=== PATIENT | male | born 1950 | race Caucasian/White ===

== ENCOUNTER → 2020-07-09 12:30 | Outpatient (BNVA) | payer MEDICARE, SELFPAY | PROVIDERS: PCP Internal Medicine; Visit Provider Family Medicine Adult Medicine | DX: M47.816 Spondylosis without myelopathy or radiculopathy, lumbar region (principal); M47.812 Spondylosis without myelopathy or radiculopathy, cervical region; M25.552 Pain in left hip; B02.29 Other postherpetic nervous system involvement; Z79.891 Long term (current) use of opiate analgesic | CPT/HCPCS: 99212 ==

== ENCOUNTER 2020-07-30 13:26 | Outpatient (REF) | payer MEDICARE, SELFPAY ==
[2020-07-30 14:24] LABS: Estimated Average Glucose 131 mg/dL; Hemoglobin A1c % 6.2 %
[2020-07-30 14:30] LABS: Cholesterol 178 mg/dL; HDL Cholesterol 51 mg/dL; LDL Cholesterol Calculated 103 mg/dl; Triglycerides 121 mg/dL
[2020-07-30 15:55] LABS: Creatinine Urine 57.63 mg/dL; Microalbumin Urine < 5.0 mg/L
== END 2020-07-30 13:27 | disposition home or self-care (01) ==
LOC: HO.LAB 13:26
PROVIDERS: PCP Internal Medicine; Visit Provider Internal Medicine
DX: E11.9 Type 2 diabetes mellitus without complications (principal)
CPT/HCPCS: 80061; 82043; 83036

== ENCOUNTER → 2020-10-08 13:43 | Outpatient (BNVA) | payer MEDICARE, SELFPAY | PROVIDERS: PCP Internal Medicine; Visit Provider Family Medicine Adult Medicine | DX: M47.812 Spondylosis without myelopathy or radiculopathy, cervical region (principal); M47.816 Spondylosis without myelopathy or radiculopathy, lumbar region; M25.552 Pain in left hip; B02.29 Other postherpetic nervous system involvement | CPT/HCPCS: 99212 ==

== ENCOUNTER 2020-11-16 10:39 | Outpatient (REF) | payer MEDICARE, SELFPAY ==
[2020-11-16 11:55] LABS: MANUAL DIFF FLAG NO
[2020-11-16 12:18] LABS: Basophils Percent Auto 0.4 % (0-2); Eosinophils Absolute Auto 0.3 X10*3/uL (0.0-0.4); Eosinophils Percent Auto 3.9 % (0-4); Hematocrit 38.9 % (42-52); Hemoglobin 13.1 g/dl (14.0-18.0); Imm Gran Abs Auto 0.02 X10*3/uL (0.00-0.03); Imm Gran Pct Auto 0.3 % (0.0-0.4); Lymphocytes Absolute Auto 1.6 X10*3/uL (1.2-4.9); Lymphocytes Percent Auto 19.4 % (20-40); Mean Corpuscular HGB Conc 33.7 g/dl (31.0-36.0); Mean Corpuscular Hemoglobin 30.9 pg (27.0-33.0); Mean Corpuscular Volume 91.7 fL (80-98); Monocytes Absolute Auto 0.8 X10*3/uL (0.1-1.2); Monocytes Percent Auto 9.9 % (2-11); Neutrophils Absolute Auto 5.3 X10*3/uL (2.0-8.3); Neutrophils Percent Auto 66.1 % (45-73); Platelet Count 221 X10*3/uL (160-400); Red Blood Count 4.24 X10*6/uL (4.60-5.80); Red Cell Distribution Width 12.7 % (11.0-16.0)
[2020-11-16 12:29] LABS: Estimated Average Glucose 126 mg/dL
[2020-11-16 12:48] LABS: Alanine Aminotransferase 21 U/L (0-40); Alkaline Phosphatase 81 U/L (39-117); Anion Gap 12 (12-20); Aspartate Amino Transferase 26 U/L (5-37); Bilirubin Total 0.6 mg/dL (0.0-1.0); Blood Urea Nitrogen 15 mg/dL (9-16); Calcium 8.7 mg/dL (8.4-10.2); Carbon Dioxide 29 mmol/L (22-29); Chloride 97 mmol/L (96-108); Estimated Glomerular Filt Rate > 60; Glucose Fasting 126 mg/dL (60-99); HDL Cholesterol 49 mg/dL; Potassium 4.4 mmol/L (3.3-5.1); Sodium 134 mmol/L (135-145); Total Protein 6.6 g/dL (6.5-8.0); Triglycerides 66 mg/dL
[2020-11-16 12:55] LABS: Cholesterol 165 mg/dL; LDL Cholesterol Calculated 103 mg/dl
== END 2020-11-16 10:40 | disposition home or self-care (01) ==
LOC: HO.LAB 10:39
PROVIDERS: PCP Internal Medicine; Visit Provider Internal Medicine
DX: Z00.00 Encounter for general adult medical examination without abnormal findings (principal); E11.9 Type 2 diabetes mellitus without complications
CPT/HCPCS: 36415; 80053; 80061; 83036; 85025

== ENCOUNTER → 2020-12-03 14:26 | Outpatient (BNVA) | payer MEDICARE, SELFPAY | PROVIDERS: PCP Internal Medicine; Visit Provider Family Medicine Adult Medicine | DX: M47.816 Spondylosis without myelopathy or radiculopathy, lumbar region (principal); M47.812 Spondylosis without myelopathy or radiculopathy, cervical region; M25.552 Pain in left hip; B02.29 Other postherpetic nervous system involvement | CPT/HCPCS: 99212 ==

== ENCOUNTER → 2021-01-02 14:06 | Outpatient (BNVA) | payer MEDICARE, SELFPAY | PROVIDERS: PCP Internal Medicine; Visit Provider Family Medicine Adult Medicine | DX: M47.812 Spondylosis without myelopathy or radiculopathy, cervical region (principal); M47.816 Spondylosis without myelopathy or radiculopathy, lumbar region | CPT/HCPCS: Q3014 ==

== ENCOUNTER → 2021-02-27 13:35 | Outpatient (BNVA) | payer MEDICARE, SELFPAY | PROVIDERS: PCP Internal Medicine; Visit Provider Family Medicine Adult Medicine | DX: M47.812 Spondylosis without myelopathy or radiculopathy, cervical region (principal); M47.816 Spondylosis without myelopathy or radiculopathy, lumbar region; M25.552 Pain in left hip; B02.29 Other postherpetic nervous system involvement | CPT/HCPCS: 99212 ==

== ENCOUNTER 2021-04-12 20:47 | Inpatient (IN) | payer MEDICARE, SELFPAY ==
--- NOTE | ~2021-04-12 | US_ITS ---
EXAMINATION: US VENOUS ULTRASOUND WITH DOPPLER LOWER EXTREMITY, RIGHT CLINICAL INFORMATION: Right lower extremity swelling. COMPARISON: Prior venous ultrasound examinations, most recently 06/29/2019. TECHNIQUE: Ultrasound of the deep veins is performed from the hip to the calf with compression sonography and color and pulse Doppler assessment. Spectral analysis with color-flow imaging is performed. FINDINGS: There is normal venous compression and respiratory variation and augmented flow. The visualized common femoral vein, superficial femoral vein, profunda femoral vein, popliteal vein, and the trifurcation region shows no evidence of deep venous thrombosis. There is no significant popliteal fossa cyst. A 5.1 x 1.1 x 3.0 cm right inguinal lymph node is seen, showing good corticomedullary differentiation. If the patient's symptoms persist, followup ultrasound in 5 days 7 days might be of value to exclude proximal propagation from a non-visualized calf vein. US/US venous duplex LE RT IMPRESSION: 1. No DVT demonstrated in the right lower extremity. 2. A pathologically enlarged right renal lymph node is nonspecific and should be managed on a clinical basis. Short-term follow-up ultrasound examination of the right inguinal region may be of use to ensure stability/regression.
--- NOTE | ~2021-04-12 | XR_ITS ---
EXAMINATION: XR CHEST CLINICAL INFORMATION: Cough. COMPARISON: None TECHNIQUE: Frontal view of the chest was obtained. FINDINGS: Mild patchy bibasilar probable atelectasis. No pleural effusion or pneumothorax. Unremarkable cardiomediastinal silhouette. XR/XR chest 1V IMPRESSION: Mild bibasilar probable atelectasis.
[2021-04-12 20:51] VITALS: BP 130/62; PULSE 122; RESP 20; TEMP 38.9; O2SAT 95; BMI 38.0
--- NOTE | 2021-04-12 21:00 | PC.NURSE ---
PT TO ROOM, CHG INTO GOWN AND ON MONITOR, FAMILY AT BEDSIDE WITH PT. LABS DRAWN TO LAB.
--- NOTE | 2021-04-12 21:08 | ECG_ITS ---
Test Reason : AMS Blood Pressure : / mmHG Vent. Rate : 114 BPM Atrial Rate : 114 BPM P-R Int : 196 ms QRS Dur : 082 ms QT Int : 324 ms P-R-T Axes : 051 -50 057 degrees QTc Int : 446 ms Sinus tachycardia with Premature supraventricular complexes Left axis deviation Anteroseptal infarct , age undetermined Abnormal ECG No previous ECGs available Referred By: Marsha Hodges Electronically Signed By:UGO GARRETT
[2021-04-12 21:29] LABS: Basophils Percent Auto 0.1 % (0-2); Eosinophils Percent Auto 0.1 % (0-4); Hematocrit 40.5 % (42-52); Hemoglobin 13.9 g/dl (14.0-18.0); Imm Gran Abs Auto 0.06 X10*3/uL (0.00-0.03); Imm Gran Pct Auto 0.4 % (0.0-0.4); Lymphocytes Absolute Auto 0.5 X10*3/uL (1.2-4.9); Lymphocytes Percent Auto 3.6 % (20-40); MANUAL DIFF FLAG SCAN; Mean Corpuscular HGB Conc 34.3 g/dl (31.0-36.0); Mean Corpuscular Hemoglobin 31.4 pg (27.0-33.0); Mean Corpuscular Volume 91.6 fL (80-98); Mean Platelet Volume 8.9 fL (9.4-12.4); Monocytes Absolute Auto 0.8 X10*3/uL (0.1-1.2); Monocytes Percent Auto 5.3 % (2-11); Neutrophils Absolute Auto 13.5 X10*3/uL (2.0-8.3); Neutrophils Percent Auto 90.5 % (45-73); Platelet Count 198 X10*3/uL (160-400); Red Blood Count 4.42 X10*6/uL (4.60-5.80); SCAN SMEAR FLAG 1; White Blood Count 14.9 X10*3/uL (4.8-10.8)
[2021-04-12] MEDS: Acetaminophen 325 MG TABLET 975 MG PO (21:33)
[2021-04-12] MEDS: Piperacillin Sodium/Tazobactam 3.375 GM in 0.9 % Sodium Chloride 50 ML IV (21:34)
--- NOTE | 2021-04-12 21:42 | ED_ITS ---
HPI - Neuro Symptoms/Deficit General Chief Complaint: Neuro Symptoms/Deficit Stated Complaint: confused, shaking Time Seen by Provider: 04/12/21 21:07 Source: patient and family () Mode of arrival: ambulatory History of Present Illness HPI Narrative: This is a 71-year-old male with longstanding history of diabetes, hypertension, chronic venous stasis with nonhealing lower extremity ulcers who is brought in by his family after he was noted to be somewhat confused and shaking at home at approximately 6:30 p.m.. Patient has received both COVID-19 vaccines with the last and December/2020. Otherwise, he denies any recent sore throat, new cough, nausea, vomiting, obstipation, diarrhea, or urinary symptoms. Related Data Home Medications Medication Instructions Recorded Confirmed multivitamin 1 tab PO DAILY 01/30/21 01/30/21 Previous Rx's Medication Instructions Recorded clotrimazole-betamethasone 1 1 applic TOPICAL BID #45 g 07/01/20 %-0.05 % topical cream pregabalin 150 mg capsule (Lyrica) 150 mg PO TID 90 Days #270 cap 07/11/20 metformin 500 mg tablet,extended 500 mg PO DAILY #90 tab 09/06/20 release 24 hr amlodipine 5 mg tablet 5 mg PO DAILY #90 tab 01/06/21 lisinopril 10 mg tablet 10 mg PO DAILY #90 tab 01/06/21 tramadol 50 mg tablet 50 mg PO Q6H 30 Days #120 tab 02/27/21 Allergies Allergy/AdvReac Type Severity Reaction Status Date / Time No Known Allergies Allergy Verified 02/27/21 13:54 Review of Systems Review of Systems: Pertinent positives and negatives as stated in HPI 10 point review of systems is otherwise negative. [facility] Past Medical History Source: nursing notes reviewed Medical History Arthritis of right hip Cervical spondylosis Diabetes mellitus Hypertension Lumbar spondylosis Pain of left hip Pneumococcal arthritis, right knee Post herpetic neuralgia Surgical History History of tonsillectomy Status post ablation of incompetent vein using laser Family History Family History Father Parkinson disease Mother No problems noted. Social History Social History Alcohol intake: current Alcohol intake frequency: 0-2 drinks per day Alcohol type: beer Patient Tobacco Use Status: Former Tobacco user Tobacco use type: Cigarette Years Smoked: 1978 Second Hand Smoke Exposure: No Advance Directives: No Advance Directives Information Provided: No Physical Exam Vital Signs: Vital Signs: Last Vital Signs Temp 102.1 F H 04/12/21 20:51 Pulse 122 H 04/12/21 20:51 Resp 20 04/12/21 20:51 BP 130/62 04/12/21 20:51 Pulse Ox 95 04/12/21 20:51 Body Mass Index 38.0 VITAL SIGNS: Reviewed. GENERAL: Well developed, well nourished, in no acute distress. HEAD: Normocephalic/atraumatic EYES: PERRLA, EOMI EARS: Ext canals without abnormality, TMs non-bulging and non-erythematous NOSE: Nares patent bilateral OROPHARYNX: no oral lesions noted, posterior pharynx clear NECK: Supple, no adenopathy LUNGS: Normal breath sounds. No adventitious sounds or accessory muscle use. SpO2<95> CARDIOVASCULAR: Regular rate and rhythm without noted murmurs, no JVD but bilateral lower extremity pitting edema-1+ ABDOMEN: Obese, Soft, non-tender, non-distended with bowel sounds, noted umbilical hernia with very mild/chronic overlying skin changes but nontender MUSCULOSKELETAL: No tenderness, deformities, or effusions noted on gross inspection. EXTREMITIES: No cyanosis, stigmata of chronic venous stasis with skin thickening and shininess, but noted warmth and redness to the right lower extremity with an open ulceration that is draining on the posterior lateral aspect SKIN: Inspection of the skin reveals no rashes, ulcerations, jaundice, pallor, or petechiae. NEUROLOGIC: Alert and oriented x 3. Tremulous, nonfocal, strength and sensation to light touch were grossly intact x 4. Course Course Course Narrative: 71-year-old male with history and clinical presentation consistent with sepsis and suspect secondary to right lower extremity as on clinical exam and history there does not appear to be an alternative source but will rule out pulmonary as etiology. Review of all investigations consistent with sepsis related cellulitis and patient received antibiotics, IV fluids, lactic acid and blood cultures. Discussed the case with inpatient hospitalist who accepts admission. MDM - Neuro Symptoms/Deficit Lab Data Result diagrams: 04/12/21 21:21 04/12/21 21:21 Labs: Lab Results 04/12/21 04/12/21 04/12/21 Range/Units 21:16 21:20 21:20 WBC (4.8-10.8) X10*3/uL RBC (4.60-5.80) X10*6/uL Hgb (14.0-18.0) g/dl Hct (42-52) % MCV (80-98) fL MCH (27.0-33.0) pg MCHC (31.0-36.0) g/dl RDW (11.0-16.0) % Plt Count (160-400) X10*3/uL MPV (9.4-12.4) fL Immature Gran % (Auto) (0.0-0.4) % Neut % (Auto) (45-73) % Lymph % (Auto) (20-40) % [place] % (Auto) (2-11) % Eos % (Auto) (0-4) % Baso % (Auto) (0-2) % Lymph # (Auto) (1.2-4.9) X10*3/uL [place] # (Auto) (0.1-1.2) X10*3/uL Eos # (Auto) (0.0-0.4) X10*3/uL Baso # (Auto) (0.0-0.2) X10*3/uL Abs Immat Gran (auto) (0.00-0.03) X10*3/uL Absolute Neuts (auto) (2.0-8.3) X10*3/uL Absolute Nucleated RBC (0.0-0.012) X10*3/uL Nucleated RBC % (auto) (0.0-0.2) /100WBC Smear Tech's Comments PT (9.9-13.0) SEC INR (0.9-1.1) Sodium (135-145) mmol/L Potassium (3.3-5.1) mmol/L Chloride (96-108) mmol/L Carbon Dioxide (22-29) mmol/L Anion Gap (12-20) BUN (9-16) mg/dL Creatinine (0.5-1.4) mg/dL Estim Creat Clear Calc Estimated GFR POC Glucose (60-115) mg/dL Random Glucose (60-115) mg/dL Lactic Acid 2.9 H* (0.5-2.0) mmol/L Calcium (8.4-10.2) mg/dL Magnesium (1.6-2.6) mg/dL Total Bilirubin (0.0-1.0) mg/dL AST (5-37) U/L ALT (0-40) U/L Alkaline Phosphatase (39-117) U/L B-Natriuretic Peptide 21 (<100) pg/mL Total Protein (6.5-8.0) g/dL Albumin (3.5-5.0) g/dL Lipase (8-78) U/L Urine Color Urine Appearance Urine pH (5.0-8.0) Ur Specific [place] (1.005-1.025) Urine Protein (NEG-TRACE) MG/DL Urine Glucose (UA) (NEG) MG/DL Urine Ketones (NEG) MG/DL Urine Blood (NEG) Urine Nitrite (NEG) Ur Leukocyte Esterase (NEG) COVID-19 ([facility]) Negative (Negative) COVID-19 Clin Com See Note 04/12/21 04/12/21 04/12/21 Range/Units 21:21 21:21 21:21 WBC 14.9 H (4.8-10.8) X10*3/uL RBC 4.42 L (4.60-5.80) X10*6/uL Hgb 13.9 L (14.0-18.0) g/dl Hct 40.5 L (42-52) % MCV 91.6 (80-98) fL MCH 31.4 (27.0-33.0) pg MCHC 34.3 (31.0-36.0) g/dl RDW 13.0 (11.0-16.0) % Plt Count 198 (160-400) X10*3/uL MPV 8.9 L (9.4-12.4) fL Immature Gran % (Auto) 0.4 (0.0-0.4) % Neut % (Auto) 90.5 H (45-73) % Lymph % (Auto) 3.6 L (20-40) % [place] % (Auto) 5.3 (2-11) % Eos % (Auto) 0.1 (0-4) % Baso % (Auto) 0.1 (0-2) % Lymph # (Auto) 0.5 L (1.2-4.9) X10*3/uL [place] # (Auto) 0.8 (0.1-1.2) X10*3/uL Eos # (Auto) 0.0 (0.0-0.4) X10*3/uL Baso # (Auto) 0.0 (0.0-0.2) X10*3/uL Abs Immat Gran (auto) 0.06 H (0.00-0.03) X10*3/uL Absolute Neuts (auto) 13.5 H (2.0-8.3) X10*3/uL Absolute Nucleated RBC 0.000 (0.0-0.012) X10*3/uL Nucleated RBC % (auto) 0.0 (0.0-0.2) /100WBC Smear Tech's Comments VERIFIED PT 11.9 (9.9-13.0) SEC INR 1.0 (0.9-1.1) Sodium 133 L (135-145) mmol/L Potassium 4.2 (3.3-5.1) mmol/L Chloride 97 (96-108) mmol/L Carbon Dioxide 26 (22-29) mmol/L Anion Gap 14 (12-20) BUN 12 (9-16) mg/dL Creatinine 0.87 (0.5-1.4) mg/dL Estim Creat Clear Calc 101.2 Estimated GFR > 60 POC Glucose (60-115) mg/dL Random Glucose 127 H (60-115) mg/dL Lactic Acid (0.5-2.0) mmol/L Calcium 9.2 (8.4-10.2) mg/dL Magnesium 1.7 (1.6-2.6) mg/dL Total Bilirubin 1.1 H (0.0-1.0) mg/dL AST 19 (5-37) U/L ALT 20 (0-40) U/L Alkaline Phosphatase 82 (39-117) U/L B-Natriuretic Peptide (<100) pg/mL Total Protein 6.7 (6.5-8.0) g/dL Albumin 4.0 (3.5-5.0) g/dL Lipase 72 (8-78) U/L Urine Color Urine Appearance Urine pH (5.0-8.0) Ur Specific [place] (1.005-1.025) Urine Protein (NEG-TRACE) MG/DL Urine Glucose (UA) (NEG) MG/DL Urine Ketones (NEG) MG/DL Urine Blood (NEG) Urine Nitrite (NEG) Ur Leukocyte Esterase (NEG) COVID-19 ([facility]) (Negative) COVID-19 Clin Com 04/12/21 04/12/21 Range/Units 21:33 22:08 WBC (4.8-10.8) X10*3/uL RBC (4.60-5.80) X10*6/uL Hgb (14.0-18.0) g/dl Hct (42-52) % MCV (80-98) fL MCH (27.0-33.0) pg MCHC (31.0-36.0) g/dl RDW (11.0-16.0) % Plt Count (160-400) X10*3/uL MPV (9.4-12.4) fL Immature Gran % (Auto) (0.0-0.4) % Neut % (Auto) (45-73) % Lymph % (Auto) (20-40) % [place] % (Auto) (2-11) % Eos % (Auto) (0-4) % Baso % (Auto) (0-2) % Lymph # (Auto) (1.2-4.9) X10*3/uL [place] # (Auto) (0.1-1.2) X10*3/uL Eos # (Auto) (0.0-0.4) X10*3/uL Baso # (Auto) (0.0-0.2) X10*3/uL Abs Immat Gran (auto) (0.00-0.03) X10*3/uL Absolute Neuts (auto) (2.0-8.3) X10*3/uL Absolute Nucleated RBC (0.0-0.012) X10*3/uL Nucleated RBC % (auto) (0.0-0.2) /100WBC Smear Tech's Comments PT (9.9-13.0) SEC INR (0.9-1.1) Sodium (135-145) mmol/L Potassium (3.3-5.1) mmol/L Chloride (96-108) mmol/L Carbon Dioxide (22-29) mmol/L Anion Gap (12-20) BUN (9-16) mg/dL Creatinine (0.5-1.4) mg/dL Estim Creat Clear Calc Estimated GFR POC Glucose 132 H (60-115) mg/dL Random Glucose (60-115) mg/dL Lactic Acid (0.5-2.0) mmol/L Calcium (8.4-10.2) mg/dL Magnesium (1.6-2.6) mg/dL Total Bilirubin (0.0-1.0) mg/dL AST (5-37) U/L ALT (0-40) U/L Alkaline Phosphatase (39-117) U/L B-Natriuretic Peptide (<100) pg/mL Total Protein (6.5-8.0) g/dL Albumin (3.5-5.0) g/dL Lipase (8-78) U/L Urine Color DARK YELLOW Urine Appearance CLEAR Urine pH 6.0 (5.0-8.0) Ur Specific [place] 1.010 (1.005-1.025) Urine Protein NEG (NEG-TRACE) MG/DL Urine Glucose (UA) NEG (NEG) MG/DL Urine Ketones 5 (NEG) MG/DL Urine Blood NEG (NEG) Urine Nitrite NEG (NEG) Ur Leukocyte Esterase NEG (NEG) COVID-19 ([facility]) (Negative) COVID-19 Clin Com Discharge Plan Discharge Clinical Impression: Sepsis, Cellulitis Patient Disposition: Admitted As Inpatient Prescriptions: No Action clotrimazole-betamethasone 1-0.05 % cream 1 applic topical BID Qty: 45 RF: 8 metformin 500 mg tablet extended release 24 hr 500 mg PO DAILY Qty: 90 RF: 8 lisinopril 10 mg tablet 10 mg PO DAILY Qty: 90 RF: 1 amlodipine 5 mg tablet 5 mg PO DAILY Qty: 90 RF: 1 multivitamin Tablet 1 tab PO DAILY RF: 0 tramadol 50 mg tablet 50 mg PO Q6H 30 Days Qty: 120 RF: 1 pregabalin [Lyrica] 150 mg capsule 150 mg PO TID 90 Days Qty: 270 RF: 1
[2021-04-12 21:43] LABS: Glucose, Whole Blood 132 mg/dL (60-115)
[2021-04-12 21:43] LABS: Prothrombin Time 11.9 SEC (9.9-13.0)
[2021-04-12 21:48] LABS: SLIDE REVIEW VERIFIED
[2021-04-12 21:59] LABS: Lactic Acid 2.9 mmol/L (0.5-2.0)
[2021-04-12 21:59] LABS: Alanine Aminotransferase 20 U/L (0-40); Alkaline Phosphatase 82 U/L (39-117); Anion Gap 14 (12-20); Aspartate Amino Transferase 19 U/L (5-37); Bilirubin Total 1.1 mg/dL (0.0-1.0); Blood Urea Nitrogen 12 mg/dL (9-16); Calcium 9.2 mg/dL (8.4-10.2); Carbon Dioxide 26 mmol/L (22-29); Chloride 97 mmol/L (96-108); Creatinine Clr Calc Pharmacy 101.2; Estimated Glomerular Filt Rate > 60; Glucose Random 127 mg/dL (60-115); Lipase 72 U/L (8-78); Magnesium 1.7 mg/dL (1.6-2.6); Potassium 4.2 mmol/L (3.3-5.1); Sodium 133 mmol/L (135-145); Total Protein 6.7 g/dL (6.5-8.0)
[2021-04-12 22:20] LABS: Glucose Urine UA NEG (NEG); Leukocyte Esterase Urine NEG (NEG); Nitrite Urine NEG (NEG); Urine Blood NEG (NEG); Urine Ketones 5 MG/DL (NEG); Urine Protein NEG (NEG-TRACE)
[2021-04-12 22:21] LABS: COVID-19 Test Negative (Negative); IDNOW Serial# 9DD0AD1C
[2021-04-12 22:21] LABS: Appearance Urine CLEAR; Color Urine DARK YELLOW
[2021-04-12 22:33] LABS: B Type Natriuretic Peptide 21 pg/mL (<100)
--- NOTE | 2021-04-12 23:22 | PM.IMHP ---
History of Present Illness Date of Service: 04/12/21 Chief Complaint: shaky, dizziness This is a 71-year-old male with past medical history of chronic hip pain who presents to the hospital with complaints of feeling shaky, dizzy, and overall not feeling well. He reports that his symptoms started this afternoon, reports no fever or chills, denies any abdominal pain nausea or vomiting, no chest pain, no shortness of breath, no cough, no urinary symptoms. He reports that he has an open wound that he has been trying to heal for the past year that has been having drainage that is more thick and pus inconsistency and did notice redness in his right lower extremity that was worse than usual. On arrival vitals are significant for Temp of 102.1?, heart rate of 122, respiratory rate of 20, blood pressure 130/62, satting 95% on room air. Patient blood pressure did drop while he was in the ED and received sepsis fluid. Labs are significant for WBC count of 14.9, hemoglobin of 13.9, sodium of 133, lactic acid of 2.9, UA negative, COVID-19 negative Patient will be admitted for further management Review of Systems Review of Systems: Yes all other systems are reviewed and are negative [facility] Medical History Arthritis of right hip Cervical spondylosis Diabetes mellitus Hypertension Lumbar spondylosis Pain of left hip Pneumococcal arthritis, right knee Post herpetic neuralgia Family History Father Parkinson disease Mother No problems noted. Surgical History History of tonsillectomy Status post ablation of incompetent vein using laser Social History Household Members: Spouse Housing: House Do you presently have visiting nurse or other home services: No Alcohol intake: current Alcohol intake frequency: 0-2 drinks per day Alcohol type: beer Patient Tobacco Use Status: Former Tobacco user Tobacco use type: Cigarette Years Smoked: 1979 Smoked in Last 30 Days: No e-Cigarette/Vaping Use: Never Used Second Hand Smoke Exposure: No Use of substances other than those prescribed or required for medical reasons: No Currently Displaying Signs/Symptoms of Drug Intoxication Withdrawal: No Have you been hit, kicked, punched, or otherwise hurt by someone within the past year? If so, by whom?: No Do you feel safe in your current relationship?: Yes Is there a partner from a previous relationship who is making you feel unsafe now?: No Are you made to feel afraid or neglected: No Advance Directives: No Advance Directives Information Provided: No Do you have thoughts of harming others: None Do you have a plan to hurt others: No Plan Recently lost weight without trying: No Meds Allergies Allergy/AdvReac Type Severity Reaction Status Date / Time No Known Allergies Allergy Verified 02/27/21 13:54 Active Medications: Current Medications Generic Name Dose Route Start Last Admin Trade Name Freq PRN Reason Stop Dose Admin Sodium Chloride 2,190 mls @ 2,190 mls/hr 04/12/21 23:09 Ns IVCONT 04/13/21 00:08 .Q1H ONE Home Medications Medication Instructions Recorded Confirmed Last Taken Type multivitamin 1 tab PO DAILY 01/30/21 04/13/21 Unknown History Physical Exam Vital Signs and Narrative: Vital Signs: Last Vital Signs Temp 102.1 F H 04/12/21 20:51 Pulse 122 H 04/12/21 20:51 Resp 20 04/12/21 20:51 BP 130/62 04/12/21 20:51 Pulse Ox 95 04/12/21 20:51 Body Mass Index 38.0 Const: General: cooperative and no acute distress Orientation/consciousness: patient oriented x3 Eyes: General: appearance normal, both eyes and all related structures Resp: Effort & Inspection: normal respiratory effort and able to speak in complete sentences Auscultation: clear to auscultation bilaterally Cardio: Rate: regular rate Rhythm: regular rhythm GI: Palpation (GI): Soft to palpation Auscultation: normal bowel sounds Skin: Other: Bilateral erythema, warmth, aunt edema of lower extremities worse on the right, has an open wound S about 5 cm on the right lower extremity in the lateral aspect of lower like. No pus, no drainage, Neuro: General: patient oriented x3 Cognition (Neuro): normal cognition Extrem: Other: See skin Results Labs CBC and Chem 7: 04/13/21 02:06 04/13/21 02:06 Labs: Laboratory Results - last 24 hr 0804/12/21 04/12/21 21:16 21:20 21:20 MCV MCH MCHC RDW Plt Count MPV Immature Gran % (Auto) Neut % (Auto) Lymph % (Auto) [place] % (Auto) Eos % (Auto) Baso % (Auto) Lymph # (Auto) [place] # (Auto) Eos # (Auto) Baso # (Auto) Abs Immat Gran (auto) Absolute Neuts (auto) Absolute Nucleated RBC Nucleated RBC % (auto) Smear Tech's Comments PT INR Anion Gap Estim Creat Clear Calc Estimated GFR POC Glucose Random Glucose Lactic Acid 2.9 H* Calcium Magnesium Total Bilirubin AST ALT Alkaline Phosphatase B-Natriuretic Peptide 21 Total Protein Albumin Lipase Urine Color Urine Appearance Urine pH Ur Specific [place] Urine Protein Urine Glucose (UA) Urine Ketones Urine Blood Urine Nitrite Ur Leukocyte Esterase COVID-19 ([facility]) Negative COVID-19 Clin Com See Note 04/12/21 04/12/21 04/12/21 21:21 21:21 21:21 MCV 91.6 MCH 31.4 MCHC 34.3 RDW 13.0 Plt Count 198 MPV 8.9 L Immature Gran % (Auto) 0.4 Neut % (Auto) 90.5 H Lymph % (Auto) 3.6 L [place] % (Auto) 5.3 Eos % (Auto) 0.1 Baso % (Auto) 0.1 Lymph # (Auto) 0.5 L [place] # (Auto) 0.8 Eos # (Auto) 0.0 Baso # (Auto) 0.0 Abs Immat Gran (auto) 0.06 H Absolute Neuts (auto) 13.5 H Absolute Nucleated RBC 0.000 Nucleated RBC % (auto) 0.0 Smear Tech's Comments VERIFIED PT 11.9 INR 1.0 Anion Gap 14 Estim Creat Clear Calc 101.2 Estimated GFR > 60 POC Glucose Random Glucose 127 H Lactic Acid Calcium 9.2 Magnesium 1.7 Total Bilirubin 1.1 H AST 19 ALT 20 Alkaline Phosphatase 82 B-Natriuretic Peptide Total Protein 6.7 Albumin 4.0 Lipase 72 Urine Color Urine Appearance Urine pH Ur Specific [place] Urine Protein Urine Glucose (UA) Urine Ketones Urine Blood Urine Nitrite Ur Leukocyte Esterase COVID-19 ([facility]) COVID-[facility] Clin Com 04/12/21 04/12/21 21:33 22:08 MCV MCH MCHC RDW Plt Count MPV Immature Gran % (Auto) Neut % (Auto) Lymph % (Auto) [place] % (Auto) Eos % (Auto) Baso % (Auto) Lymph # (Auto) [place] # (Auto) Eos # (Auto) Baso # (Auto) Abs Immat Gran (auto) Absolute Neuts (auto) Absolute Nucleated RBC Nucleated RBC % (auto) Smear Tech's Comments PT INR Anion Gap Estim Creat Clear Calc Estimated GFR POC Glucose 132 H Random Glucose Lactic Acid Calcium Magnesium Total Bilirubin AST ALT Alkaline Phosphatase B-Natriuretic Peptide Total Protein Albumin Lipase Urine Color DARK YELLOW Urine Appearance CLEAR Urine pH 6.0 Ur Specific [place] 1.010 Urine Protein NEG Urine Glucose (UA) NEG Urine Ketones 5 Urine Blood NEG Urine Nitrite NEG Ur Leukocyte Esterase NEG COVID-19 ([facility]) COVID-19 Clin Com Imaging Radiologist's Impressions: Impressions Chest X-Ray 04/12/21 21:08 IMPRESSION: Mild bibasilar probable atelectasis. Assessment and Plan (1) Sepsis: Status: Acute (2) Cellulitis: Status: Acute (3) Lactic acidosis: Status: Acute This is a 71-year-old male with past medical history of diabetes who presents to the hospital with feeling unwell found to have sepsis # sepsis - secondary to cellulitis - chest x-ray negative, negative UA - has tachycardia, febrile, leukocytosis, hypotension, lactic acid elevation - received sepsis fluid, - given his open wound on the lateral aspect of right lower extremity will start him on vancomycin - follow cultures # cellulitis - right lower extremity - has warmth, erythema, edema, - will start him on IV antibiotics - follow cultures # lactic acidosis - Secondary to sepsis - IV fluids - trend # diabetes - hold oral anti hyperglycemics, - start low-dose sliding scale insulin - diabetic diet # history of chronic pain - continue pregabalin and tramadol DVT prophylaxis: Benaissancenox Quality Stroke Does the patient have a stroke diagnosis?: No VTE Prior VTE?: No VTE Risk Level:: Medical - moderate - high VTE Device Contraindication: Treatment Not Indicated VTE Drug Contraindication: N/A - Med Ordered
[2021-04-12 23:25] LABS: Reflex Lactate? Lactic Acid Added
[2021-04-13] VITALS (13 sets, daily range): BP systolic 74–174; BP diastolic 43–79; PULSE 69–95; RESP 15–20; TEMP 36.4–37.3; O2SAT 96–99
[2021-04-13 00:17] LABS: ~Lactic Acid-LAB USE ONLY 2.5 mmol/L (0.5-2.0)
--- NOTE | 2021-04-13 00:18 | PC.NURSE ---
Lactic 2.5 Hospitalist (Kae) notified
[2021-04-13] MEDS: 0.9 % Sodium Chloride 2,190 ML 2190 ML IVCONT (00:47)
--- NOTE | 2021-04-13 00:58 | PC.NURSE ---
This RN assisting primary RN. Pt resting on stretcher in NAD, breathing with ease on RA. Pt denies pain/discomfort, aaox4, mentating appropriately. Pt medicated by this RN with sepsis fluid bolus. Pt BP 74/47, this RN TT Dr Boyd to notify her. This RN placed 2L of NS on pressure bags. Pt tolerating fluid boluses well. Pt's leaving bedside at this time, taking pt's clothing and shoes home leaving pt with only his glasses and cane for admission. Pt offers no complaints at this time. Kathrine, primary RN made aware of pt's VS and intervention of pressure bags. Stretcher low locked, rails raised, call siu within reach.
[2021-04-13] MEDS: vancomycin HCL 1,000 MG, vancomycin HCL 750 MG in 0.9 % Sodium Chloride 500 ML 267.5 MG IV (01:16)
[2021-04-13] MEDS: Enoxaparin Sodium 40 MG/0.4 ML SYRINGE SUBCUT ×2 (01:17→21:45)
[2021-04-13 01:45] LABS: Reflex Lactate? 2 Y
--- NOTE | 2021-04-13 01:45 | PC.NURSE ---
sepsis bolus complete, BP 111/55 at this time.
[2021-04-13] MEDS: 0.9 % Sodium Chloride 1,000 ML 100 ML IVCONT ×2 (01:46→08:43)
--- NOTE | 2021-04-13 01:50 | PC.NURSE ---
FLOOR UNABLE TO TAKE REPORT, WILL RETURN CALL.
[2021-04-13] MEDS: Lactated Ringers 1,000 ML 999 ML IV (02:00)
[2021-04-13 02:17] LABS: Basophils Percent Auto 0.1 % (0-2); Hematocrit 36.5 % (42-52); Hemoglobin 12.5 g/dl (14.0-18.0); Imm Gran Abs Auto 0.14 X10*3/uL (0.00-0.03); Imm Gran Pct Auto 0.6 % (0.0-0.4); Lymphocytes Absolute Auto 0.9 X10*3/uL (1.2-4.9); Lymphocytes Percent Auto 4.3 % (20-40); MANUAL DIFF FLAG SCAN; Mean Corpuscular HGB Conc 34.2 g/dl (31.0-36.0); Mean Corpuscular Hemoglobin 32.1 pg (27.0-33.0); Mean Corpuscular Volume 93.8 fL (80-98); Monocytes Absolute Auto 1.6 X10*3/uL (0.1-1.2); Monocytes Percent Auto 7.1 % (2-11); Neutrophils Absolute Auto 19.3 X10*3/uL (2.0-8.3); Neutrophils Percent Auto 87.9 % (45-73); Platelet Count 176 X10*3/uL (160-400); Red Blood Count 3.89 X10*6/uL (4.60-5.80); Red Cell Distribution Width 13.2 % (11.0-16.0); SCAN SMEAR FLAG 1; White Blood Count 21.9 X10*3/uL (4.8-10.8)
--- NOTE | 2021-04-13 02:20 | PC.NURSE ---
FLOOR UNABLE TO TAKE REPORT AT THIS TIME, WILL RETURN CALL.
--- NOTE | 2021-04-13 02:23 | PC.NURSE ---
UNABLE TO GIVE REPORT TO FLOOR. NURSE WILL RETURN CALL.
--- NOTE | 2021-04-13 02:38 | PC.NURSE ---
REPORT GIVEN TO LOU NAVAS. PT TO FLOOR ON STRETCHER IN NAD.
[2021-04-13 02:42] LABS: ~Lactic Acid-LAB USE ONLY 2.3 mmol/L (0.5-2.0)
[2021-04-13 02:46] LABS: Anion Gap 13 (12-20); Blood Urea Nitrogen 13 mg/dL (9-16); Calcium 8.2 mg/dL (8.4-10.2); Carbon Dioxide 27 mmol/L (22-29); Chloride 99 mmol/L (96-108); Creatinine Clr Calc Pharmacy 92.6; Estimated Glomerular Filt Rate > 60; Glucose Random 121 mg/dL (60-115); Potassium 4.3 mmol/L (3.3-5.1); Sodium 135 mmol/L (135-145)
[2021-04-13 07:27] LABS: Glucose, Whole Blood 90 mg/dL (60-115)
[2021-04-13] MEDS: Piperacillin Sodium/Tazobactam 3.375 GM in 0.9 % Sodium Chloride 50 ML IV ×3 (08:43→19:37)
[2021-04-13 11:25] LABS: Glucose, Whole Blood 150 mg/dL (60-115)
[2021-04-13] MEDS: vancomycin HCL 1,000 MG in 0.9 % Sodium Chloride 250 ML 270 MG IV (13:16)
--- NOTE | 2021-04-13 14:48 | HO.PM.IMPN ---
Subjective Subjective Date of Service: 04/13/21 Interval History: Offers no acute complaints, no shakiness no fevers, no acute issues since admission. Review of Systems General no headache, no dizziness, no fever chills. CVS no chest pain, no palpitation. Respiratory no cough , no sob. Gastrointestinal no nausea no vomiting, no abdominal pain Physical Exam Vital Signs: Vital Signs: Last Vital Signs Temp 97.5 F 04/13/21 11:16 Pulse 86 04/13/21 11:16 Resp 18 04/13/21 11:16 BP 141/64 H 04/13/21 11:16 Pulse Ox 98 04/13/21 11:16 Body Mass Index 38.0 General resting comfortably in no acute distress. Neck no JVD. CVS regular rate rhythm, Respiratory lungs clear to auscultation, no respiratory distress, no wheeze, no rhonchi. Gastrointestinal abdomen obese, soft, nontender, bowel sounds audible,no guarding , no rigidity. Extremities bilateral nonpitting edema, and hyperemia , no warmth, dime-size open area with yellow slough lateral margin right leg Neuro nonfocal , speech clear. Psych appropriate affect Objective Data Current Medications Generic Name Dose Route Start Last Admin Trade Name Freq PRN Reason Stop Dose Admin Acetaminophen 650 mg 04/13/21 00:10 Acetaminophen 325 Mg Tablet PO Q6H PRN Pain, Mild (Pain Scale 1-3) Amlodipine Besylate 5 mg 04/14/21 09:00 Amlodipine Besylate 5 Mg Tablet PO DAILY MARGARET Protocol Dextrose 25 gm 04/13/21 00:10 Dextrose 50 % 25 Gm/50 Ml Vial IVPUSH Q15M PRN per Hypoglycemia Standing Ord. Protocol Docusate Sodium 100 mg 04/13/21 00:10 Docusate Sodium 100 Mg Capsule PO DAILY PRN Constipation Enoxaparin Sodium 40 mg 04/13/21 22:00 Enoxaparin Sodium 40 Mg/0.4 Ml Syringe SUBCUT Q24H MARGARET Glucose 15 gm 04/13/21 00:10 Glucose Gel 15 Gm Gel..Gram. PO Q15M PRN per Hypoglycemia Standing Ord. Protocol Sodium Chloride 1,000 mls @ 100 mls/hr 04/13/21 00:10 04/13/21 08:43 Ns IVCONT 100 mls/hr .Q10H MARGARET Administration Vancomycin HCl 1,000 mg/ 270 mls @ 270 mls/hr 04/13/21 13:00 04/13/21 14:16 Sodium Chloride IV Infused Q12H [facility] Infusion Piperacillin Sod/Tazobactam 50 mls @ 100 mls/hr 04/13/21 08:00 04/13/21 09:13 Sod 3.375 gm/ Sodium Chloride IV Infused Q6H [facility] Infusion Insulin Human Lispro 0 unit 04/13/21 07:30 04/13/21 11:30 Insulin Lispro 100 Unit/Ml 3 Ml Vial SUBCUT Not Given QIDACHS [facility] Protocol Multivitamins/Vitamin C 1 tab 04/14/21 09:00 Multivitamin Tablet PO DAILY [facility] Ondansetron HCl 4 mg 04/13/21 00:10 Ondansetron Hcl 4 Mg/2 Ml Vial IVPUSH Q8H PRN Nausea and Vomiting Pharmacy Consult 1 each 04/13/21 00:10 Consult Rx Vancomycin Dosing MISCELLANE DAILY PRN Consult order Pregabalin 150 mg 04/13/21 15:00 Pregabalin 150 Mg Capsule PO TID [facility] Sodium Chloride 3 ml 04/13/21 00:10 04/13/21 08:39 0.9 % Sodium Chloride Flush 3 Ml Syringe IVFLUSH Not Given QSHIFT [facility] Tramadol HCl 50 mg 04/13/21 14:45 Tramadol Hcl 50 Mg Tablet PO Q6H [facility] Labs CBC & Chem 7: 04/13/21 02:06 04/13/21 02:06 Labs: Laboratory Results - last 24 hr 04/12/21 04/12/21 04/12/21 21:16 21:20 21:20 MCV MCH MCHC RDW Plt Count MPV Immature Gran % (Auto) Neut % (Auto) Lymph % (Auto) [place] % (Auto) Eos % (Auto) Baso % (Auto) Lymph # (Auto) [place] # (Auto) Eos # (Auto) Baso # (Auto) Abs Immat Gran (auto) Absolute Neuts (auto) Absolute Nucleated RBC Nucleated RBC % (auto) Smear Tech's Comments PT INR Anion Gap Estim Creat Clear Calc Estimated GFR POC Glucose Random Glucose Lactic Acid 2.9 H* Lactic Acid Fup @ 2Hr Lactic Acid Fup @ 4Hr Calcium Magnesium Total Bilirubin AST ALT Alkaline Phosphatase B-Natriuretic Peptide 21 Total Protein Albumin Lipase Urine Color Urine Appearance Urine pH Ur Specific [place] Urine Protein Urine Glucose (UA) Urine Ketones Urine Blood Urine Nitrite Ur Leukocyte Esterase COVID-19 ([facility]) Negative COVID-19 Clin Com See Note 04/12/21 04/12/21 04/12/21 21:21 21:21 21:21 MCV 91.6 MCH 31.4 MCHC 34.3 RDW 13.0 Plt Count 198 MPV 8.9 L Immature Gran % (Auto) 0.4 Neut % (Auto) 90.5 H Lymph % (Auto) 3.6 L [place] % (Auto) 5.3 Eos % (Auto) 0.1 Baso % (Auto) 0.1 Lymph # (Auto) 0.5 L [place] # (Auto) 0.8 Eos # (Auto) 0.0 Baso # (Auto) 0.0 Abs Immat Gran (auto) 0.06 H Absolute Neuts (auto) 13.5 H Absolute Nucleated RBC 0.000 Nucleated RBC % (auto) 0.0 Smear Tech's Comments VERIFIED PT 11.9 INR 1.0 Anion Gap 14 Estim Creat Clear Calc 101.2 Estimated GFR > 60 POC Glucose Random Glucose 127 H Lactic Acid Lactic Acid Fup @ 2Hr Lactic Acid Fup @ 4Hr Calcium 9.2 Magnesium 1.7 Total Bilirubin 1.1 H AST 19 ALT 20 Alkaline Phosphatase 82 B-Natriuretic Peptide Total Protein 6.7 Albumin 4.0 Lipase 72 Urine Color Urine Appearance Urine pH Ur Specific [place] Urine Protein Urine Glucose (UA) Urine Ketones Urine Blood Urine Nitrite Ur Leukocyte Esterase COVID-19 ([facility]) COVID-19 Clin Com 04/12/21 04/12/21 04/12/21 21:33 22:08 23:41 MCV MCH MCHC RDW Plt Count MPV Immature Gran % (Auto) Neut % (Auto) Lymph % (Auto) [place] % (Auto) Eos % (Auto) Baso % (Auto) Lymph # (Auto) [place] # (Auto) Eos # (Auto) Baso # (Auto) Abs Immat Gran (auto) Absolute Neuts (auto) Absolute Nucleated RBC Nucleated RBC % (auto) Smear Tech's Comments PT INR Anion Gap Estim Creat Clear Calc Estimated GFR POC Glucose 132 H Random Glucose Lactic Acid Lactic Acid Fup @ 2Hr 2.5 H* Lactic Acid Fup @ 4Hr Calcium Magnesium Total Bilirubin AST ALT Alkaline Phosphatase B-Natriuretic Peptide Total Protein Albumin Lipase Urine Color DARK YELLOW Urine Appearance CLEAR Urine pH 6.0 Ur Specific [place] 1.010 Urine Protein NEG Urine Glucose (UA) NEG Urine Ketones 5 Urine Blood NEG Urine Nitrite NEG Ur Leukocyte Esterase NEG COVID-19 ([facility]) COVID-19 [facility] Com 04/13/21 04/13/21 04/13/21 02:06 02:06 02:06 MCV 93.8 MCH 32.1 MCHC 34.2 RDW 13.2 Plt Count 176 MPV 9.0 L Immature Gran % (Auto) 0.6 H Neut % (Auto) 87.9 H Lymph % (Auto) 4.3 L [place] % (Auto) 7.1 Eos % (Auto) 0.0 Baso % (Auto) 0.1 Lymph # (Auto) 0.9 L [place] # (Auto) 1.6 H Eos # (Auto) 0.0 Baso # (Auto) 0.0 Abs Immat Gran (auto) 0.14 H Absolute Neuts (auto) 19.3 H Absolute Nucleated RBC 0.000 Nucleated RBC % (auto) 0.0 Smear Tech's Comments PT INR Anion Gap 13 Estim Creat Clear Calc 92.6 Estimated GFR > 60 POC Glucose Random Glucose 121 H Lactic Acid Lactic Acid Fup @ 2Hr Lactic Acid Fup @ 4Hr 2.3 H* Calcium 8.2 L D Magnesium Total Bilirubin AST ALT Alkaline Phosphatase B-Natriuretic Peptide Total Protein Albumin Lipase Urine Color Urine Appearance Urine pH Ur Specific [place] Urine Protein Urine Glucose (UA) Urine Ketones Urine Blood Urine Nitrite Ur Leukocyte Esterase COVID-19 ([facility]) COVID-19 [facility] Com 04/13/21 04/13/21 04/13/21 02:06 07:14 11:19 MCV MCH MCHC RDW Plt Count MPV Immature Gran % (Auto) Neut % (Auto) Lymph % (Auto) [place] % (Auto) Eos % (Auto) Baso % (Auto) Lymph # (Auto) [place] # (Auto) Eos # (Auto) Baso # (Auto) Abs Immat Gran (auto) Absolute Neuts (auto) Absolute Nucleated RBC Nucleated RBC % (auto) Smear Tech's Comments PT INR Anion Gap Estim Creat Clear Calc Estimated GFR POC Glucose 90 150 H Random Glucose Lactic Acid Cancelled Lactic Acid Fup @ 2Hr Lactic Acid Fup @ 4Hr Calcium Magnesium Total Bilirubin AST ALT Alkaline Phosphatase B-Natriuretic Peptide Total Protein Albumin Lipase Urine Color Urine Appearance Urine pH Ur Specific [place] Urine Protein Urine Glucose (UA) Urine Ketones Urine Blood Urine Nitrite Ur Leukocyte Esterase COVID-19 ([facility]) COVID-19 Clin Com Assessment and Plan (1) Lactic acidosis: Status: Acute (2) Sepsis: Status: Acute (3) Cellulitis: Status: Acute (4) Hypertension: Status: Acute (5) Diabetes mellitus: Status: Acute (6) Lumbar spondylosis: Status: Acute Assessment and Plan: 71-year-old male with past medical history of diabetes who presents to the hospital with feeling unwell, shakiness and fever, found to have sepsis # sepsis secondary to cellulitis with chronic right leg open wound - no recurrent fever, worsening leukocytosis chest x-ray negative, negative UA Blood pressure improved,LA trended down Will continue IV vancomycin and Zosyn day 1 follow cultures, check CBC,dc ivf Obtain vascular surgery consultation with Dr. Shanks for hx of peripheral vascular disease Chronic open wound on the lateral aspect of right lower extremity , continue wound care and follow recommendation by Dr. Shanks # diabetes - hold metformin continue sliding scale insulin - diabetic diet # history of chronic pain - continue pregabalin and tramadol DVT prophylaxis:? lovenox Quality Stroke Does the patient have a stroke diagnosis?: No VTE Prior VTE?: No VTE Risk Level:: Medical - moderate - high VTE Device Contraindication: Treatment Not Indicated VTE Drug Contraindication: N/A - Med Ordered
[2021-04-13] MEDS: traMADoL HCL 50 MG TABLET PO ×2 (14:52→21:43)
--- NOTE | 2021-04-13 15:49 | MHC.CM.PN ---
CM ATTEMPTED TO SEE TWICE THROUGHOUT THE DAY. PT WITH VISITOR INITIALLY AND STAFF THE SECOND TIME. CM TO REVISIT
[2021-04-13 16:25] LABS: Glucose, Whole Blood 113 mg/dL (60-115)
[2021-04-13] MEDS: Pregabalin 150 MG CAPSULE PO ×2 (16:59→21:45)
--- NOTE | 2021-04-13 17:38 | PC.NURSE ---
PICTURES TAKEN OF PT LOWER EXTREMITIES AND SENT TO WOUND CARE NURSE. TRIAD APPLIED WITH JOSE ENRIQUE WRAPS. SHE WILL EVALUATE TOMORROW
[2021-04-13 19:58] LABS: Glucose, Whole Blood 153 mg/dL (60-115)
[2021-04-14] MEDS: vancomycin HCL 1,000 MG in 0.9 % Sodium Chloride 250 ML 270 MG IV (00:06)
[2021-04-14] MEDS: 0.9 % Sodium Chloride Flush 3 ML SYRINGE IVFLUSH ×4 (00:08→21:51)
[2021-04-14] MEDS: Piperacillin Sodium/Tazobactam 3.375 GM in 0.9 % Sodium Chloride 50 ML IV ×4 (01:16→19:33)
[2021-04-14 03:57] VITALS: RESP 16
[2021-04-14 05:57] LABS: MANUAL DIFF FLAG NO
[2021-04-14 06:02] LABS: Basophils Percent Auto 0.2 % (0-2); Eosinophils Absolute Auto 0.2 X10*3/uL (0.0-0.4); Hematocrit 37.1 % (42-52); Hemoglobin 12.1 g/dl (14.0-18.0); Imm Gran Abs Auto 0.14 X10*3/uL (0.00-0.03); Imm Gran Pct Auto 0.9 % (0.0-0.4); Lymphocytes Absolute Auto 1.4 X10*3/uL (1.2-4.9); Lymphocytes Percent Auto 8.8 % (20-40); Mean Corpuscular HGB Conc 32.6 g/dl (31.0-36.0); Mean Corpuscular Hemoglobin 30.9 pg (27.0-33.0); Mean Corpuscular Volume 94.9 fL (80-98); Mean Platelet Volume 9.4 fL (9.4-12.4); Monocytes Absolute Auto 1.2 X10*3/uL (0.1-1.2); Monocytes Percent Auto 7.1 % (2-11); Neutrophils Absolute Auto 13.4 X10*3/uL (2.0-8.3); Platelet Count 175 X10*3/uL (160-400); Red Blood Count 3.91 X10*6/uL (4.60-5.80); Red Cell Distribution Width 13.7 % (11.0-16.0); White Blood Count 16.3 X10*3/uL (4.8-10.8)
[2021-04-14 07:35] LABS: Glucose, Whole Blood 98 mg/dL (60-115)
[2021-04-14 07:45] VITALS: BP 172/80; PULSE 88; RESP 18; TEMP 37.1; O2SAT 94
--- NOTE | 2021-04-14 08:54 | MHC.CM.PN ---
PATIENT LIVES WITH HIS /HCP. NEW COPY UPLOADED INTO [employer] AND PLACED IN CHART. HE USES A CANE (4 PRONG) FOR AMBULATION ASSIST NO VNA OR ELDER SERVICES. HE COMES [place] [facility] [place] 6 MONTHS FOR LAB DRAWS SECONDARY TO METFORMIN PRESCRIPTION. HE DOES NOT USE A GLUCOMETER. CASE MANAGEMENT FOLLOWING FOR DC NEEDS. PATIENT REPORTS THAT HE IS SCHEDULED FOR AN ULTRASOUND TODAY. IMM 04/14 IN CHART.
--- NOTE | 2021-04-14 08:57 | MHC.CM.PN ---
PATIENT HAS BEEN VACCINATED AGAINST COVID-19 WITH MODERNA SERIES (BOTH INJECTIONS IN DECEMBER) AT [facility] [place].
[2021-04-14] MEDS: Multivitamin TABLET 1 TAB PO (09:41)
[2021-04-14] MEDS: traMADoL HCL 50 MG TABLET PO ×3 (09:41→21:47)
[2021-04-14] MEDS: amLODIPine Besylate 5 MG TABLET PO (09:41)
[2021-04-14] MEDS: Pregabalin 150 MG CAPSULE PO ×3 (09:41→21:47)
--- NOTE | 2021-04-14 09:46 | MHC.CLN ---
NUTRITION CONSULT NUTRITION CONSULT DUE TO WOUNDS. PATIENT WITH SEPSIS SECONDARY TO CELLULITIS WITH CHRONIC RIGHT LEG OPEN WOUND. NOT STATED THAT WOUND IS PRESSURE ULCER. DIABETIC DIET 1800 KCAL CHANGED TO DIABETIC 2200 KCAL PROVIDING 25.4 KCAL/KG CMW. SEE NUTRITION ASSESSMENT
[2021-04-14 09:57] VITALS: BMI 38.0
--- NOTE | 2021-04-14 10:09 | P.CONGS_ITS ---
History of Present Illness Consult details Consult date: 04/14/21 Reason for consult: wound care Narrative: 71-year-old gentleman well known to me for history of venous insufficiency. He has undergone right great saphenous vein ablation in June of 2019. He had done well subsequent to that. He had a nonhealing ulcer which appear to improve but continues to be a source of problems form. He subsequently did not follow up for his left lower extremity. He presented to the hospital with significant swelling and nonhealing ulcer of the right lower extremity. Review of Systems Constitutional: Constitutional: Reports as per HPI ENT: Reports system reviewed and no additional complaints, except as documented Cardiovascular: Cardiovascular: Denies chest pain, Denies chest pain at rest and Denies chest pain with activity Respiratory: Respiratory: Denies chest congestion and Denies cough Gastrointestinal: Gastrointestinal: Reports no additional gastrointestinal complaints Musculoskeletal: Musculoskeletal: Denies abnormal gait Integumentary/Breasts: Skin/Breast: Reports pruritus and Denies wounds Neurologic: Reports system reviewed and no additional complaints, except as documented and Denies abnormal gait Psychiatric: Psychiatric: Denies no additional psychiatric complaints [facility] Past Medical History Medical History Arthritis of right hip Cervical spondylosis Diabetes mellitus Hypertension Lumbar spondylosis Pain of left hip Pneumococcal arthritis, right knee Post herpetic neuralgia Family History Family History Father Parkinson disease Mother No problems noted. Surgical History Surgical History History of tonsillectomy Status post ablation of incompetent vein using laser Social History Social History Household Members: Spouse Housing: House Do you presently have visiting nurse or other home services: No Alcohol intake: current Alcohol intake frequency: 0-2 drinks per day Alcohol type: beer Patient Tobacco Use Status: Former Tobacco user Tobacco use type: Cigarette Years Smoked: 1978 e-Cigarette/Vaping Use: Never Used Second Hand Smoke Exposure: No service: No Current occupational status: retired Meds Allergies Allergy/AdvReac Type Severity Reaction Status Date / Time latex AdvReac Unknown Verified 04/13/21 18:56 Active Medications: Current Medications Generic Name Dose Route Start Last Admin Trade Name [place] PRN Reason Stop Dose Admin Acetaminophen 650 mg 04/13/21 00:10 Acetaminophen 325 Mg Tablet PO Q6H PRN Pain, Mild (Pain Scale 1-3) Amlodipine Besylate 5 mg 04/14/21 09:00 04/14/21 09:41 Amlodipine Besylate 5 Mg Tablet PO 5 mg DAILY MARGARET Administration Protocol Dextrose 25 gm 04/13/21 00:10 Dextrose 50 % 25 Gm/50 Ml Vial IVPUSH Q15M PRN per Hypoglycemia Standing Ord. Protocol Docusate Sodium 100 mg 04/13/21 00:10 Docusate Sodium 100 Mg Capsule PO DAILY PRN Constipation Enoxaparin Sodium 40 mg 04/13/21 22:00 04/13/21 21:45 Enoxaparin Sodium 40 Mg/0.4 Ml Syringe SUBCUT 40 mg Q24H MARGARET Administration Glucose 15 gm 04/13/21 00:10 Glucose Gel 15 Gm Gel..Gram. PO Q15M PRN per Hypoglycemia Standing Ord. Protocol Vancomycin HCl 1,000 mg/ 270 mls @ 270 mls/hr 04/13/21 13:00 04/14/21 01:42 Sodium Chloride IV Infused Q12H MARGARET Infusion Piperacillin Sod/Tazobactam 50 mls @ 100 mls/hr 04/13/21 08:00 04/14/21 09:42 Sod 3.375 gm/ Sodium Chloride IV 100 mls/hr Q6H MARGARET Administration Insulin Human Lispro 0 unit 04/13/21 07:30 04/14/21 07:38 Insulin Lispro 100 Unit/Ml 3 Ml Vial SUBCUT Not Given QIDACHS [facility] Protocol Multivitamins/Vitamin C 1 tab 04/14/21 09:00 04/14/21 09:41 Multivitamin Tablet PO 1 tab DAILY MARGARET Administration Ondansetron HCl 4 mg 04/13/21 00:10 Ondansetron Hcl 4 Mg/2 Ml Vial IVPUSH Q8H PRN Nausea and Vomiting Pharmacy Consult 1 each 04/13/21 00:10 Consult Rx Vancomycin Dosing MISCELLANE DAILY PRN Consult order Pregabalin 150 mg 04/13/21 15:00 04/14/21 09:41 Pregabalin 150 Mg Capsule PO 150 mg TID MARGARET Administration Sodium Chloride 3 ml 04/13/21 00:10 04/14/21 09:42 0.9 % Sodium Chloride Flush 3 Ml Syringe IVFLUSH 3 ml QSHIFT MARGARET Administration Tramadol HCl 50 mg 04/13/21 14:45 04/14/21 09:41 Tramadol Hcl 50 Mg Tablet PO 50 mg Q6H MARGARET Administration Home Medications Medication Instructions Recorded Confirmed Last Taken Type multivitamin 1 tab PO DAILY 01/30/21 04/13/21 Unknown History Physical Exam Vital Signs: Vital Signs: Last Vital Signs Temp 98.7 F 04/14/21 07:45 Pulse 88 04/14/21 07:45 Resp 18 04/14/21 07:45 BP 172/80 H 04/14/21 07:45 Pulse Ox 94 04/14/21 07:45 Body Mass Index 38.0 Const: General: cooperative, healthy appearing and comfortable Orientati on/consciousness: oriented to person, oriented to place and oriented to time Neck: Carotids: no bruits Chest: Chest palpation & inspection: normal inspection of the chest and normal palpation of entire chest wall Resp: Effort & Inspection: normal respiratory effort and able to speak in complete sentences Cardio: Rate: regular rate Heart sounds: S1 normal heart sound present and S2 normal heart sound present Peripheral pulses: Peripheral pulses 2+ throughout GI: Inspection: Yes normal to inspection Skin: Other: +2 edema, large rope-like varicosities greater than 3 mm General skin exam: dry skin Wounds: wounds noted (Right lower extremity) Neuro: General: oriented to person, oriented to place and oriented to time Extrem: General: Yes edema Right lower extremity: full ROM, normal capillary refill and edema Left lower extremity: full ROM, normal capillary refill and edema Psych: Mental Status: mental status grossly normal Results Labs Result diagrams: 04/14/21 05:26 04/13/21 02:06 Labs: Abnormal lab results 04/13/21 04/13/21 04/14/21 Range/Units 11:19 19:46 05:26 WBC 16.3 H (4.8-10.8) X10*3/uL RBC 3.91 L (4.60-5.80) X10*6/uL Hgb 12.1 L (14.0-18.0) g/dl Hct 37.1 L (42-52) % Immature Gran % (Auto) 0.9 H (0.0-0.4) % Neut % (Auto) 82.0 H (45-73) % Lymph % (Auto) 8.8 L (20-40) % Abs Immat Gran (auto) 0.14 H (0.00-0.03) X10*3/uL Absolute Neuts (auto) 13.4 H (2.0-8.3) X10*3/uL POC Glucose 150 H 153 H (60-115) mg/dL Short CBC 04/14/21 Range/Units 05:26 WBC 16.3 H (4.8-10.8) X10*3/uL Hgb 12.1 L (14.0-18.0) g/dl Hct 37.1 L (42-52) % Plt Count 175 (160-400) X10*3/uL Urine 04/12/21 Range/Units 22:08 Urine Color DARK YELLOW Urine Appearance CLEAR Urine pH 6.0 (5.0-8.0) Ur Specific [place] 1.010 (1.005-1.025) Urine Protein NEG (NEG-TRACE) MG/DL Urine Glucose (UA) NEG (NEG) MG/DL All other labs normal. Assessment and Plan (1) Varicose veins of lower extremity with inflammation, bilateral: Status: Acute In short patient has bilateral lower extremity venous insufficiency as proven by previous examination. I have taken the liberty of ordering repeat venous insufficiency testing which will be scheduled as an outpatient. At the current time would recommend a antibiotics and local wound care. We do have to try to improve the overall edema in order to try did assist in healing of this ulcer. The patient is stable from my perspective for discharge. Thank you for allowing us to assist in his care. If there are any questions or concerns please do not hesitate to contact us. Procedures Date of Service Date of Service: 04/14/21
--- NOTE | 2021-04-14 10:15 | PC.NURSE ---
Skin/wound assessment completed today. Patient has cellulitis to bilateral extremities. Right leg has a 4 X 1.5 X 0.3 venous ulcer being treated with Triad covered with non woven gauze and roll gauze. Left leg has cellulitis with a scant weeping area which was covered with Triad and left open to air. Ammonium Lactate was ordered for the dry skin on bilateral extremities which is peeling. All wounds were present on admission. No other skin issues noted.
[2021-04-14 11:46] LABS: Glucose, Whole Blood 149 mg/dL (60-115)
[2021-04-14 12:00] VITALS: BP 146/68; PULSE 84; RESP 19; TEMP 36.7; O2SAT 97
--- NOTE | 2021-04-14 12:07 | P.CDIC_ITS ---
CDI Concurrent Query Service Date: 04/15/21 Documentation Clarification: Please clarify if you are treating a proba ble/suspected/likely or confirmed: Cellulitis due to Diabetes Mellitus (Type I/Type II) Cellulitis not due to Diabetes Mellitus Other, please specify if known or undetermined Provider Response: Other Other Diagnosis: Cellulitis due to venous stasis ulcers PLEASE DO NOT DELETE/MODIFY EXISTING CONTENT Additional information is needed in order to code to the highest accuracy and appropriate Severity of Illness (SOI). Please clarify the information noted below in your progress notes and discharge summary. Risk Factors/Clinical Indicators/Treatments Chronic venous stasis with nonhealing lower extremity ulcers. Diabetic Temp 102.1 RR 20 HR 120 IV antibiotics, blood cultures ordered. Dx. Sepsis cellulitis. CDS: Cristin Mathews CCS, CDIS Contact Number: [phone] Please Review the information above and exercise your independent professional judgment in responding to the query. If you concur, pleas document in the PROGRESS NOTES and DISCHARGE SUMMARY. If you do not agree with the query, pl ease document in the query above. THIS QUERY IS PART OF THE PERMANENT MEDICAL RECORD
--- NOTE | 2021-04-14 12:14 | PM.IMPN ---
Progress Note: A&P (1) Varicose veins of lower extremity with inflammation, bilateral: Status: Acute Assessment and Plan: 71-year-old male with past medical history of diabetes who presents to the hospital with feeling unwell, shakiness and fever, found to have sepsis # sepsis secondary to cellulitis with chronic right leg open wound - no recurrent fever ?continue vancomycin and Zosyn ?vascular surgery consultation with Dr. Shanks for hx of peripheral vascular disease ?Chronic open wound on the lateral aspect of right lower extremity , continue wound care and follow recommendation by Dr. Shanks and wound care nurse # diabetes - hold metformin continue sliding scale insulin - diabetic diet HTN amlodipine # history of chronic pain - continue pregabalin and tramadol DVT prophylaxis:? lovenox Attending Dr. Craig Subjective Subjective Date of Service: 04/14/21 Interval History: Follow up cellulitis no pain Physical Exam Vital Signs: Vital Signs: Last Vital Signs Temp 98.7 F 04/14/21 07:45 Pulse 88 04/14/21 07:45 Resp 18 04/14/21 07:45 BP 172/80 H 04/14/21 07:45 Pulse Ox 94 04/14/21 07:45 Body Mass Index 38.0 Appearing in no acute distress lung sounds are clear to auscultation heart regular rate rhythm, clear S1, S2 positive bowel sounds, abdomen is soft, nontender neuro patient is alert x3, no focal deficits right leg vascaulr wounds, dry flaky skin Objective Data Current Medications Generic Name Dose Route Start Last Admin Trade Name Freq PRN Reason Stop Dose Admin Acetaminophen 650 mg 04/13/21 00:10 Acetaminophen 325 Mg Tablet PO Q6H PRN Pain, Mild (Pain Scale 1-3) Amlodipine Besylate 5 mg 04/14/21 09:00 04/14/21 09:41 Amlodipine Besylate 5 Mg Tablet PO 5 mg DAILY MARGARET Administration Protocol Dextrose 25 gm 04/13/21 00:10 Dextrose 50 % 25 Gm/50 Ml Vial IVPUSH Q15M PRN per Hypoglycemia Standing Ord. Protocol Docusate Sodium 100 mg 04/13/21 00:10 Docusate Sodium 100 Mg Capsule PO DAILY PRN Constipation Enoxaparin Sodium 40 mg 04/13/21 22:00 04/13/21 21:45 Enoxaparin Sodium 40 Mg/0.4 Ml Syringe SUBCUT 40 mg Q24H MARGARET Administration Glucose 15 gm 04/13/21 00:10 Glucose Gel 15 Gm Gel..Gram. PO Q15M PRN per Hypoglycemia Standing Ord. Protocol Vancomycin HCl 1,000 mg/ 270 mls @ 270 mls/hr 04/13/21 13:00 04/14/21 01:42 Sodium Chloride IV Infused Q12H [facility] Infusion Piperacillin Sod/Tazobactam 50 mls @ 100 mls/hr 04/13/21 08:00 04/14/21 10:55 Sod 3.375 gm/ Sodium Chloride IV Infused Q6H [facility] Infusion Insulin Human Lispro 0 unit 04/13/21 07:30 04/14/21 11:49 Insulin Lispro 100 Unit/Ml 3 Ml Vial SUBCUT Not Given QIDACHS [facility] Protocol Lactic Acid 1 appl 04/14/21 21:00 Ammonium Lactate 12 % Lotion 226 Gm Bottle TOPICAL BID [facility] Multivitamins/Vitamin C 1 tab 04/14/21 09:00 04/14/21 09:41 Multivitamin Tablet PO 1 tab DAILY [facility] Administration Ondansetron HCl 4 mg 04/13/21 00:10 Ondansetron Hcl 4 Mg/2 Ml Vial IVPUSH Q8H PRN Nausea and Vomiting Pharmacy Consult 1 each 04/13/21 00:10 Consult Rx Vancomycin Dosing MISCELLANE DAILY PRN Consult order Pregabalin 150 mg 04/13/21 15:00 04/14/21 09:41 Pregabalin 150 Mg Capsule PO 150 mg TID [facility] Administration Sodium Chloride 3 ml 04/13/21 00:10 04/14/21 09:42 0.9 % Sodium Chloride Flush 3 Ml Syringe IVFLUSH 3 ml QSHIFT [facility] Administration Tramadol HCl 50 mg 04/13/21 14:45 04/14/21 09:41 Tramadol Hcl 50 Mg Tablet PO 50 mg Q6H [facility] Administration Labs CBC & Chem 7: 04/14/21 05:26 04/13/21 02:06 Labs: Laboratory Results - last 24 hr 04/13/21 04/13/21 04/14/21 16:11 19:46 05:26 MCV 94.9 MCH 30.9 MCHC 32.6 RDW 13.7 Plt Count 175 MPV 9.4 Immature Gran % (Auto) 0.9 H Neut % (Auto) 82.0 H Lymph % (Auto) 8.8 L Isabel[place] % (Auto) 7.1 Eos % (Auto) 1.0 Baso % (Auto) 0.2 Lymph # (Auto) 1.4 Isabela # (Auto) 1.2 Eos # (Auto) 0.2 Baso # (Auto) 0.0 Abs Immat Gran (auto) 0.14 H Absolute Neuts (auto) 13.4 H Absolute Nucleated RBC 0.000 Nucleated RBC % (auto) 0.0 POC Glucose 113 153 H 04/14/21 04/14/21 07:25 11:41 MCV MCH MCHC RDW Plt Count MPV Immature Gran % (Auto) Neut % (Auto) Lymph % (Auto) Isabela % (Auto) Eos % (Auto) Baso % (Auto) Lymph # (Auto) Isabela # (Auto) Eos # (Auto) Baso # (Auto) Abs Immat Gran (auto) Absolute Neuts (auto) Absolute Nucleated RBC Nucleated RBC % (auto) POC Glucose 98 149 H Microbiology Microbiology Results: Microbiology 04/12/21 21:27 Blood - Venous Blood Culture - Preliminary Prelim: GPC Gram Stain only 04/12/21 21:20 Blood - Venous Blood Culture - Preliminary No growth after 24 hours. Quality Stroke Does the patient have a stroke diagnosis?: No VTE Prior VTE?: No VTE Risk Level:: Medical - moderate - high VTE Device Contraindication: Treatment Not Indicated VTE Drug Contraindication: N/A - Med Ordered
[2021-04-14 13:21] LABS: Vancomycin Trough 5.6 mcg/mL (10.0-20.0)
[2021-04-14] MEDS: vancomycin HCL 1,250 MG in 0.9 % Sodium Chloride 250 ML 166.67 MG IV (15:34)
[2021-04-14 15:48] VITALS: BP 155/75; PULSE 76; RESP 18; TEMP 36.6; O2SAT 97
[2021-04-14 16:38] LABS: Glucose, Whole Blood 112 mg/dL (60-115)
[2021-04-14 19:35] VITALS: BP 156/65; PULSE 80; RESP 18; TEMP 37.3; O2SAT 96
[2021-04-14 20:31] LABS: Glucose, Whole Blood 130 mg/dL (60-115)
[2021-04-14] MEDS: Enoxaparin Sodium 40 MG/0.4 ML SYRINGE SUBCUT (21:58)
[2021-04-14 23:50] VITALS: BP 163/78; PULSE 75; RESP 18; TEMP 36.3; O2SAT 95
[2021-04-15] MEDS: Piperacillin Sodium/Tazobactam 3.375 GM in 0.9 % Sodium Chloride 50 ML IV ×2 (01:54→08:45)
[2021-04-15] MEDS: vancomycin HCL 1,250 MG in 0.9 % Sodium Chloride 250 ML 166.67 MG IV (01:56)
[2021-04-15] MEDS: traMADoL HCL 50 MG TABLET PO ×3 (02:42→15:04)
[2021-04-15 03:58] VITALS: RESP 16
[2021-04-15 07:34] LABS: Glucose, Whole Blood 93 mg/dL (60-115)
[2021-04-15 08:00] VITALS: BP 154/80; PULSE 69; RESP 17; TEMP 36.4; O2SAT 98
[2021-04-15 08:33] LABS: Anion Gap 13 (12-20); Blood Urea Nitrogen 10 mg/dL (9-16); Calcium 9.1 mg/dL (8.4-10.2); Carbon Dioxide 28 mmol/L (22-29); Chloride 100 mmol/L (96-108); Estimated Glomerular Filt Rate > 60; Glucose Random 127 mg/dL (60-115); Potassium 4.7 mmol/L (3.3-5.1); Sodium 136 mmol/L (135-145)
[2021-04-15 08:44] LABS: Hematocrit 38.7 % (42-52); Mean Corpuscular HGB Conc 33.6 g/dl (31.0-36.0); Mean Corpuscular Hemoglobin 31.7 pg (27.0-33.0); Mean Corpuscular Volume 94.4 fL (80-98); Mean Platelet Volume 9.4 fL (9.4-12.4); Platelet Count 201 X10*3/uL (160-400); Red Cell Distribution Width 13.4 % (11.0-16.0)
[2021-04-15] MEDS: 0.9 % Sodium Chloride Flush 3 ML SYRINGE IVFLUSH ×2 (08:45→15:11)
[2021-04-15] MEDS: amLODIPine Besylate 5 MG TABLET PO (08:46)
[2021-04-15] MEDS: Multivitamin TABLET 1 TAB PO (08:46)
[2021-04-15] MEDS: Pregabalin 150 MG CAPSULE PO ×2 (08:46→15:04)
[2021-04-15] MEDS: Ammonium Lactate 12 % Lotion 226 GM BOTTLE 1 APPL TOPICAL (09:47)
[2021-04-15 11:44] LABS: Glucose, Whole Blood 154 mg/dL (60-115)
--- NOTE | 2021-04-15 11:47 | P.DS_ITS ---
DS: Providers Provider Date of Service: 04/15/21 <Martina Mancilla NP - Last Filed: 04/15/21 17:06> Date of admission: 04/12/21 23:22 <Martina Mancilla NP - Last Filed: 04/15/21 17:06> Date of discharge: 04/15/21 <Martina Mancilla NP - Last Filed: 04/15/21 17:06> Primary care physician: Unknown Physician <Martina Mancilla NP - Last Filed: 04/15/21 17:06> Admitting clinician: Lizzie Boyd <Martina Mancilla NP - Last Filed: 04/15/21 17:06> Attending physician on admission: Lizzie Boyd <Martina Mancilla NP - Last Filed: 04/15/21 17:06> Consults: 04/13/21 14:45 Consult to Vascular Surgery Routine Consulting Provider: Mack Shanks Reason for consultation: rt leg ulcer PVD Has provider been notified: No 04/14/21 12:26 Consult to Infectious Diseases Routine Consulting Provider: Olivia Prince Reason for consultation: GPC 1/2, vascular ulcers Has provider been notified: No <Martina Mancilla NP - Last Filed: 04/15/21 17:06> Attending physician on discharge: Romeo Craig <Martina Mancilla NP - Last Filed: 04/15/21 17:06> Discharging clinician: Martina Mancilla <Martina Mancilla NP - Last Filed: 04/15/21 17:06> DS: Diagnosis Discharge Diagnosis (1) Cellulitis: Status: Acute <Martina Mancilla NP - Last Filed: 04/15/21 17:06> DS: Medications Discharge Medications Home Medications: Home Medications Medication Instructions Recorded Confirmed multivitamin 1 tab PO DAILY 01/30/21 04/13/21 Previous Rx's Medication Instructions Recorded pregabalin 150 mg capsule (Lyrica) 150 mg PO TID 90 Days #270 cap 07/11/20 metformin 500 mg tablet,extended 500 mg PO DAILY #90 tab 09/06/20 release 24 hr amlodipine 5 mg tablet 5 mg PO DAILY #90 tab 01/06/21 lisinopril 10 mg tablet 10 mg PO DAILY #90 tab 01/06/21 tramadol 50 mg tablet 50 mg PO Q6H 30 Days #120 tab 02/27/21 <Martina Mancilla NP - Last Filed: 04/15/21 17:06> DS: Summary Hospital Course Hospital Course: This is a 71-year-old male with past medical history of chronic hip pain who presents to the hospital with complaints of feeling shaky, dizzy, and overall not feeling well.? He reports that his symptoms started this afternoon, reports no fever or chills, denies any abdominal pain nausea or vomiting, no chest pain, no shortness of breath, no cough, no urinary symptoms.? He reports that he has an open wound that he has been trying to heal for the past year that has been having drainage that is more thick and pus inconsistency and did notice redness in his right lower extremity that was worse than usual. Cellulitis . Treated with vancomycin and zosyn. He has a history of PVD with wounds and dry flaky skin to his lower extremities. He was seen by the wound care nurse and wound to RLE was treated with Triad and skin was treated with lac-hydrin. He was also seen by Dr. Shanks and will be followed as outpatient in his office. He will go home with doxycycline for 7 days. blood cultures came back as a contaminant. Attending Attestation: Patient seen and examined independently and I was present during howard portion of E/M service. Agree with Cachorro Mancilla NP's documentation above with the following additions: Patients RLE Doppler was negative for DVT but did reveal a pathologically e nlarged R inguinal lymph node. This should be followed up with a short term ultrasound to ensure stability / regression. <Martina Mancilla NP - Last Filed: 04/15/21 17:06> Time Spent with Patient Time attestation: Total time spent providing and/or coordinating discharge services: <Martina Mancilla NP - Last Filed: 04/15/21 17:06> Discharge coordination time: Greater than 30 minutes <Martina Mancilla NP - Last Filed: 04/15/21 17:06> Quality: Stroke Does the patient have a stroke diagnosis?: No <Martina Mancilla NP - Last Filed: 04/15/21 17:06> Physical Exam Vital Signs: Vital Signs: Last Vital Signs Temp 97.6 F 04/15/21 08:00 Pulse 69 04/15/21 08:00 Resp 17 04/15/21 08:00 BP 154/80 H 04/15/21 08:00 Pulse Ox 98 04/15/21 08:00 Body Mass Index 38.0 <Martina Mancilla NP - Last Filed: 04/15/21 17:06> Appearing in no acute distress lung sounds are clear to auscultation heart regular rate rhythm, clear S1, S2 positive bowel sounds, abdomen is soft, nontender neuro patient is alert x3, no focal deficits <Martina Mancilla NP - Last Filed: 04/15/21 17:06> DS: Data Data Completed and Pending Labs on day of discharge: Laboratory Results - last 24 hr 04/14/21 04/14/21 04/14/21 11:41 12:34 16:26 WBC RBC Hgb Hct MCV MCH MCHC RDW Plt Count MPV Absolute Nucleated RBC Nucleated RBC % (auto) Sodium Potassium Chloride Carbon Dioxide Anion Gap BUN Creatinine Estim Creat Clear Calc Estimated GFR POC Glucose 149 H 112 Random Glucose Calcium Vancomycin Trough 5.6 L 04/14/21 04/15/21 04/15/21 20:26 07:14 07:39 WBC RBC Hgb Hct MCV MCH MCHC RDW Plt Count MPV Absolute Nucleated RBC Nucleated RBC % (auto) Sodium 136 Potassium 4.7 Chloride 100 Carbon Dioxide 28 Anion Gap 13 BUN 10 Creatinine 0.83 Estim Creat Clear Calc 106.0 Estimated GFR > 60 POC Glucose 130 H 93 Random Glucose 127 H Calcium 9.1 D Vancomycin Trough 04/15/21 04/15/21 07:39 11:39 WBC 10.0 RBC 4.10 L Hgb 13.0 L Hct 38.7 L MCV 94.4 MCH 31.7 MCHC 33.6 RDW 13.4 Plt Count 201 MPV 9.4 Absolute Nucleated RBC 0.000 Nucleated RBC % (auto) 0.0 Sodium Potassium Chloride Carbon Dioxide Anion Gap BUN Creatinine Estim Creat Clear Calc Estimated GFR POC Glucose 154 H Random Glucose Calcium Vancomycin Trough Preliminary micro results at discharge 04/12/21 21:20 Blood Culture - Preliminary Blood - Venous No growth after 48 hours. <Martina Mancilla NP - Last Filed: 04/15/21 17:06> Discharge Plan Discharge Anticipated Discharge Date/Time: 04/15/21 11:44 <Martina Mancilla NP - Last Filed: 04/15/21 17:06> Patient Disposition: Home, Self-Care <Martina Mancilla NP - Last Filed: 04/15/21 17:06> Discharge Diagnosis: Cellulitis <Martina Mancilla NP - Last Filed: 04/15/21 17:06> Cellulitis <Romeo Craig MD - Last Filed: 04/15/21 17:40> Referrals: Mack Shanks MD [Physician] - 1 Week <Martina Mancilla NP - Last Filed: 04/15/21 17:06> Discharge Medications: New ammonium lactate 12 % Lotion 1 appl topical BID Qty: 400 RF: 0 doxycycline hyclate 100 mg tablet 100 mg PO BID Qty: 14 RF: 0 Continued metformin 500 mg tablet extended release 24 hr 500 mg PO DAILY Qty: 90 RF: 8 lisinopril 10 mg tablet 10 mg PO DAILY Qty: 90 RF: 1 amlodipine 5 mg tablet 5 mg PO DAILY Qty: 90 RF: 1 multivitamin Tablet 1 tab PO DAILY RF: 0 tramadol 50 mg tablet 50 mg PO Q6H 30 Days Qty: 120 RF: 1 pregabalin [Lyrica] 150 mg capsule 150 mg PO TID 90 Days Qty: 270 RF: 1 <Martina Mancilla NP - Last Filed: 04/15/21 17:06> Discharge Orders: Discharge Order (Routine); Ordered 04/15/21 Ordered By: Martina Mancilla <Martina Mancilla NP - Last Filed: 04/15/21 17:06> Diet: advance to usual diet <Martina Mancilla NP - Last Filed: 04/15/21 17:06> advance to usual diet <Romeo Craig MD - Last Filed: 04/15/21 17:40> Activity on Discharge: As tolerated <Martina Mancilla NP - Last Filed: 04/15/21 17:06> As tolerated <Romeo Craig MD - Last Filed: 04/15/21 17:40> Stand Alone Forms: Patient Portal Discharge page <Martina Mancilla NP - Last Filed: 04/15/21 17:06> Care Plan Goals: Resolution of cellulitis <Martina Mancilla NP - Last Filed: 04/15/21 17:06> Health Concerns: Cellulitis vascular wound <Martina Mancilla NP - Last Filed: 04/15/21 17:06> Plan of Treatment: Follow up with Dr. Shanks in one week Follow up with primary care provider as needed Wound care: Triad to wound bed daily in the morning, wrap with gauze use Lac-Hydrin daily to both lower extremities <Martina Mancilla NP - Last Filed: 04/15/21 17:06> Assessment: See discharge summary <Martina Mancilla NP - Last Filed: 04/15/21 17:06>
[2021-04-15 12:00] VITALS: BP 158/77; PULSE 70; RESP 16; TEMP 36.2; O2SAT 97
--- NOTE | 2021-04-15 13:11 | P.CNID_ITS ---
History of Present Illness Data of Consult Service Date: 04/15/21 Requesting physician: Romeo Craig Primary Care Provider: Unknown Physician HPI Reason for consult: fever of unknown origin He was brought in by family with shaking chills as well as confusion. He had bilateral leg redness and swelling. He has blood culture staph epi 1/2 He had fever three days ago and feeling better now. His legs feel as though they look better Review of Systems Review of Systems: Yes all other systems are reviewed and are negative [facility] Past Medical History Medical History (Updated 04/23/21 @ 00:02 by Thao Hernandez) Arthritis of right hip Cervical spondylosis Diabetes mellitus Hypertension Lumbar spondylosis Obesity Pain of left hip Pneumococcal arthritis, right knee Post herpetic neuralgia Family History Family History Father Parkinson disease Mother No problems noted. Surgical History Surgical History History of tonsillectomy Status post ablation of incompetent vein using laser Social History Social History Household Members: Spouse Housing: House Do you presently have visiting nurse or other home services: No Alcohol intake: current Alcohol intake frequency: 0-2 drinks per day Alcohol type: beer Patient Tobacco Use Status: Former Tobacco user Tobacco use type: Cigarette Years Smoked: 1978 e-Cigarette/Vaping Use: Never Used Second Hand Smoke Exposure: No service: No Current occupational status: retired Meds Allergies Allergy/AdvReac Type Severity Reaction Status Date / Time latex AdvReac Unknown Verified 04/24/21 13:48 Active Medications: Current Medications Generic Name Dose Route Start Last Admin Trade Name Freq PRN Reason Stop Dose Admin Acetaminophen 650 mg 04/13/21 00:10 Acetaminophen 325 Mg Tablet PO Q6H PRN Pain, Mild (Pain Scale 1-3) Amlodipine Besylate 5 mg 04/14/21 09:00 04/15/21 08:46 Amlodipine Besylate 5 Mg Tablet PO 5 mg DAILY MARGARET Administration Protocol Dextrose 25 gm 04/13/21 00:10 Dextrose 50 % 25 Gm/50 Ml Vial IVPUSH Q15M PRN per Hypoglycemia Standing Ord. Protocol Docusate Sodium 100 mg 04/13/21 00:10 Docusate Sodium 100 Mg Capsule PO DAILY PRN Constipation Enoxaparin Sodium 40 mg 04/13/21 22:00 04/14/21 21:58 Enoxaparin Sodium 40 Mg/0.4 Ml Syringe SUBCUT 40 mg Q24H MARGARET Administration Glucose 15 gm 04/13/21 00:10 Glucose Gel 15 Gm Gel..Gram. PO Q15M PRN per Hypoglycemia Standing Ord. Protocol Piperacillin Sod/Tazobactam 50 mls @ 100 mls/hr 04/13/21 08:00 04/15/21 09:19 Sod 3.375 gm/ Sodium Chloride IV Infused Q6H [facility]ET Infusion Vancomycin HCl 1,250 mg/ 250 mls @ 166.667 mls/hr 04/14/21 14:00 04/15/21 04:10 Sodium Chloride IV Infused Q12H [facility] Infusion Insulin Human Lispro 0 unit 04/13/21 07:30 04/15/21 11:53 Insulin Lispro 100 Unit/Ml 3 Ml Vial SUBCUT Not Given QIDACHS [facility] Protocol Lactic Acid 1 appl 04/14/21 21:00 04/15/21 09:47 Ammonium Lactate 12 % Lotion 226 Gm Bottle TOPICAL 1 appl BID MARGARET Administration Multivitamins/Vitamin C 1 tab 04/14/21 09:00 04/15/21 08:46 Multivitamin Tablet PO 1 tab DAILY MARGARET Administration Ondansetron HCl 4 mg 04/13/21 00:10 Ondansetron Hcl 4 Mg/2 Ml Vial IVPUSH Q8H PRN Nausea and Vomiting Pharmacy Consult 1 each 04/13/21 00:10 Consult Rx Vancomycin Dosing MISCELLANE DAILY PRN Consult order Pregabalin 150 mg 04/13/21 15:00 04/15/21 08:46 Pregabalin 150 Mg Capsule PO 150 mg TID MARGARET Administration Sodium Chloride 3 ml 04/13/21 00:10 04/15/21 08:45 0.9 % Sodium Chloride Flush 3 Ml Syringe IVFLUSH 3 ml QSHIFT MARGARET Administration Tramadol HCl 50 mg 04/13/21 14:45 04/15/21 08:45 Tramadol Hcl 50 Mg Tablet PO 50 mg Q6H MARGARET Administration Home Medications Medication Instructions Recorded Confirmed Last Taken Type multivitamin 1 tab PO DAILY 01/30/21 04/24/21 Unknown History Physical Exam Vital Signs: Vital Signs: Last Vital Signs Temp 97.2 F 04/15/21 12:00 Pulse 70 04/15/21 12:00 Resp 16 04/15/21 12:00 BP 158/77 H 04/15/21 12:00 Pulse Ox 97 04/15/21 12:00 Body Mass Index 38.0 Const: General: cooperative HENMT: Head: Yes normal to inspection Mouth: Normal oral and palatal mucosa present Eyes: General: appearance normal, both eyes and all related structures Resp: Effort & Inspection: normal respiratory effort Cardio: Rate: regular rate Rhythm: regular rhythm GI: Palpation (GI): Soft to palpation and nontender Skin: General skin exam: no rashes or lesions noted Extrem: Other: bilateral lower extremity erythema nodular skin lesions Results Labs CBC & Chem 7: 04/15/21 07:39 04/15/21 07:39 Labs: Short CBC 04/15/21 Range/Units 07:39 WBC 10.0 (4.8-10.8) X10*3/uL Hgb 13.0 L (14.0-18.0) g/dl Hct 38.7 L (42-52) % Plt Count 201 (160-400) X10*3/uL BMP 04/15/21 07:39 Sodium 136 Potassium 4.7 Chloride 100 Carbon Dioxide 28 BUN 10 Creatinine 0.83 Calcium 9.1 D Microbiology Microbiology Results: Microbiology 04/12/21 21:27 Blood - Venous Blood Culture - Final Coag negative Staphylococcus 04/12/21 21:20 Blood - Venous Blood Culture - Preliminary No growth after 48 hours. Assessment and Plan (1) Cellulitis: Status: Resolved He has possible gram positive organisms such as staph aureus predominantly I dont believe he has gram negative causes Venous stasis contributes to slow recovery (2) Sepsis: Status: Resolved Would give IV Linezolid or Clindamycin, IV and then po for a week Continue topical steroids
[2021-04-15] MEDS: Clindamycin Phosphate/D5W 600 MG/50 ML PIGGYBACK 100 MG IV (15:04)
[2021-04-15 15:21] VITALS: BP 164/78; PULSE 75; RESP 19; TEMP 36.8; O2SAT 98
[2021-04-15 16:29] LABS: Glucose, Whole Blood 133 mg/dL (60-115)
== END 2021-04-15 17:55 | disposition home or self-care (01) | DRG 872 ==
LOC: HO.ED 23:15 → HO.EDOVER 23:26 → HO.S3 23:38
PROVIDERS: Hospitalist; Admitting Provider Internal Medicine; Emergency Provider Student in an Organized Health Care Education/Training Program; Visit Provider Family Medicine
DX: A41.9 Sepsis, unspecified organism (principal); L03.115 Cellulitis of right lower limb; I83.218 Varicose veins of right lower extremity with both ulcer of other part of lower extremity and inflammation; L97.819 Non-pressure chronic ulcer of other part of right lower leg with unspecified severity; M47.816 Spondylosis without myelopathy or radiculopathy, lumbar region; G89.29 Other chronic pain; I83.12 Varicose veins of left lower extremity with inflammation; I87.8 Other specified disorders of veins; E11.51 Type 2 diabetes mellitus with diabetic peripheral angiopathy without gangrene; I10 Essential (primary) hypertension; Z20.822 Contact with and (suspected) exposure to COVID-19; Z79.84 Long term (current) use of oral hypoglycemic drugs; Z79.891 Long term (current) use of opiate analgesic; Z79.899 Other long term (current) drug therapy
CPT/HCPCS: 36415; 71045; 80048; 80053; 80202; 81003; 82565; 82947; 83605; 83690; 83735; 83880; 85025; 85027; 85610; 87040; 87147; 87205; 87635; 93005; 93971; 96361; 96365; 99285; J1650; J2543; J3370

== ENCOUNTER 2021-04-18 09:42 | Outpatient (REF) | payer MEDICARE, SELFPAY ==
--- NOTE | ~2021-04-18 | US_ITS ---
EXAMINATION: BILATERAL LOWER EXTREMITY VENOUS ULTRASOUND (Reflux Exam) CLINICAL INDICATION: This is a 71-year-old male with venous insufficiency and varicose veins appear COMPARISON: None. TECHNIQUE: Color flow triplex imaging and compression Doppler was performed to evaluate both the deep and the superficial systems bilaterally. To evaluate the superficial system, the examination was performed in the upright position. Color-flow Doppler ultrasound and compression ultrasound were utilized. In addition, maneuvers were utilized to demonstrate reflux. FINDINGS: 1. DEEP VENOUS ULTRASOUND OF THE RIGHT LOWER EXTREMITY: Common Femoral Vein: Compressible, normal respiratory variation and augmented flow. Femoral vein: Compressible, normal color flow and augmentation. Popliteal Vein: Compressible, normal augmentation. Deep Reflux: There is no evidence of reflux in the deep system in either the common femoral vein or the popliteal vein. . There is no evidence of a Trimble's cyst. 2. SUPERFICIAL ULTRASOUND WITH DOPPLER OF RIGHT LOWER EXTREMITY GREAT SAPHENOUS VEIN: Saphenofemoral junction: cm Mid thigh: 0.5 cm Above knee: 0.4 cm Below knee: 0.4 cm Mid calf: 0.3 cm Ankle: 0.4 cm GSV REFLUX: No evidence of reflux. DUPLICATED GREAT SAPHENOUS VEIN: There is a 0.5 cm duplicated lateral great saphenous vein without reflux. SMALL SAPHENOUS VEIN: Upper: 0.4 cm Lower: 0.3 cm SSV REFLUX: No evidence of reflux. VEIN OF GIACOMINI: None Imaged. PERFORATORS: None Imaged VARICOSITIES: There are 0.5 and 0.4 cm varicose veins in the distal thigh and proximal calf, respectively, without evidence of reflux. 3. DEEP VENOUS ULTRASOUND OF THE LEFT LOWER EXTREMITY: Common Femoral Vein: Compressible, normal respiratory variation and augmented flow. Femoral vein: Compressible, normal color flow and augmentation. Popliteal Vein: Compressible, normal augmentation. Deep Reflux: There is no evidence of reflux in the deep system in either the common femoral vein or the popliteal vein. There is no evidence of a Trimble's cyst. 4. SUPERFICIAL ULTRASOUND WITH DOPPLER OF LEFT LOWER EXTREMITY GREAT SAPHENOUS VEIN: Saphenofemoral junction: 0.7 cm Mid thigh: 0.4 cm Above knee: 0.2 cm The great saphenous vein is not seen below this level. GSV REFLUX: No evidence of reflux. DUPLICATED GREAT SAPHENOUS VEIN: There is a 0.3 cm duplicated lateral great saphenous vein without evidence of reflux. SMALL SAPHENOUS VEIN: Upper: 0.3 cm. There is no reflux at the junction. Lower: 0.3 cm. There is reflux in the mid and distal small saphenous vein with the reflux time greater than 3 seconds. SSV REFLUX: There is reflux as noted. VEIN OF GIACOMINI: None Imaged. 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 US/US venous duplex LE BI IMPRESSION: 1. There are patent bilateral great saphenous veins and small saphenous veins, respectively, without evidence of reflux at the junction. 2. There are varicose veins bilaterally without evidence of reflux.
== END 2021-04-18 09:43 | disposition home or self-care (01) ==
LOC: HO.US 09:42
PROVIDERS: PCP Internal Medicine; Visit Provider Surgery Vascular Surgery
DX: I83.893 Varicose veins of bilateral lower extremities with other complications (principal)
CPT/HCPCS: 93970

== ENCOUNTER → 2021-04-24 12:54 | Outpatient (BNVA) | payer MEDICARE, SELFPAY | PROVIDERS: PCP Internal Medicine; Visit Provider Family Medicine Adult Medicine | DX: M47.812 Spondylosis without myelopathy or radiculopathy, cervical region (principal); M47.816 Spondylosis without myelopathy or radiculopathy, lumbar region; M25.552 Pain in left hip; B02.29 Other postherpetic nervous system involvement | CPT/HCPCS: 99212 ==

== ENCOUNTER → 2021-05-15 11:20 | Outpatient (BNVA) | payer MEDICARE, SELFPAY | PROVIDERS: PCP Internal Medicine; Visit Provider Surgery Vascular Surgery | DX: I83.12 Varicose veins of left lower extremity with inflammation (principal); I89.0 Lymphedema, not elsewhere classified | CPT/HCPCS: 99212 ==

== ENCOUNTER → 2021-05-30 08:39 | Outpatient (BNVA) | payer MEDICARE, SELFPAY | PROVIDERS: PCP Internal Medicine; Referring Provider Internal Medicine; Visit Provider Surgery Vascular Surgery | DX: I83.12 Varicose veins of left lower extremity with inflammation (principal) | CPT/HCPCS: 36475 ==

== ENCOUNTER 2021-06-02 09:13 | Outpatient (REF) | payer MEDICARE, SELFPAY ==
--- NOTE | ~2021-06-02 | US_ITS ---
EXAMINATION: US VENOUS ULTRASOUND WITH DOPPLER LOWER EXTREMITY, LEFT CLINICAL INFORMATION: Status post left leg RFA. Rule out DVT. COMPARISON: Ultrasound 04/18/2021 TECHNIQUE: Ultrasound of the deep veins is performed from the hip to the calf with compression sonography and color and pulse Doppler assessment. Spectral analysis with color-flow imaging is performed. FINDINGS: There is normal venous compression and respiratory variation and augmented flow. The visualized common femoral vein, superficial femoral vein, profunda femoral vein, popliteal vein, and the trifurcation region shows no evidence of deep venous thrombosis. There is no significant popliteal fossa cyst. There is a mildly prominent lymph node in left groin which measures 3 x 1.7 x 2.3 cm and has a normal morphology. Given recent procedure this is likely reactive. The small saphenous vein is closed. If the patient's symptoms persist, followup ultrasound in 5 days 7 days might be of value to exclude proximal propagation from a non-visualized calf vein. US/US venous duplex LE IMPRESSION: No DVT demonstrated in the left lower extremity.
== END 2021-06-02 09:14 | disposition home or self-care (01) ==
LOC: HO.US 09:13
PROVIDERS: PCP Internal Medicine; Visit Provider Surgery Vascular Surgery
DX: M79.605 Pain in left leg (principal)
CPT/HCPCS: 93971

== ENCOUNTER → 2021-06-12 11:01 | Outpatient (BNVA) | payer MEDICARE, SELFPAY | PROVIDERS: PCP Internal Medicine; Visit Provider Surgery Vascular Surgery | DX: I83.12 Varicose veins of left lower extremity with inflammation (principal); I89.0 Lymphedema, not elsewhere classified | CPT/HCPCS: 99212 ==

== ENCOUNTER → 2021-06-19 12:54 | Outpatient (BNVA) | payer MEDICARE, SELFPAY | PROVIDERS: PCP Internal Medicine; Visit Provider Family Medicine Adult Medicine | DX: M47.816 Spondylosis without myelopathy or radiculopathy, lumbar region (principal); M47.812 Spondylosis without myelopathy or radiculopathy, cervical region; M25.552 Pain in left hip; B02.29 Other postherpetic nervous system involvement; I10 Essential (primary) hypertension; E66.01 Morbid (severe) obesity due to excess calories; Z87.891 Personal history of nicotine dependence; Z68.39 Body mass index [BMI] 39.0-39.9, adult; Z91.040 Latex allergy status | CPT/HCPCS: 99212 ==

== ENCOUNTER 2021-11-01 09:55 | Outpatient (REF) | payer MEDICARE, SELFPAY ==
[2021-11-01 10:25] LABS: MANUAL DIFF FLAG NO
[2021-11-01 11:17] LABS: Basophils Percent Auto 0.4 % (0-2); Eosinophils Absolute Auto 0.2 X10*3/uL (0.0-0.4); Eosinophils Percent Auto 3.3 % (0-4); Hematocrit 41.7 % (42.0-52.0); Hemoglobin 13.7 g/dl (14.0-18.0); Imm Gran Abs Auto 0.02 X10*3/uL (0.00-0.03); Imm Gran Pct Auto 0.4 % (0.0-0.4); Lymphocytes Absolute Auto 1.4 X10*3/uL (1.2-4.9); Mean Corpuscular HGB Conc 32.9 g/dl (31.0-36.0); Mean Corpuscular Hemoglobin 31.1 pg (27.0-33.0); Mean Corpuscular Volume 94.6 fL (80.0-98.0); Mean Platelet Volume 9.2 fL (9.4-12.4); Monocytes Absolute Auto 0.5 X10*3/uL (0.1-1.2); Monocytes Percent Auto 9.9 % (2-11); Neutrophils Absolute Auto 3.3 x10*3/uL (2.0-8.3); Platelet Count 232 X10*3/uL (160-400); Red Blood Count 4.41 X10*6/uL (4.60-5.80); Red Cell Distribution Width 13.1 % (11.0-16.0); White Blood Count 5.5 X10*3/uL (4.8-10.8)
[2021-11-01 11:25] LABS: Estimated Average Glucose 134 mg/dL; Hemoglobin A1c % 6.3 %
[2021-11-01 11:39] LABS: Alanine Aminotransferase 20 U/L (0-40); Alkaline Phosphatase 91 U/L (39-117); Anion Gap 11 (12-20); Aspartate Amino Transferase 23 U/L (5-37); Bilirubin Total 0.7 mg/dL (0.0-1.0); Blood Urea Nitrogen 12 mg/dL (9-16); Calcium 9.7 mg/dL (8.4-10.2); Carbon Dioxide 31 mmol/L (22-29); Chloride 98 mmol/L (96-108); Cholesterol 152 mg/dL; Estimated Glomerular Filt Rate > 60; Glucose Fasting 138 mg/dL (60-99); HDL Cholesterol 43 mg/dL; LDL Cholesterol Calculated 95 mg/dl; Sodium 135 mmol/L (135-145); Triglycerides 71 mg/dL
== END 2021-11-01 09:56 | disposition home or self-care (01) ==
LOC: HO.LAB 09:55
PROVIDERS: PCP Internal Medicine; Visit Provider Internal Medicine
DX: Z00.00 Encounter for general adult medical examination without abnormal findings (principal); Z13.0 Encounter for screening for diseases of the blood and blood-forming organs and certain disorders involving the immune mechanism; E11.9 Type 2 diabetes mellitus without complications
CPT/HCPCS: 36415; 80053; 80061; 83036; 84443; 85025

== ENCOUNTER 2022-04-18 10:02 | Outpatient (REF) | payer MEDICARE, SELFPAY ==
[2022-04-18 10:20] LABS: MANUAL DIFF FLAG NO
[2022-04-18 10:44] LABS: Estimated Average Glucose 137 mg/dL; Hemoglobin A1c % 6.4 %
[2022-04-18 10:49] LABS: Basophils Percent Auto 0.4 % (0-2); Eosinophils Absolute Auto 0.2 X10*3/uL (0.0-0.4); Eosinophils Percent Auto 4.5 % (0-4); Hematocrit 39.6 % (42.0-52.0); Hemoglobin 13.4 g/dl (14.0-18.0); Imm Gran Abs Auto 0.02 X10*3/uL (0.00-0.03); Imm Gran Pct Auto 0.4 % (0.0-0.4); Lymphocytes Absolute Auto 1.5 X10*3/uL (1.2-4.9); Lymphocytes Percent Auto 28.6 % (20-40); Mean Corpuscular HGB Conc 33.8 g/dl (31.0-36.0); Mean Corpuscular Hemoglobin 31.2 pg (27.0-33.0); Mean Corpuscular Volume 92.1 fL (80.0-98.0); Mean Platelet Volume 9.4 fL (9.4-12.4); Monocytes Absolute Auto 0.5 X10*3/uL (0.1-1.2); Monocytes Percent Auto 9.1 % (2-11); Neutrophils Absolute Auto 2.9 x10*3/uL (2.0-8.3); Platelet Count 205 X10*3/uL (160-400); Red Cell Distribution Width 13.4 % (11.0-16.0); White Blood Count 5.1 X10*3/uL (4.8-10.8)
[2022-04-18 11:02] LABS: Alanine Aminotransferase 18 U/L (0-40); Alkaline Phosphatase 88 U/L (39-117); Anion Gap 13 (12-20); Aspartate Amino Transferase 19 U/L (5-37); Bilirubin Total 0.6 mg/dL (0.0-1.0); Blood Urea Nitrogen 16 mg/dL (9-16); Carbon Dioxide 28 mmol/L (22-29); Chloride 100 mmol/L (96-108); Estimated Glomerular Filt Rate > 60; Glucose Fasting 147 mg/dL (60-99); Potassium 4.9 mmol/L (3.3-5.1); Sodium 136 mmol/L (135-145)
[2022-04-18 11:26] LABS: Thyroid Stimulating Hormone 2.04 uIU/mL (0.32-4.0)
== END 2022-04-18 10:03 | disposition home or self-care (01) ==
LOC: HO.LAB 10:02
PROVIDERS: PCP Internal Medicine; Visit Provider Internal Medicine
DX: Z00.00 Encounter for general adult medical examination without abnormal findings (principal); Z13.0 Encounter for screening for diseases of the blood and blood-forming organs and certain disorders involving the immune mechanism; E11.9 Type 2 diabetes mellitus without complications
CPT/HCPCS: 36415; 80053; 83036; 84443; 85025

== ENCOUNTER 2022-05-05 13:56 | Outpatient (REF) | payer MEDICARE, SELFPAY ==
[2022-05-05 15:13] LABS: Creatinine Urine 55.23 mg/dL; Microalbumin Urine < 5.0 mg/L
== END 2022-05-05 13:57 | disposition home or self-care (01) ==
LOC: HO.LNP 13:56
PROVIDERS: Visit Provider Internal Medicine
DX: E11.69 Type 2 diabetes mellitus with other specified complication (principal); E66.01 Morbid (severe) obesity due to excess calories
CPT/HCPCS: 82043

== ENCOUNTER 2022-10-16 14:23 | Outpatient (REF) | payer MEDICARE, SELFPAY | END 2022-10-16 14:24 | disposition home or self-care (01) | LOC: HO.LAB 14:23 | PROVIDERS: Visit Provider Internal Medicine | DX: Z13.89 Encounter for screening for other disorder (principal) ==

== ENCOUNTER 2022-12-09 14:49 | Outpatient (REF) | payer MEDICARE, SELFPAY ==
[2022-12-09 15:03] LABS: MANUAL DIFF FLAG NO
[2022-12-09 16:55] LABS: Basophils Percent Auto 0.5 % (0-2); Eosinophils Absolute Auto 0.2 X10*3/uL (0.0-0.4); Eosinophils Percent Auto 2.8 % (0-4); Hematocrit 42.9 % (42.0-52.0); Hemoglobin 14.8 g/dl (14.0-18.0); Imm Gran Abs Auto 0.03 X10*3/uL (0.00-0.03); Imm Gran Pct Auto 0.4 % (0.0-0.4); Lymphocytes Absolute Auto 1.9 X10*3/uL (1.2-4.9); Lymphocytes Percent Auto 24.9 % (20-40); Mean Corpuscular HGB Conc 34.5 g/dl (31.0-36.0); Mean Corpuscular Hemoglobin 31.6 pg (27.0-33.0); Mean Corpuscular Volume 91.7 fL (80.0-98.0); Mean Platelet Volume 9.7 fL (9.4-12.4); Monocytes Absolute Auto 0.7 X10*3/uL (0.1-1.2); Monocytes Percent Auto 9.3 % (2-11); Neutrophils Absolute Auto 4.7 x10*3/uL (2.0-8.3); Neutrophils Percent Auto 62.1 % (45-73); Platelet Count 227 X10*3/uL (160-400); Red Blood Count 4.68 X10*6/uL (4.60-5.80); Red Cell Distribution Width 13.1 % (11.0-16.0); White Blood Count 7.6 X10*3/uL (4.8-10.8)
[2022-12-09 17:09] LABS: Estimated Average Glucose 128 mg/dL; Hemoglobin A1c % 6.1 %
[2022-12-09 17:49] LABS: Alanine Aminotransferase 25 U/L (0-40); Albumin Level 4.2 g/dL (3.5-5.0); Alkaline Phosphatase 82 U/L (39-117); Anion Gap 15 (12-20); Aspartate Amino Transferase 24 U/L (5-37); Bilirubin Total 1.1 mg/dL (0.0-1.0); Blood Urea Nitrogen 18 mg/dL (9-16); Calcium 9.7 mg/dL (8.4-10.2); Carbon Dioxide 27 mmol/L (22-29); Chloride 99 mmol/L (96-108); Cholesterol 190 mg/dL; Estimated Glomerular Filt Rate > 60; Glucose Fasting 98 mg/dL (60-99); HDL Cholesterol 46 mg/dL; LDL Cholesterol Calculated 131 mg/dl; Potassium 4.6 mmol/L (3.3-5.1); Sodium 136 mmol/L (135-145); Total Protein 7.2 g/dL (6.5-8.0); Triglycerides 68 mg/dL
== END 2022-12-09 14:50 | disposition home or self-care (01) ==
LOC: HO.LAB 14:49
PROVIDERS: PCP Internal Medicine; Visit Provider Internal Medicine
DX: E78.5 Hyperlipidemia, unspecified (principal); D64.9 Anemia, unspecified; E11.69 Type 2 diabetes mellitus with other specified complication; E11.65 Type 2 diabetes mellitus with hyperglycemia; E66.01 Morbid (severe) obesity due to excess calories; N28.9 Disorder of kidney and ureter, unspecified
CPT/HCPCS: 36415; 80053; 80061; 83036; 85025

== ENCOUNTER 2023-05-13 14:11 | Outpatient (AMB) | payer MEDICARE, SELFPAY ==
[2023-05-13 14:12] VITALS: BP 158/60; PULSE 57; O2SAT 97; BMI 38.0
--- NOTE | 2023-05-13 14:12 | MHC.PC.OV ---
Vital Signs 05/13/23 14:12 Height 5 ft 10 in Weight 265 lb BMI 38.0 BP 158/60 H Blood Pressure Location Rt brachial Position Sitting Pulse 57 Pulse Source Pulse Oximeter Pulse Oximetry (%) 97 Oxygen Delivery Method Room Air Intake Visit Reasons: 3 MONTH F/U Side Guider: Not Required per policy Accompanied by: Self / Same As Patient Allergies latex Adverse Reaction (Verified 05/13/23 14:13) Unknown Medication List - Last Reconciled 05/13/23 by Denzel Garcia MD amlodipine 5 mg PO DAILY ammonium lactate 12% 1 appl topical BID blood pressure test kit-large As directed blood sugar diagnostic ([employer] Ultra Test strips) Use to check blood sugars twice a day blood-glucose meter ([employer] Ultra2 Meter) Use to check blood sugars twice a day clotrimazole-betamethasone 1-0.05 % 1 appl topical BID flash glucose sensor (FreeStyle Lauren 2 Sensor kit) As directed lancets ([employer] Delica Lancets) Use to check blood sugars twice a day lisinopril 10 mg PO DAILY metformin ER 500 mg PO DAILY multivitamin 1 tab PO DAILY naloxone 4 mg/actuation (Narcan) 4 mg intranasal Q2M 1 day pregabalin (Lyrica) 150 mg PO Q12H 90 days tramadol 50 mg PO Q6H 30 days Tobacco use date assessed: 10/16/22 Fall risk assessment: No Falls in past year Last assessed Fall Risk: 05/13/23 Dental Screening Dental Screen Date: 05/13/23 Did you have a dental visit in the last 12 months?: No Did you have a dental problem in the last 6 months where you did not have access to dental care?: No Was dental information given to patient?: Patient has dentist HPI 3 MONTH F/U HPI Details DM HTN chronic pain syndrome; doing well; due for labs [facility] Medical History Hypertension Cataract Diabetes mellitus with coincident hypertension Obesity Hypertension Diabetes mellitus Post herpetic neuralgia Arthritis of right hip Pneumococcal arthritis, right knee Pain of left hip Cervical spondylosis Lumbar spondylosis Surgical History Status post ablation of incompetent vein using laser History of tonsillectomy Family History Father Parkinson disease Mother No problems noted. Social History Household Members: Spouse Housing: House Do you presently have visiting nurse or other home services: No Alcohol intake: current Alcohol intake frequency: 0-2 drinks per day Alcohol type: beer Patient Tobacco Use Status: Former Tobacco user Tobacco use type: Cigarette Years Smoked: 1978 e-Cigarette/Vaping Use: Never Used Second Hand Smoke Exposure: No service: No Current occupational status: retired Cognitive needs: Yes Hearing needs: No Vision needs: No Questionnaire PHQ-9 Over the last 2 weeks, how often have you been bothered by any of the following problems? 1. Little interest or pleasure in doing things: not at all 2. Feeling down, depressed, or hopeless: not at all 3. Trouble falling or staying asleep, or sleeping too much: not at all 4. Feeling tired or having little energy: not at all 5. Poor appetite or overeating: not at all 6. Feeling bad about yourself - or that you are a failure or have let yourself or your family down: not at all 7. Trouble concentrating on things, such as reading the newspaper or watching television: not at all 8. Moving or speaking so slowly that other people could have noticed. Or the opposite - being so fidgety or restless that you have been moving around a lot more than usual: not at all 9. Thoughts that you would be better off or of hurting yourself in some way: not at all Total score: 0 Depression Screening Interpretation: Negative 97723 - PHQ-9 Billing: Yes Source: Developed by Drs. Alfredo Anna, Sarah Nichols, Geovanny Gibson and colleagues, with an educational carroll from [employer] Thrive Questionnaire Date Thrive assessed: 10/16/22 AUDIT C Alcohol Use Questionnaire (AUDIT-C) 1. How often do you have a drink containing alcohol?: 4 or more times a week 2. How many drinks containing alcohol do you have on a typical day when you are drinking?: 3 or 4 (2-3 beer before dinner.) 3. How often do you have six or more drinks on one occasion?: Never Total Score: 5 Score Reviewed/Action Taken: Yes PALMER-7 AMB Questionnaire PALMER-7 Date PALMER - 7 assessed: 10/16/22 Source: Developed by Drs. Alfredo Anna, Sarah Nichols, Geovanny Gibson and colleagues, with an educational carroll from [employer] Review of Systems Const Denies chills, Denies headache(s) and Denies weight loss ENT Denies headache(s) Card Denies chest pain, Denies syncope, Denies irregular heart rhythm and Denies dyspnea Resp Denies chest congestion, Denies cough and Denies dyspnea GI Denies abdominal pain, Denies change in stool character, Denies nausea and Denies vomiting Musc Denies deformity and Denies joint swelling Neuro Denies syncope and Denies headache(s) Physical exam (Primary Care) Vital Signs: Last Vital Signs Pulse 57 05/13/23 14:12 BP 158/60 H 05/13/23 14:12 Pulse Ox 97 05/13/23 14:12 Oxygen Delivery Method Room Air 05/13/23 14:12 BMI result Body Mass Index 38.0 Tobacco/Smoking Status: Tobacco use Status Tobacco use date assessed 10/16/22 05/13/23 14:22 Patient Tobacco Use Status Former Tobacco user 05/13/23 14:22 Tobacco use type Cigarette 05/13/23 14:22 e-Cigarette/Vaping Use Never Used 05/13/23 14:22 PHQ-9: PHQ-9 Score PHQ-9: Total score 0 05/13/23 14:22 Depression Screening Interpretation: Negative Thrive Assessment: Date of Thrive Assessment Date Thrive assessed 10/16/22 05/13/23 14:22 Const General: cooperative, comfortable, no acute distress and alert Neck Neck: Yes no lymphadenopathy Thyroid: Thyroid normal Resp Effort & Inspection: normal respiratory effort Auscultation: clear to auscultation bilaterally Percussion: percussion normal Cardio Jugular venous distension: no JVD Palpation: normal PMI Rate: regular rate Rhythm: regular rhythm Heart sounds: S1 normal heart sound present and S2 normal heart sound present GI Inspection: Yes normal to inspection Palpation (GI): No hepatosplenomegaly present Skin General skin exam: no rashes or lesions noted Extrem General: Yes no clubbing, cyanosis or edema Assessment and Plan Assessment & Plan (1) Hypertension: Code(s): I10 - Essential (primary) hypertension Plan: stable; same rx (2) Diabetes mellitus with coincident hypertension: Code(s): E11.9 - Type 2 diabetes mellitus without complications; I10 - Essential (primary) hypertension Plan: stable; same rx (3) Post herpetic neuralgia: Code(s): B02.29 - Other postherpetic nervous system involvement Plan: stable; same rx Orders: Orders Complete Blood Count Auto Diff Today D64.9 - Anemia, unspecified Lipid Panel Today E78.5 - Hyperlipidemia, unspecified Comprehensive Windfall. Panel Fast Today N28.9 - Disorder of kidney and ureter, unspecified Hemoglobin A1c Today R73.9 - Hyperglycemia, unspecified Coding Level of Care Code Est Pt Level 4 (30194) Diagnoses Hypertension I10 Diabetes mellitus with coincident hypertension E11.9; I10 Post herpetic neuralgia B02.29
== END 2023-05-13 14:29 | disposition home or self-care (01) ==
PROVIDERS: PCP Internal Medicine; Visit Provider Internal Medicine
DX: I10 Essential (primary) hypertension (principal); E11.9 Type 2 diabetes mellitus without complications; B02.29 Other postherpetic nervous system involvement
CPT/HCPCS: 99214

== ENCOUNTER 2023-08-20 13:56 | Outpatient (REF) | payer MEDICARE, SELFPAY ==
[2023-08-20 14:18] LABS: MANUAL DIFF FLAG NO
[2023-08-20 14:22] LABS: Basophils Percent Auto 0.4 % (0-2); Eosinophils Absolute Auto 0.1 X10*3/uL (0.0-0.4); Eosinophils Percent Auto 1.8 % (0-4); Hemoglobin 14.7 g/dl (14.0-18.0); Imm Gran Abs Auto 0.02 X10*3/uL (0.00-0.03); Imm Gran Pct Auto 0.3 % (0.0-0.4); Lymphocytes Absolute Auto 1.8 X10*3/uL (1.2-4.9); Lymphocytes Percent Auto 24.5 % (20-40); Mean Corpuscular HGB Conc 34.2 g/dl (31.0-36.0); Mean Corpuscular Hemoglobin 32.4 pg (27.0-33.0); Mean Corpuscular Volume 94.7 fL (80.0-98.0); Mean Platelet Volume 8.6 fL (9.4-12.4); Monocytes Absolute Auto 0.7 X10*3/uL (0.1-1.2); Neutrophils Absolute Auto 4.6 x10*3/uL (2.0-8.3); Platelet Count 241 X10*3/uL (160-400); Red Blood Count 4.54 X10*6/uL (4.60-5.80); Red Cell Distribution Width 12.4 % (11.0-16.0); White Blood Count 7.2 X10*3/uL (4.8-10.8)
[2023-08-20 14:46] LABS: Alanine Aminotransferase 18 U/L (0-40); Albumin Level 4.1 g/dL (3.5-5.0); Alkaline Phosphatase 71 U/L (39-117); Anion Gap 13 (12-20); Aspartate Amino Transferase 21 U/L (5-37); Bilirubin Total 0.8 mg/dL (0.0-1.0); Blood Urea Nitrogen 16 mg/dL (9-16); Calcium 9.7 mg/dL (8.4-10.2); Carbon Dioxide 27 mmol/L (22-29); Chloride 99 mmol/L (96-108); Cholesterol 185 mg/dL (<200); Estimated Glomerular Filt Rate > 60; Glucose Fasting 114 mg/dL (60-99); HDL Cholesterol 48 mg/dL (>40); LDL Cholesterol Calculated 114 mg/dL (<100); Potassium 4.4 mmol/L (3.3-5.1); Sodium 135 mmol/L (135-145); Total Protein 7.4 g/dL (6.5-8.0); Triglycerides 118 mg/dL (<150)
[2023-08-20 15:29] LABS: Estimated Average Glucose 126 mg/dL
== END 2023-08-20 13:57 | disposition home or self-care (01) ==
LOC: HO.LAB 13:56
PROVIDERS: PCP Internal Medicine; Visit Provider Internal Medicine
DX: D64.9 Anemia, unspecified (principal); N28.9 Disorder of kidney and ureter, unspecified; R73.9 Hyperglycemia, unspecified; E78.5 Hyperlipidemia, unspecified
CPT/HCPCS: 36415; 80053; 80061; 83036; 85025

== ENCOUNTER 2023-08-26 15:35 | Outpatient (REF) | payer MEDICARE, SELFPAY ==
[2023-08-26 16:10] LABS: Creatinine Urine 27.72 mg/dL; Microalbumin Urine < 5.0 mg/L
== END 2023-08-26 15:36 | disposition home or self-care (01) ==
LOC: HO.LNP 15:35
PROVIDERS: Visit Provider Internal Medicine
DX: E11.69 Type 2 diabetes mellitus with other specified complication (principal); E66.01 Morbid (severe) obesity due to excess calories
CPT/HCPCS: 82043; 82570

== ENCOUNTER 2023-09-02 14:16 | Outpatient (AMB) | payer MEDICARE, SELFPAY ==
[2023-09-02 14:17] VITALS: BP 168/80; PULSE 100; O2SAT 98; BMI 38.0
--- NOTE | 2023-09-02 14:17 | MHC.PC.OV ---
Vital Signs 09/02/23 14:17 Height 5 ft 10 in Weight 265 lb BMI 38.0 BP 168/80 H Blood Pressure Location Lt brachial Position Sitting Pulse 100 Pulse Source Pulse Oximeter Pulse Oximetry (%) 98 Oxygen Delivery Method Room Air Intake Visit Reasons: 3 month f/u Predatory Animal Hunter Required: No Churn Driller: Not Required per policy Accompanied by: Self / Same As Patient Allergies latex Adverse Reaction (Verified 09/02/23 14:18) Unknown Medication List - Last Reconciled 09/03/23 by Denzel Garcia MD amlodipine 5 mg PO DAILY ammonium lactate 12% 1 appl topical BID blood pressure test kit-large As directed blood sugar diagnostic ([employer] Ultra Test strips) Use to check blood sugars twice a day blood-glucose meter ([employer] Ultra2 Meter) Use to check blood sugars twice a day clotrimazole-betamethasone 1-0.05 % 1 appl topical BID flash glucose sensor (FreeStyle Lauren 2 Sensor kit) As directed lancets ([employer] Delica Lancets) Use to check blood sugars twice a day lisinopril 10 mg PO DAILY metformin ER 500 mg PO DAILY multivitamin 1 tab PO DAILY naloxone 4 mg/actuation (Narcan) 4 mg intranasal Q2M 1 day pregabalin (Lyrica) 150 mg PO Q12H 90 days tramadol 50 mg PO Q6H 30 days Tobacco use date assessed: 10/16/22 Fall risk assessment: No Falls in past year Last assessed Fall Risk: 09/02/23 Dental Screening Dental Screen Date: 09/02/23 Did you have a dental visit in the last 12 months?: Yes Did you have a dental problem in the last 6 months where you did not have access to dental care?: No Was dental information given to patient?: Patient has dentist HPI 3 month f/u HPI Details HTN DM and chronic cervical spondylosis on pain management; stable [facility] Medical History Hypertension Cataract Diabetes mellitus with coincident hypertension Obesity Hypertension Diabetes mellitus Post herpetic neuralgia Arthritis of right hip Pneumococcal arthritis, right knee Pain of left hip Cervical spondylosis Lumbar spondylosis Surgical History Status post ablation of incompetent vein using laser History of tonsillectomy Family History Father Parkinson disease Mother No problems noted. Social History Household Members: Spouse Housing: House Do you presently have visiting nurse or other home services: No Alcohol intake: current Alcohol intake frequency: 0-2 drinks per day Alcohol type: beer Patient Tobacco Use Status: Former Tobacco user Tobacco use type: Cigarette Years Smoked: 1978 e-Cigarette/Vaping Use: Never Used Second Hand Smoke Exposure: No service: No Current occupational status: retired Cognitive needs: Yes Hearing needs: No Vision needs: No Questionnaire Thrive Questionnaire Date Thrive assessed: 10/16/22 PALMER-7 AMB Questionnaire PALMER-7 Date PALMER - 7 assessed: 10/16/22 Source: Developed by Drs. Alfredo Anna, Sarah Nichols, Geovanny Gibson and colleagues, with an educational carroll from [employer]. Review of Systems Const Denies chills, Denies headache(s) and Denies weight loss ENT Denies headache(s) Card Denies chest pain, Denies syncope, Denies irregular heart rhythm and Denies dyspnea Resp Denies chest congestion, Denies cough and Denies dyspnea GI Denies abdominal pain, Denies change in stool character, Denies nausea and Denies vomiting Musc Denies deformity and Denies joint swelling Neuro Denies syncope and Denies headache(s) Physical exam (Primary Care) Vital Signs: Last Vital Signs Pulse 100 09/02/23 14:17 BP 168/80 H 09/02/23 14:17 Pulse Ox 98 09/02/23 14:17 Oxygen Delivery Method Room Air 09/02/23 14:17 BMI result Body Mass Index 38.0 Tobacco/Smoking Status: Tobacco use Status Tobacco use date assessed 10/16/22 09/02/23 14:18 Patient Tobacco Use Status Former Tobacco user 09/02/23 14:18 Tobacco use type Cigarette 09/02/23 14:18 e-Cigarette/Vaping Use Never Used 09/02/23 14:18 Thrive Assessment: Date of Thrive Assessment Date Thrive assessed 10/16/22 09/02/23 14:18 Const General: cooperative, comfortable, no acute distress and alert Neck Neck: Yes no lymphadenopathy Thyroid: Thyroid normal Resp Effort & Inspection: normal respiratory effort Auscultation: clear to auscultation bilaterally Percussion: percussion normal Cardio Jugular venous distension: no JVD Palpation: normal PMI Rate: regular rate Rhythm: regular rhythm Heart sounds: S1 normal heart sound present and S2 normal heart sound present GI Inspection: Yes normal to inspection Palpation (GI): No hepatosplenomegaly present Skin General skin exam: no rashes or lesions noted Extrem General: Yes no clubbing, cyanosis or edema Assessment and Plan Assessment & Plan (1) Hypertension: Code(s): I10 - Essential (primary) hypertension Plan: stable; same rx (2) Diabetes mellitus with coincident hypertension: Code(s): E11.9 - Type 2 diabetes mellitus without complications; I10 - Essential (primary) hypertension Plan: stable; same rx (3) Cervical spondylosis: Code(s): M47.812 - Spondylosis without myelopathy or radiculopathy, cervical region Plan: stable; same rx Orders: Orders Hemoglobin A1c Today R73.9 - Hyperglycemia, unspecified Lipid Panel Today E78.5 - Hyperlipidemia, unspecified Glucose Fasting Today R73.9 - Hyperglycemia, unspecified Coding Level of Care Code Est Pt Level 4 (92837) Diagnoses Hypertension I10 Diabetes mellitus with coincident hypertension E11.9; I10 Cervical spondylosis M47.812
== END 2023-09-02 14:34 | disposition home or self-care (01) ==
PROVIDERS: PCP Internal Medicine; Visit Provider Internal Medicine
DX: I10 Essential (primary) hypertension (principal); E11.9 Type 2 diabetes mellitus without complications; M47.812 Spondylosis without myelopathy or radiculopathy, cervical region
CPT/HCPCS: 99214

== ENCOUNTER 2024-01-03 14:16 | Outpatient (AMB) | payer MEDICARE, SELFPAY ==
[2024-01-03 14:17] VITALS: BP 150/96; PULSE 87; O2SAT 98; BMI 38.2
--- NOTE | 2024-01-03 14:17 | MHC.PC.OV ---
Vital Signs 01/03/24 14:17 Height 5 ft 10 in Weight 266 lb BMI 38.2 BP 150/96 H Blood Pressure Location Lt brachial Position Sitting Pulse 87 Pulse Source Pulse Oximeter Pulse Oximetry (%) 98 Oxygen Delivery Method Room Air Intake Visit Reasons: 4mth f/u Bag Press Operator Required: No Hammerer: Not Required per policy Accompanied by: Self / Same As Patient Allergies latex Adverse Reaction (Verified 01/03/24 14:17) Unknown Medication List - Last Reconciled 01/04/24 by Denzel Garcia MD amlodipine 5 mg PO DAILY ammonium lactate 12% 1 appl topical BID blood pressure test kit-large As directed blood sugar diagnostic ([employer] Ultra Test strips) Use to check blood sugars twice a day blood-glucose meter ([employer] Ultra2 Meter) Use to check blood sugars twice a day clotrimazole-betamethasone 1-0.05 % 1 appl topical BID finasteride 5 mg PO DAILY flash glucose sensor (FreeStyle Lauren 2 Sensor kit) As directed lancets ([employer] Delica Lancets) Use to check blood sugars twice a day lisinopril 10 mg PO DAILY metformin ER 500 mg PO DAILY multivitamin 1 tab PO DAILY naloxone 4 mg/actuation (Narcan) 4 mg intranasal Q2M 1 day pregabalin (Lyrica) 150 mg PO Q12H 90 days tramadol 50 mg PO Q6H 30 days Tobacco use date assessed: 01/03/24 Fall risk assessment: No Falls in past year Last assessed Fall Risk: 01/03/24 Dental Screening Dental Screen Date: 09/02/23 [facility] HPI Details Diabetes, hypertension and BPH; stable and compliant; due for labs [facility] Medical History Hypertension Cataract Diabetes mellitus with coincident hypertension Obesity Hypertension Diabetes mellitus Post herpetic neuralgia Arthritis of right hip Pneumococcal arthritis, right knee Pain of left hip Cervical spondylosis Lumbar spondylosis Surgical History Status post ablation of incompetent vein using laser History of tonsillectomy Family History Father Parkinson disease Mother No problems noted. Social History (Reviewed 09/02/23 @ 14:18 by DARLENE Mcdaniel Household Members: Spouse Housing: House Do you presently have visiting nurse or other home services: No Alcohol intake: current Alcohol intake frequency: 0-2 drinks per day Alcohol type: beer Patient Tobacco Use Status: Former Tobacco user Tobacco use type: Cigarette Years Smoked: 1978 e-Cigarette/Vaping Use: Never Used Second Hand Smoke Exposure: No service: No Current occupational status: retired Cognitive needs: Yes Hearing needs: No Vision needs: No Questionnaire PHQ-9 Over the last 2 weeks, how often have you been bothered by any of the following problems? 1. Little interest or pleasure in doing things: not at all 2. Feeling down, depressed, or hopeless: not at all 3. Trouble falling or staying asleep, or sleeping too much: not at all 4. Feeling tired or having little energy: not at all 5. Poor appetite or overeating: not at all 6. Feeling bad about yourself - or that you are a failure or have let yourself or your family down: not at all 7. Trouble concentrating on things, such as reading the newspaper or watching television: not at all 8. Moving or speaking so slowly that other people could have noticed. Or the opposite - being so fidgety or restless that you have been moving around a lot more than usual: not at all 9. Thoughts that you would be better off or of hurting yourself in some way: not at all Total score: 0 Depression Screening Interpretation: Negative Depression Screening Done: Yes 28502 - PHQ-9 Billing: Yes Source: Developed by Drs. Alfredo Anna, Sarah Nichols, Geovanny Gibson and colleagues, with an educational carroll from [employer]. Thrive Questionnaire Date Thrive assessed: 01/03/24 I am a: Patient What is your living situation today?: I have a steady place to live Within the past 12 months, did the food you bought not last and you didn't have the money to get more?: Never true Within the past 12 months, did you worry whether your food would run out before you got money to buy more?: Never true Do you have trouble paying for medicines?: No Do you have trouble getting transportation to medical appointments?: No Do you have trouble paying your heating and electricity bill?: No Do you have trouble taking care of your child, family member or friend?: No Do you have trouble with day-to-day activities such as bathing, preparing meals, shopping, managing finances, etc.?: No Are you currently unemployed and looking for a job?: No Are you interested in more education?: No Please select the resources that you would like help with: None THRIVE Score: 0 AUDIT C Alcohol Use Questionnaire (AUDIT-C) 1. How often do you have a drink containing alcohol?: 4 or more times a week 2. How many drinks containing alcohol do you have on a typical day when you are drinking?: 3 or 4 (2-3 beer before dinner.) 3. How often do you have six or more drinks on one occasion?: Never Total Score: 5 Score Reviewed/Action Taken: Yes PALMER-7 AMB Questionnaire PALMER-7 Date PALMER - 7 assessed: 01/03/24 Feeling nervous, anxious, or on edge: 0 = Not at all Not being able to stop or control worryin = Not at all Worrying too much about different things: 0 = Not at all Trouble relaxin = Not at all Being so restless that it is hard to sit still: 0 = Not at all Becoming easily annoyed or irritable: 0 = Not at all Feeling afraid as if something awful might happen: 0 = Not at all Total PALMER-7 score (0-4 normal; 5-9 mild; 10-14 moderate; 15-21 severe): 0 Source: Developed by Drs. Alfredo Anna, Sarah Nichols, Geovanny Gibson and colleagues, with an educational carroll from [employer]. PALMER-7 Assessment Billing PALMER-7 Assessment Tool: PALMER-7 Assessment [id number] Review of Systems Const Denies chills, Denies headache(s) and Denies weight loss ENT Denies headache(s) Card Denies chest pain, Denies syncope, Denies irregular heart rhythm and Denies dyspnea Resp Denies chest congestion, Denies cough and Denies dyspnea GI Denies abdominal pain, Denies change in stool character, Denies nausea and Denies vomiting Musc Denies deformity and Denies joint swelling Neuro Denies syncope and Denies headache(s) Physical exam (Primary Care) Vital Signs: Last Vital Signs Pulse 87 01/03/24 14:17 BP 150/96 H 01/03/24 14:17 Pulse Ox 98 01/03/24 14:17 Oxygen Delivery Method Room Air 01/03/24 14:17 BMI result Body Mass Index 38.2 Tobacco/Smoking Status: Tobacco use Status Tobacco use date assessed 01/03/24 01/03/24 14:18 Patient Tobacco Use Status Former Tobacco user 01/03/24 14:18 Tobacco use type Cigarette 01/03/24 14:18 e-Cigarette/Vaping Use Never Used 01/03/24 14:18 PHQ-9: PHQ-9 Score PHQ-9: Total score 0 01/03/24 14:29 Depression Screening Interpretation: Negative Thrive Assessment: Date of Thrive Assessment Date Thrive assessed 01/03/24 01/03/24 14:18 Const General: cooperative, comfortable, no acute distress and alert Neck Neck: Yes no lymphadenopathy Thyroid: Thyroid normal Resp Effort & Inspection: normal respiratory effort Auscultation: clear to auscultation bilaterally Percussion: percussion normal Cardio Jugular venous distension: no JVD Palpation: normal PMI Rate: regular rate Rhythm: regular rhythm Heart sounds: S1 normal heart sound present and S2 normal heart sound present GI Inspection: Yes normal to inspection Palpation (GI): No hepatosplenomegaly present Skin General skin exam: no rashes or lesions noted Extrem General: Yes no clubbing, cyanosis or edema Results AMB Hemoglobin A1c AMB Hemoglobin A1c 6.6 % Last Edit by VERONICA Mcdaniel on 01/03/24 14:30 Results Reviewed Results Reviewed: Laboratory Last Values Hgb A1c (Clinic) 6.6 % (4.0-6.0) H 01/03/24 14:30 Assessment and Plan Assessment & Plan (1) Diabetes mellitus with coincident hypertension: Code(s): E11.9 - Type 2 diabetes mellitus without complications; I10 - Essential (primary) hypertension Plan: stable; same rx (2) Hypertension: Code(s): I10 - Essential (primary) hypertension Plan: stable; same rx (3) BPH (benign prostatic hyperplasia): Code(s): N40.0 - Benign prostatic hyperplasia without lower urinary tract symptoms Plan: stable; same rx Orders: Orders AMB Hemoglobin A1c 01/03/24 E11.9 - Type 2 diabetes mellitus without complications, I10 - Essential (primary) hypertension Coding Level of Care Code Est Pt Level 4 (62881) Diagnoses Diabetes mellitus with coincident hypertension E11.9; I10 Hypertension I10 BPH (benign prostatic hyperplasia) N40.0 Additional Codes PALMER-7 Assessment Billing - PALMER-7 Assessment Tool: PALMER-7 Assessment [id number] ([id number])
== END 2024-01-03 14:39 | disposition home or self-care (01) ==
PROVIDERS: PCP Internal Medicine; Visit Provider Internal Medicine
DX: E11.9 Type 2 diabetes mellitus without complications (principal); I10 Essential (primary) hypertension
CPT/HCPCS: 83036; 99214

== ENCOUNTER 2024-04-04 14:17 | Outpatient (AMB) | payer MEDICARE, SELFPAY ==
--- NOTE | 2024-04-04 14:26 | MHC.PC.OV ---
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 Accompanied by: Spouse Allergies latex Adverse Reaction (Verified 04/04/24 14:35) Unknown Medication List - Last Reconciled 04/05/24 by Denzel Garcia MD amlodipine 5 mg PO DAILY ammonium lactate 12% 1 appl topical BID blood pressure test kit-large As directed blood sugar diagnostic (HydrocapsuleTouch Ultra Test strips) Use to check blood sugars twice a day blood-glucose meter (Dianpinguch Ultra2 Meter) Use to check blood sugars twice a day clotrimazole-betamethasone 1-0.05 % 1 appl topical BID finasteride 5 mg PO DAILY flash glucose sensor (FreeStyle Lauren 2 Sensor kit) As directed lancets (Cyanto Delica Lancets) Use to check blood sugars twice a day lisinopril 10 mg PO DAILY metformin ER 500 mg PO DAILY multivitamin 1 tab PO DAILY naloxone 4 mg/actuation (Narcan) 4 mg intranasal Q2M 1 day pregabalin (Lyrica) 150 mg PO Q12H 90 days tramadol 50 mg PO Q6H 30 days Tobacco use date assessed: 01/03/24 Fall risk assessment: No Falls in past year Last assessed Fall Risk: 04/04/24 Dental Screening Dental Screen Date: 09/02/23 HPI 3mth f/u HPI Details hypertension on rx; doing well and compliant [facility] Medical History Hypertension Cataract Diabetes mellitus with coincident hypertension Obesity Hypertension Diabetes mellitus Post herpetic neuralgia Arthritis of right hip Pneumococcal arthritis, right knee Pain of left hip Cervical spondylosis Lumbar spondylosis Surgical History Status post ablation of incompetent vein using laser History of tonsillectomy Family History Father Parkinson disease Mother No problems noted. Social History Household Members: Spouse Housing: House Do you presently have visiting nurse or other home services: No Alcohol intake: current Alcohol intake frequency: 0-2 drinks per day Alcohol type: beer Patient Tobacco Use Status: Former Tobacco user Tobacco use type: Cigarette Years Smoked: 1978 e-Cigarette/Vaping Use: Never Used Second Hand Smoke Exposure: No service: No Current occupational status: retired Cognitive needs: Yes Hearing needs: No Vision needs: No Questionnaire Thrive Questionnaire Date Thrive assessed: 01/03/24 PALMER-7 AMB Questionnaire PALMER-7 Date PALMER - 7 assessed: 01/03/24 Source: Developed by Drs. Alfredo Anna, Sarah Nichols, Geovanny Gibson and colleagues, with an educational carroll from [employer]. Review of Systems Const Denies chills, Denies headache(s) and Denies weight loss ENT Denies headache(s) Card Denies chest pain, Denies syncope, Denies irregular heart rhythm and Denies dyspnea Resp Denies chest congestion, Denies cough and Denies dyspnea GI Denies abdominal pain, Denies change in stool character, Denies nausea and Denies vomiting Musc Denies deformity and Denies joint swelling Neuro Denies syncope and Denies headache(s) Physical exam (Primary Care) Vital Signs: Last Vital Signs Pulse 122 H 04/04/24 14:33 BP 180/90 H 04/04/24 14:33 Pulse Ox 95 04/04/24 14:33 Oxygen Delivery Method Room Air 04/04/24 14:33 BMI result Body Mass Index 37.5 Tobacco/Smoking Status: Tobacco use Status Tobacco use date assessed 01/03/24 04/04/24 14:26 Patient Tobacco Use Status Former Tobacco user 04/04/24 14:26 Tobacco use type Cigarette 04/04/24 14:26 e-Cigarette/Vaping Use Never Used 04/04/24 14:26 Thrive Assessment: Date of Thrive Assessment Date Thrive assessed 01/03/24 04/04/24 14:26 Const General: cooperative, comfortable, no acute distress and alert Neck Neck: Yes no lymphadenopathy Thyroid: Thyroid normal Resp Effort & Inspection: normal respiratory effort Auscultation: clear to auscultation bilaterally Percussion: percussion normal Cardio Jugular venous distension: no JVD Palpation: normal PMI Rate: regular rate Rhythm: regular rhythm Heart sounds: S1 normal heart sound present and S2 normal heart sound present GI Inspection: Yes normal to inspection Palpation (GI): No hepatosplenomegaly present Skin General skin exam: no rashes or lesions noted Extrem General: Yes no clubbing, cyanosis or edema Results AMB Hemoglobin A1c AMB Hemoglobin A1c 6.4 % Last Edit by JANET Wu on 04/04/24 14:48 Results Reviewed Results Reviewed: Laboratory Last Values Hgb A1c (Clinic) 6.4 % (4.0-6.0) H 04/04/24 14:26 Assessment and Plan Assessment & Plan (1) Hypertension: Code(s): I10 - Essential (primary) hypertension Plan: stable; same rx Orders: Orders Complete Blood Count Auto Diff Today Z13.0 - Encounter for screening for diseases of the blood and blood-forming organs and certain disorders involving the immune mechanism AMB Hemoglobin A1c 04/04/24 E11.9 - Type 2 diabetes mellitus without complications, I10 - Essential (primary) hypertension Lipid Panel Today Z13.220 - Encounter for screening for lipoid disorders Microalbumin, Random (w Creat) Today E11.69 - Type 2 diabetes mellitus with other specified complication, E66.01 - Morbid (severe) obesity due to excess calories Comprehensive [place]. Panel Fast Today Z13.9 - Encounter for screening, unspecified Hemoglobin A1c Today R73.9 - Hyperglycemia, unspecified Medications: Refilled blood pressure test kit-large As directed 1 ea 0RF I10 - Essential (primary) hypertension Coding Level of Care Code Est Pt Level 3 (54147) Diagnoses Hypertension I10
[2024-04-04 14:33] VITALS: BP 180/90; PULSE 122; O2SAT 95; BMI 37.5
== END 2024-04-04 14:50 | disposition home or self-care (01) ==
PROVIDERS: PCP Internal Medicine; Visit Provider Internal Medicine
DX: I10 Essential (primary) hypertension (principal); E11.69 Type 2 diabetes mellitus with other specified complication
CPT/HCPCS: 83036; 99213

== ENCOUNTER 2024-07-05 14:55 | Outpatient (AMB) | payer MEDICARE, SELFPAY ==
--- NOTE | 2024-07-05 14:55 | A.OFFPC_ITS ---
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 Accompanied by: Spouse Allergies latex Adverse Reaction (Verified 07/05/24 15:21) Unknown Medication List - Last Reconciled 07/05/24 by Alec Manzo PA-C amlodipine 5 mg PO DAILY ammonium lactate 12% 1 appl topical BID blood pressure test kit-large As directed blood sugar diagnostic (iSoftStoneTouch Ultra Test strips) Use to check blood sugars twice a day blood-glucose meter (Sorbent Therapeuticsuch Ultra2 Meter) Use to check blood sugars twice a day clotrimazole-betamethasone 1-0.05 % 1 appl topical BID finasteride 5 mg PO DAILY flash glucose sensor (FreeStyle Lauren 2 Sensor kit) As directed lancets ([employer] Delica Lancets) Use to check blood sugars twice a day lisinopril 10 mg PO DAILY metformin ER 500 mg PO DAILY multivitamin 1 tab PO DAILY naloxone 4 mg/actuation (Narcan) 4 mg intranasal Q2M 1 day pregabalin (Lyrica) 150 mg PO Q12H 90 days tramadol 50 mg PO Q6H 30 days Tobacco use date assessed: 01/03/24 Dental Screening Dental Screen Date: 09/02/23 HPI 3 month f/u HPI Details Patient is a 74-year-old male here today for a routine 3 month follow- up on his diabetes and hypertension. Today's blood pressure elevated today in office which seems to be continuing elevated when he comes into doctor's offices. Unclear if this is white coat hypertension. Does not monitor his blood pressure at home and promises to start doing so. Otherwise asymptomatic. Will increase his lisinopril to 20 mg for better blood pressure control. Type 2 diabetes- today's A1c acceptable. He is not able to check his blood sugars as he has not been able to receive a glucose monitor secondary to insurance coverage. REPLACED BY [facility] Medical History Hypertension Cataract Diabetes mellitus with coincident hypertension Obesity Hypertension Diabetes mellitus Post herpetic neuralgia Arthritis of right hip Pneumococcal arthritis, right knee Pain of left hip Cervical spondylosis Lumbar spondylosis Surgical History Status post ablation of incompetent vein using laser History of tonsillectomy Family History Father Parkinson disease Mother No problems noted. Social History Household Members: Spouse Housing: House Do you presently have visiting nurse or other home services: No Alcohol intake: current Alcohol intake frequency: 0-2 drinks per day Alcohol type: beer Patient Tobacco Use Status: Former Tobacco user Tobacco use type: Cigarette Years Smoked: 1978 e-Cigarette/Vaping Use: Never Used Second Hand Smoke Exposure: No service: No Current occupational status: retired Cognitive needs: Yes Hearing needs: No Vision needs: No Questionnaire Thrive Questionnaire Date Thrive assessed: 01/03/24 PALMER-7 AMB Questionnaire PALMER-7 Date PALMER - 7 assessed: 01/03/24 Source: Developed by Drs. Alfredo Anna, Sarah Nichols, Geovanny Gibson and colleagues, with an educational carroll from [employer]. Review of Systems Const Denies headache(s) Eyes Denies loss of vision ENT Denies vertigo, Denies dizziness, Denies headache(s) and Denies sore throat Card Denies chest pain, Denies leg edema and Denies lightheadedness Resp Denies cough, Denies hemoptysis and Denies wheezing GI Denies abdominal pain, Denies melena, Denies constipation, Denies diarrhea and Denies vomiting Denies dysuria, Denies urinary frequency and Denies urinary urgency Musc Denies arthralgias, Denies joint swelling, Denies numbness and Denies tingling Neuro Denies Abnormal speech present, Denies behavioral changes, Denies vertigo, Denies dizziness, Denies headache(s), Denies loss of vision, Denies memory loss, Denies numbness and Denies tingling Psych Denies anxiety, Denies behavioral changes, Denies depression, Denies memory loss and Denies panic attacks Mac/Lymph Denies easy bleeding and Denies easy bruising Aller/Immun Denies wheezing Physical exam (Primary Care) Vital Signs: Last Vital Signs Pulse 63 07/05/24 14:56 BP 152/90 H 07/05/24 14:56 Pulse Ox 95 07/05/24 14:56 Oxygen Delivery Method Room Air 07/05/24 14:56 BMI result Body Mass Index 38.2 Tobacco/Smoking Status: Tobacco use Status Tobacco use date assessed 01/03/24 07/05/24 14:59 Patient Tobacco Use Status Former Tobacco user 07/05/24 14:59 Tobacco use type Cigarette 07/05/24 14:59 e-Cigarette/Vaping Use Never Used 07/05/24 14:59 Thrive Assessment: Date of Thrive Assessment Date Thrive assessed 01/03/24 07/05/24 14:59 Const General: healthy appearing, no acute distress, alert and awake Nutritional Appearance: well nourished Orientation/consciousness: oriented to person, oriented to place and oriented to time HENMT Ears: TM's normal bilaterally General nose exam: Normal nasal mucous membranes and turbinates present Eyes Conjunctivae: conjunctivae normal Sclerae: sclerae normal Pupils: Equal, round and reactive pupils present Neck Neck: Yes no lymphadenopathy and Yes no JVD Thyroid: Thyroid normal Carotids: no bruits Resp Effort & Inspection: normal respiratory effort and not tachypneic Auscultation: no crackles, no rales, no rhonchi and no wheezes Cardio Rate: regular rate Rhythm: regular rhythm Heart sounds: no murmurs and normal S1 and S2 GI Palpation (GI): Soft to palpation, nontender, no hepatomegaly and no splenomegaly Auscultation: normal bowel sounds Skin General skin exam: no rashes or lesions noted and dry skin Neuro General: oriented to person, oriented to place and oriented to time Cranial nerves: Yes Equal, round and reactive pupils present Speech: No Abnormal speech present Gait exam (Neuro): Normal gait present Motor exam (neuro): no tremor noted Extrem Right upper extremity: full ROM Left upper extremity: full ROM Right lower extremity: full ROM; no edema Left lower extremity: full ROM; no edema Psych Mental Status: mental status grossly normal Speech and movement: Normal speech and movement present Affect: normal affect Attitude: cooperative Thought process: Normal thought process present Results AMB Hemoglobin A1c AMB Hemoglobin A1c 6.4 % Last Edit by JANET Wu on 07/05/24 15:10 Results Reviewed Results Reviewed: Laboratory Last Values Hgb A1c (Clinic) 6.4 % (4.0-6.0) H 07/05/24 15:09 Coding Level of Care Code Est Pt Level 3 (33807) Diagnoses Diabetes mellitus with coincident hypertension E11.9; I10 Primary hypertension I10 Hypertension type: primary hypertension Assessment & Plan Assessment & Plan (1) Diabetes mellitus with coincident hypertension: Code(s): E11.9 - Type 2 diabetes mellitus without complications; I10 - Essential (primary) hypertension Category: Medical Plan: Patient's type 2 diabetes well controlled with A1c below 7.0. He will continue his current dose of antihyperglycemic medication. (2) Hypertension: Code(s): I10 - Essential (primary) hypertension Category: Medical Qualifiers: Hypertension type: primary hypertension Qualified Code(s): I10 - Essential (primary) hypertension Plan: Patient's blood pressure elevated today in office and has been elevated at previous BMD visits. Will increase his lisinopril to 20 mg for better blood pressure control. Advised to monitor blood pressure at home with goal blood pressure to remain below 140/90. Orders: Orders AMB Hemoglobin A1c 07/05/24 E11.9 - Type 2 diabetes mellitus without complications, I10 - Essential (primary) hypertension Medications: New lisinopril 20 mg PO DAILY 30 days 30 tabs 3RF I10 - Essential (primary) hypertension Refilled clotrimazole-betamethasone 1-0.05 % 1 appl topical BID 45 grams 8RF amlodipine 5 mg PO DAILY 90 tabs 8RF Discontinued lisinopril Discontinued Reason: Doctor's Order 10 mg PO DAILY 90 tabs 1RF
[2024-07-05 14:56] VITALS: BP 152/90; PULSE 63; O2SAT 95; BMI 38.2
--- NOTE | 2024-07-05 15:00 | A.OFFPC_ITS ---
Vital Signs 07/05/24 14:56 Height 5 ft 10 in Weight 266 lb 6 oz BMI 38.2 BP 152/90 H Blood Pressure Location Lt brachial Position Sitting Pulse 63 Pulse Source Pulse Oximeter Pulse Oximetry (%) 95 Oxygen Delivery Method Room Air Intake Visit Reasons: 3 month f/u Intake Note: Dr. Garcia's pt here for 3 months F/U. Nail Puller Required: No Accompanied by: Spouse Allergies latex Adverse Reaction (Verified 07/05/24 15:21) Unknown Tobacco use date assessed: 01/03/24 Fall risk assessment: No Falls in past year Last assessed Fall Risk: 07/05/24 Dental Screening Dental Screen Date: 09/02/23 [facility] Medical History Hypertension Cataract Diabetes mellitus with coincident hypertension Obesity Hypertension Diabetes mellitus Post herpetic neuralgia Arthritis of right hip Pneumococcal arthritis, right knee Pain of left hip Cervical spondylosis Lumbar spondylosis Surgical History Status post ablation of incompetent vein using laser History of tonsillectomy Family History Father Parkinson disease Mother No problems noted. Social History Household Members: Spouse Housing: House Do you presently have visiting nurse or other home services: No Alcohol intake: current Alcohol intake frequency: 0-2 drinks per day Alcohol type: beer Patient Tobacco Use Status: Former Tobacco user Tobacco use type: Cigarette Years Smoked: 1978 e-Cigarette/Vaping Use: Never Used Second Hand Smoke Exposure: No service: No Current occupational status: retired Cognitive needs: Yes Hearing needs: No Vision needs: No Questionnaire Thrive Questionnaire Date Thrive assessed: 01/03/24 PALMER-7 AMB Questionnaire PALMER-7 Date PALMER - 7 assessed: 01/03/24 Source: Developed by Drs. Alfredo Anna, Sarah Nichols, Geovanny Gibson and colleagues, with an educational carroll from [employer]. Physical exam (Primary Care) Vital Signs: Last Vital Signs Pulse 63 07/05/24 14:56 BP 152/90 H 07/05/24 14:56 Pulse Ox 95 07/05/24 14:56 Oxygen Delivery Method Room Air 07/05/24 14:56 BMI result Body Mass Index 38.2 Tobacco/Smoking Status: Tobacco use Status Tobacco use date assessed 01/03/24 07/05/24 15:07 Patient Tobacco Use Status Former Tobacco user 07/05/24 15:07 Tobacco use type Cigarette 07/05/24 15:07 e-Cigarette/Vaping Use Never Used 07/05/24 15:07 Thrive Assessment: Date of Thrive Assessment Date Thrive assessed 01/03/24 07/05/24 15:07 Results AMB Hemoglobin A1c AMB Hemoglobin A1c 6.4 % Last Edit by JANET Wu on 07/05/24 15:10 Results Reviewed Results Reviewed: Laboratory Last Values Hgb A1c (Clinic) 6.4 % (4.0-6.0) H 07/05/24 15:09 Coding Assessment & Plan Assessment & Plan Orders: Orders AMB Hemoglobin A1c Today E11.9 - Type 2 diabetes mellitus without complications, I10 - Essential (primary) hypertension Medications: Refilled clotrimazole-betamethasone 1-0.05 % 1 appl topical BID 45 grams 8RF amlodipine 5 mg PO DAILY 90 tabs 8RF
== END 2024-07-05 15:39 | disposition home or self-care (01) ==
LOC: HO.HMCH 14:55
PROVIDERS: PCP Internal Medicine; Visit Provider Physician Assistant
DX: E11.9 Type 2 diabetes mellitus without complications (principal); I10 Essential (primary) hypertension

== ENCOUNTER → 2024-07-05 14:55 | Outpatient (BNVA) | payer MEDICARE, SELFPAY | PROVIDERS: PCP Internal Medicine; Visit Provider Physician Assistant | DX: E11.9 Type 2 diabetes mellitus without complications (principal); I10 Essential (primary) hypertension | CPT/HCPCS: 83036; 99212 ==

== ENCOUNTER 2024-09-22 15:20 | Outpatient (REF) | payer MEDICARE, SELFPAY ==
[2024-09-22 15:42] LABS: MANUAL DIFF FLAG NO
[2024-09-22 15:50] LABS: Basophils Percent Auto 0.5 % (0-2); Eosinophils Absolute Auto 0.1 X10*3/uL (0.0-0.4); Eosinophils Percent Auto 1.7 % (0-4); Hematocrit 42.1 % (42.0-52.0); Hemoglobin 14.5 g/dl (14.0-18.0); Imm Gran Abs Auto 0.01 X10*3/uL (0.00-0.03); Imm Gran Pct Auto 0.2 % (0.0-0.4); Lymphocytes Absolute Auto 1.8 X10*3/uL (1.2-4.9); Lymphocytes Percent Auto 27.8 % (20-40); Mean Corpuscular HGB Conc 34.4 g/dl (31.0-36.0); Mean Corpuscular Hemoglobin 32.3 pg (27.0-33.0); Mean Corpuscular Volume 93.8 fL (80.0-98.0); Mean Platelet Volume 8.8 fL (9.4-12.4); Monocytes Absolute Auto 0.6 X10*3/uL (0.1-1.2); Monocytes Percent Auto 8.4 % (2-11); Neutrophils Absolute Auto 4.1 x10*3/uL (2.0-8.3); Neutrophils Percent Auto 61.4 % (45-73); Platelet Count 217 X10*3/uL (160-400); Red Blood Count 4.49 X10*6/uL (4.60-5.80); Red Cell Distribution Width 12.8 % (11.0-16.0); White Blood Count 6.6 X10*3/uL (4.8-10.8)
[2024-09-22 16:14] LABS: Alanine Aminotransferase 19 U/L (0-40); Albumin Level 4.2 g/dL (3.5-5.0); Alkaline Phosphatase 65 U/L (39-117); Anion Gap 13 (12-20); Aspartate Amino Transferase 26 U/L (5-37); Bilirubin Total 1.1 mg/dL (0.0-1.0); Blood Urea Nitrogen 10 mg/dL (9-16); Calcium 9.6 mg/dL (8.4-10.2); Carbon Dioxide 30 mmol/L (22-29); Chloride 101 mmol/L (96-108); Cholesterol 197 mg/dL (<200); Estimated Glomerular Filt Rate > 60; Glucose Fasting 105 mg/dL (60-99); HDL Cholesterol 48 mg/dL (>40); LDL Cholesterol Calculated 122 mg/dL (<100); Potassium 4.8 mmol/L (3.3-5.1); Sodium 139 mmol/L (135-145); Total Protein 7.7 g/dL (6.5-8.0); Triglycerides 139 mg/dL (<150)
[2024-09-22 16:19] LABS: Estimated Average Glucose 128 mg/dL; Hemoglobin A1C 166.6356 umol/L; Hemoglobin A1c % 6.1 % (<6.0); Total Hemoglobin (HGBA1C) 3824.4258 umol/L
--- OUTSIDE RECORDS SUMMARY | 2024-09-22 16:23 | XMS_ITS ---
Author Organization [facility] [place] Address [address] [place] [address] Care Team Providers Care Turbo Operator Name Role Phone Radha GAGE, Denzel Primary Care Provider Abby Rankin Unavailable [phone] Allergies Allergen (clinical drug ingredient) Drug/Non Drug Allergy documented on EMR Reaction Allergy Type Onset Date Status Adhesive rash Allergy Active Latex Latex rash Allergy Active REASON FOR VISIT At Risk Footcare, Painful Nail(s) aggrevated by shoes and causing difficulty standing/walking Medications Medication SIG (Take, Route, Frequency, Duration) Notes Start Date End Date Status traMADol HCl Active Ammonium Lactate 12 % 1 application to affected area Externally to feet Twice a day for 30 days Active Cephalexin 500 MG 1 tablet Orally Twic e a day for 10 day(s) Not-Taking Cipro 500 MG 1 tablet Orally ever y 12 hrs for 7 days 02/13/2019 Not-Taking Lyrica 150 MG 1 capsule Orally Onc e a day Active Meloxicam 15 MG 1 tablet Orally Once a day for 30 day(s) Active metFORMIN HCl 500 MG 1 tablet with a bruno l Orally Once a day for 30 day(s) Active Lisinopril 10 MG 1 tablet Orally Once a day for 30 day(s) Active aMILoride HCl 5 MG 1 tablet Orally Once a day for 30 day(s) Active Daily Vitamin - 1 tablet Orally Once a day for 30 day(s) Active hydroCHLOROthiazide 25 MG 1 tablet in th e morning Orally Once a day for 30 day(s) Active Immunizations Vaccine Route Administration Date Status Comme nts Influenza Unknown 02/08/2024 Refused Social History Tobacco Use: Social History Observation Description Date Details (start date - stop date) Former Smoker NA - NA Tobacco Use/Smoking Question Answer Notes Are you a: former smoker Alcohol Screen Question Answer Notes Did you have a drink contain ing alcohol in the past year? Yes How often did you have a dri nk containing alcohol in the past year? 4 or more times a week (4 points) Points 4 Interpretation Positive Tobacco use other than smoking: Question Answer Notes Are you an other tobacco user? No Vital Signs Height [id number] in 02/08/2024 Weight 264 lbs 02/08/2024 BMI 37.88 kg/m2 02/08/2024 Blood pressure systolic 130 mm Hg 02/08/20 24 Blood pressure diastolic 80 mm Hg 024 Encounters Encounter Location Date Provider Diagnosis [facility] [address] [address] 02/08/2024 Abby Angulo Atherosclerosis of artery of both lower extremities I70.203 ; Type 2 diabetes mellitus with polyneuropathy E11.42 and Tinea unguium B35.1 Assessments Encounter Date Diagnosis (ICD Code) Assessment Notes Treatment Notes Treatment Clinical Notes Section Notes 02/08/2024 Atherosclerosis of artery of both lower extremities (ICD-10 - I70.203) 02/08/2024 Type 2 diabetes mellitus with polyneuropathy (ICD-10 - E11.42) 02/08/2024 Tinea unguium (ICD-10 - B35.1) Plan Of Treatment Next Appt Details Follow Up: 3 Months, Reason: Provider Name:Abby bills, 10/10/2024 02:30:00 PM, [address] [place] [address], [address], Procedure Notes * Category Sub-Category Detail Notes Debride Nail 6-10 Nail debridement Nail debridem ent performed extensively to reduce/remove overall nail length and girth, subungual debris, and necrotic tissue, by manual and electrical means with use of a nail nipper and/or dremel, to more viable healthy nail plate or bed tissue 6-10. Silver nitrate used for any petechial bleeding as necessary. Patient chooses, no pharmaceutical tx (37427) Keratoma Treatment Parring or Cutting o f Benign Hyperkeratotic Lesion(s) 95775 ( >4 Lesions) - The Benign hyperkeratotic lesions, as described above were pared, and/or cut utilizing a sterile #15 blade, tissue nippers, and/or dremel Progress Notes * Thony BAKER IIDOB:[birth year] (73 yo M)Acc No.[id number]:02/08/2024 Progress Note Patient:Thony Hernandez Provider:?Abby Angulo DPM :1950???Age:73 Y???Sex:Male Luis e:02/08/2024 Address:[address] [place] [address] Pcp:Denzel Garcia MD Subjective: * Chief Complaints: * ???At Risk FootcarePainful N ail(s) aggrevated by shoes and causing difficulty standing/walking * HPI: ???At Risk footcare:?Pt States Last PCP Visit:?Date?12/29/2023 * ROS:?General/Constitutional:?Nausea?denies.?Vomiting?denies.?Hunger Thirst?denies.?Loss appetite?denies.?Chills?denies.?Fatigue?denies.?Fever?denies.?Night Sweats?denies.?Unexplained weight loss?denies.?Unexplained weight gain?denies.?HEENTM:?Dentures?denies.?Dizziness?denies.?Glasses/contacts?admits.?Retinopathy?de nies.?Blurred/double vision?denies.?TMJ?denies.?Discharge/drainage?denies.?Implants?denies.?Sore throat?denies.?Dental implants?denies.?Hard of hearing ?denies.?Difficulty chewing/swallowing/speaking?denies.?Nose bleeds?denies.?Sore mouth?denies.?Respiratory:?On Oxygen?denies.?Pneumonia/pleurisy?denies.?Bronchitis?denies.?Emphysema?denies.?C oughing?denies.?Cough blood?denies.?Shortness of breath?denies.?Wheezing?denies.?Cardiovascular:?Pacemaker?denies.?MVP?denies.?WPW?denies.?CHF?denies.?Heart attack?denies.?Septal defect?denies.?Rapid beat?denies.?Chest pain ?denies.?Atrial Fib.?denies.?Murmur/Palpitations?denies.?Gastrointestinal:?Hemorrhoids?denies.?Stomach/Abdominal pain?denies.?Dark blood stool?denies.?Irritable bowel ?denies.?Constipation?denies.?Diarrhea?denies.?Hematology:?Swelling?denies.?Clots?denies.?Varicose Veins?denies.?Bruising?denies.?Bleeding problem?denies.?Genitourinary:?Blood urine?denies.?Frequent/Painfu/urination/bladder control?denies.?Kidney stones?denies.?Infection (UTI)?denies.?Nephropathy?denies.?sex trans dis (STD)?denies.?Prostate?denies.?Musculoskeletal:?Hammertoes?denies.?Bunions?denies.?Back Pain?admits.?Muscle Cramps/ Resting?denies.?Muscle cramps / walking?denies.?Generalized aches and pains?denies.?Weakness?denies.?Integ.:?Khoury?denies.?Scars?denies.?Corns/calluses?denies.?Ingrown nails?admits.?Painful nails?denies.?Open Sores?admits.?Rashes?denies.?Neurologic:?Difficulty sleeping?denies.?Brain disorder?denies.?Numbness?denies.?Balance trouble?denies.?Confusion?denies.?Fainting/blackouts?denies.?Tingling?denies.?Tr emors?denies.? * Medical History:? * Surgical History:?cataract s urgery * Hospitalization/Major Diagno stic Procedure:?Denies Past Hospitalization * Family History:?Mother: dece ased.?Father: .?Son(s): .? * Social History:?Tobacco Use:?Tobacco Use/Smoking?Are you a:?former smoker ?Tobacco use other than smoking?Are you an other tobacco user??No ???Drugs/Alcohol:?Drugs?Have you used drugs other than those for medical reasons in the past 12 months??No ?Alcohol Screen?Did you have a drink containing alcohol in the past year??Yes ?How often did you have a drink containing alcohol in the past year??4 or more times a week (4 points) ?Points?4 ?Interpretation?Positive ???Miscellaneous:?Caffeine: yes, diet coke 2 liters a day. ?Children: yes, 2. ?Exercise: yes, gardening/yard work. ?Marital status: . ?Occupation: [employer], Retired. * Medications:?TakinghydroCHLO ROthiazide 25 MG Tablet 1 tablet in the morning Orally Once a dayLisinopril 10 MG Tablet 1 tablet Orally Once a dayaMILoride HCl 5 MG Tablet 1 tablet Orally Once a dayDaily Vitamin - Tablet 1 tablet Orally Once a daymetFORMIN HCl 500 MG Tablet 1 tablet with a meal Orally Once a dayMeloxicam 15 MG Tablet 1 tablet Orally Once a dayLyrica 150 MG Capsule 1 capsule Orally Once a daytraMADol HCl Ammonium Lactate 12 % Cream 1 application to affected area Externally to feet Twice a dayTaking hydroCHLOROthiazide 25 MG Tablet 1 tablet in the morning Orally Once a dayTaking Lisinopril 10 MG Tablet 1 tablet Orally Once a dayTaking aMILoride HCl 5 MG Tablet 1 tablet Orally Once a dayTaking Daily Vitamin - Tablet 1 tablet Orally Once a dayTaking metFORMIN HCl 500 MG Tablet 1 tablet with a meal Orally Once a dayTaking Meloxicam 15 MG Tablet 1 tablet Orally Once a dayTaking Lyrica 150 MG Capsule 1 capsule Orally Once a dayTaking traMADol HCl Taking Ammonium Lactate 12 % Cream 1 application to affected area Externally to feet Twice a dayNot- Taking/PRNCephalexin 500 MG Tablet 1 tablet Orally Twice a dayCipro 500 MG Tablet 1 tablet Orally every 12 hrsMedication List reviewed and reconciled with the patientNot-Taking/PRN Cephalexin 500 MG Tablet 1 tablet Orally Twice a dayNot-Taking/PRN Cipro 500 MG Tablet 1 tablet Orally every 12 hrsMedication List reviewed and reconciled with the patient * Allergies:?Adhesive: rashLat ex: rashyes[Allergies Verified] Objective: * Vitals:?Ht: 9ba03le, Wt:264, BMI:37.88, Shoe size: 13, BP:130/80 mm Hg, BS: 138, Ht-cm: 177.8 cm, Wt-k.75 kg. * Examination: ???Ophthalmology Referral: ?DIABETES EYE EXAM?Dermatologic: ?SKIN FINDINGS:?Skin exam reveals Keratotic lesion(s) located at,TA,T5,Heels SUB MTH (s),1,B/L,Skin shows sign(s) of, dryness, scaling, in a stocking fashion, no fissure(s) present, B/L.?Neurological: ?SENSORY:?Neurological exam demonstrates , reduced light touch sensation , reduced sharp/dull pin prick discrimination , reduced vibration sensation , reduced proprioception sensation , in a stocking fashion , plantar aspects , 5.07 monofilament test performed at plantar aspects of 5 varied sites per foot shows sensation , reduced , at Forefoot , B/L.?Nails: ?NAILS are:? Elongated, overgrown, dystrophic, lytic, greater than 3mm thick, discolored and friable with crumbly malodorous subungual debris, with dull to no pain on palpation due to neuropathy, 1-5 B/L.?Vascular: ?DP PULSES:? 1/4, B/L.?PT PULSES:? 1/4, B/L.?CAPILLARY FILL TIME:?delayed, all digits, B/L.?SKIN TEMPERTURE GRADIENT OF THE LOWER EXTERMITIES:? decreased, cool to cool, proximal to distal, B/L.?HAIR GROWTH/TEXTURE/ELASTICITY/TURGOR:? dystrophic (thin,shiny), waxy, decreased, B/L.?PIGMENTATION:? rubrous, B/L, mottled, B/L, brawny, B/L.?EDEMA:?3/4, pitting, B/L, Leg(s), Ankle(s).? Assessment: * Assessment: 1.?Atherosclerosis of artery of both lower extremities - I70.203?2.?Type 2 diabetes mellitus with polyneuropathy - E11.42 (Primary)?3.?Tinea unguium - B35.1? Plan: * Treatment: * Procedures:?Debride Nail 6-10:?Nail debridement?Nail debridement performed extensively to reduce/remove overall nail length and girth, subungual debris, and necrotic tissue, by manual and electrical means with use of a nail nipper and/or dremel, to more viable healthy nail plate or bed tissue 6-10. Silver nitrate used for any petechial bleeding as necessary. Patient chooses, no pharmaceutical tx (30894).?Keratoma Treatment:?Parring or Cutting of Benign Hyperkeratotic Lesion(s)?67263 ( >4 Lesions) - The Benign hyperkeratotic lesions, as described above were pared, and/or cut utilizing a sterile #15 blade, tissue nippers, and/or dremel.? * Immunizations:? Influenza (Not administered - Refused: Patient decision) * Procedure Codes:?66563 DEBRI DE NAIL, 6 OR MORE, Modifiers: XS 96791 TRIM SKIN LESIONS, OVER 4, Modifiers: XS , Q8 * Follow Up:?3 Months * Images: * Sign off status: Completed true * Provider:Patricia Angulo DPUrsula Date:?06/2024 Generated for Printi ng/Faxing/eTransmitting on:?09/22/2024 04:23 PM EST History and Physical Notes * HPI (History of Present Illness) Category Sub-Category Detail Notes Category Not es At Risk footcare Pt States Last PCP Visit: Date: 4 Examination Category Sub-Category Detail Notes Category Not es Neurological SENSORY: Neurological exa m demonstrates , reduced light touch sensation , reduced sharp/dull pin prick discrimination , reduced vibration sensation , reduced proprioception sensation , in a stocking fashion , plantar aspects , 5.07 monofilament test performed at plantar aspects of 5 varied sites per foot shows sensation , reduced , at Forefoot , B/L Dermatologic SKIN FINDINGS: Skin exam reveal s Keratotic lesion(s) located at,TA,T5,Heels SUB MTH (s),1,B/L,Skin shows sign(s) of, dryness, scaling, in a stocking fashion, no fissure(s) present, B/L Ophthalmology Referral DIABETES EYE EXAM Diabeti c Retinopathy Screening:: No Findings of Diabetic Eye Exam:: no retin opathy Vascular DP PULSES (B): 1/4, B/L PT PULSES (B): 1/4, B/L CAPILLARY FILL TIME: delayed, all digits , B/L TEMPERTURE GRADIENT (C): decreased, cool to cool, proximal to distal, B/L TROPHIC CONDITION-TEXTURE/ELASTICITY/TURGOR/HAIR GROWTH (B): dystrophic (thin,shiny), waxy, decreased , B/L EDEMA (C): 3/4, pitting, B/L, L eg(s), Ankle(s) PIGMENTATION: rubrous, B/L, mottle d, B/L, brawny, B/L Nails NAILS are: Elongated, overg rown, dystrophic, lytic, greater than 3mm thick, discolored and friable with crumbly malodorous subungual debris, with dull to no pain on palpation due to neuropathy, 1-5 B/L
--- OUTSIDE RECORDS SUMMARY | 2024-09-22 16:24 | XMS_ITS ---
Author Organization [facility] [place] Address [address] [place] [address] Care Team Providers Care Family Resource Specialist Name Role Phone Radha GAGE, Denzel Primary Care Provider Abby Rankin Unavailable [phone] Allergies Allergen (clinical drug ingredient) Drug/Non Drug Allergy documented on EMR Reaction Allergy Type Onset Date Status Adhesive rash Allergy Active Latex Latex rash Allergy Active REASON FOR VISIT At Risk Footcare, Painful Nail(s) aggrevated by shoes and causing difficulty standing/walking Medications Medication SIG (Take, Route, Frequency, Duration) Notes Start Date End Date Status Meloxicam 15 MG 1 tablet Orally Once a day for 30 day(s) Active metFORMIN HCl 500 MG 1 tablet with a bruno l Orally Once a day for 30 day(s) Active Lyrica 150 MG 1 capsule Orally Onc e a day Active Daily Vitamin - 1 tablet Orally Once a day for 30 day(s) Active aMILoride HCl 5 MG 1 tablet Orally Once a day for 30 day(s) Active Lisinopril 10 MG 1 tablet Orally Once a day for 30 day(s) Active hydroCHLOROthiazide 25 MG 1 tablet in th e morning Orally Once a day for 30 day(s) Active Ammonium Lactate 12 % 1 application to affected area Externally to feet Twice a day for 30 days Active Cipro 500 MG 1 tablet Orally ever y 12 hrs for 7 days 02/13/2019 Not-Taking Cephalexin 500 MG 1 tablet Orally Twic e a day for 10 day(s) Not-Taking traMADol HCl Active Social History Tobacco Use: Social History Observation Description Date Details (start date - stop date) Former Smoker NA - NA Tobacco Use/Smoking Question Answer Notes Are you a: former smoker Additional Findings: Tobacco Non-User Current no n-smoker Alcohol Screen Question Answer Notes Did you have a drink contain ing alcohol in the past year? Yes How often did you have a dri nk containing alcohol in the past year? 4 or more times a week (4 points) Points 4 Interpretation Positive Tobacco use other than smoking: Question Answer Notes Are you an other tobacco user? 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 Patient chooses, no pharmaceutical tx (31621) Keratoma Treatment Parring or Cutting o f Benign Hyperkeratotic Lesion(s) 14394 ( >4 Lesions) - The Benign hyperkeratotic lesions, as described above were pared, and/or cut utilizing a sterile #15 blade, tissue nippers, and/or dremel Progress Notes * Thony BAKER IIDOB:[birth year] (74 yo M)Acc No.[id number]:06/06/2024 Progress Note Patient:?Thony Baker Provider:?Abby Angulo DPM :1950???Age:74 Y???Sex:Male Luis e:06/06/2024 Address:[address] [place], [place] [id number] Pcp:Denzel Garcia MD Subjective: * Chief Complaints: * ???At Risk FootcarePainful N ail(s) aggrevated by shoes and causing difficulty standing/walking * HPI: ???At Risk footcare:?Pt States Last PCP Visit:?Date?02/28/2024 * ROS:?General/Constitutional:?Nausea?denies.?Vomiting?denies.?Hunger Thirst?denies.?Loss appetite?denies.?Chills?denies.?Fatigue?denies.?Fever?denies.?Night Sweats?denies.?Unexplained weight loss?denies.?Unexplained [...] Social History:?Tobacco Use:?Tobacco Use/Smoking?Are you a:?former smoker ?Additional Findings: Tobacco Non-User?Current non-smoker ?Tobacco use other than smoking?Are you an [...] rashLat ex: rashyes[Allergies Verified] Objective: * Vitals:?Ht: 5ft 10in, Wt:264 , BMI:37.88, Shoe size: 13, BS: not taken, Ht-cm: 177.8 cm, Wt-k.75 kg. * ???Past Orders: ???Lab:HEMOGLOBIN A1C (GLYCO HEMOGLOBIN) (Order Date - 02/28/2024) (Collection Date - 02/28/2024) ? Value Reference Range ?TOTAL HEMOGLOBIN (HGBA1C) 5.7 * Examination: ???Ophthalmology Referral: ?DIABETES EYE EXAM?Dermatologic: [...] palpation due to neuropathy, 1-5 B/L.?Vascular: ?DP PULSES(B):? 1/4, B/L.?PT PULSES(B):? 1/4, B/L.?CAPILLARY FILL TIME:?delayed, all digits, B/L.?TROPHIC CONDITION-TEXTURE/ELASTICITY/TURGOR/HAIR GROWTH(B):? dystrophic (thin,shiny), waxy, decreased, B/L.?TEMPERTURE GRADIENT(C):? decreased, cool to cool, proximal to distal, B/L.?PIGMENTATION:? rubrous, B/L, mottled, B/L, brawny, B/L.?EDEMA(C):?3/4, pitting, B/L, Leg(s), Ankle(s).? Assessment: * Assessment: [...] as necessary. Patient chooses, no pharmaceutical tx (02544).?Keratoma Treatment:?Parring or Cutting of Benign Hyperkeratotic Lesion(s)?37548 ( >4 Lesions) - The Benign hyperkeratotic lesions, as described above were pared, and/or cut utilizing a sterile #15 blade, tissue nippers, and/or dremel.? * Procedure Codes:?13359 DEBRI DE NAIL, 6 OR MORE, Modifiers: XS 88259 TRIM SKIN LESIONS, OVER 4, Modifiers: XS , Q8 * Follow Up:?4 Months * Images: * Sign off status: Completed true * Provider:?Abby Angulo DPM Date:?03/2024 Generated for Nilo daniel/Robert/eTransmitting on:?09/22/2024 04:24 PM EST History and Physical Notes * [...] DIABETES EYE EXAM Diabeti c Retinopathy Screening:: Yes Findings of Diabetic Eye Exam:: no retin [...]
--- OUTSIDE RECORDS SUMMARY | 2024-09-22 16:24 | XMS_ITS | Patient Health Record ---
[facility] Address [address] [place] [place] [address] Care Team Providers Care Intermediate Frame Tender Name Role Phone Denzel Garcia MD Primary Care Provider Abby Rankin Unavailable [phone] Allergies Allergen (clinical drug ingredient) Drug/Non Drug Allergy documented on EMR Reaction Allergy Type Onset Date Status Adhesive rash Allergy Active Latex Latex rash Allergy Active Results Component Value Reference Range Notes HEMOGLOBIN A1C (GLYCOHEMOGLO BIN) Reviewed date:06/06/2024 02:47:38 PM Interpretation: Performing Lab: Notes/Report: TOTAL HEMOGLOBIN (HGBA1C) 5.7 Reason For Referral No Information Medications Medication SIG (Take, Route, Frequency, Duration) Notes Start Date End Date Status Meloxicam 15 MG 1 tablet Orally Once a day for 30 day(s) Active metFORMIN HCl 500 MG 1 tablet with a bruno l Orally Once a day for 30 day(s) Active Lyrica 150 MG 1 capsule Orally Onc e a day Active Lisinopril 10 MG 1 tablet Orally [...] Twice a day for 30 days Active traMADol HCl Active Cipro 500 MG 1 tablet Orally ever y 12 hrs for 7 days 02/13/2019 Not-Taking Cephalexin 500 MG 1 tablet Orally Twic e a day for 10 day(s) Not-Taking Immunizations Vaccine Route Administration Date Status Comme nts Influenza Unknown 02/07/2020 Refused Influenza Unknown 02/08/2024 Refused Social History Tobacco [...] Are you an other tobacco user? No Problems Problem Type SNOMED Code ICD Code Onset Dates Problem Status W/U Status Risk Notes Problem [id number] Type 2 diabetes mellitus with polyneuropathy (E11.42) Active confirmed Problem 48159778221186795 Atherosclerosi s of artery of both lower extremities (I70.203) Active confirmed Problem 12791942 Venous stasis dermatitis of both lower extremities (I87.2) Active confirmed Vital Signs Blood pressure diastolic 80 mm Hg 02/08/2024 Height 5ft 10in in 06/06/2024 Blood pressure systolic 130 mm Hg 02/08/2024 Weight 264 lbs 06/06/2024 BMI 37.88 kg/m2 06/06/2024 Encounters Encounter [facility] Date [facility] [address] [facility]/08/[facility] Abby Angulo Atherosclerosis of artery of both lower extremities I70.203 ; Type 2 diabetes mellitus with polyneuropathy E11.42 and Tinea unguium B35.[address] [facility] [address] 06/06/2024 Abby Angulo Atherosclerosis of artery of both lower extremities I70.203 ; Type 2 diabetes mellitus with polyneuropathy E11.42 and Tinea unguium B35.[address] [address] 10/04/2023 Abby Angulo Assessments Encounter Date Diagnosis (ICD Code) Assessment Notes Treatment Notes Treatment Clinical Notes Section Notes 02/08/2024 Atherosclerosis of artery of both lower extremities (ICD-10 - I70.203) 06/06/2024 Atherosclerosis of artery of both lower extremities (ICD-10 - I70.203) 06/06/2024 Type 2 diabetes mellitus with polyneuropathy (ICD-10 - E11.42) 02/08/2024 Type 2 diabetes mellitus with polyneuropathy (ICD-10 - E11.42) 02/08/2024 Tinea unguium (ICD-10 - B35.1) 06/06/2024 Tinea unguium (ICD-10 - B35.1) Plan Of Treatment Pending Test Test Name Order Date 46304-Hkjoxjht Plate 02/07/2019 45496- Debride <25 sq cm 02/07/2019 Next Appt Details Provider Name:Abby bills, 10/10/2024 02:30:00 PM, [address] [place] [address], [place], [address], Insurance Providers Payer Name Payer Address Payer Phone Subscriber Number Group Number Insured Name Patient Relationship to Insured Coverage Start Date Coverage End Date Medicare [employer] [address] [facility] [place] [address] [id number] Thony Martinez Self - patient is the insured A[employer] Secondary to Medicare [address] [place] [address] [id number] Thony Martinez Self - patient is the insured Medical (General) History Medical History History ICD Code Arthritis Back,Hip,and Knee pain High blood pressure Measles Mumps Chicken pox Sleep apnea Surgical History Surgery Date(Month/Year) cataract surgery
--- OUTSIDE RECORDS SUMMARY | 2024-09-22 16:24 | XMS_ITS ---
Author Organization [facility] Address [address] [place] [address] Care Team Providers Care Wet Milling Wheel Operator Name Role Phone Radha GAGE, Denzel Primary Care Provider Abby Rankin [phone] REASON FOR VISIT paid NS fee Encounters Encounter Location Date Provider Diagnosis [facility] [address] [place] [address] 10/04/2023 Abby Angulo Plan Of Treatment Next Appt Details Provider Name:Abby bills, 10/10/2024 02:30:00 PM, [address] [place], [address], Progress Notes * Thony BAKER IIDOB:[birth year] (73 yo M)Acc No.[id number]:10/04/2023 Patient:?Thony Baker :1950???Age:73 Y???Sex:Male Address:[address] [place] [address], [address] * true * Date:? Generated for Printi fredy/Robert/eTransmitting on:?09/22/2024 04:24 PM EST
== END 2024-09-22 15:21 | disposition home or self-care (01) ==
LOC: HO.LAB 15:20
PROVIDERS: PCP Internal Medicine; Visit Provider Internal Medicine
DX: Z13.0 Encounter for screening for diseases of the blood and blood-forming organs and certain disorders involving the immune mechanism (principal); Z13.220 Encounter for screening for lipoid disorders; Z13.9 Encounter for screening, unspecified; R73.9 Hyperglycemia, unspecified
CPT/HCPCS: 36415; 80053; 80061; 83036; 85025

== ENCOUNTER 2024-09-25 16:22 | Emergency (ER) | payer MEDICARE, SELFPAY ==
[2024-09-25 16:28] VITALS: BP 152/75; PULSE 86; RESP 18; TEMP 36.9; O2SAT 97; BMI 38.0
--- NOTE | 2024-09-25 16:30 | ED.GENADULT ---
HPI - General Adult General Chief complaint: GI Bleed Stated complaint: blood in urine Time Seen by Provider: 09/25/24 18:15 History of Present Illness ED Provider: Dr. Pinto HPI narrative: 74 y/o M patient; PMH BPH, HTN, T2DM, obesity; presents from home via triage with report of two episodes of incontinence of stool associated with bright red rectal bleeding. He denies any other symptoms such as: nausea/vomiting, abdominal pain, back pain, difficulty breathing, SOB, cough/congestion, chest pain. Patient does not take anticoagulation or baby aspirin. He states his last colonoscopy was at age 55 (recommended to have another at 65 but did not) and unremarkable. He has since been using box kits. He reports significant straining with bowel movement. He denies pain or discomfort with bowel movement. Related Data Home Medications ?Medication ?Instructions ?Recorded ?Confirmed multivitamin 1 tab PO DAILY 01/30/21 07/05/24 Previous Rx's ?Medication ?Instructions ?Recorded ammonium lactate 12 % lotion 1 appl topical BID #400 grams 04/15/21 naloxone 4 mg/actuation nasal 4 mg intranasal Q2M 1 day #2 ea 06/19/21 spray (Narcan) blood sugar diagnostic (OneTouch #100 ea 10/16/21 Ultra Test strips) blood-glucose meter (OneTouch #1 ea 10/16/21 Ultra2 Meter) lancets 33 gauge (OneTouch Delica #100 ea 10/16/21 Lancets) metformin 500 mg tablet,extended 500 mg PO DAILY #90 tabs 03/13/24 release 24 hr flash glucose sensor (FreeStyle #1 ea 03/27/24 Lauren 2 Sensor kit) blood pressure test kit-large #1 ea 04/24/24 pregabalin 150 mg capsule (Lyrica) 150 mg PO Q12H 90 days #180 caps 06/12/24 tramadol 50 mg tablet 50 mg PO Q6H 30 days #120 tabs 06/29/24 amlodipine 5 mg tablet 5 mg PO DAILY #90 tabs 07/05/24 clotrimazole-betamethasone 1 1 appl topical BID #45 grams 07/05/24 %-0.05 % topical cream lisinopril 20 mg tablet 20 mg PO DAILY 30 days #30 tabs 07/05/24 finasteride 5 mg tablet 5 mg PO DAILY #30 tabs 08/26/24 lancing device with lancets kit #1 ea 09/08/24 (OneTouch Delica Plus Lancing Device kit) docusate sodium 100 mg capsule 100 mg PO BID 30 days #60 caps 09/25/24 (Colace) Allergies Allergy/AdvReac Type Severity Reaction Status Date / Time latex AdvReac Unknown Verified 09/25/24 16:28 Review of Systems Review of Systems: Yes all other systems are reviewed and are negative [facility] Past Medical History Attestation statement: The following information was validated with the patient. Source: old records reviewed Medical History Hypertension Cataract Diabetes mellitus with coincident hypertension Obesity Hypertension Diabetes mellitus Post herpetic neuralgia Arthritis of right hip Pneumococcal arthritis, right knee Pain of left hip Cervical spondylosis Lumbar spondylosis Surgical History Status post ablation of incompetent vein using laser History of tonsillectomy Family History Family History Father Parkinson disease Mother No problems noted. Social History Social History Household Members: Spouse Housing: House Do you presently have visiting nurse or other home services: No Alcohol intake: current Alcohol intake frequency: 0-2 drinks per day Alcohol type: beer Patient Tobacco Use Status: Former Tobacco user Tobacco use type: Cigarette Years Smoked: 1978 e-Cigarette/Vaping Use: Never Used Second Hand Smoke Exposure: No service: No Current occupational status: retired Cognitive needs: Yes Hearing needs: No Vision needs: No Physical Exam ED Vital Signs: Vital Signs - 24 hr 09/25/24 16:28 09/25/24 18:15 Temperature 98.4 F 98.1 F Pulse Rate 86 80 Respiratory Rate 18 21 H Blood Pressure 152/75 H 155/83 H Pulse Oximetry 97 100 Oxygen Delivery Method Room Air Room Air BMI result Body Mass Index 38.0 Patient is afebrile and hemodynamically stable. Const General: cooperative and no acute distress HENMT Head: Yes normal to inspection and Yes atraumatic Eyes General: appearance normal, both eyes and all related structures Pupils: Equal, round and reactive pupils present EOM: EOMs intact bilaterally Neck Neck: Yes normal visual inspection, Yes full ROM, Yes supple and No tender Chest Chest palpation & inspection: normal inspection of the chest and normal palpation of entire chest wall Resp Effort & Inspection: normal respiratory effort, able to speak in complete sentences, no cough and no respiratory distress Auscultation: clear to auscultation bilaterally Cardio Rate: regular rate Rhythm: regular rhythm Peripheral pulses: Peripheral pulses 2+ throughout GI Inspection: Yes normal to inspection, No Abdominal wall edema and No distended Palpation (GI): Soft to palpation, not firm, nontender, no guarding and not rigid Auscultation: normal bowel sounds Back/Spine/Pelvis Back: No back tenderness Neuro Cranial nerves: Yes Equal, round and reactive pupils present Course Course Course Narrative: RME performed by Adela Tyson PA-C. Patient is a 74 year old assigned male at presenting to the emergency department with bright red blood with clots per rectum. Patient states over the last few hours he has had 2 episodes of bright red blood per rectum with no pain or warning. Detailed physical exam and review of systems are deferred to the pre billing clinician. Labs ordered. Patient placed back in the waiting room pending room availability and results. Reevaluation(s) Reevaluation #1: Patient is afebrile and hemodynamically stable. Reviewed triage work up. Hgb 13.8 which is approx baseline. BUN/Cr ratio is appropriate. Remainder of labs unremarkable. Patient is not on anticoagulation. Will start patient on stool softener and refer to GI. Plan: Discharge to home with PCP and GI follow up Return precautions given Medical Decision Making Lab Data 09/25/24 17:05 09/25/24 17:05 Labs: Lab Results 09/25/24 Range/Units 17:05 WBC 7.2 (4.8-10.8) X10*3/uL RBC 4.29 L (4.60-5.80) X10*6/uL Hgb 13.8 L (14.0-18.0) g/dl Hct 40.3 L (42.0-52.0) % MCV 93.9 (80.0-98.0) fL MCH 32.2 (27.0-33.0) pg MCHC 34.2 (31.0-36.0) g/dl RDW 12.9 (11.0-16.0) % Plt Count 203 (160-400) X10*3/uL MPV 8.8 L (9.4-12.4) fL Immature Gran % (Auto) 0.3 (0.0-0.4) % Neut % (Auto) 68.2 (45-73) % Lymph % (Auto) 20.6 (20-40) % Metcalfe % (Auto) 8.9 (2-11) % Eos % (Auto) 1.7 (0-4) % Baso % (Auto) 0.3 (0-2) % Lymph # (Auto) 1.5 (1.2-4.9) X10*3/uL Metcalfe # (Auto) 0.6 (0.1-1.2) X10*3/uL Eos # (Auto) 0.1 (0.0-0.4) X10*3/uL Baso # (Auto) 0.0 (0.0-0.2) X10*3/uL Abs Immat Gran (auto) 0.02 (0.00-0.03) X10*3/uL Absolute Neuts (auto) 4.9 (2.0-8.3) x10*3/uL Absolute Nucleated RBC 0.000 (0.0-0.012) X10*3/uL Nucleated RBC % (auto) 0.0 (0.0-0.2) /100WBC PT 11.4 (10.9-12.4) SEC INR 1.0 (0.9-1.1) APTT 31.3 (26.0-36.8) SEC Sodium 137 (135-145) mmol/L Potassium 4.0 (3.3-5.1) mmol/L Chloride 105 (96-108) mmol/L Carbon Dioxide 26 (22-29) mmol/L Anion Gap 10 L (12-20) BUN 12 (9-16) mg/dL Creatinine 0.68 (0.5-1.4) mg/dL Estim Creat Clear Calc 123.8 Estimated GFR > 60 Random Glucose 117 H (60-115) mg/dL Calcium 8.8 D (8.4-10.2) mg/dL Magnesium 2.0 (1.6-2.6) mg/dL Total Bilirubin 0.8 (0.0-1.0) mg/dL AST 23 (5-37) U/L ALT 21 (0-40) U/L Alkaline Phosphatase 59 (39-117) U/L Total Protein 7.0 (6.5-8.0) g/dL Albumin 3.9 (3.5-5.0) g/dL Discharge Plan Discharge Clinical Impression: Hematochezia Patient Disposition: Home, Self-Care Instructions: Rectal Bleeding (ED) Additional Instructions: As we discussed, you were seen for rectal bleeding. The two most common causes are painless internal hemorrhoids and diverticulosis. I have prescribed Colace (take one tablet twice a day) for 30 days. This will help to soften your stools. I would like you to make an appointment to see your primary doctor and a GI doctor. I have provided you here with the name of Dr. Elliott our on-call GI doctor. It is important that you return to the emergency department for: Chest pain Difficulty breathing Passing out Lightheadedness/dizziness Prescriptions: New docusate sodium [Colace] 100 mg capsule 100 mg PO BID 30 Days Qty: 60 0RF No Action Narcan 4 mg/actuation spray,non-aerosol 4 mg intranasal Q2M 1 Days Qty: 2 1RF Rx Instructions: spray 1 dose into ONE nostril; alternate nostrils w each dose until help arrives (DME) OneTouch Ultra Test Strip See Rx Instructions .Route Qty: 100 0RF Rx Instructions: Use to check blood sugars twice a day (DME) blood-glucose meter [OneTouch Ultra2 Meter] [facility] See Rx Instructions .Route Qty: 1 0RF Rx Instructions: Use to check blood sugars twice a day (DME) lancets [OneTouch Delica Lancets] [facility] See Rx Instructions .Route Qty: 100 0RF Rx Instructions: Use to check blood sugars twice a day metformin 500 mg tablet extended release 24 hr 500 mg PO DAILY Qty: 90 8RF (DME) FreeStyle Lauren 2 Sensor Kit See Rx Instructions .Route Qty: 1 6RF Rx Instructions: As directed (DME) blood pressure test kit-large Kit See Rx Instructions .Route Qty: 1 0RF Rx Instructions: As directed pregabalin [Lyrica] 150 mg capsule 150 mg PO Q12H 90 Days Qty: 180 3RF tramadol 50 mg tablet 50 mg PO Q6H 30 Days Qty: 120 4RF finasteride 5 mg tablet 5 mg PO DAILY Qty: 30 3RF (DME) lancing device with lancets [[employer] Delica Plus Lanc Dev] Kit See Rx Instructions .Route Qty: 1 0RF Rx Instructions: As directed ammonium lactate 12 % Lotion 1 appl topical BID Qty: 400 0RF multivitamin Tablet 1 tab PO DAILY amlodipine 5 mg tablet 5 mg PO DAILY Qty: 90 8RF clotrimazole-betamethasone 1-0.05 % cream 1 appl topical BID Qty: 45 8RF lisinopril 20 mg tablet 20 mg PO DAILY 30 Days Qty: 30 3RF Referrals: Alfredo Elliott MD [Physician] - 1 day Print Language: Belarusian
[2024-09-25 17:11] LABS: MANUAL DIFF FLAG NO
[2024-09-25 17:16] LABS: Basophils Percent Auto 0.3 % (0-2); Eosinophils Absolute Auto 0.1 X10*3/uL (0.0-0.4); Eosinophils Percent Auto 1.7 % (0-4); Hematocrit 40.3 % (42.0-52.0); Hemoglobin 13.8 g/dl (14.0-18.0); Imm Gran Abs Auto 0.02 X10*3/uL (0.00-0.03); Imm Gran Pct Auto 0.3 % (0.0-0.4); Lymphocytes Absolute Auto 1.5 X10*3/uL (1.2-4.9); Lymphocytes Percent Auto 20.6 % (20-40); Mean Corpuscular HGB Conc 34.2 g/dl (31.0-36.0); Mean Corpuscular Hemoglobin 32.2 pg (27.0-33.0); Mean Corpuscular Volume 93.9 fL (80.0-98.0); Mean Platelet Volume 8.8 fL (9.4-12.4); Monocytes Absolute Auto 0.6 X10*3/uL (0.1-1.2); Monocytes Percent Auto 8.9 % (2-11); Neutrophils Absolute Auto 4.9 x10*3/uL (2.0-8.3); Neutrophils Percent Auto 68.2 % (45-73); Platelet Count 203 X10*3/uL (160-400); Red Blood Count 4.29 X10*6/uL (4.60-5.80); Red Cell Distribution Width 12.9 % (11.0-16.0); White Blood Count 7.2 X10*3/uL (4.8-10.8)
[2024-09-25 17:26] LABS: Alanine Aminotransferase 21 U/L (0-40); Albumin Level 3.9 g/dL (3.5-5.0); Alkaline Phosphatase 59 U/L (39-117); Anion Gap 10 (12-20); Aspartate Amino Transferase 23 U/L (5-37); Bilirubin Total 0.8 mg/dL (0.0-1.0); Blood Urea Nitrogen 12 mg/dL (9-16); Calcium 8.8 mg/dL (8.4-10.2); Carbon Dioxide 26 mmol/L (22-29); Chloride 105 mmol/L (96-108); Creatinine Clr Calc Pharmacy 123.8; Estimated Glomerular Filt Rate > 60; Glucose Random 117 mg/dL (60-115); Sodium 137 mmol/L (135-145)
[2024-09-25 17:32] LABS: Prothrombin Time 11.4 SEC (10.9-12.4)
[2024-09-25 17:35] LABS: Partial Thromboplastin Time 31.3 SEC (26.0-36.8)
[2024-09-25 18:15] VITALS: BP 155/83; PULSE 80; RESP 21; TEMP 36.7; O2SAT 100
--- NOTE | 2024-09-25 18:38 | PC.NURSE ---
Pt declining urine test at this time.
[2024-09-25 18:52] VITALS: BP 155/83; PULSE 80; RESP 21; TEMP 36.7; O2SAT 100
== END 2024-09-25 18:53 | disposition home or self-care (01) ==
PROVIDERS: Physician Assistant Medical; Emergency Provider Emergency Medicine; PCP Internal Medicine
DX: K92.1 Melena (principal); E11.9 Type 2 diabetes mellitus without complications; I10 Essential (primary) hypertension; Z79.84 Long term (current) use of oral hypoglycemic drugs; Z79.899 Other long term (current) drug therapy
CPT/HCPCS: 36415; 80053; 83735; 85025; 85610; 85730; 99283; 99284

== ENCOUNTER 2024-09-26 16:03 | Outpatient (REF) | payer MEDICARE, SELFPAY ==
--- OUTSIDE RECORDS SUMMARY | 2024-09-26 16:32 | XMS_ITS ---
Author Organization [facility] bogdan Talpa Address [address] [place] [address] Care Team Providers Care Road Sign Installer Name Role Phone Radha GAGE, Denzel Primary Care Provider Abby Rankin Unavailable [phone] Allergies Allergen (clinical drug ingredient) Drug/Non Drug [...] other tobacco user? No Vital Signs Height 0sy46ko in 02/08/2024 Weight 264 lbs 02/08/2024 BMI 37.88 kg/m2 02/08/2024 Blood pressure systolic 130 mm Hg 02/08/20 24 Blood pressure diastolic 80 mm Hg 024 Encounters Encounter Location Date Provider Diagnosis [facility] [address] [address] 02/08/2024 Abby Angulo Atherosclerosis of artery of [...] Reason: Provider Name:Abby bills, 10/10/2024 02:30:00 PM, [address] [place] [address], [phone], Procedure Notes * Category Sub-Category Detail Notes [...] as necessary. Patient chooses, no pharmaceutical tx (88435) Keratoma Treatment Parring or Cutting o f Benign Hyperkeratotic Lesion(s) 25568 ( >4 Lesions) - The Benign hyperkeratotic lesions, as described above were pared, and/or cut utilizing a sterile #15 blade, tissue nippers, and/or dremel Progress Notes * Thony BAKER IIDOB:[birth year] (73 yo M)Acc No.[id number]:02/08/2024 Progress Note Patient:Thony Hernandez Provider:?Abby Angulo DPM :1950???Age:73 Y???Sex:Male Luis e:02/08/2024 Address:[address] [place] [address] Pcp:Denzel Garcia MD Subjective: * Chief Complaints: [...] rashLat ex: rashyes[Allergies Verified] Objective: * Vitals:?Ht: 2eo55ps, Wt:264, BMI:37.88, Shoe size: 13, BP:130/80 mm [...] as necessary. Patient chooses, no pharmaceutical tx (02249).?Keratoma Treatment:?Parring or Cutting of Benign Hyperkeratotic Lesion(s)?26820 ( >4 Lesions) - The Benign hyperkeratotic lesions, as described above were pared, and/or cut utilizing a sterile #15 blade, tissue nippers, and/or dremel.? * Immunizations:? Influenza (Not administered - Refused: Patient decision) * Procedure Codes:?84656 DEBRI DE NAIL, 6 OR MORE, Modifiers: XS 46496 TRIM SKIN LESIONS, OVER 4, Modifiers: XS , Q8 * Follow Up:?3 Months * Images: * Sign off status: Completed true * Provider:Patricia Angulo DPUrsula Date:?06/2024 Generated for Printi ng/Faxing/eTransmitting on:?09/26/2024 04:32 PM EST History and Physical Notes * HPI (History of Present Illness) Category Sub-Category Detail Notes Category Not es At Risk footcare Pt States Last PCP Visit: Date: Examination Category Sub-Category Detail Notes Category Not [...]
--- OUTSIDE RECORDS SUMMARY | 2024-09-26 16:32 | XMS_ITS ---
Author Organization [facility] Address [address] [place] [address] Care Team Providers Care Machinist Instructor Name Role Phone Radha GAGE, Denzel Primary Care Provider Abby Rankin Unavailable [phone] Allergies Allergen (clinical drug ingredient) Drug/Non Drug [...] 06/06/2024 Encounters Encounter Location Date Provider Diagnosis [facility] [place] [address] [place] [address] 06/06/2024 Abby Angulo Atherosclerosis of artery of [...] Reason: Provider Name:Abby bills, 10/10/2024 02:30:00 PM, [address] [place] [address], [phone], Procedure Notes * Category Sub-Category Detail Notes [...] as necessary. Patient chooses, no pharmaceutical tx (75849) Keratoma Treatment Parring or Cutting o f Benign Hyperkeratotic Lesion(s) 26443 ( >4 Lesions) - The Benign hyperkeratotic lesions, as described above were pared, and/or cut utilizing a sterile #15 blade, tissue nippers, and/or dremel Progress Notes * Thony BAKER IIDOB:[birth year] (74 yo M)Acc No.[id number]:06/06/2024 Progress Note Patient:?Thony Baker Provider:?Abby Angulo DPM :1950???Age:74 Y???Sex:Male Luis e:06/06/2024 Address:[address] [place], [place] [id number] Pcp:Denzel Garcia MD Subjective: * Chief Complaints: [...] as necessary. Patient chooses, no pharmaceutical tx (66543).?Keratoma Treatment:?Parring or Cutting of Benign Hyperkeratotic Lesion(s)?55371 ( >4 Lesions) - The Benign hyperkeratotic lesions, as described above were pared, and/or cut utilizing a sterile #15 blade, tissue nippers, and/or dremel.? * Procedure Codes:?86068 DEBRI DE NAIL, 6 OR MORE, Modifiers: XS 50836 TRIM SKIN LESIONS, OVER 4, Modifiers: XS , Q8 * Follow Up:?4 Months * Images: * Sign off status: Completed true * Provider:?Abby Angulo DPM Date:?03/2024 Generated for Nilo ng/Robert/eTransmitting on:?09/26/2024 04:32 PM EST History and Physical [...]
--- OUTSIDE RECORDS SUMMARY | 2024-09-26 16:32 | XMS_ITS | Patient Health Record ---
[facility] Address [address] [place] [address] Care Team Providers Care Filler Shredder Name Role Phone Denzel Garcia MD Primary Care Provider Abby Rankin Unavailable [phone] Allergies Allergen (clinical drug ingredient) Drug/Non Drug [...] Problem Status W/U Status Risk Notes Problem 53870177 Type 2 diabetes mellitus with polyneuropathy (E11.42) Active confirmed Problem [id number] Atherosclerosi s of artery of both lower extremities (I70.203) Active confirmed Problem 88139796 Venous stasis dermatitis of both lower extremities (I87.2) Active confirmed Vital Signs Blood pressure diastolic 80 mm Hg 02/08/2024 Height 5ft 10in in 06/06/2024 Blood pressure systolic 130 mm Hg 02/08/2024 Weight 264 lbs 06/06/2024 BMI 37.88 kg/m2 06/06/2024 Encounters Encounter Location Date [facility] [address] 02/08/2024 Abby Angulo Atherosclerosis of artery of both lower extremities I70.203 ; Type 2 diabetes mellitus with polyneuropathy E11.42 and Tinea unguium B35.[address] [facility] [address] 06/06/2024 Abby Angulo Atherosclerosis of artery of both lower extremities I70.203 ; Type 2 diabetes mellitus with polyneuropathy E11.42 and Tinea unguium B35.[address] [address] 10/04/2023 Abby Angulo Assessments Encounter Date Diagnosis [...] Treatment Pending Test Test Name Order Date 12760-Lscwohtv Plate 02/07/2019 02489- Debride <25 sq cm 02/07/2019 Next Appt Details Provider Name:Abby bills, 10/10/2024 02:30:00 PM, [address] [place] [address], [place], [address], Insurance Providers Payer Name Payer Address Payer Phone Subscriber Number Group Number Insured Name Patient Relationship to Insured Coverage Start Date Coverage End Date Medicare National [employer] [address] [facility] [place] [address] [id number] Thony Martinez Self - patient is the insured AARP Secondary to Medicare [address] [place] [address] [id number] Thony Martinez Self - patient is the insured Medical (General) History Medical History History ICD Code Arthritis Back,Hip,and Knee pain High blood pressure Measles Mumps Chicken pox Sleep apnea Surgical History Surgery Date(Month/Year) cataract surgery
--- OUTSIDE RECORDS SUMMARY | 2024-09-26 16:32 | XMS_ITS ---
Author Organization [facility] Address [address] [place] [address] Care Team Providers Care Bioinformatics Software Engineer Name Role Phone Radha GAGE, Denzel Primary Care Provider Abby Rankin [phone] REASON FOR VISIT paid NS fee Encounters Encounter Location Date Provider [facility] [address] [place] [address] 10/04/2023 Abby Angulo Plan Of Treatment Next Appt Details Provider Name:Abby bills, 10/10/2024 02:30:00 PM, [address] [place], [address], Progress Notes * Thony BAKER IIDOB:[birth year] (73 yo M)Acc No.[id number]:10/04/2023 Patient:?Thony Baker :1950???Age:73 Y???Sex:Male Address:[address] [place] [address], [address] * true * Date:? Generated for Printi fredy/Robert/eTransmitting on:?09/26/2024 04:32 PM EST
[2024-09-26 16:58] LABS: Creatinine Urine 78.17 mg/dL; Microalbum/Creatinine Ratio Ur 8.9 ug/mg cr (<30)
== END 2024-09-26 16:04 | disposition home or self-care (01) ==
LOC: HO.LNP 16:03
PROVIDERS: Visit Provider Internal Medicine
DX: E11.69 Type 2 diabetes mellitus with other specified complication (principal); E66.01 Morbid (severe) obesity due to excess calories
CPT/HCPCS: 82043; 82570

== ENCOUNTER 2024-10-13 11:48 | Outpatient (AMB) | payer MEDICARE, SELFPAY ==
--- NOTE | 2024-10-13 11:49 | MHC.PC.OV ---
Vital Signs 10/13/24 11:51 Height 5 ft 10 in Weight 255 lb 8 oz BMI 36.7 BP 140/60 H Blood Pressure Location Lt brachial Position Sitting Pulse 106 H Pulse Source Pulse Oximeter Temp 96.4 F L Temp Source Skin Pulse Oximetry (%) 94 Oxygen Delivery Method Room Air Intake Visit Reasons: 3mth f/u Intake Note: Patient is here to follow up on DM, HTN. 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 Accompanied by: Spouse Allergies latex Adverse Reaction (Verified 10/13/24 11:51) Unknown Medication List - Last Reconciled 10/16/24 by Denzel Garcia MD amlodipine 5 mg PO DAILY ammonium lactate 12% 1 appl topical BID blood pressure test kit-large As directed blood sugar diagnostic ([employer] Ultra Test strips) Use to check blood sugars twice a day blood-glucose meter ([employer] Ultra2 Meter) Use to check blood sugars twice a day clotrimazole-betamethasone 1-0.05 % 1 appl topical BID docusate sodium (Colace) 100 mg PO BID 30 days finasteride 5 mg PO DAILY flash glucose sensor (FreeStyle Lauren 2 Sensor kit) As directed lancets ([employer] Lancets) Use to check blood sugars twice a day lancing device with lancets ([employer] Delica Plus Lancing Device kit) As directed lisinopril 20 mg PO DAILY 30 days metformin ER 500 mg PO DAILY multivitamin 1 tab PO DAILY naloxone 4 mg/actuation (Narcan) 4 mg intranasal Q2M 1 day polyethylene glycol 3350 (Miralax) 17 grams PO DAILY pregabalin (Lyrica) 150 mg PO Q12H 90 days tramadol 50 mg PO Q6H 30 days Tobacco use date assessed: 10/13/24 Fall risk assessment: No Falls in past year Last assessed Fall Risk: 10/13/24 Dental Screening Dental Screen Date: 10/13/24 Did you have a dental visit in the last 12 months?: No Did you have a dental problem in the last 6 months where you did not have access to dental care?: No Was dental information given to patient?: Patient has dentist HPI 3mth f/u HPI Details hypertension on rx; doing well; DM and compliant [facility] Medical History Hypertension Cataract Diabetes mellitus with coincident hypertension Obesity Hypertension Diabetes mellitus Post herpetic neuralgia Arthritis of right hip Pneumococcal arthritis, right knee Pain of left hip Cervical spondylosis Lumbar spondylosis Surgical History Status post ablation of incompetent vein using laser History of tonsillectomy Family History (Updated 10/13/24 @ 11:50 by VERONICA Moctezuma) Father Parkinson disease Mother No problems noted. Social History Household Members: Spouse Housing: House Do you presently have visiting nurse or other home services: No Alcohol intake: current Alcohol intake frequency: 0-2 drinks per day Alcohol type: beer Patient Tobacco Use Status: Former Tobacco user Tobacco use type: Cigarette Years Smoked: 1978 e-Cigarette/Vaping Use: Never Used Second Hand Smoke Exposure: No service: No Current occupational status: retired Cognitive needs: Yes (Cane) Hearing needs: No Vision needs: No Questionnaire PHQ-9 Over the last 2 weeks, how often have you been bothered by any of the following problems? 1. Little interest or pleasure in doing things: not at all 2. Feeling down, depressed, or hopeless: not at all 3. Trouble falling or staying asleep, or sleeping too much: not at all 4. Feeling tired or having little energy: not at all 5. Poor appetite or overeating: not at all 6. Feeling bad about yourself - or that you are a failure or have let yourself or your family down: not at all 7. Trouble concentrating on things, such as reading the newspaper or watching television: not at all 8. Moving or speaking so slowly that other people could have noticed. Or the opposite - being so fidgety or restless that you have been moving around a lot more than usual: not at all 9. Thoughts that you would be better off or of hurting yourself in some way: not at all Total score: 0 Depression Screening Interpretation: Negative Depression Screening Done: Yes Source: Developed by Drs. Alfredo Anna, Sarah Nichols, Geovanny Gibson and colleagues, with an educational carroll from [employer]. Thrive Questionnaire Date Thrive assessed: 10/13/24 I am a: Patient What is your living situation today?: I have a steady place to live Within the past 12 months, did the food you bought not last and you didn't have the money to get more?: Never true Within the past 12 months, did you worry whether your food would run out before you got money to buy more?: Never true Do you have trouble paying for medicines?: No Do you have trouble getting transportation to medical appointments?: No Do you have trouble paying your heating and electricity bill?: No Do you have trouble taking care of your child, family member or friend?: No Do you have trouble with day-to-day activities such as bathing, preparing meals, shopping, managing finances, etc.?: No Are you currently unemployed and looking for a job?: No Are you interested in more education?: No Please select the resources that you would like help with: None Currently or been in a relationship where the following occur: No concerns reported THRIVE Score: 0 AUDIT C Alcohol Use Questionnaire (AUDIT-C) 1. How often do you have a drink containing alcohol?: 4 or more times a week 2. How many drinks containing alcohol do you have on a typical day when you are drinking?: 1 or 2 Total Score: 4 PALMER-7 AMB Questionnaire PALMER-7 Date PALMER - 7 assessed: 10/13/24 Feeling nervous, anxious, or on edge: 0 = Not at all Not being able to stop or control worryin = Not at all Worrying too much about different things: 0 = Not at all Trouble relaxin = Not at all Being so restless that it is hard to sit still: 0 = Not at all Becoming easily annoyed or irritable: 0 = Not at all Feeling afraid as if something awful might happen: 0 = Not at all Total PALMER-7 score (0-4 normal; 5-9 mild; 10-14 moderate; 15-21 severe): 0 Source: Developed by Drs. Alfredo Anna, Sarah Nichols, Geovanny Gibson and colleagues, with an educational carroll from [employer]. Review of Systems Const Denies chills, Denies headache(s) and Denies weight loss ENT Denies headache(s) Card Denies chest pain, Denies syncope, Denies irregular heart rhythm and Denies dyspnea Resp Denies chest congestion, Denies cough and Denies dyspnea GI Denies abdominal pain, Denies change in stool character, Denies nausea and Denies vomiting Musc Denies deformity and Denies joint swelling Neuro Denies syncope and Denies headache(s) Physical exam (Primary Care) Vital Signs: Last Vital Signs Temp 96.4 F L 10/13/24 11:51 Pulse 106 H 10/13/24 11:51 BP 140/60 H 10/13/24 11:51 Pulse Ox 94 10/13/24 11:51 Oxygen Delivery Method Room Air 10/13/24 11:51 BMI result Body Mass Index 36.7 Tobacco/Smoking Status: Tobacco use Status Tobacco use date assessed 10/13/24 10/13/24 11:51 Patient Tobacco Use Status Former Tobacco user 10/13/24 11:51 Tobacco use type Cigarette 10/13/24 11:51 e-Cigarette/Vaping Use Never Used 10/13/24 11:51 PHQ-9: PHQ-9 Score PHQ-9: Total score 0 10/13/24 11:51 Depression Screening Interpretation: Negative Thrive Assessment: Date of Thrive Assessment Date Thrive assessed 10/13/24 10/13/24 11:51 Currently or been in a relationship where the following occur: No concerns reported Const General: cooperative, comfortable, no acute distress and alert Neck Neck: Yes no lymphadenopathy Thyroid: Thyroid normal Resp Effort & Inspection: normal respiratory effort Auscultation: clear to auscultation bilaterally Percussion: percussion normal Cardio Jugular venous distension: no JVD Palpation: normal PMI Rate: regular rate Rhythm: regular rhythm Heart sounds: S1 normal heart sound present and S2 normal heart sound present GI Inspection: Yes normal to inspection Palpation (GI): No hepatosplenomegaly present Skin General skin exam: no rashes or lesions noted Extrem General: Yes no clubbing, cyanosis or edema Coding Level of Care Code Est Pt Level 3 (26106) Diagnoses Diabetes mellitus with coincident hypertension E11.9; I10 Primary hypertension I10 Hypertension type: primary hypertension Assessment & Plan Assessment & Plan (1) Diabetes mellitus with coincident hypertension: Code(s): E11.9 - Type 2 diabetes mellitus without complications; I10 - Essential (primary) hypertension Category: Medical Plan: stable; same rx (2) Hypertension: Code(s): I10 - Essential (primary) hypertension Category: Medical Qualifiers: Hypertension type: primary hypertension Qualified Code(s): I10 - Essential (primary) hypertension Plan: stable; same rx Orders: Referrals Dermatology Referral R22.9 - Localized swelling, mass and lump, unspecified
[2024-10-13 11:51] VITALS: BP 140/60; PULSE 106; TEMP 35.8; O2SAT 94; BMI 36.7
== END 2024-10-13 12:21 | disposition home or self-care (01) ==
PROVIDERS: PCP Internal Medicine; Visit Provider Internal Medicine
DX: E11.9 Type 2 diabetes mellitus without complications (principal); I10 Essential (primary) hypertension

== ENCOUNTER → 2024-10-13 11:48 | Outpatient (BNVA) | payer MEDICARE, SELFPAY | PROVIDERS: PCP Internal Medicine; Visit Provider Internal Medicine | DX: E11.9 Type 2 diabetes mellitus without complications (principal); I10 Essential (primary) hypertension | CPT/HCPCS: 99212 ==

== ENCOUNTER 2024-12-02 05:20 | Emergency (ER) | payer MEDICARE, SELFPAY ==
--- NOTE | ~2024-12-02 | CT_ITS ---
CLINICAL HISTORY: fall CT head without contrast Comparison: None Findings: No intra-axial mass, midline shift, hydrocephalus, or acute hemorrhage. There is moderate diffuse nonspecific atrophy.. The visualized paranasal sinuses and mastoid air cells are normal. The orbits are within normal limits. No skull fracture. IMPRESSION: 1. No acute intracranial findings. This document has been electronically signed by: Geoff Mccormack MD on 12/02/2024 06:45:45
--- NOTE | ~2024-12-02 | XR_ITS ---
CLINICAL HISTORY: fall 2 view left forearm Comparison: None Findings: No fractures or dislocations. No joint effusion. No significant arthritic change. No radiopaque foreign body. IMPRESSION: 1. Normal left forearm This document has been electronically signed by: Geoff Mccormack MD on 12/02/2024 06:28:54
--- NOTE | ~2024-12-02 | CT_ITS ---
CLINICAL HISTORY: fall CT cervical spine without contrast Comparison: None Findings: Vertebral alignment is within normal limits. There is multiple level degenerative disc, facet, and uncovertebral joint change. No acute fractures or dislocations. No acute findings on limited view of the intracranial contents. No cervical fluid collections or masses. Lung apices are clear. IMPRESSION: No acute findings. This document has been electronically signed by: Geoff Mccormack MD on 12/02/2024 06:39:31
[2024-12-02 05:27] VITALS: BP 168/78; PULSE 90
[2024-12-02 05:29] VITALS: BP 157/73; PULSE 96; RESP 18; TEMP 36.6; O2SAT 100; BMI 35.9
[2024-12-02 05:30] VITALS: BP 157/73; PULSE 96; RESP 18; TEMP 36.6; O2SAT 100
--- NOTE | 2024-12-02 07:19 | ED.FALL ---
HPI - Fall General Chief Complaint: Fall Stated Complaint: fall Time Seen by Provider: 12/02/24 07:04 History of Present Illness HPI Narrative: Patient is a 74-year-old male status post accidental fall hit a glass Hutch had a lack to the forearm there is question head strike there is no thinners. Patient is larger in size has a history of diabetes, hypertension sleep apnea. Walks with a walker. Lives with an elderly . Denies any chest pain any dizziness any nausea. Patient was trying to twist and tripped. patient not on blood thinners. Related Data Home Medications ?Medication ?Instructions ?Recorded ?Confirmed multivitamin 1 tab PO DAILY 01/30/21 10/16/24 Previous Rx's ?Medication ?Instructions ?Recorded ammonium lactate 12 % lotion 1 appl topical BID #400 grams 04/15/21 naloxone 4 mg/actuation nasal 4 mg intranasal Q2M 1 day #2 ea 06/19/21 spray (Narcan) blood sugar diagnostic ([employer]ymCartTouch #100 ea 10/16/21 Ultra Test strips) blood-glucose meter ([employer]ym[employer]Touch #1 ea 10/16/21 Ultra2 Meter) lancets 33 gauge ([employer] Delica #100 ea 10/16/21 Lancets) metformin 500 mg tablet,extended 500 mg PO DAILY #90 tabs 03/13/24 release 24 hr flash glucose sensor (FreeStyle #1 ea 03/27/24 Lauren 2 Sensor kit) blood pressure test kit-large #1 ea 04/24/24 pregabalin 150 mg capsule (Lyrica) 150 mg PO Q12H 90 days #180 caps 06/12/24 amlodipine 5 mg tablet 5 mg PO DAILY #90 tabs 07/05/24 clotrimazole-betamethasone 1 1 appl topical BID #45 grams 07/05/24 %-0.05 % topical cream lisinopril 20 mg tablet 20 mg PO DAILY 30 days #30 tabs 07/05/24 finasteride 5 mg tablet 5 mg PO DAILY #30 tabs 08/26/24 lancing device with lancets kit #1 ea 09/08/24 ([employer] Delica Plus Lancing Device kit) docusate sodium 100 mg capsule 100 mg PO BID 30 days #60 caps 09/25/24 (Colace) polyethylene glycol 3350 17 17 g PO DAILY #119 grams 10/04/24 gram/dose oral powder (Miralax) tramadol 50 mg tablet 50 mg PO Q6H 30 days #120 tabs 11/15/24 Allergies Allergy/AdvReac Type Severity Reaction Status Date / Time latex AdvReac Unknown Verified 12/02/24 05:29 Review of Systems Review of Systems: No loss of consciousness no vomiting Yes all other systems are reviewed and are negative [facility] Past Medical History Attestation statement: The following information was validated with the patient. Medical History Hypertension Cataract Diabetes mellitus with coincident hypertension Obesity Hypertension Diabetes mellitus Post herpetic neuralgia Arthritis of right hip Pneumococcal arthritis, right knee Pain of left hip Cervical spondylosis Lumbar spondylosis Surgical History Status post ablation of incompetent vein using laser History of tonsillectomy Family History Family History Father Parkinson disease Mother No problems noted. Social History Social History Household Members: Spouse Housing: House Do you presently have visiting nurse or other home services: No Alcohol intake: current Alcohol intake frequency: 0-2 drinks per day Alcohol type: beer Patient Tobacco Use Status: Former Tobacco user Tobacco use type: Cigarette Years Smoked: 1979 Smoked in Last 30 Days: No e-Cigarette/Vaping Use: Never Used Second Hand Smoke Exposure: No Use of substances other than those prescribed or required for medical reasons: No Advance Directives: No Advance Directives Information Provided: No service: No Current occupational status: retired Cognitive needs: Yes (Cane) Hearing needs: No Vision needs: No Physical Exam Vital Signs: Vital Signs: Last Vital Signs Temp 98.2 F 12/02/24 09:23 Pulse 91 12/02/24 10:30 Resp 13 12/02/24 09:23 BP 144/55 H 12/02/24 10:30 Pulse Ox 97 12/02/24 10:30 O2 Del Method Room Air 12/02/24 09:23 BMI result Body Mass Index 35.9 Appearance: Alert. Oriented X3. No acute distress. Eyes: Pupils equal, round and reactive to light. ENT: Pharynx normal. Neck: Normal inspection. Neck supple. No lymph nodes noted. No crepitus CVS: Normal heart rate and rhythm. Pulses normal. Normal S1 and S2 Respiratory: No respiratory distress. Breath sounds normal. No Wheezing. No rales Abdomen: Soft and nontender. No rigidity. No distention. good BS x4 Skin: Skin warm and dry. Normal skin color. Normal skin turgor. Extremities: No lower extremity edema. Neurovascular intact to all extremities. No Lacerations. No Rash Neuro: Oriented X 3. No motor deficit. No sensory deficit. Moving all extermities. No slurred speech Medications Administered Discontinued Medications Generic Name Dose Route Start Last Admin Trade Name Freq PRN Reason Stop Dose Admin Lidocaine HCl 10 ml 12/02/24 08:57 12/02/24 09:06 Lidocaine Hcl 1 % Mpf 5 Ml Vial SUBCUT 12/02/24 08:58 10 ml ONCE ONE Administration Procedures Laceration left forearm: Side (If applicable): left Size (cm): 4 Description: linear Depth: simple, single layer Local Anesthetic: lidocaine 1% Amount of anesthesia used (mL): 3 Pre-repair: wound explored Skin layer closed with: nylon Size (cm): 5-0 Number of sutures: 5 Technique: simple, interrupted Medical Decision Making Medical Decision Making [facility] Narrative: My interpretation of patient's x-ray of the forearm was grossly negative. My interpretation patient's CT scan of the head was grossly negative. I reviewed radiology's reading of the CT head and CT C-spine are both negative. Patient's sugar is over 100 no evidence for hypoglycemia electrolyte is normal. Patient unable to get up well very weak which is baseline but lives at home with an elderly spouse. We have physical therapy evaluate patient. Patient had difficulty ambulating with physical therapy. Will get Case management involved to increase the amount of help at home. patient seen by Physical therapy. Require additional help. Recommended for patient to go to rehab. However patient refused. Understood risks. Social service work with patient. Will get additional VNA help at home as the next best option. Patient is currently in stable condition. Will discharge home Differential Diagnosis Differential Diagnoses: The differential diagnosis associated with the presentation includes Admission/Observation Consideration of admission/observation: Escalation of care including admission/observation considered Consult Healthcare Provider Management of the patient was discussed with: Lithographic Press Feeder ( physical therapy case management) Lab Data [facility] Lab Attestation statement: I reviewed the patient's lab results. 12/02/24 07:42 12/02/24 07:42 Labs: Lab Results 12/02/24 12/02/24 Range/Units 07:42 09:26 WBC 9.2 (4.8-10.8) X10*3/uL RBC 4.03 L (4.60-5.80) X10*6/uL Hgb 13.1 L (14.0-18.0) g/dl Hct 36.5 L (42.0-52.0) % MCV 90.6 (80.0-98.0) fL MCH 32.5 (27.0-33.0) pg MCHC 35.9 (31.0-36.0) g/dl RDW 12.4 (11.0-16.0) % Plt Count 208 (160-400) X10*3/uL MPV 8.4 L (9.4-12.4) fL Immature Gran % (Auto) 0.4 (0.0-0.4) % Neut % (Auto) 70.2 (45-73) % Lymph % (Auto) 18.4 L (20-40) % [place] % (Auto) 9.3 (2-11) % Eos % (Auto) 1.4 (0-4) % Baso % (Auto) 0.3 (0-2) % Lymph # (Auto) 1.7 (1.2-4.9) X10*3/uL [place] # (Auto) 0.9 (0.1-1.2) X10*3/uL Eos # (Auto) 0.1 (0.0-0.4) X10*3/uL Baso # (Auto) 0.0 (0.0-0.2) X10*3/uL Abs Immat Gran (auto) 0.04 H (0.00-0.03) X10*3/uL Absolute Neuts (auto) 6.4 (2.0-8.3) x10*3/uL Absolute Nucleated RBC 0.000 (0.0-0.012) X10*3/uL Nucleated RBC % (auto) 0.0 (0.0-0.2) /100WBC Sodium 137 (135-145) mmol/L Potassium 3.7 (3.3-5.1) mmol/L Chloride 103 (96-108) mmol/L Carbon Dioxide 25 (22-29) mmol/L Anion Gap 13 (12-20) BUN 15 (9-16) mg/dL Creatinine 0.66 (0.5-1.4) mg/dL Estim Creat Clear Calc 123.8 Estimated GFR > 60 Random Glucose 134 H (60-115) mg/dL Calcium 9.0 (8.4-10.2) mg/dL Influenza Type A (PCR) NEGATIVE (Negative) Influenza Type B (PCR) NEGATIVE (Negative) RSV RNA Qual (PCR) NEGATIVE (Negative) SARS-CoV-2 RNA (RT-PCR) NEGATIVE (Negative) Independent Interpretation I performed an independent interpretation of an: Plain X-Ray ( x-ray forearm showed no fracture) and CT Scan ( CT head negative for bleed) Radiology Impression Discussion of test interpretation with radiology: I have reviewed the radiologist's reading. External Record Review External record reviewed: Office record Chronic Conditions Patient?s care impacted by: Diabetes Social Determinants Patient?s care significantly limited by Social Determinants of Health including: Problems related to primary support group Discharge Plan Discharge Clinical Impression: Head injury, Laceration of left forearm Patient Disposition: Home, Self-Care Instructions: Laceration (DC), Head Injury (ED) Additional Instructions: suture removal in about 9 days Prescriptions: No Action Narcan 4 mg/actuation spray,non-aerosol 4 mg intranasal Q2M 1 Days Qty: 2 1RF Rx Instructions: spray 1 dose into ONE nostril; alternate nostrils w each dose until help arrives (DME) OneTouch Ultra Test Strip See Rx Instructions .Route Qty: 100 0RF Rx Instructions: Use to check blood sugars twice a day (DME) blood-glucose meter [OneTouch Ultra2 Meter] [facility] See Rx Instructions .Route Qty: 1 0RF Rx Instructions: Use to check blood sugars twice a day (DME) lancets [OneTouch Delica Lancets] [facility] See Rx Instructions .Route Qty: 100 0RF Rx Instructions: Use to check blood sugars twice a day metformin 500 mg tablet extended release 24 hr 500 mg PO DAILY Qty: 90 8RF (DME) FreeStyle Lauren 2 Sensor Kit See Rx Instructions .Route Qty: 1 6RF Rx Instructions: As directed (DME) blood pressure test kit-large Kit See Rx Instructions .Route Qty: 1 0RF Rx Instructions: As directed pregabalin [Lyrica] 150 mg capsule 150 mg PO Q12H 90 Days Qty: 180 3RF finasteride 5 mg tablet 5 mg PO DAILY Qty: 30 3RF (DME) lancing device with lancets [OneTouch Delica Plus Lanc Dev] Kit See Rx Instructions .Route Qty: 1 0RF Rx Instructions: As directed polyethylene glycol 3350 [Miralax] 17 gram/dose powder 17 g PO DAILY Qty: 119 0RF tramadol 50 mg tablet 50 mg PO Q6H 30 Days Qty: 120 0RF ammonium lactate 12 % Lotion 1 appl topical BID Qty: 400 0RF docusate sodium [Colace] 100 mg capsule 100 mg PO BID 30 Days Qty: 60 0RF multivitamin Tablet 1 tab PO DAILY amlodipine 5 mg tablet 5 mg PO DAILY Qty: 90 8RF clotrimazole-betamethasone 1-0.05 % cream 1 appl topical BID Qty: 45 8RF lisinopril 20 mg tablet 20 mg PO DAILY 30 Days Qty: 30 3RF Referrals: Ann DOWNING [Outside] Denzel Garcia MD [Primary Care Provider] - 12/05/24 ( suture removal in 9 days) Print Language: Albanian
[2024-12-02 07:47] LABS: Basophils Percent Auto 0.3 % (0-2); Eosinophils Absolute Auto 0.1 X10*3/uL (0.0-0.4); Eosinophils Percent Auto 1.4 % (0-4); Hematocrit 36.5 % (42.0-52.0); Hemoglobin 13.1 g/dl (14.0-18.0); Imm Gran Abs Auto 0.04 X10*3/uL (0.00-0.03); Imm Gran Pct Auto 0.4 % (0.0-0.4); Lymphocytes Absolute Auto 1.7 X10*3/uL (1.2-4.9); Lymphocytes Percent Auto 18.4 % (20-40); MANUAL DIFF FLAG NO; Mean Corpuscular HGB Conc 35.9 g/dl (31.0-36.0); Mean Corpuscular Hemoglobin 32.5 pg (27.0-33.0); Mean Corpuscular Volume 90.6 fL (80.0-98.0); Mean Platelet Volume 8.4 fL (9.4-12.4); Monocytes Absolute Auto 0.9 X10*3/uL (0.1-1.2); Monocytes Percent Auto 9.3 % (2-11); Neutrophils Absolute Auto 6.4 x10*3/uL (2.0-8.3); Neutrophils Percent Auto 70.2 % (45-73); Platelet Count 208 X10*3/uL (160-400); Red Blood Count 4.03 X10*6/uL (4.60-5.80); Red Cell Distribution Width 12.4 % (11.0-16.0); White Blood Count 9.2 X10*3/uL (4.8-10.8)
[2024-12-02 07:58] LABS: Anion Gap 13 (12-20); Blood Urea Nitrogen 15 mg/dL (9-16); Carbon Dioxide 25 mmol/L (22-29); Chloride 103 mmol/L (96-108); Creatinine Clr Calc Pharmacy 123.8; Estimated Glomerular Filt Rate > 60; Glucose Random 134 mg/dL (60-115); Potassium 3.7 mmol/L (3.3-5.1); Sodium 137 mmol/L (135-145)
[2024-12-02] MEDS: Lidocaine HCl 1 % MPF 5 ML VIAL 10 ML SUBCUT (09:06)
--- NOTE | 2024-12-02 09:07 | PC.NURSE ---
Pt is alert/oriented. Vern pain or discomfort. Laceration to left elbow noted with hematoma and bleeding moderately, Dr Watkinsu to bedside at this time for suturing. at bedside. Pt continues to deny dizziness, thinners or LOC with fall and reports mechanical in nature. Plan for PT consult and pt aware/agreeable.
[2024-12-02 09:23] VITALS: BP 144/55; PULSE 91; RESP 13; TEMP 36.8; O2SAT 97
[2024-12-02 10:18] LABS: Influenza A PCR NEGATIVE (Negative); Influenza B PCR NEGATIVE (Negative); Resp Syncy Virus RNA Qual PCR NEGATIVE (Negative); SARS COV2 PCR INHOUSE NEGATIVE (Negative)
[2024-12-02 10:30] VITALS: BP 144/55; PULSE 91; O2SAT 97
--- NOTE | 2024-12-02 11:18 | MHC.CM.ED ---
Received case management consult from Dr Mccoy. Patient came to the ER after a fall. Work up essentially negative, except for an elbow hematoma. Physical therapy eval completed. Rehab is recommended. Met with patient and , Marleen, in regards to discharge planning. Patient lives with Marleen, uses a cane/crutch for mobility and had no services prior to coming to the ER. PCP was Dr Garcia. However, Dr Garcia retired in October. Binh Manzo will be patient's new PCP. HCP verified to be on file. Patient is declining STR at this time and is requesting to go home. VNA for phyiscal therapy offered. Patient agreeable to referral to [facility]. [facility]. SARAHI will see patient in 24-48 hours. Marleen will transport patient home. Carmelita BLAKE and Dr Mccoy aware. Continue to monitor for d/c needs.
[2024-12-02 11:23] VITALS: BP 144/55; PULSE 91; RESP 16; TEMP 36.8; O2SAT 97
== END 2024-12-02 11:24 | disposition home or self-care (01) ==
PROVIDERS: Emergency Provider Emergency Medicine Emergency Medical Services; PCP Internal Medicine
DX: S09.90XA Unspecified injury of head, initial encounter (principal); S51.812A Laceration without foreign body of left forearm, initial encounter; W18.39XA Other fall on same level, initial encounter; E11.9 Type 2 diabetes mellitus without complications; I10 Essential (primary) hypertension; Z03.818 Encounter for observation for suspected exposure to other biological agents ruled out; Y93.9 Activity, unspecified; Y92.019 Unspecified place in single-family (private) house as the place of occurrence of the external cause; Y99.9 Unspecified external cause status; Z79.84 Long term (current) use of oral hypoglycemic drugs; Z79.899 Other long term (current) drug therapy
CPT/HCPCS: 0241U; 12032; 36415; 70450; 72125; 73090; 80048; 85025; 97162; 99284; J2003

== ENCOUNTER → 2024-12-02 06:00 | Outpatient (BNV) | payer MEDICARE, SELFPAY | PROVIDERS: Visit Provider Specialist | DX: S09.90XA Unspecified injury of head, initial encounter (principal); S51.812A Laceration without foreign body of left forearm, initial encounter; W19.XXXA Unspecified fall, initial encounter | CPT/HCPCS: 70450; 72125; 73090 ==

== ENCOUNTER 2024-12-08 11:34 | Outpatient (AMB) | payer MEDICARE, SELFPAY ==
[2024-12-08 11:44] VITALS: BP 153/70; PULSE 109; TEMP 36.2; O2SAT 98
--- NOTE | 2024-12-08 11:44 | MHC.PC.OV ---
Vital Signs 12/08/24 11:44 Weight 238 lb 15.697 oz BP 153/70 H Blood Pressure Location Lt brachial Position Sitting Pulse 109 H Pulse Source Pulse Oximeter Temp 97.1 F Temp Source Temporal Artery Scan Pulse Oximetry (%) 98 Oxygen Delivery Method Room Air Intake Visit Reasons: [facility] 4/5 stitch removal arm Slab Stripper Required: No Accompanied by: Spouse Allergies latex Adverse Reaction (Verified 12/08/24 12:14) Unknown Medication List - Last Reconciled 12/08/24 by Santa Crowley PA-C amlodipine 5 mg PO DAILY ammonium lactate 12% 1 appl topical BID blood pressure test kit-large As directed blood sugar diagnostic ([employer] Ultra Test strips) Use to check blood sugars twice a day blood-glucose meter ([employer] Ultra2 Meter) Use to check blood sugars twice a day cephalexin 500 mg PO Q6H 10 days clotrimazole-betamethasone 1-0.05 % 1 appl topical BID docusate sodium (Colace) 100 mg PO BID 30 days doxycycline monohydrate 100 mg PO BID finasteride 5 mg PO DAILY flash glucose sensor (FreeStyle Lauren 2 Sensor kit) As directed fluorouracil 5% 1 appl topical BID lancets ([place] Delica Lancets) Use to check blood sugars twice a day lancing device with lancets ([place] Delica Plus Lancing Device kit) As directed lisinopril 20 mg PO DAILY 30 days metformin ER 500 mg PO DAILY multivitamin 1 tab PO DAILY mupirocin 2% 1 appl topical DAILY naloxone 4 mg/actuation (Narcan) 4 mg intranasal Q2M 1 day polyethylene glycol 3350 (Miralax) 17 grams PO DAILY pregabalin (Lyrica) 150 mg PO Q12H 90 days tramadol 50 mg PO Q6H 30 days Tobacco use date assessed: 10/13/24 Fall risk assessment: No Falls in past year Last assessed Fall Risk: 12/08/24 Dental Screening Dental Screen Date: 10/13/24 HPI [facility] 4/5 stitch removal arm HPI Details History of Present Illness The patient is a 74-year-old male presenting for suture removal and evaluation of the left forearm for infection. He sustained a laceration on December 02, requiring suture placement. A CT scan of the head performed during the ER visit was precautionary. The wound on the forearm has exhibited signs of infection, including warmth, redness, and swelling. The patient reports diligent dressing changes, but the infection appears to be progressing. Social History - Patient has been visited by wound hospice care consultant due to a leg-related issue. Review of Systems - Integumentary: Reports warm, red, swollen area on the left forearm. - General: Denies symptoms related to head injury. [facility] Medical History (Updated 12/08/24 @ 12:19 by Santa Crowley PA-C) Visit for suture removal Hypertension Cataract Diabetes mellitus with coincident hypertension Obesity Hypertension Diabetes mellitus Post herpetic neuralgia Arthritis of right hip Pneumococcal arthritis, right knee Pain of left hip Cervical spondylosis Lumbar spondylosis Surgical History Status post ablation of incompetent vein using laser History of tonsillectomy Family History Father Parkinson disease Mother No problems noted. Social History Household Members: Spouse Housing: House Do you presently have visiting nurse or other home services: No Alcohol intake: current Alcohol intake frequency: 0-2 drinks per day Alcohol type: beer Patient Tobacco Use Status: Former Tobacco user Tobacco use type: Cigarette Years Smoked: 1978 e-Cigarette/Vaping Use: Never Used Second Hand Smoke Exposure: No service: No Current occupational status: retired Cognitive needs: Yes (Cane) Hearing needs: No Vision needs: No Questionnaire Thrive Questionnaire Date Thrive assessed: 10/13/24 PALMER-7 AMB Questionnaire PALMER-7 Date PALMER - 7 assessed: 10/13/24 Source: Developed by Drs. Alfredo Anna, Sarah Nichols, Geovanny Gibson and colleagues, with an educational carroll from [employer]. Physical exam (Primary Care) Vital Signs: Last Vital Signs Temp 97.1 F 12/08/24 11:44 Pulse 109 H 12/08/24 11:44 BP 153/70 H 12/08/24 11:44 Pulse Ox 98 12/08/24 11:44 Oxygen Delivery Method Room Air 12/08/24 11:44 Tobacco/Smoking Status: Tobacco use Status Tobacco use date assessed 10/13/24 12/08/24 11:47 Patient Tobacco Use Status Former Tobacco user 12/08/24 11:47 Tobacco use type Cigarette 12/08/24 11:47 e-Cigarette/Vaping Use Never Used 12/08/24 11:47 Thrive Assessment: Date of Thrive Assessment Date Thrive assessed 10/13/24 12/08/24 11:47 Const Other: Physical Exam Appearance: Alert. Oriented. No acute distress. Head: Normal external exam. Normocephalic. Atraumatic. Eyes: Pupils are equal, round, and reactive to light. Extraocular movements intact. Conjunctiva and sclera normal. Eyelids normal. Throat: Pharynx normal. Uvula midline. Moist mucous membranes. Neck: Normal inspection. Neck supple. Full range of motion. Cardiovascular: Normal heart rate and rhythm. Respiratory: No respiratory distress. Painless inspiration. Back: Full range of motion noted. Skin: Skin warm and dry. Normal skin color. Normal skin turgor. To left forearm [address] to healing wound although there is soft tissue swelling, erythema, warm to touch and tenderness to palpation consistent with cellulitis infection. When I attempt to manually express any fluid out of the wound patient only has bloody discharge no purulent discharge is noted. There is no streaking. Patient has good range of motion of the left shoulder/elbow/hand and wrist joint. Not consistent with septic joint or joint effusion. There are no foreign bodies other than the [address] Patient also has skin cancer wound to lower distal forearm. Extremities: Left forearm with five sutures, appears red and swollen, possibly infected. Neuro: Oriented Results Reviewed Results Reviewed: Results - CT scan of the head conducted in the emergency room which was negative for any acute processes. Coding Level of Care Code Est Pt Level 3 (77684) Diagnoses Visit for suture removal Z48.02 Cellulitis L03.90 Assessment & Plan Assessment & Plan (1) Visit for suture removal: Code(s): Z48.02 - Encounter for removal of sutures Category: Medical Plan: Patient now status post suture removal of 5 sutures. Patient tolerated procedure well. Active sign of cellulitis infection. Not consistent with abscess or septic joint or sepsis. Patient will be started on Keflex, doxy, Bactroban with instructions to follow-up as scheduled with wound VNA is that are taking care of him at this time. Condition is stable will continue to monitor. (2) Cellulitis: Comment: 20 min reviewing chart eval pt and documenting; cont same rx Code(s): L03.90 - Cellulitis, unspecified Category: Medical Plan: Patient now status post suture removal of 5 sutures. Patient tolerated procedure well. Active sign of cellulitis infection. Not consistent with abscess or septic joint or sepsis. Patient will be started on Keflex, doxy, Bactroban with instructions to follow-up as scheduled with wound VNA is that are taking care of him at this time. Condition is stable will continue to monitor. Plan Plan Patient was informed and verbally consented to the use of an ambient scribe for clinic note documentation during this visit. 1. Skin Cancer Prior diagnosis of skin cancer on the left forearm is scheduled for dermatological intervention. Continued surveillance will be necessary. 2. Wound Infection I have prescribed Keflex and doxycycline to manage potential bacterial infection of the left forearm wound. I will ensure follow-up at a wound clinic. Discussion Notes I discussed with the patient the likely diagnosis of wound infection and the need for antibiotics including Keflex and doxycycline, explaining their potential benefits in resolving the infection. I advised on using a topical antibiotic cream and ensured an understanding of the wound care protocol to prevent complications. Discussions included the risks of excessive compression and the importance of avoiding alcohol or peroxide. The skin cancer follow-up scheduled at [facility] was reaffirmed, and I emphasized the necessity for continuous dermatologic evaluations. The patient will also continue with the wound care team for leg-related concerns. Medications: New doxycycline monohydrate 100 mg PO BID 20 tabs 0RF mupirocin 2% 1 appl topical DAILY 22 grams 1RF cephalexin 500 mg PO Q6H 40 caps 0RF 10 days Patient Instructions: Patient Instructions - Begin taking Keflex 500 mg, four times daily. - Begin taking doxycycline 100 mg, twice daily; avoid sun exposure due to photosensitivity risk. - Apply the topical antibiotic as directed. - Clean the wound with mild soap or saline, avoiding alcohol or peroxide. - Attend dermatology appointment on December 18 for skin cancer management. - Continue with wound care service for leg issues. - Avoid tight compression on the forearm, ensuring gentle bandaging. - Contact healthcare provider if symptoms suggestive of infection worsen or if new symptoms arise.
== END 2024-12-08 12:40 | disposition home or self-care (01) ==
LOC: HO.HMCH 11:34
PROVIDERS: PCP Physician Assistant; Visit Provider Physician Assistant Medical
DX: Z48.02 Encounter for removal of sutures (principal); L03.90 Cellulitis, unspecified

== ENCOUNTER → 2024-12-08 11:34 | Outpatient (BNVA) | payer MEDICARE, SELFPAY | PROVIDERS: PCP Physician Assistant; Visit Provider Physician Assistant Medical | DX: L03.114 Cellulitis of left upper limb (principal); Z87.891 Personal history of nicotine dependence; Z85.828 Personal history of other malignant neoplasm of skin | CPT/HCPCS: 99212 ==

== ENCOUNTER 2025-01-30 14:12 | Outpatient (AMB) | payer MEDICARE, SELFPAY ==
--- NOTE | 2025-01-30 14:17 | A.OFFPC_ITS ---
Vital Signs 01/30/25 14:18 Height 5 ft 10 in Weight 234 lb 8 oz BMI 33.6 BP 140/76 H Blood Pressure Location Lt brachial Position Sitting Pulse 99 Pulse Source Pulse Oximeter Temp 97.3 F Temp Source Temporal Artery Scan Pulse Oximetry (%) 96 Oxygen Delivery Method Room Air Intake Visit Reasons: EVELIA DR Garcia/3 month f/u Intake Note: Patient is here today for EVELIA from Dr Garcia Power Mule Operator Required: No Neurophysiological Technician: Present Accompanied by: Spouse Allergies latex Adverse Reaction (Verified 01/30/25 14:32) Unknown Medication List - Last Reconciled 01/30/25 by Alec Manzo PA-C amlodipine 5 mg PO DAILY ammonium lactate 12% 1 appl topical BID blood pressure test kit-large As directed blood sugar diagnostic ([employer] Ultra Test strips) Use to check blood sugars twice a day blood-glucose meter ([employer] Ultra2 Meter) Use to check blood sugars twice a day clotrimazole-betamethasone 1-0.05 % 1 appl topical BID docusate sodium (Colace) 100 mg PO BID 30 days finasteride 5 mg PO DAILY flash glucose sensor ([employer] Lauren 2 Sensor kit) As directed fluorouracil 5% 1 appl topical BID lancets ([employer] Delica Lancets) Use to check blood sugars twice a day lancing device with lancets ([employer] Delica Plus Lancing Device kit) As directed lisinopril 20 mg PO DAILY 30 days metformin ER 500 mg PO DAILY multivitamin 1 tab PO DAILY mupirocin 2% 1 appl topical DAILY naloxone 4 mg/actuation (Narcan) 4 mg intranasal Q2M 1 day polyethylene glycol 3350 (Miralax) 17 grams PO DAILY pregabalin (Lyrica) 150 mg PO Q12H 90 days tramadol 50 mg PO Q8H 30 days Tobacco use date assessed: 01/30/25 Fall risk assessment: 1 Fall in past year (12/22/24) Last assessed Fall Risk: 01/30/25 Dental Screening Dental Screen Date: 10/13/[address] Garcia/3 month f/u HPI Details Patient is a 74-year-old male here today for a routine 3 month follow- up on his diabetes and hypertensio, chronic cervical spine pain and deformity. Hypertension: Today's blood pressure elevated today in office which seems to be continuing elevated when he comes into doctor's offices. Unclear if this is white coat hypertension. We have increased his lisinopril in the fall of 2023, Does not regularly monitor his blood pressure at home and promises to start doing so. Otherwise asymptomatic. Type 2 diabetes- today's A1c acceptable. He is not able to check his blood sugars as he has not been able to receive a glucose monitor secondary to insurance coverage. .. 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 He is severely disabled as he uses a walker to ambulate. He has a major slumped to the left posture. He has been managed with pain medication for quite some time. He reports tramadol 50 mg q.6 hours has been effective for his pain relief. [facility] Medical History (Updated 01/30/25 @ 14:47 by Alec Manzo PA-C) Visit for suture removal Hypertension Cataract Diabetes mellitus with coincident hypertension Obesity Hypertension Diabetes mellitus Post herpetic neuralgia Arthritis of right hip Pneumococcal arthritis, right knee Pain of left hip Cervical spondylosis Lumbar spondylosis Surgical History History of skin surgery Status post ablation of incompetent vein using laser History of tonsillectomy Family History Father Parkinson disease Mother No problems noted. Social History Household Members: Spouse Housing: House Do you presently have visiting nurse or other home services: No Alcohol intake: current Alcohol intake frequency: 0-2 drinks per day Alcohol type: beer Patient Tobacco Use Status: Former Tobacco user Tobacco use type: Cigarette Years Smoked: 1978 e-Cigarette/Vaping Use: Never Used Second Hand Smoke Exposure: Yes service: No Current occupational status: retired Cognitive needs: Yes (Cane, walker) Hearing needs: No Vision needs: No Questionnaire PHQ-9 Over the last 2 weeks, how often have you been bothered by any of the following problems? 1. Little interest or pleasure in doing things: several days 2. Feeling down, depressed, or hopeless: several days 3. Trouble falling or staying asleep, or sleeping too much: not at all 4. Feeling tired or having little energy: several days 5. Poor appetite or overeating: several days 6. Feeling bad about yourself - or that you are a failure or have let yourself or your family down: more than half the days 7. Trouble concentrating on things, such as reading the newspaper or watching television: not at all 8. Moving or speaking so slowly that other people could have noticed. Or the opposite - being so fidgety or restless that you have been moving around a lot more than usual: not at all 9. Thoughts that you would be better off or of hurting yourself in some way: not at all Total score: 6 Depression Screening Interpretation: Positive Depression Screening Follow-up: Existing condition Depression Screening Done: Yes 91549 - PHQ-9 Billing: Yes Source: Developed by Drs. Alfredo Anna, Sarah Nichols, Geovanny Gibson and colleagues, with an educational carroll from [employer]. Thrive Questionnaire Date Thrive assessed: 01/30/25 I am a: Patient What is your living situation today?: I have a steady place to live Within the past 12 months, did the food you bought not last and you didn't have the money to get more?: Never true Within the past 12 months, did you worry whether your food would run out before you got money to buy more?: Never true Do you have trouble paying for medicines?: No Do you have trouble getting transportation to medical appointments?: No Do you have trouble paying your heating and electricity bill?: No THRIVE Score: 0 PALMER-7 AMB Questionnaire PALMER-7 Date PALMER - 7 assessed: 10/13/24 Source: Developed by Drs. Alfredo Anna, Sarah Nichols, Geovanny Gibson and colleagues, with an educational carroll from [employer]. Review of Systems Const Denies headache(s) Eyes Denies loss of vision ENT Denies vertigo, Denies dizziness, Denies headache(s) and Denies sore throat Card Denies chest pain, Denies leg edema and Denies lightheadedness Resp Denies cough, Denies hemoptysis and Denies wheezing GI Denies abdominal pain, Denies melena, Denies constipation, Denies diarrhea and Denies vomiting Denies dysuria, Denies urinary frequency and Denies urinary urgency Musc Denies arthralgias, Denies joint swelling, Denies numbness and Denies tingling Neuro Denies Abnormal speech present, Denies behavioral changes, Denies vertigo, Denies dizziness, Denies headache(s), Denies loss of vision, Denies memory loss, Denies numbness and Denies tingling Psych Denies anxiety, Denies behavioral changes, Denies depression, Denies memory loss and Denies panic attacks Mac/Lymph Denies easy bleeding and Denies easy bruising Aller/Immun Denies wheezing Physical exam (Primary Care) Vital Signs: Last Vital Signs Temp 97.3 F 01/30/25 14:18 Pulse 99 01/30/25 14:18 BP 140/76 H 01/30/25 14:18 Pulse Ox 96 01/30/25 14:18 Oxygen Delivery Method Room Air 01/30/25 14:18 BMI result Body Mass Index 33.6 Tobacco/Smoking Status: Tobacco use Status Tobacco use date assessed 01/30/25 01/30/25 14:30 Patient Tobacco Use Status Former Tobacco user 01/30/25 14:30 Tobacco use type Cigarette 01/30/25 14:30 e-Cigarette/Vaping Use Never Used 01/30/25 14:30 PHQ-9: PHQ-9 Score PHQ-9: Total score 6 01/30/25 14:58 Depression Screening Interpretation: Positive Depression Screening Follow-up: Existing condition Thrive Assessment: Date of Thrive Assessment Date Thrive assessed 01/30/25 01/30/25 14:30 Const General: healthy appearing, no acute distress, alert and awake Nutritional Appearance: well nourished Orientation/consciousness: oriented to person, oriented to place and oriented to time HENMT Ears: TM's normal bilaterally General nose exam: Normal nasal mucous membranes and turbinates present Eyes Conjunctivae: conjunctivae normal Sclerae: sclerae normal Pupils: Equal, round and reactive pupils present Neck Other: SEVERE ANGULATION OF THE CERVICAL SPINE TO THE LEFT, PATIENT'S HEAD IS KEPT IN A HUNCHED OVER POSITION, VERY LIMITED RANGE OF MOTION ON SO EXPLAIN Neck: Yes no lymphadenopathy and Yes no JVD Thyroid: Thyroid normal Carotids: no bruits Resp Effort & Inspection: normal respiratory effort and not tachypneic Auscultation: no crackles, no rales, no rhonchi and no wheezes Cardio Rate: regular rate Rhythm: regular rhythm Heart sounds: no murmurs and normal S1 and S2 GI Palpation (GI): Soft to palpation, nontender, no hepatomegaly and no splenomegaly Auscultation: normal bowel sounds Skin General skin exam: no rashes or lesions noted and dry skin Neuro General: oriented to person, oriented to place and oriented to time Cranial nerves: Yes Equal, round and reactive pupils present Speech: No Abnormal speech present Gait exam (Neuro): Normal gait present Motor exam (neuro): no tremor noted Extrem Right upper extremity: full ROM Left upper extremity: full ROM Right lower extremity: full ROM; no edema Left lower extremity: full ROM; no edema Psych Mental Status: mental status grossly normal Speech and movement: Normal speech and movement present Affect: normal affect Attitude: cooperative Thought process: Normal thought process present Results AMB Hemoglobin A1c AMB Hemoglobin A1c 5.7 % Last Edit by VERONICA Moctezuma on 01/30/25 14:33 Results Reviewed Results Reviewed: Laboratory Last Values Hgb A1c (Clinic) 5.7 % (4.0-6.0) 01/30/25 14:17 Coding Level of Care Code Est Pt Level 4 (18392) Diagnoses Diabetes mellitus with coincident hypertension E11.9; I10 Primary hypertension I10 Hypertension type: primary hypertension Malignant neoplasm of skin of left upper extremity C44.609 Laterality: left Cervical spondylosis M47.812 CHELSEY (obstructive sleep apnea) G47.33 Additional Codes PHQ-9 - 52437 - PHQ-9 Billing: Yes ([id number]) Assessment & Plan Assessment & Plan (1) Diabetes mellitus with coincident hypertension: Code(s): E11.9 - Type 2 diabetes mellitus without complications; I10 - Essential (primary) hypertension Category: Medical Plan: Patient's type 2 diabetes well controlled with A1c below 7.0. He will continue his current dose of antihyperglycemic medication. Of note patient is requesting a continues glucose monitor though has not been covered by insurance as he has not injecting insulin. (2) Hypertension: Code(s): I10 - Essential (primary) hypertension Category: Medical Qualifiers: Hypertension type: primary hypertension Qualified Code(s): I10 - Ess ential (primary) hypertension Plan: Patient's blood pressure elevated today in office and has been elevated at previous visits. Will increase his lisinopril to 30 mg for better blood pressure control. Advised to monitor blood pressure at home with goal blood pressure to remain below 140/90. (3) Skin cancer of arm: Code(s): C44.601 - Unspecified malignant neoplasm of skin of unspecified upper limb, including shoulder Category: Medical Qualifiers: Laterality: left Qualified Code(s): C44.609 - Unspecified malignant neoplasm of skin of left upper limb, including shoulder Plan: Patient followed by Dermatology has a large skin cancer lesion over his left hand. He is due to have removal of his skin lesion at [facility] in the upcoming month. (4) Cervical spondylosis: Code(s): M47.812 - Spondylosis without myelopathy or radiculopathy, cervical region Category: Medical Plan: As per HPI patient is managing his pain with tramadol 50 mg q.6 hours. We have reduced his tramadol to 50 mg t.i.d. and reports increased pain and was using high doses of Tylenol. He does have pretty severe cervical spine arthritis to the point where he walks in a hunched over to the left posture with a walker. Will return back to tramadol 50 mg q.6 hours as it was effective for his pain relief. (5) CHELSEY (obstructive sleep apnea): Code(s): G47.33 - Obstructive sleep apnea (adult) (pediatric) Category: Medical Plan: Patient uses a CPAP machine on a nightly basis with good effect on his sleep. Orders: Orders AMB Hemoglobin A1c Today E11.9 - Type 2 diabetes mellitus without complications, I10 - Essential (primary) hypertension Comprehensive [place]. Panel Fast Today I10 - Essential (primary) hypertension Microalbumin, Random (w Creat) Today I10 - Essential (primary) hypertension Complete Blood Count no Diff Today E11.9 - Type 2 diabetes mellitus without complications, I10 - Essential (primary) hypertension Hemoglobin A1c Today E11.9 - Type 2 diabetes mellitus without complications, I10 - Essential (primary) hypertension Medications: New lisinopril 30 mg PO DAILY 90 tabs 2RF 90 days I10 - Essential (primary) hypertension Changed From tramadol 50 mg PO Q8H 30 days 90 tabs 0RF M47.812 - Spondylosis without myelopathy or radiculopathy, cervical region, M47.816 - Spondylosis without myelopathy or radiculopathy, lumbar region To tramadol 50 mg PO Q6H 120 tabs 3RF 30 days M47.812 - Spondylosis without myelopathy or radiculopathy, cervical region, M47.816 - Spondylosis without myelopathy or radiculopathy, lumbar region Patient Instructions: Goal: Blood pressure to be below 140/90, A1c to remain below 7.0 Barriers: Adherence to physical activity and healthy eating habits
[2025-01-30 14:18] VITALS: BP 140/76; PULSE 99; TEMP 36.3; O2SAT 96; BMI 33.6
== END 2025-01-30 15:01 | disposition home or self-care (01) ==
LOC: HO.HMCH 14:13
PROVIDERS: PCP Physician Assistant; Visit Provider Physician Assistant
DX: E11.9 Type 2 diabetes mellitus without complications (principal); I10 Essential (primary) hypertension; C44.609 Unspecified malignant neoplasm of skin of left upper limb, including shoulder; M47.812 Spondylosis without myelopathy or radiculopathy, cervical region; G47.33 Obstructive sleep apnea (adult) (pediatric)

== ENCOUNTER → 2025-01-30 14:12 | Outpatient (BNVA) | payer MEDICARE, SELFPAY | PROVIDERS: PCP Physician Assistant; Visit Provider Physician Assistant | DX: E11.9 Type 2 diabetes mellitus without complications (principal); I10 Essential (primary) hypertension; C44.609 Unspecified malignant neoplasm of skin of left upper limb, including shoulder; M47.812 Spondylosis without myelopathy or radiculopathy, cervical region; G47.33 Obstructive sleep apnea (adult) (pediatric) | CPT/HCPCS: 83036; 96127; 99212 ==

== ENCOUNTER 2025-04-25 15:26 | Outpatient (REF) | payer MEDICARE, SELFPAY ==
[2025-04-25 16:09] LABS: Hematocrit 37.7 % (42.0-52.0); Hemoglobin 13.3 g/dl (14.0-18.0); Mean Corpuscular HGB Conc 35.3 g/dl (31.0-36.0); Mean Corpuscular Hemoglobin 32.3 pg (27.0-33.0); Mean Corpuscular Volume 91.5 fL (80.0-98.0); NRBC Abs Auto 0.000 X10*3/uL (0.0-0.012); NRBC Pct Auto 0.0 /100WBC (0.0-0.2); Platelet Count 232 X10*3/uL (160-400); Red Blood Count 4.12 X10*6/uL (4.60-5.80); White Blood Count 5.8 X10*3/uL (4.8-10.8)
--- OUTSIDE RECORDS SUMMARY | 2025-04-25 16:43 | XMS_ITS | Patient Health Record ---
[facility] Address [address] [place] [address] Care Team Providers Care Payroll Benefits Administrator Name Role Phone Alec Manzo Primary Care Provider UnavailAbby Jensen Unavailable [phone] Allergies Allergen (clinical drug ingredient) Drug/Non Drug Allergy documented on EMR Reaction Allergy Type Onset Date Status Adhesive rash Allergy Active Latex Latex rash Allergy Active Results Component Value Reference Range Notes HEMOGLOBIN A1C (GLYCOHEMOGLO BIN) Reviewed date:10/10/2024 02:40:43 PM Interpretation: Performing Lab: Notes/Report: HEMOGLOBIN A1C % (HH) 5.6 Reason For Referral No Information Medications Medication SIG (Take, Route, Frequency, Duration) Notes Start Date End Date Status aMILoride HCl 5 MG 1 tablet Orally Once a day; Duration: 30 day(s) Active Daily Vitamin - 1 tablet Orally Once a day; Duration: 30 day(s) Active hydroCHLOROthiazide 25 MG 1 tablet in th e morning Orally Once a day; Duration: 30 day(s) Active Lisinopril 10 MG 1 tablet Orally Once a day; Duration: 30 day(s) Active Cephalexin 500 MG 1 tablet Orally Twic e a day; Duration: 10 day(s) Not-Taking Cipro 500 MG 1 tablet Orally ever y 12 hrs; Duration: 7 days 02/13/2019 Not-Taking Extra Depth Orthopedic Shoes (1 Pair) with Customized Heat Molded Multidensity Innersoles (3 Pair) as directed Dx: NIDDM/Polyneuropathy (E11.42), Hammertoe Foot Deformity (M20.41,M20.42), Preulcerative Skin Lesion(s) (L85.1 02/06/2025 Active traMADol HCl Active Ammonium Lactate 12 % 1 application to affected area Externally to feet Twice a day; Duration: 30 days Active Meloxicam 15 MG 1 tablet Orally Once a day; Duration: 30 day(s) Active Lyrica 150 MG 1 capsule Orally Onc e a day Active metFORMIN HCl 500 MG 1 tablet with a bruno l Orally Once a day; Duration: 30 day(s) Active Immunizations Vaccine Route Administration Date Status Comme nts Influenza Unknown 02/07/2020 Refused Influenza Unknown 02/08/2024 Refused Social History Tobacco Use: Social History Observation Description Date Details (start date - stop date) Never Smoker NA - NA Alcohol Screen Question Answer Notes Did you have a drink contain ing alcohol in the past year? Yes How often did you have a dri nk containing alcohol in the past year? 4 or more times a week (4 points) Points 4 Interpretation Positive Tobacco use other than smoking: Question Answer Notes Are you an other tobacco user? No Tobacco Control (Standard) Question Answer Notes Tobacco use: Nonsmoker Problems Problem Type SNOMED Code ICD Code Onset Dates Problem Status W/U Status Risk Notes Problem Acquired hammer toe of right foot (4466052090500700) Other hammer toe(s) (acquired), right foot (M20.41) Active confirmed Problem Acquired hammer toe of left foot (1645451547147508) Other hammer toe(s) (acquired), left foot (M20.42) Active confirmed Problem Polyneuropathy due to type 2 diabetes mellitus (782771604) Type 2 diabetes mellitus with polyneuropathy (E11.42) Active confirmed Problem Bilateral atherosclerosis of arteries of lower limbs (disorder) (29334253216806771 ) Atherosclerosis of artery of both lower extremities (I70.203) Active confirmed Problem Peripheral venous insufficiency (14423246) Venous stasis dermatitis of both lower extremities (I87.2) Active confirmed Vital Signs Blood pressure diastolic 80 mm Hg 02/06/2025 Height [id number] in 02/06/2025 Blood pressure systolic 130 mm Hg 02/06/2025 Weight 234 lbs 02/06/2025 BMI 33.57 kg/m2 02/06/2025 Encounters Encounter Location Date Provider Diagnosis [facility] [address] [place] [address] 06/06/2024 Abby Angulo Atherosclerosis of artery of both lower extremities I70.203 ; Type 2 diabetes mellitus with polyneuropathy E11.42 and Tinea unguium B35.[address] [address] 10/10/2024 Abby Kev Atherosclerosis of artery of both lower extremities I70.203 ; Type 2 diabetes mellitus with polyneuropathy E11.42 ; Tinea unguium B35.1 ; Other hammer toe(s) (acquired), right foot M20.41 and Other hammer toe(s) (acquired), left foot M20.[address] [address] 02/06/2025 Abby Kev Type 2 diabetes mellitus with polyneuropathy E11.42 ; Other hammer toe(s) (acquired), right foot M20.41 ; Atherosclerosis of artery of both lower extremities I70.203 ; Tinea unguium B35.1 and Other hammer toe(s) (acquired), left foot M20.42 Assessments Encounter Date Diagnosis (ICD Code) Assessment Notes Treatment Notes Treatment Clinical Notes Section Notes 06/06/2024 Atherosclerosis of artery of both lower extremities (ICD-10 - I70.203) 10/10/2024 Atherosclerosis of artery of both lower extremities (ICD-10 - I70.203) 02/06/2025 Other hammer toe(s) (acquired), right foot (ICD-10 - M20.41) 02/06/2025 Type 2 diabetes mellitus with polyneuropathy (ICD-10 - E11.42) 02/06/2025 Atherosclerosis of artery of both lower extremities (ICD-10 - I70.203) 06/06/2024 Type 2 diabetes mellitus with polyneuropathy (ICD-10 - E11.42) 10/10/2024 Tinea unguium (ICD-10 - B35.1) 10/10/2024 Type 2 diabetes mellitus with polyneuropathy (ICD-10 - E11.42) 10/10/2024 Other hammer toe(s) (acquired), right foot (ICD-10 - M20.41) 06/06/2024 Tinea unguium (ICD-10 - B35.1) 02/06/2025 Tinea unguium (ICD-10 - B35.1) 10/10/2024 Other hammer toe(s) (acquired), left foot (ICD-10 - M20.42) 02/06/2025 Other hammer toe(s) (acquired), left foot (ICD-10 - M20.42) Plan Of Treatment Pending Test Test Name Order Date [id number] Plate 02/07/2019 30558- Debride <25 sq cm 02/07/2019 Next Appt Details Provider Name:Abby bills, 06/12/2025 02:30:00 PM, [address] [place], [address], Insurance Providers Payer Name Payer Address Payer Phone Subscriber Number Group Number Insured Name Patient Relationship to Insured Coverage Start Date Coverage End Date Medicare National [employer] [address] [facility] [address] [id number] Thony Martinez Self - patient is the insured AARP Secondary to Medicare [address] [place] [address] [id number] Thony Martinez Self - patient is the insured Medical (General) History Medical History History ICD Code Arthritis Back,Hip,and Knee pain High blood pressure Measles Mumps Chicken pox Sleep apnea Surgical History Surgery Date(Month/Year) cataract surgery Hospitalization History Reason Date(Month/Year) [facility] [place]- bleeding hemorroids 09/25/24
[2025-04-25 16:56] LABS: Alanine Aminotransferase 15 U/L (0-40); Albumin Level 4.1 g/dL (3.5-5.0); Alkaline Phosphatase 77 U/L (39-117); Anion Gap 13 (12-20); Aspartate Amino Transferase 26 U/L (5-37); Blood Urea Nitrogen 12 mg/dL (9-16); Calcium 9.3 mg/dL (8.4-10.2); Carbon Dioxide 24 mmol/L (22-29); Chloride 103 mmol/L (96-108); Estimated Glomerular Filt Rate > 60; Potassium 3.8 mmol/L (3.3-5.1); Sodium 136 mmol/L (135-145); Total Protein 6.6 g/dL (6.5-8.0)
[2025-04-25 17:05] LABS: Hemoglobin A1C 193.9045 umol/L; Total Hemoglobin (HGBA1C) 5125.2233 umol/L
== END 2025-04-25 15:27 | disposition home or self-care (01) ==
LOC: HO.LAB 15:26
PROVIDERS: PCP Physician Assistant; Visit Provider Physician Assistant
DX: I10 Essential (primary) hypertension (principal); E11.9 Type 2 diabetes mellitus without complications
CPT/HCPCS: 36415; 80053; 83036; 85027

== ENCOUNTER 2025-04-27 15:53 | Outpatient (REF) | payer MEDICARE, SELFPAY ==
--- OUTSIDE RECORDS SUMMARY | 2025-04-27 15:56 | XMS_ITS | Patient Health Record ---
[facility] Address [address] [place] [address] Care Team Providers Care Home Comfort Advisor Name Role Phone Alec Manzo Primary Care Provider UnavailAbby Jensen Unavailable [phone] Allergies Allergen (clinical drug ingredient) Drug/Non Drug [...] Problem Acquired hammer toe of right foot (1009664044521303) Other hammer toe(s) (acquired), right foot (M20.41) Active confirmed Problem Acquired hammer toe of left foot (2176465089647180) Other hammer toe(s) (acquired), left foot (M20.42) Active confirmed Problem Polyneuropathy due to type 2 diabetes mellitus (829754499) Type 2 diabetes mellitus with polyneuropathy (E11.42) Active confirmed Problem Bilateral atherosclerosis of arteries of lower limbs (disorder) (74825464841372930 ) Atherosclerosis of artery of both lower extremities (I70.203) Active confirmed Problem Peripheral venous insufficiency (32972684) Venous stasis dermatitis of both lower extremities (I87.2) Active confirmed Vital Signs Blood pressure diastolic 80 mm Hg 02/06/2025 Height 2sa94ok in 02/06/2025 Blood pressure systolic 130 mm Hg 02/06/2025 Weight 234 lbs 02/06/2025 BMI 33.57 kg/m2 02/06/2025 Encounters Encounter Location Date Provider Diagnosis [facility] [place] [address] [place] [address] 06/06/2024 Abby Angulo Atherosclerosis of artery of both lower extremities I70.203 ; Type 2 diabetes mellitus with polyneuropathy E11.42 and Tinea unguium B35.[address] [address] 10/10/2024 Abby Kev Atherosclerosis of artery of both lower extremities I70.203 ; Type 2 diabetes mellitus with polyneuropathy E11.42 ; Tinea unguium B35.1 ; Other hammer toe(s) (acquired), right foot M20.41 and Other hammer toe(s) (acquired), left foot M20.[address] [address] 02/06/2025 Abby Kev Type 2 diabetes mellitus [...] Treatment Pending Test Test Name Order Date [id number] Plate 02/07/2019 09399- Debride <25 sq cm 02/07/2019 Next Appt Details Provider Name:Abby bills, 06/12/2025 02:30:00 PM, [address] [place], [address], Insurance Providers Payer Name Payer Address Payer Phone Subscriber Number Group Number Insured Name Patient Relationship to Insured Coverage Start Date Coverage End Date Medicare National [employer] [address] [place] [address] [id number] Thony Martinez Self - patient is the insured AARP Secondary to Medicare [address] [place] [address] [id number] Thony Martinez Self - patient is the insured Medical (General) History Medical History History ICD Code Arthritis Back,Hip,and Knee pain High blood pressure Measles Mumps Chicken pox Sleep apnea Surgical History Surgery Date(Month/Year) cataract surgery Hospitalization History Reason Date(Month/Year[place] [facility] [place]
[2025-04-27 17:22] LABS: Microalbum/Creatinine Ratio Ur 8.3 ug/mg cr (<30)
== END 2025-04-27 15:54 | disposition home or self-care (01) ==
LOC: HO.LNP 15:53
PROVIDERS: Visit Provider Physician Assistant
DX: I10 Essential (primary) hypertension (principal)
CPT/HCPCS: 82043; 82570

== ENCOUNTER 2025-05-02 14:07 | Outpatient (AMB) | payer MEDICARE, SELFPAY ==
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
[2025-05-02 14:13] VITALS: BP 132/60; PULSE 96; TEMP 36.2; O2SAT 97; BMI 32.7
--- OUTSIDE RECORDS SUMMARY | 2025-05-02 16:25 | XMS_ITS | Patient Health Record ---
Author Organization [facility] Address [address] [place] [address] Care Team Providers Care Rug Cleaner Hand Name Role Phone Alec Manzo Primary Care Provider UnavailAbby Jensen Unavailable [phone] Allergies Allergen (clinical drug ingredient) Drug/Non Drug [...] Problem Acquired hammer toe of right foot (4965413943263142) Other hammer toe(s) (acquired), right foot (M20.41) Active confirmed Problem Acquired hammer toe of left foot (5144586172829905) Other hammer toe(s) (acquired), left foot (M20.42) Active confirmed Problem Polyneuropathy due to type 2 diabetes mellitus (857687676) Type 2 diabetes mellitus with polyneuropathy (E11.42) Active confirmed Problem Bilateral atherosclerosis of arteries of lower limbs (disorder) (61440615366925530 ) Atherosclerosis of artery of both lower extremities (I70.203) Active confirmed Problem Peripheral venous insufficiency (09399814) Venous stasis dermatitis of both lower extremities (I87.2) Active confirmed Vital Signs Blood pressure diastolic 80 mm Hg 02/06/2025 Height 0uf64hh in 02/06/2025 Blood pressure systolic 130 mm Hg 02/06/2025 Weight 234 lbs 02/06/2025 BMI 33.57 kg/m2 02/06/2025 Encounters Encounter Location Date Provider Diagnosis [facility] [address] [place] [address] 06/06/2024 Abby Angulo Atherosclerosis of artery of both lower extremities I70.203 ; Type 2 diabetes mellitus with polyneuropathy E11.42 and Tinea unguium B35.[address] [address] 10/10/2024 Abby Kev Atherosclerosis of artery of both lower extremities I70.203 ; Type 2 diabetes mellitus with polyneuropathy E11.42 ; Tinea unguium B35.1 ; Other hammer toe(s) (acquired), right foot M20.41 and Other hammer toe(s) (acquired), left foot M20.[address] [address] 02/06/2025 Abby Kev Type 2 diabetes mellitus [...] Treatment Pending Test Test Name Order Date [id number]-Avgiiqxh Plate 02/07/2019 69004- Debride <25 sq cm 02/07/2019 Next Appt Details Provider Name:Abby bills, 06/12/2025 02:30:00 PM, [address] [place], [address], Insurance Providers Payer Name Payer Address Payer Phone Subscriber Number Group Number Insured Name Patient Relationship to Insured Coverage Start Date Coverage End Date Medicare National Govt Svcs Inc [address] [place] [address] [id number] Thony Martinez Self - patient is the insured AARP Secondary to Medicare [address] [place] [id number] Thony Martinez Self - patient is the insured Medical (General) History Medical History History ICD Code Arthritis Back,Hip,and Knee pain High blood pressure Measles Mumps Chicken pox Sleep apnea Surgical History Surgery Date(Month/Year) cataract surgery Hospitalization History Reason Date(Month/Year) [facility]- bleeding hemorroids 09/25/24
== END 2025-05-02 14:44 | disposition home or self-care (01) ==
LOC: HO.HMCH 14:08
PROVIDERS: PCP Physician Assistant; Visit Provider Physician Assistant
DX: E11.9 Type 2 diabetes mellitus without complications (principal); I10 Essential (primary) hypertension; E66.811 Obesity, class 1; Z68.32 Body mass index [BMI] 32.0-32.9, adult; C44.609 Unspecified malignant neoplasm of skin of left upper limb, including shoulder; M47.812 Spondylosis without myelopathy or radiculopathy, cervical region; G47.33 Obstructive sleep apnea (adult) (pediatric); M62.81 Muscle weakness (generalized); N40.1 Benign prostatic hyperplasia with lower urinary tract symptoms; R39.14 Feeling of incomplete bladder emptying

== ENCOUNTER → 2025-05-02 14:07 | Outpatient (BNVA) | payer MEDICARE, SELFPAY | PROVIDERS: PCP Physician Assistant; Visit Provider Physician Assistant | DX: I10 Essential (primary) hypertension (principal); E11.9 Type 2 diabetes mellitus without complications; L84 Corns and callosities; G47.33 Obstructive sleep apnea (adult) (pediatric); M47.812 Spondylosis without myelopathy or radiculopathy, cervical region; C44.609 Unspecified malignant neoplasm of skin of left upper limb, including shoulder; M62.81 Muscle weakness (generalized); N40.1 Benign prostatic hyperplasia with lower urinary tract symptoms; R39.14 Feeling of incomplete bladder emptying; E66.811 Obesity, class 1; Z68.32 Body mass index [BMI] 32.0-32.9, adult; Z99.89 Dependence on other enabling machines and devices | CPT/HCPCS: 99212 ==

== ENCOUNTER 2025-08-11 15:32 | Inpatient (IN) | payer MEDICARE, SELFPAY ==
--- NOTE | ~2025-08-11 | CT_ITS ---
CLINICAL HISTORY: fall, facial trauma CT maxillofacial without contrast Comparison: None provided Findings: Mild fluid and mucosal thickening of the paranasal sinuses nonspecific with trace air-fluid level in the left maxillary sinus (166 of series 19). Remodeling paranasal sinuses of the mild atelectasis of the right maxillary sinus. Bilateral nasal bone fractures appear old/chronic. Dermal scalp calcifications are multifocal including of the frontal convexities. Mild/borderline bilateral proptosis, with bilateral myopia noted. No acute displaced orbital fracture. No acute displaced mandible fracture, accounting for artifacts. Devitalized bone of the maxilla and devitalized bone of the mandible secondary to absence of the teeth. Metal and lucencies associated with remaining teeth. Degenerative changes include imaged temporomandibular joints. Please refer to separate report for cervical spine evaluation in the head CT for imaged brain parenchyma. IMPRESSION: 1. Bilateral nasal bone fractures appear old/chronic. 2. Mild fluid and mucosal thickening of the paranasal sinuses nonspecific and can be associated with sinusitis. This document has been electronically signed by: Chalo Hutchinson MD on 08/11/2025 19:20:23
--- NOTE | ~2025-08-11 | XR_ITS ---
CLINICAL HISTORY: cp --- Additional Notes or Special Instructions: pt not ready- blood work. 1633 KMJ 1 view chest x-ray Comparison: None provided Findings: Mild bibasilar atelectasis/pneumonitis, right worse than left. Question small right pleural effusion versus pleural thickening. No pneumothorax in this portable image. Mild cardiomegaly accentuated by AP technique. Degenerative changes include imaged shoulders and imaged AC joints with sclerosis. IMPRESSION: Mild bibasilar atelectasis. This document has been electronically signed by: Chalo Hutchinson MD on 08/11/2025 19:00:21
--- NOTE | ~2025-08-11 | CT_ITS ---
CLINICAL HISTORY: ams CT head without contrast Comparison: Head CT from 12/02/2024 Findings: No acute intracranial hemorrhage. No midline shift or hydrocephalus. Mild volume loss is generalized. Mild white matter lesions suggested as can be associated with small-vessel ischemic disease. No large arterial territorial infarction by CT. Mild mucosal thickening of the imaged paranasal sinuses with mild fluid. Small bilateral mastoid effusions. Density in the right external auditory canals are nonspecific and may be due to cerumen. No acute skull fracture. Dermal scalp calcifications are multifocal, including of the frontal convexities. IMPRESSION: No acute intracranial abnormality by CT This document has been electronically signed by: Chalo Hutchinson MD on 08/11/2025 19:23:47
--- NOTE | ~2025-08-11 | CT_ITS ---
CLINICAL HISTORY: fall CT cervical spine without contrast Comparison: None provided Findings: No acute fracture of the cervical spine. Mild reversal of the cervical lordosis. Trace anterolisthesis at C4-C5. Disc osteophyte complexes with moderate spinal canal stenosis at C5-C6 and C6-C7. Also mild-moderate spinal canal stenosis at C3-C4. Multifocal foraminal narrowing, including severe at C3-C4 and moderate to severe ranging from C4-C5 to C6-C7. 5 mm anterolisthesis of the cervicothoracic junction. Facet arthropathy and ligament calcifications are multifocal. Osseous facet fusion includes from C2 to C5 on the right. Vascular calcifications noted. Retropharyngeal ICAs. Metal artifacts present. No paraspinal hematoma. Mild scarring emphysematous changes of the imaged lung apices. IMPRESSION: No acute fracture of the cervical spine This document has been electronically signed by: Chalo Hutchinson MD on 08/11/2025 19:26:00
--- NOTE | ~2025-08-11 | US_ITS ---
CLINICAL HISTORY: bilat leg edema and erythema, r o DVT Bilateral lower extremity venous duplex ultrasound. Color and spectral waveform analysis. Comparison: None provided Findings: Deep veins are compressible with flow and augmentation. No popliteal cyst. 4.4 cm right inguinal node. Impression: No evidence for DVT This document has been electronically signed by: Tristen Paula MD on 08/12/2025 19:26:37
--- NOTE | ~2025-08-11 | CT_ITS ---
CLINICAL HISTORY: pelvis rash question Fourniers gangrene CT abdomen and pelvis without contrast Comparison: None provided Findings: Mild bibasilar atelectasis and scarring of the imaged lung bases. Liver surface nodularity concerning for cirrhosis/cirrhotic change. Gallbladder is unremarkable for CT. Lipid rich adenoma of the left adrenal gland measures 1.6 cm. Right adrenal glands are unremarkable accounting for artifacts. Mild splenomegaly. No hydronephrosis accounting for parapelvic cysts. Mild dilatation of the uterus is nonspecific and may be secondary to bladder outlet obstruction and/or distention of the urinary bladder. Mild volume loss of the pancreas noted. Small retroperitoneal mesenteric lymph nodes are nonspecific and likely reactive. No small bowel obstruction. Severe stool burden is present, including in the redundant and/or under rotated cecum. Imaged appendix within normal limits (329 of series 14). Severe distention of the rectum. Small fat containing periumbilical hernia contains fat, fluid, and calcification. Prostate gland measures 5 cm transverse. Mild wall thickening of the moderately to severely distended urinary bladder. Fluid of the scrotum is nonspecific and can be seen with cellulitis. Small bilateral hydroceles are nonspecific and likely reactive. No associated gas of the imaged scrotum by CT at this time. Osseous pelvis deformities appear old/chronic. 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 Mild vertebral height losses appear old/chronic with partial fusion of the L3 and L4. Degenerative disc changes and facet arthropathy are multifocal. Schmorl's nodes are multifocal. Spinal stenosis includes moderate and severe foraminal narrowing from L2-L3 to the lumbosacral junction. IMPRESSION: 1. Bilateral hydroceles with fluid of the scrotum concerning for cellulitis given the reported history. No associated gas by CT at this time. 2. Severe stool burden with severe distention of the rectum. 3. Distention of the bladder is nonspecific. Differential considerations include bladder outlet obstruction. 4. Chronic appearing osseous deformities as noted by CT, with CT findings of the lumbar spinal stenosis including foraminal narrowing. This document has been electronically signed by: Chalo Hutchinson MD on 08/11/2025 19:14:45
--- NOTE | ~2025-08-11 | CT_ITS ---
CLINICAL HISTORY: sob CT chest without contrast Comparison: None provided Findings: No consolidation, pneumothorax, or pleural effusion. Mild bibasilar atelectasis and scarring. Mild emphysematous changes noted. Mild secretions in the trachea and imaged esophagus. Minimal esophageal wall thickening is nonspecific by noncontrast imaging. Underdistention is considered. Mild cardiomegaly with small pericardial effusion. Small mediastinal lymph nodes are nonspecific and likely reactive. Calcifications noted including imaged aorta, its branches, and coronary artery calcifications. Bilateral imaged rib deformities appear old/chronic. Degenerative changes include imaged shoulders and imaged spine. Multifocal bridging of the multiple vertebrae with minimal-mild chronic-old appearing height losses. Facet arthropathy and ligament calcifications are multifocal. Mild sternum deformity appears old/chronic. Please refer to separate report for CT abdomen and pelvis for evaluation of the partially included imaged abdomen. IMPRESSION: 1. Mild bibasilar atelectasis and/or scarring. 2. Mild cardiomegaly with small pericardial effusion. 3. Vascular calcifications. This document has been electronically signed by: Chalo Hutchinson MD on 08/11/2025 19:15:34
--- NOTE | ~2025-08-11 | US_ITS ---
CLINICAL HISTORY: RUQ, elevated LFTs US abdomen limited Comparison: None provided Findings: The visualized pancreas is normal. The aorta and inferior vena cava are normal caliber. The appearance of the liver suggests fatty infiltration. There is no intrahepatic bile duct dilatation. The common duct is 4.0 mm in diameter. There is gallbladder sludge. The gallbladder is otherwise normal. There is no sonographic Harmon sign. The main portal vein is antegrade. The right kidney is 14.0 cm in length. No ascites. IMPRESSION: 1. Hepatic steatosis. This document has been electronically signed by: Geoff Mccormack MD on 08/12/2025 08:48:54
[2025-08-11 15:38] VITALS: BP 127/73; PULSE 96; RESP 18; TEMP 36.4; O2SAT 100; BMI 33.4
--- NOTE | 2025-08-11 16:10 | ECG_ITS ---
Test Reason : WEAKNESS Blood Pressure : */* mmHG Vent. Rate : 84 BPM Atrial Rate : 84 BPM P-R Int : 232 ms QRS Dur : 76 ms QT Int : 394 ms P-R-T Axes : * -35 16 degrees QTcB Int : 465 ms Sinus rhythm with 1st degree A-V block Left axis deviation Low voltage QRS Inferior infarct , age undetermined Cannot rule out Anterior infarct Abnormal ECG When compared with ECG of 12-Apr-2021 21:09, No significant changes seen Referred By: Zoe Mccoy Electronically Signed By: TEREZA STEELE MD
--- NOTE | 2025-08-11 16:12 | PC.NURSE ---
Pt presents to ED via EMS from home, reporting he sat in a kitchen chair X5 days without getting up due to bilat leg weakness. Poor PO intake, sitting in his own urine and feces. Pt lives at home with his , reporting he was too stubborn to come get seen earlier. Has issue with PVD in legs. No recent falls or trauma. Alert and oriented, breathing even and unlabored. Significant wounds noted to pts legs and bottom (pictures sent to provider via [employer] to add for documentation). Pt noted to have severe fungal rash to genital area.
--- OUTSIDE RECORDS SUMMARY | 2025-08-11 16:38 | XMS_ITS | Patient Health Record ---
[facility] Address [address] [place] [address] Care Team Providers Care Stunt Performer Name Role Phone Alec Manzo Primary Care Provider UnavailAbby Jensen Unavailable [phone] Allergies Allergen (clinical drug ingredient) Drug/Non Drug Allergy documented on EMR Reaction Allergy Type Onset Date Status Adhesive rash Allergy Active Latex Latex rash Allergy Active Results Component Value Reference Range Notes HEMOGLOBIN A1C (GLYCOHEMOGLO BIN) Reviewed date:06/12/2025 02:43:43 PM Interpretation: Performing Lab: Notes/Report: HEMOGLOBIN A1C % (HH) 5.6 Reason For Referral No Information Medications Medication SIG (Take, Route, Frequency, Duration) Notes Start Date End Date Status Extra Depth Orthopedic Shoes (1 Pair) with Customized Heat Molded Multidensity Innersoles (3 Pair) as directed Dx: NIDDM/Polyneuropathy (E11.42), Hammertoe Foot Deformity (M20.41,M20.42), Preulcerative Skin Lesion(s) (L85.1 02/06/2025 Active Cephalexin 500 MG 1 tablet Orally Twic e a day; Duration: 10 day(s) Not-Taking Cipro 500 MG 1 tablet Orally ever y 12 hrs; Duration: 7 days 02/13/2019 Not-Taking hydroCHLOROthiazide 25 MG 1 tablet in th e morning Orally Once a day; Duration: 30 day(s) Active Lisinopril 10 MG 1 tablet Orally Once a day; Duration: 30 day(s) Active aMILoride HCl 5 MG 1 tablet Orally Once a day; Duration: 30 day(s) Active Daily Vitamin - 1 tablet Orally Once a day; Duration: 30 day(s) Active metFORMIN HCl 500 MG 1 tablet with a bruno l Orally Once a day; Duration: 30 day(s) Active Meloxicam 15 MG 1 tablet Orally Once a day; Duration: 30 day(s) Active Lyrica 150 MG 1 capsule Orally Onc e a day Active traMADol HCl Active Ammonium Lactate 12 % 1 application to affected area Externally to feet Twice a day; Duration: 30 days Active Immunizations Vaccine Route Administration Date Status Comme nts Influenza Unknown 02/07/2020 Refused Influenza Unknown 02/08/2024 Refused Social History Tobacco Use: Social History Observation Description Date Details (start date - stop date) Never Smoker NA - NA Tobacco use other than smoking: Question Answer Notes Are you an other tobacco user? No Tobacco Control (Standard) Question Answer Notes Tobacco use: Nonsmoker Additional Findings: Tobacco non-user Current no nsmoker AUDIT-C (Standard) Question Answer Notes Did you have a drink contain ing alcohol in the past year? Yes How often did you have a dri nk containing alcohol in the past year? Daily or almost daily (4 points) How many drinks did you have on a typical day when you were drinking in the past year? 1 or 2 drinks (0 point) How often did you have six o r more drinks on one occasion in the past year? Never (0 point) Points 4 Interpretation Positive Problems Problem Type SNOMED Code ICD Code Onset Dates Problem Status W/U Status Risk Notes Problem Acquired hammer toe of right foot (2890519622708274) Other hammer toe(s) (acquired), right foot (M20.41) Active confirmed Problem Acquired hammer toe of left foot (5188598820547428) Other hammer toe(s) (acquired), left foot (M20.42) Active confirmed Problem Polyneuropathy due to type 2 diabetes mellitus (339479432) Type 2 diabetes mellitus with polyneuropathy (E11.42) Active confirmed Problem Bilateral atherosclerosis of arteries of lower limbs (disorder) (24870894323234957 ) Atherosclerosis of artery of both lower extremities (I70.203) Active confirmed Problem Peripheral venous insufficiency (83443038) Venous stasis dermatitis of both lower extremities (I87.2) Active confirmed Vital Signs Blood pressure diastolic 80 mm Hg 06/12/2025 Height 5ft 10in in 06/12/2025 Blood pressure systolic 120 mm Hg 06/12/2025 Weight 222 lbs 06/12/2025 BMI 31.85 kg/m2 06/12/2025 Encounters Encounter Location Date Provider Diagnosis [address] [address] 10/10/2024 Abby Angulo Atherosclerosis of artery of both lower extremities I70.203 ; Type 2 diabetes mellitus with polyneuropathy E11.42 ; Tinea unguium B35.1 ; Other hammer toe(s) (acquired), right foot M20.41 and Other hammer toe(s) (acquired), left foot M20.[address] [address] 02/06/2025 Abby Angulo Type 2 diabetes mellitus with polyneuropathy E11.42 ; Other hammer toe(s) (acquired), right foot M20.41 ; Atherosclerosis of artery of both lower extremities I70.203 ; Tinea unguium B35.1 and Other hammer toe(s) (acquired), left foot M20.[address] [address] 06/12/2025 Abby Angulo Type 2 diabetes mellitus with polyneuropathy E11.42 ; Other hammer toe(s) (acquired), right foot M20.41 ; Atherosclerosis of artery of both lower extremities I70.203 ; Tinea unguium B35.1 and Other hammer toe(s) (acquired), left foot M20.42 Assessments Encounter Date Diagnosis (ICD Code) Assessment Notes Treatment Notes Treatment Clinical Notes Section Notes 10/10/2024 Atherosclerosis of artery of both lower extremities (ICD-10 - I70.203) 02/06/2025 Other hammer toe(s) (acquired), right foot (ICD-10 - M20.41) 02/06/2025 Type 2 diabetes mellitus with polyneuropathy (ICD-10 - E11.42) 06/12/2025 Other hammer toe(s) (acquired), right foot (ICD-10 - M20.41) 06/12/2025 Type 2 diabetes mellitus with polyneuropathy (ICD-10 - E11.42) 06/12/2025 Atherosclerosis of artery of both lower extremities (ICD-10 - I70.203) 02/06/2025 Atherosclerosis of artery of both lower extremities (ICD-10 - I70.203) 10/10/2024 Tinea unguium (ICD-10 - B35.1) 10/10/2024 Type 2 diabetes mellitus with polyneuropathy (ICD-10 - E11.42) 10/10/2024 Other hammer toe(s) (acquired), right foot (ICD-10 - M20.41) 02/06/2025 Tinea unguium (ICD-10 - B35.1) 06/12/2025 Tinea unguium (ICD-10 - B35.1) 06/12/2025 Other hammer toe(s) (acquired), left foot (ICD-10 - M20.42) 10/10/2024 Other hammer toe(s) (acquired), left foot (ICD-10 - M20.42) 02/06/2025 Other hammer toe(s) (acquired), left foot (ICD-10 - M20.42) Plan Of Treatment Pending Test Test Name Order Date [id number]-Pqarncch Plate 02/07/2019 23642- Debride <25 sq cm 02/07/2019 Next Appt Details Provider Name:Abby bills, 10/16/2025 02:30:00 PM, [address] [facility], [place], [address], Insurance Providers Payer Name Payer Address Payer Phone Subscriber Number Group Number Insured Name Patient Relationship to Insured Coverage Start Date Coverage End Date Medicare National Govt Svcs Inc [address] [place] [address] [id number] [place] Thony Self - patient is the insured AARP Secondary to Medicare [address] [place] [address] [id number] Thony Martinez Self - patient is the insured Medical (General) History Medical History History ICD Code Arthritis Back,Hip,and Knee pain High blood pressure Measles Mumps Chicken pox Sleep apnea Surgical History Surgery Date(Month/Year) cataract surgery Hospitalization History Reason Date(Month/Year) [facility]- bleeding hemorroids 09/25/24
[2025-08-11 16:44] LABS: MANUAL DIFF FLAG NO
[2025-08-11 16:47] LABS: Hematocrit 34.9 % (42.0-52.0); Hemoglobin 12.1 g/dl (14.0-18.0); Imm Gran Abs Auto 0.06 X10*3/uL (0.00-0.03); Imm Gran Pct Auto 0.4 % (0.0-0.4); Lymphocytes Absolute Auto 1.2 X10*3/uL (1.2-4.9); Mean Corpuscular HGB Conc 34.7 g/dl (31.0-36.0); Mean Corpuscular Hemoglobin 31.8 pg (27.0-33.0); Mean Corpuscular Volume 91.8 fL (80.0-98.0); NRBC Abs Auto 0.000 X10*3/uL (0.0-0.012); NRBC Pct Auto 0.0 /100WBC (0.0-0.2); Platelet Count 256 X10*3/uL (160-400); Red Blood Count 3.80 X10*6/uL (4.60-5.80); White Blood Count 14.6 X10*3/uL (4.8-10.8)
--- NOTE | 2025-08-11 16:59 | ED_ITS ---
HPI - Weakness General Chief complaint: Weakness Stated complaint: WEAKNESS FOR DAYS PER EMS Time Seen by Provider: 08/11/25 15:58 History of Present Illness HPI Narrative: Patient is a 75-year-old male with a history of diabetes. Patient is feeling very weak. Unable to get up from his chair. Been sitting in the chair for 5 days. His head might have hit a table. Patient is not on blood thinners. There is abrasion to the bridge of his nose. Patient's was so weak he was swelling himself. Urinating on the chair defecating on a chair. Finally the son came in today. Demanded that he comes to the ER. Patient was then sent to the ED for further evaluation. Has a history of diabetes. History of larger in size. Patient is 105 kilos with a BMI of 33.4. History of hypertension history of lymphedema previous history of cellulitis Related Data Home Medications ?Medication ?Instructions ?Recorded ?Confirmed multivitamin 1 tab PO DAILY 01/30/2111/21 fluorouracil 5 % topical cream 1 appl topical BID 11/2805/02/25 Previous Rx's ?Medication ?Instructions ?Recorded ammonium lactate 12 % lotion 1 appl topical BID #400 g rosa 04/15/21 blood sugar diagnostic (OneTouch #100 ea 10/16/21 Ultra Test strips) blood-glucose meter (OneTouch #1 ea 10/16/21 Ultra2 Meter) lancets 33 gauge (Planet BiotechnologyTouch Del[employer] Health #100 ea 10/16/21 Lancets) flash glucose sensor (FreeStyle #1 ea 03/27/24 Lauren 2 Sensor kit) blood pressure test kit-large #1 ea 04/24/24 amlodipine 5 mg tablet 5 mg PO DAILY #90 tabs 07/05 clotrimazole-betamethasone 1 1 appl topical BID #45 gr ams 07/05/24 %-0.05 % topical cream lancing device with lancets kit #1 ea 09/08/24 (OneTouch Delica Plus Lancing Device kit) docusate sodium 100 mg capsule 100 mg PO BID 30 days # 60 caps 09/25/24 (Colace) polyethylene glycol 3350 17 17 g PO DAILY #119 grams 0 10/04/24 gram/dose oral powder (Miralax) mupirocin 2 % topical ointment 1 appl topical DAILY #2 2 grams 12/08/24 pregabalin 150 mg capsule (Lyrica) 150 mg PO Q12H 90 d ays #180 caps 01/16/25 lisinopril 30 mg tablet 30 mg PO DAILY 90 days #90 t abs 01/30/25 metformin 500 mg tablet,extended 500 mg PO DAILY #90 t abs 04/09/25 release 24 hr finasteride 5 mg tablet 5 mg PO DAILY #30 tabs 04/26 naloxone 4 mg/actuation nasal 4 mg intranasal Q2M 1 da y #2 ea 05/02/25 spray (Narcan) tamsulosin 0.4 mg capsule 0.4 mg PO DAILY 90 days #90 caps 05/02/25 Held on 07/11/25. Instructions: Doctor's Order tramadol 50 mg tablet 50 mg PO Q6H 30 days #120 ta bs 05/02/25 flash glucose scanning reader #1 ea 05/09/25 (FreeStyle Lauren 2 [place]) blood-glucose sensor (FreeStyle #2 ea 07/10/25 Lauren 2 Plus Sensor device) flash glucose scanning reader #1 ea 07/10/25 (FreeStyle Lauren 2 [place]) doxazosin 2 mg tablet (Cardura) 2 mg PO DAILY 30 days #30 tabs 07/11/25 Allergies Allergy/AdvReac Type Severity Reaction Status Date / Time latex AdvReac Unknown Verified 08/11/25 15:41 Review of Systems 2 Review of Systems: Positive generalized malaise PMFSH Past Medical History Attestation statement: The following information was validated with the patient. Medical History Visit for suture removal Hypertension Cataract Diabetes mellitus with coincident hypertension Obesity Hypertension Diabetes mellitus Post herpetic neuralgia Arthritis of right hip Pneumococcal arthritis, right knee Pain of left hip Cervical spondylosis Lumbar spondylosis Surgical History History of skin surgery Status post ablation of incompetent vein using laser History of tonsillectomy Family History Family History Father Parkinson disease Mother No problems noted. Social History Social History Household Members: Spouse Housing: House Do you presently have visiting nurse or other home services: No Alcohol intake: current Alcohol intake frequency: 0-2 drinks per day Alcohol type: beer Patient Tobacco Use Status: Former Tobacco user Tobacco use type: Cigarette Years Smoked: 1979 Smoked in Last 30 Days: No e-Cigarette/Vaping Use: Never Used Second Hand Smoke Exposure: Yes Use of substances other than those prescribed or required for medical reasons: No Advance Directives: No Advance Directives Information Provided: No service: No Current occupational status: retired Cognitive needs: Yes (Cane, walker, wheelchair) Hearing needs: No Vision needs: No Physical Exam 2 Exam: Exam: Elderly male looks stated age unkempt. Appearance: Alert. Oriented X3. No acute distress. Eyes: Pupils equal, round and reactive to light. ENT: Pharynx normal. There is significant abrasion to the bridge of the nose. Neck: Normal inspection. Neck supple. No lymph nodes noted. There is no crepitus on palpation CVS: Normal heart rate and rhythm. Pulses normal. Normal S1 and S2 Respiratory: No respiratory distress. Breath sounds normal. No Wheezing. No rales Abdomen: Soft and nontender. No rigidity. No distention. good BS x4 Skin: Skin warm and dry. Normal skin color. Normal skin turgor. Near the genital area there is extreme redness moist lesion over the pelvic area. There is no crepitus on palpation. There is no skin that is sloughing off. Extremities: 2+ bilateral lower extremity edema. Over the proximal right thigh posteriorly there is a ulcer that is approximately 6-8 cm in length. Appears to be the edge of the chair. There is surrounding redness. There is no crepitus on palpation. Neuro: Oriented X 3. Moving extremities. Vital Signs: Vital Signs: Last Vital Signs Temp 97.6 F 08/11/25 18:09 Pulse 85 08/11/25 18:09 Resp 20 08/11/25 18:09 BP 131/73 08/11/25 18:09 Pulse Ox 95 08/11/25 18:09 O2 Del Method Room Air 08/11/25 18:09 BMI result Body Mass Index 33.4 Medications Administered Generic Name Dose Route Start Last Admin Trade Name Freq PRN Reason Stop Dose Admin Sodium Bicarbonate 150 meq/ 1,000 mls @ 100 mls/hr 12/13/25 18:30 08/11/25 20:58 Dextrose IV 0 mls/hr On Hold: 08/11/25 20:04 .Q10H MARGARET Infusion Lactated Ringer's 1,000 mls @ 125 mls/hr 08/11/25 21:00 08/11/25 20:32 Lr IVCONT 08/12/25 04:59 125 mls/hr .Q8H MARGARET Administration Nystatin 1 appl 08/11/25 20:05 08/11/25 20:38 Nystatin Powder 15 Gm Bottle TOPICAL 1 appl BID MARGARET Administration Protocol Senna/Docusate Sodium 2 tab 08/11/25 21:00 08/11/25 20:36 Sennosides/Docusate Sodium Tablet PO 2 tab BEDTIME MARGARET Administration Discontinued Medications Generic Name Dose Route Start Last Admin Trade Name Freq PRN Reason Stop Dose Admin Sodium Chloride 1,000 mls @ 999 mls/hr 08/11/25 16:15 08/11/25 19:28 Ns IV 08/11/25 17:15 Infused .Q1H1M MARGARET Infusion Piperacillin Sod/Tazobactam 100 mls @ 200 mls/hr 08/11/25 16:12 08/11/25 17:53 Sod 4.5 gm/ Sodium Chloride IV 08/11/25 16:41 Infused ONCE ONE Infusion Vancomycin HCl 2,000 mg in 500 mls @ 250 mls/hr 08/11/25 16:30 08/11/25 18:07 Vancomycin/Ns IV 08/11/25 18:29 250 mls/hr ONCE ONE Administration Sodium Bicarbonate 150 meq/ 1,000 mls @ 100 mls/hr 08/11/25 17:30 08/11/25 20:58 Dextrose IV Not Given .Q10H MARGARET Lactated Ringer's 1,000 mls @ 999 mls/hr 08/11/25 20:04 08/11/25 20:28 Lr IV 08/11/25 21:04 999 mls/hr .Q1H1M STA Administration Medical Decision Making Medical Decision Making MDM Narrative: Significant wet appearing moist lesions over the groin over the posterior thigh. 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 We sent patient for an emergent CT scan. Patient's renal function is off that is new. Bladder scan showed over a L of urine. A Hernandes catheter was placed. CT scan of the head C- spine chest abdomen pelvis was done. CT head was negative by my interpretation CT C-spine was negative by my interpretation CT chest abdomen pelvis showed the urinary retention patient patient is for cultures were obtained for antibiotic was started. Lactate is 1.2 there is no evidence for severe sepsis. CPK is 1463. Patient's renal function is all. Elected to start patient is on a bicarb drip at 100 cc/hour. I believe the renal insufficiency is likely postrenal. A Hernandes may help. Patient is CT scan of the chest abdomen pelvis showed no acute evidence of traumatic injury. There is no air in the pelvis area. Nevertheless after cultures obtained we did give patient a dose of Zosyn a dose of vancomycin. On re-evaluation patient clinically actually appears slightly improved. Still very weak in the lower extremity. The weakness has been going on for months. Patient's urine showed no gross infection. That is COVID flu RSV are negative. Hospitalist team was contacted. Patient to be admitted for further evaluation. My interpretation patient's EKG showed a sinus rhythm heart rate is 80 [place] QRS QTC within normal limits is no acute ST segment elevation Differential Diagnosis Differential Diagnoses: The differential diagnosis associated with the presentation includes Admission/Observation Consideration of admission/observation: Escalation of care including admission/observation considered Consult Healthcare Provider Management of the patient was discussed with: Hospitalist Lab Data [facility] Lab Attestation statement: I reviewed the patient's lab results. 08/11/25 16:36 08/11/25 16:36 Labs: Lab Results 08/11/25 08/11/25 08/11/25 Range/Units 16:00 16:36 18:31 WBC 14.6 H (4.8-10.8) X10*3/uL RBC 3.80 L (4.60-5.80) X10*6/uL Hgb 12.1 L (14.0-18.0) g/dl Hct 34.9 L (42.0-52.0) % MCV 91.8 (80.0-98.0) fL MCH 31.8 (27.0-33.0) pg MCHC 34.7 (31.0-36.0) g/dl RDW 12.7 (11.0-16.0) % Plt Count 256 (160-400) X10*3/uL MPV 9.2 L (9.4-12.4) fL Immature Gran % (Auto) 0.4 (0.0-0.4) % Neut % (Auto) 82.6 H (45-73) % Lymph % (Auto) 8.3 L (20-40) % [place] % (Auto) 7.5 (2-11) % Eos % (Auto) 1.0 (0-4) % Baso % (Auto) 0.2 (0-2) % Lymph # (Auto) 1.2 (1.2-4.9) X10*3/uL [place] # (Auto) 1.1 (0.1-1.2) X10*3/uL Eos # (Auto) 0.1 (0.0-0.4) X10*3/uL Baso # (Auto) 0.0 (0.0-0.2) X10*3/uL Abs Immat Gran (auto) 0.06 H (0.00-0.03) X10*3/uL Absolute Neuts (auto) 12.1 H (2.0-8.3) x10*3/uL Absolute Nucleated RBC 0.000 (0.0-0.012) X10*3/uL Nucleated RBC % (auto) 0.0 (0.0-0.2) /100WBC Sodium 136 (135-145) mmol/L Potassium 3.5 (3.3-5.1) mmol/L Chloride 99 (96-108) mmol/L Carbon Dioxide 23 (22-29) mmol/L Anion Gap 18 (12-20) BUN 59 H (9-16) mg/dL Creatinine 2.47 H (0.5-1.4) mg/dL Estim Creat Clear Calc 31.4 Estimated GFR 26 Random Glucose 97 (60-115) mg/dL Lactic Acid 1.2 (0.5-2.0) mmol/L Calcium 9.1 (8.4-10.2) mg/dL Phosphorus 5.9 H (2.7-4.5) mg/dL Magnesium 2.2 (1.6-2.6) mg/dL Total Bilirubin 1.2 H (0.0-1.0) mg/dL Direct Bilirubin 0.6 H (0.0-0.5) mg/dL AST 156 H (5-37) U/L ALT 130 H (0-40) U/L Alkaline Phosphatase 96 (39-117) U/L Total Creatine Kinase 1463 H (38-174) U/L Troponin I High Sens 9.5 (<3.5-35.0) ng/L Total Protein 6.6 (6.5-8.0) g/dL Albumin 3.8 (3.5-5.0) g/dL Lipase 21 (8-78) U/L Hold Green Top See Note Urine Color Dark Yellow Urine Appearance Clear Urine pH 5.5 (5.0-9.0) Ur Specific [place] 1.025 (1.005-1.025) Urine Protein 30 (1+) H (Neg-Trace) mg/dL Urine Glucose (UA) Negative (Negative) mg/dL Urine Ketones Negative (Negative) mg/dL Urine Blood Large (3+) H (Negative) Urine Nitrite Negative (Negative) Ur Leukocyte Esterase Trace H (Negative) Urine RBC 11-20 H (0-2) /HPF Urine WBC 0-5 (0-5) /HPF Ur Squamous Epith Cells 0-2 (0-2) /HPF Urine Bacteria None Seen (None Seen) Hyaline Casts 0-2 (0-2) /LPF Influenza Type A (PCR) NEGATIVE (Negative) Influenza Type B (PCR) NEGATIVE (Negative) RSV RNA Qual (PCR) NEGATIVE (Negative) SARS-CoV-2 RNA (RT-PCR) NEGATIVE (Negative) Independent Interpretation I performed an independent interpretation of an: EKG (Sinus heart rate is 80 [place] QRS QTC within normal limits is no acute ST segment elevation) and CT Scan (CT head grossly negative. CT C-spine grossly negative) Radiology Impression Discussion of test interpretation with radiology: I have reviewed the radiologist's reading. Independent Historian Clinical information obtained from an independent historian. History obtained from or confirmed by: Spouse External Record Review External record reviewed: Inpatient record Chronic Conditions Patient?s care impacted by: Diabetes and Hypertension Social Determinants Patient?s care significantly limited by Social Determinants of Health including: Low income, Problems related to primary support group, Unemployment and Other Social Determinant of Health Critical Care Time Critical Care Time Critical Care Time: Yes Total Critical Care Time: 90 Attestation: I have personally provided 90 minutes of critical care time exclusive of time spent on separately billable procedures. ?Time includes review of lab data, radiology results, discussion with consultants, and monitoring for potential decompensation. ?Interventions were performed as documented above Discharge Plan Discharge Clinical Impression: Cellulitis, Acute kidney insufficiency, Rhabdomyolysis Patient Disposition: Admitted As Inpatient
[2025-08-11 17:16] LABS: Alanine Aminotransferase 130 U/L (0-40); Albumin Level 3.8 g/dL (3.5-5.0); Alkaline Phosphatase 96 U/L (39-117); Anion Gap 18 (12-20); Aspartate Amino Transferase 156 U/L (5-37); Blood Urea Nitrogen 59 mg/dL (9-16); Calcium 9.1 mg/dL (8.4-10.2); Carbon Dioxide 23 mmol/L (22-29); Chloride 99 mmol/L (96-108); Creatinine Clr Calc Pharmacy 31.4; Estimated Glomerular Filt Rate 26; Lipase 21 U/L (8-78); Potassium 3.5 mmol/L (3.3-5.1); Sodium 136 mmol/L (135-145); Total Protein 6.6 g/dL (6.5-8.0)
[2025-08-11 17:23] LABS: Troponin-I High Sensitivity 9.5 ng/L (<3.5-35.0)
--- NOTE | 2025-08-11 17:30 | PC.NURSE ---
Called pharmacy X[facility] for bicarb drip, told it is being made and on its way. Med late due to that
[2025-08-11 17:45] LABS: Resp Syncy Virus RNA Qual PCR NEGATIVE (Negative); SARS COV2 PCR INHOUSE NEGATIVE (Negative)
[2025-08-11] MEDS: vancomycin/NS 2,000 MG/500 ML PLAST..BAG 250 MG IV (18:07)
[2025-08-11 18:09] VITALS: BP 131/73; PULSE 85; RESP 20; TEMP 36.4; O2SAT 95
[2025-08-11 18:37] LABS: Appearance Urine Clear; Glucose Urine UA Negative (Negative); PH 5.5 (5.0-9.0); Specific Gravity - Urine 1.025 (1.005-1.025); UMIC TRIGGER UACC YES
[2025-08-11] MEDS: Sodium Bicarbonate 8.4% 150 MEQ in Dextrose 5 % 850 ML 100 MEQ IV (19:27)
--- NOTE | 2025-08-11 20:11 | P.HPHOSP_ITS ---
History of Present Illness Date of Service: 08/11/25 Attending physician on admission: Sue Mondragon Chief Complaint: Legs weakness Thony Martinez is a very pleasant 75 years old man with past medical history significant for type 2 diabetes on metformin, essential hypertension on lisinopril, BPH, CHELSEY on CPAP and peripheral neuropathy presents to the emergency complaining of bilateral leg weakness and inability to walk well due to weakness. He denied any trauma or falls. He mentioned that since Wednesday he has been sitting in his couch. He also complained of constipation. He denied numbness to the lower extremities. He denied any headache, palpitations, dizziness, chest pain, shortness on breath, cough, nausea, vomiting, diarrhea, fever or chills. He complained of chronic back pain. He does not recall the name of his medications except for Lyrica that he has been taking since he was diagnosed with zoster several years ago. He did not report alcohol abuse, tobacco smoking or illicit drug use. He does not take diuretics. In the ED, he was found to have stable vital signs. Blood workup showed leukocytosis of 14.6. Hemoglobin is 12.1 and platelets 256. BUN is 59 and creatinine 2.45 (this were normal in March of this year). There are no electrolyte imbalances and there is no acidosis. His LFTs are elevated and total CK at 1463. Lipase, albumin and total protein are normal. Urinalysis showed proteinuria 1+, blood 3+, leukocyte esterase trace, RBC 11-20, WBC 0-5 and bacteria none seen. Viral testing for COVID-19, influenza and RSV is negative. CXR showed mild bibasilar atelectasis. Abdominal pelvis CT scan without IV contrast showed bilateral hydroceles with fluid of the scrotum concerning for cellulitis given the reported story, severe stool burden with severe distention of the rectum and distention of the bladder. It also showed chronic appearing osseous deformities likely due to lumbar spinal stenosis with including foraminal narrowing. Chest CT scan showed mild bibasilar atelectasis, mild cardiomegaly and small pericardial effusion. Facial bones CT scan showed bilateral nasal bone fracture appeared to be old and possible findings consistent with sinusitis. Head CT scan showed no acute intracranial and C- spine CT scan showed no fractures or dislocations. ECG showed normal sinus rhythm with 1st AV block., low voltage is normal and no obvious ischemic changes. ED tx: NS 1 L bolus, Zosyn 4.5 mg IV, vancomycin 2 g IV. Bicarb drip started. Review of Systems 2 Review of Systems: All 12 systems were reviewed and normal except as noted in HPI. [facility] Medical History Visit for suture removal Hypertension Cataract Diabetes mellitus with coincident hypertension Obesity Hypertension Diabetes mellitus Post herpetic neuralgia Arthritis of right hip Pneumococcal arthritis, right knee Pain of left hip Cervical spondylosis Lumbar spondylosis Family History Father Parkinson disease Mother No problems noted. Surgical History History of skin surgery Status post ablation of incompetent vein using laser History of tonsillectomy Social History Household Members: Spouse Housing: House Do you presently have visiting nurse or other home services: No Alcohol intake: current Alcohol intake frequency: 0-2 drinks per day Alcohol type: beer Patient Tobacco Use Status: Former Tobacco user Tobacco use type: Cigarette Years Smoked: 1979 Smoked in Last 30 Days: No e-Cigarette/Vaping Use: Never Used Second Hand Smoke Exposure: Yes Use of substances other than those prescribed or required for medical reasons: No Advance Directives: No Advance Directives Information Provided: No service: No Current occupational status: retired Cognitive needs: Yes (Cane, walker, wheelchair) Hearing needs: No Vision needs: No Meds Allergies Allergy/AdvReac Type Severity Reaction Status Date / Time latex AdvReac Unknown Verified 08/11/25 15:41 Active Medications: Current Medications Acetaminophen (Acetaminophen 325 Mg Tablet) 650 mg PO Q6H PRN PRN Reason: Pain, Mild 1-3,fever,headache Heparin Sodium (Porcine) (Heparin Sodium,Porcine 5,000 Unit/Ml Vial) 5,000 unit SUBCUT Q12H MARGARET Sodium Bicarbonate 150 meq/ (Dextrose) 1,000 mls @ 100 mls/hr IV .Q10H MARGARET On Hold: 08/11/25 20:04 Last Admin: 08/11/25 19:27 Dose: 100 mls/hr Lactated Ringer's (Lr) 1,000 mls @ 999 mls/hr IV .Q1H1M STA Stop: 08/11/25 21:04 Lactated Ringer's (Lr) 1,000 mls @ 125 mls/hr IVCONT .Q8H MARGARET Stop: 08/12/25 04:59 Piperacillin Sod/Tazobactam (Sod 3.375 gm/ Sodium Chloride) 50 mls @ 100 mls/hr IV Q6H MARGARET Magnesium Hydroxide (Milk Of Magnesia 30 Ml Oral.Susp) 30 ml PO DAILY PRN PRN Reason: Constipation Melatonin (Melatonin 3 Mg Tablet) 6 mg PO BEDTIME PRN PRN Reason: Insomnia Nystatin (Nystatin Powder 15 Gm Bottle) 1 appl TOPICAL BID MARGARET; Protocol Pharmacy Consult (Consult Rx Vancomycin Dosing) 1 each MISCELLANE DAILY PRN PRN Reason: Consult order Sodium Chloride (0.9 % Sodium Chloride Flush 3 Ml Syringe) 3 ml IVFLUSH QSHIFT MARGARET Home Medications ?Medication ?Instructions ?Recorded ?Confirmed ?Last Taken ?Type multivitamin 1 tab PO DAILY 01/30/2111/21 Unknown History fluorouracil 5 % topical cream 1 appl topical BID 11/2805/02/25 Unknown History Physical Exam 2 Vital Signs and Narrative: Vital Signs: Last Vital Signs Temp 97.6 F 08/11/25 18:09 Pulse 85 08/11/25 18:09 Resp 20 08/11/25 18:09 BP 131/73 08/11/25 18:09 Pulse Ox 95 08/11/25 18:09 O2 Del Method Room Air 08/11/25 18:09 BMI result Body Mass Index 33.4 General: Alert, oriented, in no acute distress. Cooperative. Afebrile. HEENT: Head normocephalic, atraumatic. PER, EOMI. Sclerae anicteric, conjunctiva clear. Oropharynx without erythema or exudate. Mucous membranes dry. Neck: Supple, no lymphadenopathy, or JVD. Heart: RRR, no murmurs, rubs or gallops. Lungs: No tachypnea, decreased breath sound at bases. No wheezes, rales, or rhonchi. Normal respiratory effort. Abdomen: Soft, non tenderness, nondistended, normoactive bowel sounds. No hepatosplenomegaly, masses or masses. Extremities: Bilateral lower extremity edema. Left thigh: Posterior large necrotic ulcer with surrounding IV treatment without discharges. Non tenderness to palpation. Genitals: Erythema involving the scrotum and inguinal regions. Musculoskeletal: Full range of motion. No joint swelling, deformity, or tenderness. Generalized weakness. Skin: Warm/Dry. No pallor. No jaundice. Neurologic: Alert & oriented x4. Moving all extremities spontaneously. Normal speech. Psychological: Normal mood and affect. Thought process coherent. Results Labs 08/11/25 16:36 08/11/25 16:36 Labs: Laboratory Results - last 24 hr 08/11/25 08/11/25 08/11/25 16:00 16:36 18:31 MCV 91.8 MCH 31.8 MCHC 34.7 RDW 12.7 Plt Count 256 MPV 9.2 L Immature Gran % (Auto) 0.4 Neut % (Auto) 82.6 H Lymph % (Auto) 8.3 L [place] % (Auto) 7.5 Eos % (Auto) 1.0 Baso % (Auto) 0.2 Lymph # (Auto) 1.2 [place] # (Auto) 1.1 Eos # (Auto) 0.1 Baso # (Auto) 0.0 Abs Immat Gran (auto) 0.06 H Absolute Neuts (auto) 12.1 H Absolute Nucleated RBC 0.000 Nucleated RBC % (auto) 0.0 Anion Gap 18 Estim Creat Clear Calc 31.4 Estimated GFR 26 Random Glucose 97 Lactic Acid 1.2 Calcium 9.1 Total Bilirubin 1.2 H Direct Bilirubin 0.6 H AST 156 H ALT 130 H Alkaline Phosphatase 96 Total Creatine Kinase 1463 H Troponin I High Sens 9.5 Total Protein 6.6 Albumin 3.8 Lipase 21 Hold Green Top See Note Urine Color Dark Yellow Urine Appearance Clear Urine pH 5.5 Ur Specific [place] 1.025 Urine Protein 30 (1+) H Urine Glucose (UA) Negative Urine Ketones Negative Urine Blood Large (3+) H Urine Nitrite Negative Ur Leukocyte Esterase Trace H Urine RBC 11-20 H Urine WBC 0-5 Ur Squamous Epith Cells 0-2 Urine Bacteria None Seen Hyaline Casts 0-2 Influenza Type A (PCR) NEGATIVE Influenza Type B (PCR) NEGATIVE RSV RNA Qual (PCR) NEGATIVE SARS-CoV-2 RNA (RT-PCR) NEGATIVE Assessment and Plan (1) Acute kidney injury: Status: Acute (2) Rhabdomyolysis: Qualifiers: Rhabdomyolysis type: traumatic Encounter type: initial encounter Q ualified Code(s): T79.6XXA - Traumatic ischemia of muscle, initial encounter Status: Acute Plan Thony Martinez is a 75 y/o man who presents with: Acute kidney injury due to rhabdomyolysis due to immobilization and urinary retention in the setting of the underlying BPH. Hold lisinopril. Continue IV fluids. Continue to monitor total CK. Continue to monitor renal function. Avoid nephrotoxic agents. Continue finasteride. Indwelling urinary catheter inserted in the ED. Monitor total CPK. Nephrology and urology consults. Scrotal and left posterior thigh cellulitis associated with large necrotic decubitus ulcer. Continue empiric IV antibiotic therapy with Zosyn and vancomycin. Blood cultures obtained in the emergency department -will follow results. Urology and General surgery consult. Elevated LFTs including bilirubin; likely multifactorial: Secondary to rhabdomyolysis and liver cirrhosis noted on CT scan. Per chart, patient drinks 0-2 beers daily. Start thiamine, folic acid and multivitamins. CIWA. Continue to monitor LFTs. Chronic back pain/lower extremities weakness; likely associated to spinal stenosis. Fall precautions. PT consult. Check vitamin D level. Obtain lumbar MRI. Possilbe small pericarida effusion on CT + low voltage on ECG. Check TTE (last TTE O showed normal LVEF and diastolic function). Bilateral lower extremities edema. Obtain venous ultrasound. Type 2 diabetes mellitus. Hold metformin due to JOSEFA. BG checks before meals at bedtime. Insulin sliding scale. Diabetic diet. Check hemoglobin A1c. Essential hypertension. Lisinopril on hold due to JOSEFA. Continue amlodipine. History of peripheral neuropathy/post herpetic neuralgia. Continue Lyrica. CHELSEY. Nocturnal CPAP. Marked constipation. Fleet enema now. Start therapy with laxatives and stool softeners. Code status: Full DVT prophylaxis: Heparin med rec pending Patient will need hospitalization for at least 2 midnights for JOSEFA due to rhabdomyolysis treatment with IV fluids and requiring continuous monitoring renal function; he will also need IV antibiotic therapy for scrotal and left thigh cellulitis associated with necrotic ulcer treatment with IV antibiotics and evaluation by Surgical Service and subspecialties. Quality Stroke Does the patient have a stroke diagnosis?: No VTE Prior VTE?: No VTE Risk Level:: Medical - moderate - high VTE Device Contraindication: Treatment Not Indicated VTE Drug Contraindication: N/A - Med Ordered
[2025-08-11] MEDS: Lactated Ringers 1,000 ML 999 ML IV (20:28)
[2025-08-11] MEDS: Lactated Ringers 1,000 ML 125 ML IVCONT (20:32)
[2025-08-11 21:10] LABS: Magnesium 2.2 mg/dL (1.6-2.6)
--- NOTE | 2025-08-11 23:20 | PC.NURSE ---
pt c/o severe leg pain, stated he takes ultram at home on routine schedule 4x day. sent message to hosp Dr Mondragon. She said will get back in touch after dealing with emergency on the floor
[2025-08-12] VITALS (7 sets, daily range): BP systolic 117–145; BP diastolic 60–71; PULSE 77–97; RESP 12–22; TEMP 36.3–36.9; O2SAT 94–98; BMI 33.3
[2025-08-12] MEDS: 0.9 % Sodium Chloride Flush 3 ML SYRINGE IVFLUSH ×4 (00:30→22:59)
--- NOTE | 2025-08-12 02:36 | PC.NURSE ---
administered pt fleet enema. large BM observed as result. pt tolerated without difficulty. results were immediate after enema was performed. MD aware of result
[2025-08-12 04:50] LABS: MANUAL DIFF FLAG NO
[2025-08-12 04:52] LABS: Hematocrit 35.2 % (42.0-52.0); Hemoglobin 12.2 g/dl (14.0-18.0); Imm Gran Abs Auto 0.04 X10*3/uL (0.00-0.03); Imm Gran Pct Auto 0.3 % (0.0-0.4); Lymphocytes Absolute Auto 1.1 X10*3/uL (1.2-4.9); Mean Corpuscular HGB Conc 34.7 g/dl (31.0-36.0); Mean Corpuscular Hemoglobin 31.4 pg (27.0-33.0); Mean Corpuscular Volume 90.5 fL (80.0-98.0); NRBC Abs Auto 0.000 X10*3/uL (0.0-0.012); NRBC Pct Auto 0.0 /100WBC (0.0-0.2); Platelet Count 230 X10*3/uL (160-400); Red Blood Count 3.89 X10*6/uL (4.60-5.80); White Blood Count 11.9 X10*3/uL (4.8-10.8)
[2025-08-12 05:08] LABS: Anion Gap 15 (12-20); Blood Urea Nitrogen 44 mg/dL (9-16); Calcium 9.0 mg/dL (8.4-10.2); Carbon Dioxide 24 mmol/L (22-29); Chloride 104 mmol/L (96-108); Creatinine Clr Calc Pharmacy 54.7; Estimated Glomerular Filt Rate 49; Magnesium 2.0 mg/dL (1.6-2.6); Potassium 3.3 mmol/L (3.3-5.1); Sodium 140 mmol/L (135-145)
--- NOTE | 2025-08-12 06:12 | PC.RT ---
RT went to check on the Pt since the RN did not call for the Pt to be placed on nighttime CPAP. RT spoke with RN, whom infromed the RT that the Pt did not sleep at all overnight. Resmed still in room on standby.
[2025-08-12 07:36] LABS: Venous Blood Gas Refer to POC result
[2025-08-12 07:36] LABS: VBG HCO3 28 mmol/L (22-26); VBG O2 % Saturation 85.0 %
--- NOTE | 2025-08-12 08:19 | HO.PM.IMPN ---
Subjective Subjective Date of Service: 08/12/25 Interval History: F/U for pt with JOSEFA, rhabdo, and cellulitis in the setting of immobility due to generalized weakness Reports feels much better, though still weak Pain overall well controlled 08/30 blood cultures positive for Gram-positive cocci in clusters, MRSA and SA negative Creatinine improved to 1.42, CPK improved to 1 133 Review of Systems Review of Systems: Yes all other systems are reviewed and are negative Physical Exam Exam: Exam: General: AOx3, no acute distress. Dissheveled. Resp: CTA bilaterally CVS: S1, S2, RRR GI: +BS, NT, no distention Skin: Ortiz and cracked skin on upper and lower extremities bilaterally. Face with multiple superficial abrasions, especially on bridge of nose. : Scrotal erythema Neuro: Cranial nerves II-XII grossly intact bilaterally. Motor grossly intact bilaterally. Generalized weakness Extremities: !+ bilaterally pitting edema. Bilateral lower extremities with chronic venous stasis dermatitis. Erythema and large area of necrotic skin on posterior left thigh, as pictured in admission HPI. Psych: Appropriate affect Vital Signs: Vital Signs: Last Vital Signs Temp 97.6 F 08/12/25 02:05 Pulse 93 08/12/25 04:48 Resp 16 08/12/25 04:48 BP 125/62 08/12/25 04:48 Pulse Ox 95 08/12/25 04:48 O2 Del Method Room Air 08/12/25 04:48 BMI result Body Mass Index 33.4 Objective Data Active Medications Acetaminophen (Acetaminophen 325 Mg Tablet) 975 mg PO Q6H PRN PRN Reason: Pain, Mild 1-3,fever,headache Folic Acid (Folic Acid 1 Mg Tablet) 1 mg PO DAILY MARGARET Heparin Sodium (Porcine) (Heparin Sodium,Porcine 5,000 Unit/Ml Vial) 5,000 unit SUBCUT Q12H MARGARET Sodium Bicarbonate 150 meq/ (Dextrose) 1,000 mls @ 100 mls/hr IV .Q10H MARGARET On Hold: 08/11/25 20:04 Last Infusion: 08/11/25 23:51 Dose: Infused Documented By: JORGE LUIS Vancomycin HCl 1,000 mg/ (Sodium Chloride) 270 mls @ 270 mls/hr IV Q24H MARGARET Piperacillin Sod/Tazobactam (Sod 2.25 gm/ Sodium Chloride) 50 mls @ 100 mls/hr IV Q6H [facility] Last Infusion: 08/12/25 05:01 Dose: Infused Documented By: JORGE LUIS Magnesium Hydroxide (Milk Of Magnesia 30 Ml Oral.Susp) 30 ml PO DAILY PRN PRN Reason: Constipation Melatonin (Melatonin 3 Mg Tablet) 6 mg PO BEDTIME PRN PRN Reason: Insomnia Multivitamins/Vitamin C (Multivitamin Tablet) 1 tab PO BEDTIME MARGARET Nystatin (Nystatin Powder 15 Gm Bottle) 1 appl TOPICAL BID MARGARET; Protocol Last Admin: 08/11/25 20:38 Dose: 1 appl Documented By: JORGE LUIS Pharmacy Consult (Consult Rx Vancomycin Dosing) 1 each MISCELLANE DAILY PRN PRN Reason: Consult order Polyethylene Glycol (Polyethylene Glycol 3350 17 Gm Powd.Pack) 17 gm PO DAILY MARGARET Senna/Docusate Sodium (Sennosides/Docusate Sodium Tablet) 2 tab PO BEDTIME [facility] Last Admin: 08/11/25 20:36 Dose: 2 tab Documented By: JORGE LUIS Sodium Chloride (0.9 % Sodium Chloride Flush 3 Ml Syringe) 3 ml IVFLUSH QSHIFT [facility] Last Admin: 08/12/25 00:30 Dose: 3 ml Documented By: JORGE LUIS Thiamine HCl (Thiamine Hcl 100 Mg Tablet) 100 mg PO DAILY [facility] Last Admin: 08/11/25 21:30 Dose: 100 mg Documented By: JORGE LUIS Tramadol HCl (Tramadol Hcl 50 Mg Tablet) 25 mg PO Q6H PRN PRN Reason: Pain, Severe (Pain Scale 7-10) Labs 08/12/25 04:31 08/12/25 04:31 Labs: Laboratory Results - last 24 hr 08/11/25 08/11/25 08/11/25 16:00 16:36 18:31 MCV 91.8 MCH 31.8 MCHC 34.7 RDW 12.7 Plt Count 256 MPV 9.2 L Immature Gran % (Auto) 0.4 Neut % (Auto) 82.6 H Lymph % (Auto) 8.3 L P[place] % (Auto) 7.5 Eos % (Auto) 1.0 Baso % (Auto) 0.2 Lymph # (Auto) 1.2 [place] # (Auto) 1.1 Eos # (Auto) 0.1 Baso # (Auto) 0.0 Abs Immat Gran (auto) 0.06 H Absolute Neuts (auto) 12.1 H Absolute Nucleated RBC 0.000 Nucleated RBC % (auto) 0.0 VBG pH VBG pCO2 VBG pO2 VBG HCO3 VBG O2 Saturation VBG Base Excess Anion Gap 18 Estim Creat Clear Calc 31.4 Estimated GFR 26 Random Glucose 97 Lactic Acid 1.2 Calcium 9.1 Phosphorus 5.9 H Magnesium 2.2 Total Bilirubin 1.2 H Direct Bilirubin 0.6 H AST 156 H ALT 130 H Alkaline Phosphatase 96 Total Creatine Kinase 1463 H Troponin I High Sens 9.5 Total Protein 6.6 Albumin 3.8 Lipase 21 Hold Green Top See Note Urine Color Dark Yellow Urine Appearance Clear Urine pH 5.5 Ur Specific [place] 1.025 Urine Protein 30 (1+) H Urine Glucose (UA) Negative Urine Ketones Negative Urine Blood Large (3+) H Urine Nitrite Negative Ur Leukocyte Esterase Trace H Urine RBC 11-20 H Urine WBC 0-5 Ur Squamous Epith Cells 0-2 Urine Bacteria None Seen Hyaline Casts 0-2 Influenza Type A (PCR) NEGATIVE Influenza Type B (PCR) NEGATIVE RSV RNA Qual (PCR) NEGATIVE SARS-CoV-2 RNA (RT-PCR) NEGATIVE 08/12/25 08/12/25 04:31 07:33 MCV 90.5 MCH 31.4 MCHC 34.7 RDW 12.6 Plt Count 230 MPV 9.1 L Immature Gran % (Auto) 0.3 Neut % (Auto) 79.5 H Lymph % (Auto) 9.6 L [place] % (Auto) 8.0 Eos % (Auto) 2.4 Baso % (Auto) 0.2 Lymph # (Auto) 1.1 L [place] # (Auto) 1.0 Eos # (Auto) 0.3 Baso # (Auto) 0.0 Abs Immat Gran (auto) 0.04 H Absolute Neuts (auto) 9.5 H Absolute Nucleated RBC 0.000 Nucleated RBC % (auto) 0.0 VBG pH 7.43 VBG pCO2 42 VBG pO2 58 VBG HCO3 28 H VBG O2 Saturation 85.0 VBG Base Excess 4.0 Anion Gap 15 Estim Creat Clear Calc 54.7 Estimated GFR 49 Random Glucose 89 Lactic Acid Calcium 9.0 Phosphorus Magnesium 2.0 Total Bilirubin Direct Bilirubin AST ALT Alkaline Phosphatase Total Creatine Kinase 1133 H Troponin I High Sens Total Protein Albumin Lipase Hold Green Top Urine Color Urine Appearance Urine pH Ur Specific [place] Urine Protein Urine Glucose (UA) Urine Ketones Urine Blood Urine Nitrite Ur Leukocyte Esterase Urine RBC Urine WBC Ur Squamous Epith Cells Urine Bacteria Hyaline Casts Influenza Type A (PCR) Influenza Type B (PCR) RSV RNA Qual (PCR) SARS-CoV-2 RNA (RT-PCR) Assessment and Plan (1) Acute kidney injury: Status: Acute (2) Rhabdomyolysis: Status: Acute Plan Thony Martinez is a 75 y/o man who presents with: JOSEFA due to rhabdomyolysis due to immobilization and urinary retention Creatinine improving, 2.47-->1.42 CPK improving, 1463-->1133 Continue IVF Hold lisinopril Avoid nephrotoxic agents Nephrology consult Trend labs Acute urinary retention In the setting of the underlying BPH Reports very little urinary output the past 5 days Indwelling urinary catheter inserted in the ED Continue finasteride Urology consulted, maintain Hernandes catheter x4 weeks; outpatient follow up for voiding trial Scrotal and left posterior thigh cellulitis associated with large pressure ulceration Continue empiric IV antibiotic therapy with Zosyn and vancomycin General surgery consulted, no acute surgical intervention necessary at this time Protect area with gauze dressing Question of bacteremia 1/2 BCx positive for Gram-positive cocci in clusters No F/C; possible contamination Treat with abx as above Follow cultures Elevated LFTs including bilirubin; likely multifactorial: Secondary to rhabdomyolysis and liver cirrhosis noted on CT scan. Per chart, patient drinks 0-2 beers daily. Start thiamine, folic acid and multivitamins. CIWA. Continue to monitor LFTs. Abd U/S showing hepatic steatosis Chronic back pain/lower extremities weakness; likely associated to spinal stenosis. Fall precautions. PT consult. Check vitamin D level. Obtain lumbar MRI. Possilbe small pericarida effusion on CT + low voltage on ECG. Check TTE (last TTE O showed normal LVEF and diastolic function). Bilateral lower extremities edema. Obtain venous ultrasound. Type 2 diabetes mellitus. Hold metformin due to JOSEFA. BG checks before meals at bedtime. Insulin sliding scale. Diabetic diet. Check hemoglobin A1c. Essential hypertension. Lisinopril on hold due to JOSEFA. Continue amlodipine. History of peripheral neuropathy/post herpetic neuralgia. Continue Lyrica. CHELSEY. Nocturnal CPAP. Marked constipation. Fleet enema now. Start therapy with laxatives and stool softeners. Code status: Full DVT prophylaxis: Heparin Pt requires continued hospitalization as he needs IVF to continue to treat JOSEFA with rhabdomyolysis, as well as empiric IV antibiotics for cellulitis and possible bacteremia while awaiting final blood cultures. Quality Stroke Does the patient have a stroke diagnosis?: No VTE Prior VTE?: No VTE Risk Level:: Medical - moderate - high VTE Device Contraindication: Treatment Not Indicated VTE Drug Contraindication: N/A - Med Ordered
--- NOTE | 2025-08-12 09:01 | PC.NURSE ---
pt medicated per OCT. repositioned in bed. nystain applied to groin area. encouraged to take miralax
--- NOTE | 2025-08-12 09:07 | PHA.MEDREC ---
Pharmacy Consult ? Medication Reconciliation Pharmacy has completed the medication reconciliation. Spoke to patient at bedside, noted his handles his medications but he was able to confirm based on claim history. He noted he takes all of his medications in the morning and only takes one Lyrica daily
--- NOTE | 2025-08-12 10:38 | P.CONGS_ITS ---
History of Present Illness Consult details Consult date: 08/12/25 Narrative: 75-year-old male patient presenting to the emergency department for progressive weakness found to have an area of skin necrosis in the posterior left thigh. His past history is significant for diabetes mellitus type 2, hypertension, BPH, obstructive sleep apnea, BPH, and peripheral neuropathy. 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 He reports that he is unable to sleep in his posture pubic bed and needs to sit up to prevent increased pain. He has been sitting in his chair for the past 5 days and reports hitting his head at the bridge of his nose after hitting a table. He was found by his son sitting in urine and stool therefore brought him to the emergency department for further evaluation. Review of Systems 2 Review of Systems: Yes all other systems are reviewed and are negative PMFSH Past Medical History Medical History Visit for suture removal Hypertension Cataract Diabetes mellitus with coincident hypertension Obesity Hypertension Diabetes mellitus Post herpetic neuralgia Arthritis of right hip Pneumococcal arthritis, right knee Pain of left hip Cervical spondylosis Lumbar spondylosis Family History Family History Father Parkinson disease Mother No problems noted. Surgical History Surgical History History of skin surgery Status post ablation of incompetent vein using laser History of tonsillectomy Social History Social History Household Members: Spouse Housing: House Do you presently have visiting nurse or other home services: No Alcohol intake: current Alcohol intake frequency: 0-2 drinks per day Alcohol type: beer Patient Tobacco Use Status: Former Tobacco user Tobacco use type: Cigarette Years Smoked: 1979 Smoked in Last 30 Days: No e-Cigarette/Vaping Use: Never Used Second Hand Smoke Exposure: Yes Use of substances other than those prescribed or required for medical reasons: No Advance Directives: No Advance Directives Information Provided: No service: No Current occupational status: retired Cognitive needs: Yes (Cane, walker, wheelchair) Hearing needs: No Vision needs: No Meds Allergies Allergy/AdvReac Type Severity Reaction Status Date / Time latex AdvReac Unknown Verified 08/11/25 15:41 Active Medications: Current Medications Acetaminophen (Acetaminophen 325 Mg Tablet) 975 mg PO Q6H PRN PRN Reason: Pain, Mild 1-3,fever,headache Folic Acid (Folic Acid 1 Mg Tablet) 1 mg PO DAILY [facility] Last Admin: 08/12/25 08:38 Dose: 1 mg Heparin Sodium (Porcine) (Heparin Sodium,Porcine 5,000 Unit/Ml Vial) 5,000 unit SUBCUT Q12H MARGARET Last Admin: 08/12/25 08:46 Dose: 5,000 unit Sodium Bicarbonate 150 meq/ (Dextrose) 1,000 mls @ 100 mls/hr IV .Q10H MARGARET On Hold: 08/11/25 20:04 Last Infusion: 08/11/25 23:51 Dose: Infused Vancomycin HCl 1,000 mg/ (Sodium Chloride) 270 mls @ 270 mls/hr IV Q24H MARGARET Piperacillin Sod/Tazobactam (Sod 3.375 gm/ Sodium Chloride) 50 mls @ 100 mls/hr IV Q6H MARGARET Magnesium Hydroxide (Milk Of Magnesia 30 Ml Oral.Susp) 30 ml PO DAILY PRN PRN Reason: Constipation Melatonin (Melatonin 3 Mg Tablet) 6 mg PO BEDTIME PRN PRN Reason: Insomnia Multivitamins/Vitamin C (Multivitamin Tablet) 1 tab PO BEDTIME MARGARET Nystatin (Nystatin Powder 15 Gm Bottle) 1 appl TOPICAL BID [facility]; Protocol Last Admin: 08/12/25 08:36 Dose: 1 appl Pharmacy Consult (Consult Rx Vancomycin Dosing) 1 each MISCELLANE DAILY PRN PRN Reason: Consult order Polyethylene Glycol (Polyethylene Glycol 3350 17 Gm Powd.Pack) 17 gm PO DAILY [facility] Last Admin: 08/12/25 08:47 Dose: 17 gm Senna/Docusate Sodium (Sennosides/Docusate Sodium Tablet) 2 tab PO BEDTIME [facility] Last Admin: 08/11/25 20:36 Dose: 2 tab Sodium Chloride (0.9 % Sodium Chloride Flush 3 Ml Syringe) 3 ml IVFLUSH QSHIFT [facility] Last Admin: 08/12/25 08:38 Dose: 3 ml Thiamine HCl (Thiamine Hcl 100 Mg Tablet) 100 mg PO DAILY [facility] Last Admin: 08/12/25 08:38 Dose: 100 mg Tramadol HCl (Tramadol Hcl 50 Mg Tablet) 25 mg PO Q6H PRN PRN Reason: Pain, Severe (Pain Scale 7-10) Last Admin: 08/12/25 08:43 Dose: 25 mg Home Medications ?Medication ?Instructions ?Recorded ?Confirmed ?Last Taken ?Type multivitamin 1 tab PO DAILY 01/30/2107/30 Unknown History docusate sodium 100 mg capsule 100 mg PO BID PRN Const ipation 08/12/25 08/12/25 Unknown History (Colace) pregabalin 150 mg capsule (Lyrica) 150 mg PO DAILY 08/12/25 Unknown History Physical Exam 2 Vital Signs: Vital Signs: Last Vital Signs Temp 97.6 F 08/12/25 02:05 Pulse 93 08/12/25 04:48 Resp 16 08/12/25 04:48 BP 125/62 08/12/25 04:48 Pulse Ox 95 08/12/25 04:48 O2 Del Method Room Air 08/12/25 04:48 BMI result Body Mass Index 33.4 Const: General: cooperative and no acute distress Nutritional Appearance: w ell nourished Orientation/consciousness: patient oriented x3 Limitations: crutches HEENT: Other: Facial abrasions, ecchymosis after fall especially on bridge of nose Head: Yes normocephalic Ears: hearing grossly normal bilaterally Resp: Effort & Inspection: normal respiratory effort, no audible wheezes, no cough and no respiratory distress Cardio: Jugular venous distension: no JVD GI: Inspection: Yes normal to inspection Skin: Other: Warm, dry, no rash Neuro: General: patient oriented x3 Extrem: Other: Bilateral areas of posterior thigh pressure changes left greater than right with a linear area of skin necrosis on the left side with some skin sloughing noted. No underlying abscess is appreciated. General: Yes no clubbing, cyanosis or edema Upper/lower leg/hip images: 1. Site of pressure related skin necrosis Results Labs 08/12/25 04:31 08/12/25 04:31 Labs: Abnormal lab results 08/11/25 08/11/25 08/11/25 Range/Units 16:00 16:36 18:31 WBC 14.6 H (4.8-10.8) X10*3/uL RBC 3.80 L (4.60-5.80) X10*6/uL Hgb 12.1 L (14.0-18.0) g/dl Hct 34.9 L (42.0-52.0) % MPV 9.2 L (9.4-12.4) fL Neut % (Auto) 82.6 H (45-73) % Lymph % (Auto) 8.3 L (20-40) % Lymph # (Auto) (1.2-4.9) X10*3/uL Abs Immat Gran (auto) 0.06 H (0.00-0.03) X10*3/uL Absolute Neuts (auto) 12.1 H (2.0-8.3) x10*3/uL VBG HCO3 (22-26) mmol/L BUN 59 H (9-16) mg/dL Creatinine 2.47 H (0.5-1.4) mg/dL Phosphorus 5.9 H (2.7-4.5) mg/dL Total Bilirubin 1.2 H (0.0-1.0) mg/dL Direct Bilirubin 0.6 H (0.0-0.5) mg/dL AST 156 H (5-37) U/L ALT 130 H (0-40) U/L Total Creatine Kinase 1463 H (38-174) U/L 25-OH Vitamin D Total (>30) ng/mL Urine Protein 30 (1+) H (Neg-Trace) mg/dL Urine Blood Large (3+) H (Negative) Ur Leukocyte Esterase Trace H (Negative) Urine RBC 11-20 H (0-2) /HPF 08/12/25 08/12/25 08/12/25 Range/Units 04:31 07:33 09:50 WBC 11.9 H (4.8-10.8) X10*3/uL RBC 3.89 L (4.60-5.80) X10*6/uL Hgb 12.2 L (14.0-18.0) g/dl Hct 35.2 L (42.0-52.0) % MPV 9.1 L (9.4-12.4) fL Neut % (Auto) 79.5 H (45-73) % Lymph % (Auto) 9.6 L (20-40) % Lymph # (Auto) 1.1 L (1.2-4.9) X10*3/uL Abs Immat Gran (auto) 0.04 H (0.00-0.03) X10*3/uL Absolute Neuts (auto) 9.5 H (2.0-8.3) x10*3/uL VBG HCO3 28 H (22-26) mmol/L BUN 44 H (9-16) mg/dL Creatinine 1.42 H (0.5-1.4) mg/dL Phosphorus (2.7-4.5) mg/dL Total Bilirubin (0.0-1.0) mg/dL Direct Bilirubin (0.0-0.5) mg/dL AST (5-37) U/L ALT (0-40) U/L Total Creatine Kinase 1133 H (38-174) U/L 25-OH Vitamin D Total 20.6 L (>30) ng/mL Urine Protein (Neg-Trace) mg/dL Urine Blood (Negative) Ur Leukocyte Esterase (Negative) Urine RBC (0-2) /HPF Short CBC 08/11/25 08/12/25 Range/Units 16:36 04:31 WBC 14.6 H 11.9 H (4.8-10.8) X10*3/uL Hgb 12.1 L 12.2 L (14.0-18.0) g/dl Hct 34.9 L 35.2 L (42.0-52.0) % Plt Count 256 230 (160-400) X10*3/uL BMP 08/11/25 08/12/25 16:36 04:31 Sodium 136 140 Potassium 3.5 3.3 Chloride 99 104 Carbon Dioxide 23 24 BUN 59 H 44 H Creatinine 2.47 H 1.42 H Calcium 9.1 9.0 Cardiac Enzymes 08/11/25 08/12/25 Range/Units 16:36 04:31 Total Creatine Kinase 1463 H 1133 H (38-174) U/L Liver Function 08/11/25 Range/Units 16:36 Total Bilirubin 1.2 H (0.0-1.0) mg/dL Direct Bilirubin 0.6 H (0.0-0.5) mg/dL AST 156 H (5-37) U/L ALT 130 H (0-40) U/L Alkaline Phosphatase 96 (39-117) U/L Albumin 3.8 (3.5-5.0) g/dL Urine 08/11/25 Range/Units 18:31 Urine Color Dark Yellow Urine Appearance Clear Urine pH 5.5 (5.0-9.0) Ur Specific [place] 1.025 (1.005-1.025) Urine Protein 30 (1+) H (Neg-Trace) mg/dL Urine Glucose (UA) Negative (Negative) mg/dL All other labs normal. Assessment and Plan (1) Muscle weakness: Status: Acute Plan 75-year-old male patient with progressive muscle weakness found to be sitting on the same chair for least 5 days resulting in an area of skin necrosis in the posterior left thigh. Examination reveals a linear area consistent with pressure ulceration from the edge of the chair. This appears to be superficial and should be protected with a gauze dressing. No surgical intervention is required at this time. Procedures Date of Service Date of Service: 08/12/25
--- NOTE | 2025-08-12 11:52 | P.CNUR_ITS ---
History of Present Illness Consult details Consult date: 08/12/25 Narrative: CC: Urinary retention with acute kidney insult in setting of diabetes 75-year-old male History significant for type 2 diabetes on metformin Known BPH on finasteride Presented to the emergency department complaining of bilateral leg weakness and inability to walk Background of chronic pain ongoing since diagnosed with zoster several years Emergency room evaluation show creatinine of 2.5 (normal on last review with PCP March) UA 3+ blood, trace leuk esterase, proteinuria CT scan with significant constipation, urinary retention with thickened bladder wall Hernandes catheter placed for 1500 cc release Bowel regimen instituted Recommend Hernandes catheter for 4 weeks. Once ambulatory should be taught how to use cap in order to empty bladder every 3-4 hours with overnight bag usage. Continue finasteride with alpha-laron Review of Systems 2 Constitutional: Constitutional: Reports as per HPI and Reports no additional constitutional complaints Cardiovascular: Cardiovascular: Reports as per HPI and Reports no additional cardiovascular complaints Respiratory: Respiratory: Reports as per HPI and Reports no additional respiratory complaints Gastrointestinal: Gastrointestinal: Reports as per HPI and Reports no additional gastrointestinal complaints Genitourinary: Genitourinary: Reports as per HPI Musculoskeletal: Musculoskeletal: Reports no additional musculoskeletal complaints and Reports as per HPI Neurologic: Reports system reviewed and no additional complaints, except as documented and Reports as per HPI PMFSH Past Medical History Medical History Visit for suture removal Hypertension Cataract Diabetes mellitus with coincident hypertension Obesity Hypertension Diabetes mellitus Post herpetic neuralgia Arthritis of right hip Pneumococcal arthritis, right knee Pain of left hip Cervical spondylosis Lumbar spondylosis Family History Family History Father Parkinson disease Mother No problems noted. Surgical History Surgical History History of skin surgery Status post ablation of incompetent vein using laser History of tonsillectomy Social History Social History Household Members: Spouse Housing: House Do you presently have visiting nurse or other home services: No Alcohol intake: current Alcohol intake frequency: 0-2 drinks per day Alcohol type: beer Patient Tobacco Use Status: Former Tobacco user Tobacco use type: Cigarette Years Smoked: 1979 Smoked in Last 30 Days: No e-Cigarette/Vaping Use: Never Used Second Hand Smoke Exposure: Yes Use of substances other than those prescribed or required for medical reasons: No Advance Directives: No Advance Directives Information Provided: No service: No Current occupational status: retired Cognitive needs: Yes (Cane, walker, wheelchair) Hearing needs: No Vision needs: No Meds Allergies Allergy/AdvReac Type Severity Reaction Status Date / Time latex AdvReac Unknown Verified 08/11/25 15:41 Active Medications: Current Medications Acetaminophen (Acetaminophen 325 Mg Tablet) 975 mg PO Q6H PRN PRN Reason: Pain, Mild 1-3,fever,headache Folic Acid (Folic Acid 1 Mg Tablet) 1 mg PO DAILY MARGARET Last Admin: 08/12/25 08:38 Dose: 1 mg Heparin Sodium (Porcine) (Heparin Sodium,Porcine 5,000 Unit/Ml Vial) 5,000 unit SUBCUT Q12H MARGARET Last Admin: 08/12/25 08:46 Dose: 5,000 unit Sodium Bicarbonate 150 meq/ (Dextrose) 1,000 mls @ 100 mls/hr IV .Q10H MARGARET On Hold: 08/11/25 20:04 Last Infusion: 08/11/25 23:51 Dose: Infused Vancomycin HCl 1,000 mg/ (Sodium Chloride) 270 mls @ 270 mls/hr IV Q24H MARGARET Piperacillin Sod/Tazobactam (Sod 3.375 gm/ Sodium Chloride) 50 mls @ 100 mls/hr IV Q6H MARGARET Last Admin: 08/12/25 11:24 Dose: 100 mls/hr Magnesium Hydroxide (Milk Of Magnesia 30 Ml Oral.Susp) 30 ml PO DAILY PRN PRN Reason: Constipation Melatonin (Melatonin 3 Mg Tablet) 6 mg PO BEDTIME PRN PRN Reason: Insomnia Multivitamins/Vitamin C (Multivitamin Tablet) 1 tab PO BEDTIME MARGARET Nystatin (Nystatin Powder 15 Gm Bottle) 1 appl TOPICAL BID MARGARET; Protocol Last Admin: 08/12/25 08:36 Dose: 1 appl Pharmacy Consult (Consult Rx Vancomycin Dosing) 1 each MISCELLANE DAILY PRN PRN Reason: Consult order Polyethylene Glycol (Polyethylene Glycol 3350 17 Gm Powd.Pack) 17 gm PO DAILY MARGARET Last Admin: 08/12/25 08:47 Dose: 17 gm Senna/Docusate Sodium (Sennosides/Docusate Sodium Tablet) 2 tab PO BEDTIME [facility] Last Admin: 08/11/25 20:36 Dose: 2 tab Sodium Chloride (0.9 % Sodium Chloride Flush 3 Ml Syringe) 3 ml IVFLUSH QSHIFT [facility] Last Admin: 08/12/25 08:38 Dose: 3 ml Thiamine HCl (Thiamine Hcl 100 Mg Tablet) 100 mg PO DAILY [facility] Last Admin: 08/12/25 08:38 Dose: 100 mg Tramadol HCl (Tramadol Hcl 50 Mg Tablet) 25 mg PO Q6H PRN PRN Reason: Pain, Severe (Pain Scale 7-10) Last Admin: 08/12/25 08:43 Dose: 25 mg Home Medications ?Medication ?Instructions ?Recorded ?Confirmed ?Last Taken ?Type multivitamin 1 tab PO DAILY 01/30/2107/30 Unknown History docusate sodium 100 mg capsule 100 mg PO BID PRN Const ipation 08/12/25 08/12/25 Unknown History (Colace) pregabalin 150 mg capsule (Lyrica) 150 mg PO DAILY 08/12/25 Unknown History Physical Exam 2 Vital Signs: Vital Signs: Last Vital Signs Temp 97.6 F 08/12/25 02:05 Pulse 93 08/12/25 04:48 Resp 16 08/12/25 04:48 BP 125/62 08/12/25 04:48 Pulse Ox 95 08/12/25 04:48 O2 Del Method Room Air 08/12/25 04:48 BMI result Body Mass Index 33.4 Const: General: cooperative, healthy appearing, comfortable and no acute distress Orientation/consciousness: patient oriented x3 HEENT: Face and sinus: Yes normal facial exam Mouth: moist mucous membranes Neck: Neck: Yes normal visual inspection, Yes full ROM and Yes trachea midline Chest: Chest palpation & inspection: normal inspection of the chest Resp: Effort & Inspection: normal respiratory effort, able to speak in complete sentences and no respiratory distress GI: Inspection: Yes normal to inspection Back/Spine/Pelvis: Cervical Spine: normal cervical lordosis Thoracic/Lumbar Spine: thoracic and lumbar spine normal to inspection Skin: General skin exam: no rashes or lesions noted Neuro: General: patient oriented x3, tone normal and moves all extremities Extrem: General: Yes normal to inspection and Yes capillary refill normal Results Labs 08/12/25 04:31 08/12/25 04:31 Labs: Abnormal lab results 08/11/25 08/11/25 08/11/25 Range/Units 16:00 16:36 18:31 WBC 14.6 H (4.8-10.8) X10*3/uL RBC 3.80 L (4.60-5.80) X10*6/uL Hgb 12.1 L (14.0-18.0) g/dl Hct 34.9 L (42.0-52.0) % MPV 9.2 L (9.4-12.4) fL Neut % (Auto) 82.6 H (45-73) % Lymph % (Auto) 8.3 L (20-40) % Lymph # (Auto) (1.2-4.9) X10*3/uL Abs Immat Gran (auto) 0.06 H (0.00-0.03) X10*3/uL Absolute Neuts (auto) 12.1 H (2.0-8.3) x10*3/uL VBG HCO3 (22-26) mmol/L BUN 59 H (9-16) mg/dL Creatinine 2.47 H (0.5-1.4) mg/dL Phosphorus 5.9 H (2.7-4.5) mg/dL Total Bilirubin 1.2 H (0.0-1.0) mg/dL Direct Bilirubin 0.6 H (0.0-0.5) mg/dL AST 156 H (5-37) U/L ALT 130 H (0-40) U/L Total Creatine Kinase 1463 H (38-174) U/L 25-OH Vitamin D Total (>30) ng/mL Urine Protein 30 (1+) H (Neg-Trace) mg/dL Urine Blood Large (3+) H (Negative) Ur Leukocyte Esterase Trace H (Negative) Urine RBC 11-20 H (0-2) /HPF 08/12/25 08/12/25 08/12/25 Range/Units 04:31 07:33 09:50 WBC 11.9 H (4.8-10.8) X10*3/uL RBC 3.89 L (4.60-5.80) X10*6/uL Hgb 12.2 L (14.0-18.0) g/dl Hct 35.2 L (42.0-52.0) % MPV 9.1 L (9.4-12.4) fL Neut % (Auto) 79.5 H (45-73) % Lymph % (Auto) 9.6 L (20-40) % Lymph # (Auto) 1.1 L (1.2-4.9) X10*3/uL Abs Immat Gran (auto) 0.04 H (0.00-0.03) X10*3/uL Absolute Neuts (auto) 9.5 H (2.0-8.3) x10*3/uL VBG HCO3 28 H (22-26) mmol/L BUN 44 H (9-16) mg/dL Creatinine 1.42 H (0.5-1.4) mg/dL Phosphorus (2.7-4.5) mg/dL Total Bilirubin (0.0-1.0) mg/dL Direct Bilirubin (0.0-0.5) mg/dL AST (5-37) U/L ALT (0-40) U/L Total Creatine Kinase 1133 H (38-174) U/L 25-OH Vitamin D Total 20.6 L (>30) ng/mL Urine Protein (Neg-Trace) mg/dL Urine Blood (Negative) Ur Leukocyte Esterase (Negative) Urine RBC (0-2) /HPF Short CBC 08/11/25 08/12/25 Range/Units 16:36 04:31 WBC 14.6 H 11.9 H (4.8-10.8) X10*3/uL Hgb 12.1 L 12.2 L (14.0-18.0) g/dl Hct 34.9 L 35.2 L (42.0-52.0) % Plt Count 256 230 (160-400) X10*3/uL BMP 08/11/25 08/12/25 16:36 04:31 Sodium 136 140 Potassium 3.5 3.3 Chloride 99 104 Carbon Dioxide 23 24 BUN 59 H 44 H Creatinine 2.47 H 1.42 H Calcium 9.1 9.0 Cardiac Enzymes 08/11/25 08/12/25 Range/Units 16:36 04:31 Total Creatine Kinase 1463 H 1133 H (38-174) U/L Liver Function 08/11/25 Range/Units 16:36 Total Bilirubin 1.2 H (0.0-1.0) mg/dL Direct Bilirubin 0.6 H (0.0-0.5) mg/dL AST 156 H (5-37) U/L ALT 130 H (0-40) U/L Alkaline Phosphatase 96 (39-117) U/L Albumin 3.8 (3.5-5.0) g/dL Urine 08/11/25 Range/Units 18:31 Urine Color Dark Yellow Urine Appearance Clear Urine pH 5.5 (5.0-9.0) Ur Specific Pettigrew 1.025 (1.005-1.025) Urine Protein 30 (1+) H (Neg-Trace) mg/dL Urine Glucose (UA) Negative (Negative) mg/dL All other labs normal. Assessment and Plan (1) BPH (benign prostatic hyperplasia): Qualifiers: Lower urinary tract symptom presence: symptoms present Lower urinary tract symptom detail: incomplete bladder emptying Qualified Code(s): N40.1 - Benign prostatic hyperplasia with lower urinary tract symptoms; R39.14 - Feeling of incomplete bladder emptying Status: Acute (2) Acute kidney injury: Status: Acute Plan Hernandes catheter 4 weeks Outpatient follow-up voiding trial Once ambulatory in hospital switch to catheter cap plus overnight bag teaching Procedures Date of Service Date of Service: 08/12/25
--- NOTE | 2025-08-12 15:25 | HO.NURTONUR ---
75 yr male admitted for JOSEFA and Rhabdomyolysis. Pt comes to ED on 08/11/25 with c/o L leg swelling, pain and weakness. Pt reports he was unable to get up from his chair at home x5 days d/t weakness. A&Ox3 VSS, afebrile Hernandes catheter in place. Large decubitus ulcer to L posterior thigh with surrounding cellulitis extending to scrotum. Facial abrasions noted--Pt reports placing from the table in which he was sitting at. IV access to LUE Independent feeds. Pt able to make his needs known. Consults in place for wounds care, nephrology, urology, and general surgery.
[2025-08-12] MEDS: Lactated Ringers 1,000 ML 100 ML IVCONT (16:38)
[2025-08-12] MEDS: Cholecalciferol (Vitamin D3) 10 MCG TABLET PO (17:10)
--- NOTE | 2025-08-12 18:27 | HO.SKINPHOTO ---
Pt arrived to unit with multiple areas of skin breakdown. Unable to get full assessment of buttock d/t pt unable to tolerate turning. Wound care nurse consulted.
[2025-08-13 03:31] VITALS: BP 140/66; PULSE 71; RESP 18; TEMP 36.3; O2SAT 95
[2025-08-13] MEDS: Lactated Ringers 1,000 ML 100 ML IVCONT (03:59)
--- NOTE | 2025-08-13 04:30 | PC.NURSE ---
patient does not want to be repositioned in the bed as often as he should be because he says he is in too much pain. the importance of frequent repositioning was explained and patient verbalized his understanding but says once he is in a comfortable position he'd rather not move.
[2025-08-13 06:44] LABS: Creatinine Clr Calc Pharmacy 119.3; Estimated Glomerular Filt Rate > 60
--- NOTE | 2025-08-13 06:57 | PC.RT ---
Rt set up patient onto CPAP last night 08/12 for the first time wearing since admission. RT noted scab on bridge of nose, no oozing noted, allevyn was applied to bridge of nose prior to applying CPAP mask. Pt only wore CPAP for approximately 30 minutes due to pt not tolerating hospital machine/mask.
--- NOTE | 2025-08-13 07:00 | CA_ITS ---
Transthoracic Echocardiogram Patient (Last, First, Middle): Thony Martinez W Gender: Male Date of : 1950 Age: 75 Procedure Date: 08/13/2025 Procedure Type: Transthoracic Echocardiogram Location: S3E Height: 177.8 cm Weight: 105.24 kg BSA: 2.22 m2 Heart Rate: bpm BP: 172 / 76 mmHg Game Design Instructor: SB Referring MD: Sue Mondragon MD Symptoms: ? Pericardial effusion Study Quality: Fair, contrast Conclusions: - Normal left ventricular size, thickness, systolic function, and wall motion. The visually estimated ejection fraction is between 65-70%. Diastolic function is normal for age. - Normal right ventricular cavity size and systolic function. - The left atrium is moderately dilated. - There is mild aortic valve stenosis. Findings Procedure Information Contrast agent, definity, is being given per protocol without apparent complications. Left Ventricle Normal left ventricular size, thickness, systolic function, and wall motion. The visually estimated ejection fraction is between 65-70%. Diastolic function is normal for age. Right Ventricle Normal right ventricular cavity size and systolic function. Atria The left atrium is moderately dilated. The right atrium was not well visualized. Aortic Valve There is a normal trileaflet aortic valve. There is mild calcification of the aortic valve. There is mild aortic valve stenosis. The peak aortic velocity is 2.10 m/s. The mean gradient is 9 mmHg. There is no aortic valve regurgitation. Mitral Valve The mitral valve appears normal. There is no mitral valve regurgitation. There is no mitral valve stenosis. Pulmonic Valve The pulmonic valve is likely normal. Tricuspid Valve Normal tricuspid valve structure. There is no tricuspid valve regurgitation. Tricuspid regurgitation envelope is inadequate for calculation of right ventricular systolic pressure. Normal right atrial pressure. Great Vessels All visible segments of the aorta are normal in size. The visualized portions of the pulmonary artery and branches are normal. Venous The inferior vena cava is normal in size and collapses greater than 50% with inspiration. Pericardium/Pleural There is no evidence of pericardial effusion. Prior Study Comparison No significant change compared to prior study dated: 11/18/2019. No pericardial effusion. Measurements 2D Linear Measurements IVSd: 0.96 0.6-0.9/0.6-1.0 cm LVIDd: 5.32 3.9-5.3/4.2-5.9 cm LVIDd Index: 2.40 2.4-3.2/2.2-3.1 cm/m2 LVIDs: 3.25 2.0-3.6 cm LVPWd: 0.61 0.7-1.1 cm LA Diam: 3.70 2.7-3.8/3.0-4.0 cm LAIDs Index: 1.67 1.5-2.3 cm/m2 LV Mass: 184.32 67-162/88-224 g LV Mass Index: 83.03 43-95/49-115 g/m2 LVOT Diam: 2.30 3.0+(-)1.3 cm 2D Systolic Function EF 4C: 72.60 >55% EF 2C: 73.70 >55% EF BiP: 72.60 >55% Mitral Valve MV Pk E: 0.81 MV PK A: 0.81 MV Decel Time: 247.00 E/A: 1.00 E'Lateral: 10.60 E'Medial: 8.49 E/E' Med: 9.50 E/E' Lat: 7.60 PHT: 72.00 MVA PHT: 3.06 Decel Valencia: 3.28 Aortic Valve AoV Pk Gerald: 2.10 AoV Mn Gerald: 1.40 AoV VTI: 0.40 AoV Pk Grad: 18.00 Aov Mn Grad: 9.00 ROSA Cont.VTI: 2.54 LVOT LVOT Pk Gerald: 1.14 LVOT Mn Gerald: 0.81 LVOT VTI: 0.25 LVOT Pk Grad: 5.00 LVOT Mn Grad: 3.00 LVOT Diam: 2.30 LVOT Area: 4.15 Diastolic Function MV Pk E: 0.81 MV Pk A: 0.81 E/A: 1.00 E'Medial: 8.49 E/E' Med: 9.50 E' Laterial: 10.60 E/E' Lat: 7.60 Right Ventricle TAPSE (mm): 25.60 TVS' Gerald: 16.00 Tricuspid Valve RA Press: 3.00 Great Vessels Aorta Sinus of Valsalva: 3.70 2.0-3.5 cm Ao Asc: 3.30 2.1-3.4 cm Pulmonary Valve PV Pk Gerald: 1.16 Peak PV Grad: 5.00 Updated in Other Vendor System with Status of Final Lm Bonilla MD electronically signed on 08/13/2025 6:45:44 PM with status of Final
[2025-08-13 07:36] VITALS: BP 172/76; PULSE 74; RESP 20; TEMP 36.6; O2SAT 96
[2025-08-13 08:45] LABS: Alanine Aminotransferase 92 U/L (0-40); Albumin Level 3.3 g/dL (3.5-5.0); Alkaline Phosphatase 88 U/L (39-117); Aspartate Amino Transferase 124 U/L (5-37); Total Protein 5.9 g/dL (6.5-8.0)
--- NOTE | 2025-08-13 08:53 | P.PNIM_ITS ---
Subjective Subjective Date of Service: 08/13/25 Interval History: F/U for pt with JOSEFA, rhabdo, and cellulitis in the setting of immobility due to generalized weakness Review of Systems Review of Systems: Yes all other systems are reviewed and are negative Physical Exam 2 Exam: Exam: Appearing in no acute distress lung sounds are clear to auscultation heart regular rate rhythm, clear S1, S2 positive bowel sounds, abdomen is soft, nontender neuro patient is alert x3, no focal deficits Vital Signs: Vital Signs: Last Vital Signs Temp 97.9 F 08/13/25 07:36 Pulse 74 08/13/25 07:36 Resp 20 08/13/25 07:36 BP 172/76 H 08/13/25 07:36 Pulse Ox 96 08/13/25 07:36 O2 Del Method Room Air 08/13/25 07:36 BMI result Body Mass Index 33.3 Objective Data Active Medications Acetaminophen (Acetaminophen 325 Mg Tablet) 975 mg PO Q6H PRN PRN Reason: Pain, Mild 1-3,fever,headache Last Admin: 08/13/25 00:25 Dose: 975 mg Documented By: DANGELO Collagenase (Collagenase Clostridium Hist. 30 Gm Tube) 1 appl TOPICAL DAILY MARGARET; Protocol Dextrose (Dextrose 50 % 25 Gm/50 Ml Syringe) 25 gm IVPUSH Q15M PRN; Protocol PRN Reason: per Hypoglycemia Standing Ord. Doxazosin Mesylate (Doxazosin Mesylate 2 Mg Tablet) 2 mg PO DAILY MARGARET; Protocol Finasteride (Finasteride 5 Mg Tablet) 5 mg PO DAILY MARGARET Folic Acid (Folic Acid 1 Mg Tablet) 1 mg PO DAILY [facility] Last Admin: 08/12/25 08:38 Dose: 1 mg Documented By: SANJU Glucose (Glucose Gel 15 Gm Gel..Gram.) 15 gm PO Q15M PRN; Protocol PRN Reason: per Hypoglycemia Standing Ord. Heparin Sodium (Porcine) (Heparin Sodium,Porcine 5,000 Unit/Ml Vial) 5,000 unit SUBCUT Q12H [facility] Last Admin: 08/12/25 20:25 Dose: 5,000 unit Documented By: DANGELO Vancomycin HCl 1,000 mg/ (Sodium Chloride) 270 mls @ 270 mls/hr IV Q24H [facility] Last Infusion: 08/12/25 23:55 Dose: Infused Documented By: DANGELO Piperacillin Sod/Tazobactam (Sod 3.375 gm/ Sodium Chloride) 50 mls @ 100 mls/hr IV Q6H [facility] Last Infusion: 08/13/25 05:02 Dose: Infused Documented By: DANGELO Lactated Ringer's (Lr) 1,000 mls @ 100 mls/hr IVCONT .Q10H [facility] Stop: 08/13/25 11:14 Last Admin: 08/13/25 03:59 Dose: 100 mls/hr Documented By: SWETHA Insulin Human Lispro (Insulin Lispro 100 Unit/Ml 3 Ml Vial) 0 unit SUBCUT QIDACHS [facility]; Protocol Magnesium Hydroxide (Milk Of Magnesia 30 Ml Oral.Susp) 30 ml PO DAILY PRN PRN Reason: Constipation Melatonin (Melatonin 3 Mg Tablet) 6 mg PO BEDTIME PRN PRN Reason: Insomnia Multivitamins/Vitamin C (Multivitamin Tablet) 1 tab PO BEDTIME [facility] Last Admin: 08/12/25 20:25 Dose: 1 tab Documented By: DANGELO Nystatin (Nystatin Powder 15 Gm Bottle) 1 appl TOPICAL BID [facility]; Protocol Last Admin: 08/12/25 22:57 Dose: 1 appl Documented By: DANGELO Pharmacy Consult (Consult Rx Vancomycin Dosing) 1 each MISCELLANE DAILY PRN PRN Reason: Consult order Polyethylene Glycol (Polyethylene Glycol 3350 17 Gm Powd.Pack) 17 gm PO DAILY [facility] Last Admin: 08/12/25 08:47 Dose: 17 gm Documented By: SANJU Pregabalin (Pregabalin 150 Mg Capsule) 150 mg PO DAILY [facility] Senna/Docusate Sodium (Sennosides/Docusate Sodium Tablet) 2 tab PO BEDTIME [facility] Last Admin: 08/12/25 20:32 Dose: Not Given Documented By: DANGELO Non-Admin Reason: Patient Refused Sodium Chloride (0.9 % Sodium Chloride Flush 3 Ml Syringe) 3 ml IVFLUSH QSHIFT [facility] Last Admin: 08/12/25 22:59 Dose: 3 ml Documented By: DANGELO Thiamine HCl (Thiamine Hcl 100 Mg Tablet) 100 mg PO DAILY [facility] Last Admin: 08/12/25 08:38 Dose: 100 mg Documented By: SANJU Tramadol HCl (Tramadol Hcl 50 Mg Tablet) 25 mg PO Q6H PRN PRN Reason: Pain, Severe (Pain Scale 7-10) Last Admin: 08/13/25 00:27 Dose: 25 mg Documented By: DANGELO Vitamin D (Cholecalciferol (Vitamin D3) 10 Mcg Tablet) 10 mcg PO DAILY MARGARET Last Admin: 08/12/25 17:10 Dose: 10 mcg Documented By: GITA Labs 08/12/25 04:31 08/13/25 05:14 Labs: Laboratory Results - last 24 hr 08/12/25 08/13/25 08/13/25 09:50 05:14 08:11 Hold Purple Top SEE NOTE Estim Creat Clear Calc 119.3 Estimated GFR > 60 Total Bilirubin 1.4 H Direct Bilirubin 0.6 H AST 124 H ALT 92 H Alkaline Phosphatase 88 Total Creatine Kinase 1789 H Total Protein 5.9 L Albumin 3.3 L 25-OH Vitamin D Total 20.6 L Microbiology Microbiology Results: Microbiology 08/11/25 16:36 Blood Culture - Final Blood - Venous Coag negative Staphylococcus 08/11/25 16:36 Blood Culture - Preliminary Blood - Venous No growth after 24 hours. Assessment and Plan (1) Acute kidney injury: Status: Acute (2) Rhabdomyolysis: Status: Acute Plan Year old man admitted with JOSEFA secondary to rhabdomyolysis due to immobilization JOSEFA due to rhabdomyolysis due to immobilization and urinary retention Creatinine normalized Continue IVF Avoid nephrotoxic agents Nephrology consult pending Acute urinary retention In the setting of the underlying BPH Indwelling urinary catheter inserted in the ED Continue finasteride Urology consulted, maintain Hernandes catheter x4 weeks; outpatient follow up for voiding trial Scrotal and left posterior thigh cellulitis associated with large pressure ulceration Continue empiric IV antibiotic therapy with Zosyn and vancomycin General surgery consulted, no acute surgical intervention necessary at this time Protect area with gauze dressing Coag negative bacteremia 1/2 BCx Elevated LFTs including bilirubin likely multifactorial Secondary to rhabdomyolysis and liver cirrhosis noted on CT scan. Chronic back pain/lower extremities weakness likely associated to spinal stenosis. Fall precautions. PT consult. Low Vitamin D added supplement Possible small pericaridal effusion on CT Check TTE Bilateral lower extremities edema. neg venous ultrasound. Americo wraps elevate Type 2 diabetes mellitus. Hold metformin due to JOSEFA. BG checks before meals at bedtime. Insulin sliding scale. Diabetic diet. check A1c Essential hypertension. Lisinopril on hold due to JOSEFA. Continue amlodipine. History of peripheral neuropathy/post herpetic neuralgia. Continue Lyrica. CHELSEY. Nocturnal CPAP. Marked constipation. bowel reg Code status: Full DVT prophylaxis: Heparin Quality Stroke Does the patient have a stroke diagnosis?: No VTE Prior VTE?: No VTE Risk Level:: Medical - moderate - high VTE Device Contraindication: Treatment Not Indicated VTE Drug Contraindication: N/A - Med Ordered
--- NOTE | 2025-08-13 09:28 | P.PNGS_ITS ---
Subjective Subjective Date of Service: 08/13/25 Interval history: C/o back pain. Seen with caster helper. Physical Exam 2 Vital Signs: Vital Signs: Last Vital Signs Temp 97.9 F 08/13/25 07:36 Pulse 74 08/13/25 07:36 Resp 20 08/13/25 07:36 BP 172/76 H 08/13/25 07:36 Pulse Ox 96 08/13/25 07:36 O2 Del Method Room Air 08/13/25 07:36 BMI result Body Mass Index 33.3 Const: General: comfortable, no acute distress and alert O rientation/consciousness: patient oriented x3 HEENT: Other: small facial scab proximal to bridge of nose Resp: Effort & Inspection: normal respiratory effort : Other: dried blood at meatus, daniels in place Skin: Other: warm and dry Neuro: General: patient oriented x3 Extrem: Other: b/l LE with skin thickening, mild edema, hair loss left lower extremity posterior thigh open wound 14cm x 3 cm, some exudate laterally with small amount of residual necrosis centrally but overall improved , mild surrounding erythema and edema Objective Data Active Medications Acetaminophen (Acetaminophen 325 Mg Tablet) 975 mg PO Q6H PRN PRN Reason: Pain, Mild 1-3,fever,headache Last Admin: 08/13/25 00:25 Dose: 975 mg Documented By: DANGELO Collagenase (Collagenase Clostridium Hist. 30 Gm Tube) 1 appl TOPICAL DAILY [facility]; Protocol Dextrose (Dextrose 50 % 25 Gm/50 Ml Syringe) 25 gm IVPUSH Q15M PRN; Protocol PRN Reason: per Hypoglycemia Standing Ord. Doxazosin Mesylate (Doxazosin Mesylate 2 Mg Tablet) 2 mg PO DAILY [facility]; Protocol Finasteride (Finasteride 5 Mg Tablet) 5 mg PO DAILY [facility] Folic Acid (Folic Acid 1 Mg Tablet) 1 mg PO DAILY [facility] Last Admin: 08/12/25 08:38 Dose: 1 mg Documented By: SANJU Glucose (Glucose Gel 15 Gm Gel..Gram.) 15 gm PO Q15M PRN; Protocol PRN Reason: per Hypoglycemia Standing Ord. Heparin Sodium (Porcine) (Heparin Sodium,Porcine 5,000 Unit/Ml Vial) 5,000 unit SUBCUT Q12H [facility] Last Admin: 08/12/25 20:25 Dose: 5,000 unit Documented By: DANGELO Vancomycin HCl 1,000 mg/ (Sodium Chloride) 270 mls @ 270 mls/hr IV Q24H [facility] Last Infusion: 08/12/25 23:55 Dose: Infused Documented By: DANGELO Piperacillin Sod/Tazobactam (Sod 3.375 gm/ Sodium Chloride) 50 mls @ 100 mls/hr IV Q6H [facility] Last Infusion: 08/13/25 05:02 Dose: Infused Documented By: DANGELO Lactated Ringer's (Lr) 1,000 mls @ 100 mls/hr IVCONT .Q10H [facility] Stop: 08/13/25 11:14 Last Admin: 08/13/25 03:59 Dose: 100 mls/hr Documented By: SWETHA Insulin Human Lispro (Insulin Lispro 100 Unit/Ml 3 Ml Vial) 0 unit SUBCUT QIDACHS [facility]; Protocol Magnesium Hydroxide (Milk Of Magnesia 30 Ml Oral.Susp) 30 ml PO DAILY PRN PRN Reason: Constipation Melatonin (Melatonin 3 Mg Tablet) 6 mg PO BEDTIME PRN PRN Reason: Insomnia Multivitamins/Vitamin C (Multivitamin Tablet) 1 tab PO BEDTIME [facility] Last Admin: 08/12/25 20:25 Dose: 1 tab Documented By: DANGELO Nystatin (Nystatin Powder 15 Gm Bottle) 1 appl TOPICAL BID [facility]; Protocol Last Admin: 08/12/25 22:57 Dose: 1 appl Documented By: DANGELO Pharmacy Consult (Consult Rx Vancomycin Dosing) 1 each MISCELLANE DAILY PRN PRN Reason: Consult order Polyethylene Glycol (Polyethylene Glycol 3350 17 Gm Powd.Pack) 17 gm PO DAILY [facility] Last Admin: 08/12/25 08:47 Dose: 17 gm Documented By: SANJU Pregabalin (Pregabalin 150 Mg Capsule) 150 mg PO DAILY [facility] Senna/Docusate Sodium (Sennosides/Docusate Sodium Tablet) 2 tab PO BEDTIME [facility] Last Admin: 08/12/25 20:32 Dose: Not Given Documented By: DANGELO Non-Admin Reason: Patient Refused Sodium Chloride (0.9 % Sodium Chloride Flush 3 Ml Syringe) 3 ml IVFLUSH QSHIFT [facility] Last Admin: 08/12/25 22:59 Dose: 3 ml Documented By: DANGELO Thiamine HCl (Thiamine Hcl 100 Mg Tablet) 100 mg PO DAILY [facility] Last Admin: 08/12/25 08:38 Dose: 100 mg Documented By: SANJU Tramadol HCl (Tramadol Hcl 50 Mg Tablet) 25 mg PO Q6H PRN PRN Reason: Pain, Severe (Pain Scale 7-10) Last Admin: 08/13/25 00:27 Dose: 25 mg Documented By: DANGELO Vitamin D (Cholecalciferol (Vitamin D3) 10 Mcg Tablet) 10 mcg PO DAILY [facility] Last Admin: 08/12/25 17:10 Dose: 10 mcg Documented By: GITA Labs 08/12/25 04:31 08/13/25 05:14 Labs: Laboratory Results - last 24 hr 08/12/25 08/13/25 08/13/25 09:50 05:14 08:11 Hold Purple Top SEE NOTE Estim Creat Clear Calc 119.3 Estimated GFR > 60 Total Bilirubin 1.4 H Direct Bilirubin 0.6 H AST 124 H ALT 92 H Alkaline Phosphatase 88 Total Creatine Kinase 1789 H Total Protein 5.9 L Albumin 3.3 L 25-OH Vitamin D Total 20.6 L Microbiology Microbiology Results: Microbiology 08/11/25 16:36 Blood Culture - Final Blood - Venous Coag negative Staphylococcus 08/11/25 16:36 Blood Culture - Preliminary Blood - Venous No growth after 24 hours. Procedures Date of Service Date of Service: 08/13/25 Progress Note: A&P Assessment and plan (1) Wound of lower extremity: Status: Acute Plan Developed pressure wound of lower extremity. Appears overall improved this morning, less necrotic tissue present. Santyl ordered and applied this morning. Cont daily dressing changes with santyl, nonwoven sponge and allevyn foam pad. No surgical debridement currently necessary. Time Spent With Patient Time: Total time managing care of this patient today ____ minutes. Quality Stroke Does the patient have a stroke diagnosis?: No VTE Prior VTE?: No VTE Risk Level:: Medical - moderate - high VTE Device Contraindication: Treatment Not Indicated VTE Drug Contraindication: N/A - Med Ordered
--- NOTE | 2025-08-13 09:53 | PM.CNNEP ---
History of Present Illness Reason for Consult Consult date: 08/13/25 Reason for consult: JOSEFA Chief Complaint Chief complaint: acute kidney injury, rhabdomyolysis History of Present Illness Narrative: 75 years old man with past medical history significant for type 2 diabetes on metformin, essential hypertension on lisinopril, BPH, CHELSEY on CPAP and peripheral neuropathy presents to the emergency complaining of bilateral leg weakness and inability to walk well due to weakness. He denied any trauma or falls. He mentioned that since Wednesday he has been sitting in his couch. He also complained of constipation. He denied numbness to the lower extremities. He denied any headache, palpitations, dizziness, chest pain, shortness on breath, cough, nausea, vomiting, diarrhea, fever or chills. He complained of chronic back pain. He does not recall the name of his medications except for Lyrica that he has been taking since he was diagnosed with zoster several years ago Review of Systems Constitutional: Denies fever(s) and Denies weight loss Cardiovascular: Denies chest pain Respiratory: Denies cough and Denies hemoptysis Gastrointestinal: Denies abdominal pain, Denies diarrhea and Denies nausea Musculoskeletal: Denies back pain Denies focal weakness PMFSH Past Medical History Medical History Visit for suture removal Hypertension Cataract Diabetes mellitus with coincident hypertension Obesity Hypertension Diabetes mellitus Post herpetic neuralgia Arthritis of right hip Pneumococcal arthritis, right knee Pain of left hip Cervical spondylosis Lumbar spondylosis Family History Family History Father Parkinson disease Mother No problems noted. Surgical History Surgical History History of skin surgery Status post ablation of incompetent vein using laser History of tonsillectomy Social History Social History Household Members: Spouse Housing: House Do you presently have visiting nurse or other home services: Yes (wound care [facility]) Alcohol intake: current Alcohol intake frequency: 0-2 drinks per day Alcohol type: beer Patient Tobacco Use Status: Former Tobacco user Tobacco use type: Cigarette Years Smoked: 1978 e-Cigarette/Vaping Use: Never Used Second Hand Smoke Exposure: Yes service: No Current occupational status: retired Cognitive needs: Yes (Cane, walker, wheelchair) Hearing needs: No Vision needs: No Meds Allergies Allergy/AdvReac Type Severity Reaction Status Date / Time latex AdvReac Unknown Verified 08/11/25 15:41 Active Medications: Current Medications Acetaminophen (Acetaminophen 325 Mg Tablet) 975 mg PO Q6H PRN PRN Reason: Pain, Mild 1-3,fever,headache Last Admin: 08/13/25 09:47 Dose: 975 mg Collagenase (Collagenase Clostridium Hist. 30 Gm Tube) 1 appl TOPICAL DAILY [facility]; Protocol Dextrose (Dextrose 50 % 25 Gm/50 Ml Syringe) 25 gm IVPUSH Q15M PRN; Protocol PRN Reason: per Hypoglycemia Standing Ord. Doxazosin Mesylate (Doxazosin Mesylate 2 Mg Tablet) 2 mg PO DAILY [facility]; Protocol Finasteride (Finasteride 5 Mg Tablet) 5 mg PO DAILY [facility] Folic Acid (Folic Acid 1 Mg Tablet) 1 mg PO DAILY [facility] Last Admin: 08/12/25 08:38 Dose: 1 mg Glucose (Glucose Gel 15 Gm Gel..Gram.) 15 gm PO Q15M PRN; Protocol PRN Reason: per Hypoglycemia Standing Ord. Heparin Sodium (Porcine) (Heparin Sodium,Porcine 5,000 Unit/Ml Vial) 5,000 unit SUBCUT Q12H [facility] Last Admin: 08/12/25 20:25 Dose: 5,000 unit Vancomycin HCl 1,000 mg/ (Sodium Chloride) 270 mls @ 270 mls/hr IV Q24H [facility] Last Infusion: 08/12/25 23:55 Dose: Infused Piperacillin Sod/Tazobactam (Sod 3.375 gm/ Sodium Chloride) 50 mls @ 100 mls/hr IV Q6H [facility] Last Infusion: 08/13/25 05:02 Dose: Infused Lactated Ringer's (Lr) 1,000 mls @ 100 mls/hr IVCONT .Q10H [facility] Stop: 08/13/25 11:14 Last Admin: 08/13/25 03:59 Dose: 100 mls/hr Insulin Human Lispro (Insulin Lispro 100 Unit/Ml 3 Ml Vial) 0 unit SUBCUT QIDACHS [facility]; Protocol Magnesium Hydroxide (Milk Of Magnesia 30 Ml Oral.Susp) 30 ml PO DAILY PRN PRN Reason: Constipation Melatonin (Melatonin 3 Mg Tablet) 6 mg PO BEDTIME PRN PRN Reason: Insomnia Multivitamins/Vitamin C (Multivitamin Tablet) 1 tab PO BEDTIME [facility] Last Admin: 08/12/25 20:25 Dose: 1 tab Nystatin (Nystatin Powder 15 Gm Bottle) 1 appl TOPICAL BID [facility]; Protocol Last Admin: 08/12/25 22:57 Dose: 1 appl Pharmacy Consult (Consult Rx Vancomycin Dosing) 1 each MISCELLANE DAILY PRN PRN Reason: Consult order Polyethylene Glycol (Polyethylene Glycol 3350 17 Gm Powd.Pack) 17 gm PO DAILY [facility] Last Admin: 08/12/25 08:47 Dose: 17 gm Pregabalin (Pregabalin 150 Mg Capsule) 150 mg PO DAILY [facility] Senna/Docusate Sodium (Sennosides/Docusate Sodium Tablet) 2 tab PO BEDTIME [facility] Last Admin: 08/12/25 20:32 Dose: Not Given Sodium Chloride (0.9 % Sodium Chloride Flush 3 Ml Syringe) 3 ml IVFLUSH QSHIFT [facility] Last Admin: 08/12/25 22:59 Dose: 3 ml Thiamine HCl (Thiamine Hcl 100 Mg Tablet) 100 mg PO DAILY [facility] Last Admin: 08/12/25 08:38 Dose: 100 mg Tramadol HCl (Tramadol Hcl 50 Mg Tablet) 25 mg PO Q6H PRN PRN Reason: Pain, Severe (Pain Scale 7-10) Last Admin: 08/13/25 09:47 Dose: 25 mg Vitamin D (Cholecalciferol (Vitamin D3) 10 Mcg Tablet) 10 mcg PO DAILY [facility] Last Admin: 08/12/25 17:10 Dose: 10 mcg Home Medications ?Medication ?Instructions ?Recorded ?Confirmed ?Last Taken ?Type multivitamin 1 tab PO DAILY 01/30/21 08/12/25 Unknown History docusate sodium 100 mg capsule 100 mg PO BID PRN Constipation 08/12/25 08/12/25 Unknown History (Colace) pregabalin 150 mg capsule (Lyrica) 150 mg PO DAILY 08/12/25 08/12/25 Unknown History Physical Exam Vital Signs: Last Vital Signs Temp 97.9 F 08/13/25 07:36 Pulse 74 08/13/25 07:36 Resp 20 08/13/25 07:36 BP 172/76 H 08/13/25 07:36 Pulse Ox 96 08/13/25 07:36 O2 Del Method Room Air 08/13/25 07:36 BMI result Body Mass Index 33.3 Neck Neck: Yes supple Resp Auscultation: clear to auscultation bilaterally Cardio Palpation: no palpable S3 Heart sounds: no rubs GI Palpation (GI): Soft to palpation Auscultation: normal bowel sounds Neuro Motor exam (neuro): no asterixis Results Lab Results 08/12/25 04:31 08/13/25 05:14 Lab results: Chemistry 08/11/25 08/11/25 08/12/25 16:00 16:36 04:31 Sodium 136 140 Potassium 3.5 3.3 Carbon Dioxide 23 24 BUN 59 H 44 H Creatinine 2.47 H 1.42 H Calcium 9.1 9.0 Phosphorus 5.9 H 08/13/25 05:14 Sodium Potassium Carbon Dioxide BUN Creatinine 0.65 Calcium Phosphorus Hematology 08/11/25 08/12/25 16:36 04:31 WBC 14.6 H 11.9 H Hgb 12.1 L 12.2 L Plt Count 256 230 Urinalysis 08/11/25 18:31 Urine Color Dark Yellow Urine Appearance Clear Urine pH 5.5 Ur Specific [place] 1.025 Urine Protein 30 (1+) H Urine Glucose (UA) Negative Urine Ketones Negative Urine Blood Large (3+) H Urine Nitrite Negative Ur Leukocyte Esterase Trace H Urine RBC 11-20 H Urine WBC 0-5 Ur Squamous Epith Cells 0-2 Hyaline Casts 0-2 Assessment and Plan (1) Acute kidney injury: Status: Acute Plan JOSEFA due to tubular injury. Renal function is improving and close to baseline. Keep intake more than output Continue to avoid nephrotoxic agents. No significant proteinuria. Expect renal recovery. Shall follow along with the team Procedures Date of Service Date of Service: 08/13/25
[2025-08-13] MEDS: Cholecalciferol (Vitamin D3) 10 MCG TABLET PO (11:20)
[2025-08-13 11:23] VITALS: BP 168/74
--- NOTE | 2025-08-13 11:36 | MHC.CM.PN ---
pt lives with at home has own transport home pt may need str dc plan tbd
[2025-08-13 11:41] LABS: Glucose, Whole Blood 112 mg/dL (60-115)
--- NOTE | 2025-08-13 13:49 | HO.WOUND ---
Wound Consult: Initial 75 yr old male admitted to [facility] on 08/11/25- See progress notes and H&P for detailed history. Wound consult placed for left posterior thigh wound. Patient agreeable to assessment and photo documentation. Patient seen at bedside with general surgery PA. Patient admitted with cellulitis, rhabdo, in the setting of increased weakness and immobility. Patient reports he was unable to get up at home and was sitting in his kitchen chair for about 1 week prior to presenting to ED. Patient reports sitting in a hard chair and sustained pressure injuries to bilateral posterior thighs. Patient with abrasion to nose - he reports hitting his head on the table and that he also uses cpap at home. Recommend outpatient wound center follow up upon discharge for continued wound healing. Sacrum Etiology: sacrum deep tissue pressure injury Present on Admission Wound Bed: intact maroon/purple nonblanching discoloration - patient with anatomical dimple with serous filled blisters along the edge- patient with evidence of chronic friction and shearing with raised thickened skin and pale pink scar tissue to left upper buttock Drainage / Odor: none Christin wound: ? No Induration, Fluctuance or Warmth noted Pain: none Goals of Treatment: ? foam Left posterior thigh Etiology: unstageable pressure injury Present on Admission Measurements: see assessment Wound Bed: moist yellow slough, moist red Drainage / Odor: scant serosanguineous, no odor Christin wound: ? No Induration, Fluctuance or Warmth noted Pain: yes Goals of Treatment: ? santyl for enzymatic debridment Right posterior thigh - pressure injury related to sitting in chair x1 week Etiology: right pposterior thigh deep tissue pressure injury Present on Admission Wound Bed: intact maroon Drainage / Odor: none Christin wound: ? No Induration, Fluctuance or Warmth noted Goals of Treatment: ? offloading/foam left back Etiology: friction/moisture Wound Bed: cluster of intact serous filled blisters - not over bony prominence - redness is blanching Drainage / Odor: none Christin wound: ? No Induration, Fluctuance or Warmth noted Pain: none Goals of Treatment: ? foam Right posterior leg Right lateral leg Etiology: venous stasis - patient reports past history of wounds to legs with wound center follow up and skin substitute application Wound Bed: posterior leg with scattered superficial open wounds, moist pink bases, dry scaly skin to leg- some scales peeled of easily with gentle cleansing revealing intact skin Drainage / Odor: scant serous no odor Christin wound: ? No Induration, Fluctuance or Warmth noted Pain: none Goals of Treatment: ? xeroform for moist healing Face Etiology: scabs - pressure injury vs abrasion/trauma? - patient reports hitting face on table at home and also reports home cpap use Wound Bed: nose with intact dry brown scab - bilateral cheeks with thin scabbing and dry flaking skin Drainage / Odor: none Christin wound: ? No Induration, Fluctuance or Warmth noted Pain: none Goals of Treatment: ? leave open to air- if using respiratory device, recommend offloading with thin foam Abdominal and groin folds with moist reddened skin- largely intact- antifungal powder in place - appear improved from admission picture. Recommendations: 1. Turn and Reposition every 2 hours and as needed for patient comfort. Use pillows or wedges to support off loading positions. 2. Off Load all bony prominences with use of pillows and heel boots if needed. Apply Preventative foams where needed. 3. Use waffle cushion when up to chair, limit sitting times to 1-2 hours 3. Monitor for incontinence and moisture control, use barrier creams when needed for prevention and treatment. 4. Provide adequate and supplemental nutrition. 5. Order or Continue low air loss mattress. 6. When applicable maintain blood glucose levels per Providers order. Sacrum, right posterior thigh, and left upper back: Off Load Pressure with Q2 hr turns and use of pillows - Routine cleansing. Apply skin prep allow to dry. Cover with foam dressing to aid in off loading and protection from friction. Change every 3 days and PRN. Left posterior thigh: cleanse with saline, apply nickel thick layer of santyl, cover with saline moist gauze and foam or ABD pad and tape, change daily and PRN Right posterior lower leg: cleanse with saline, apply xeroform, cover with ABD pad and kerlix, change daily and PRN Nose: leave open to air - apply thin foam with respiratory device use. Abdomen/groin: gentle routine hygiene and incontinence care with pH balanced cleanser and bath wipes. antifungal medication per provider orders: apply a light dusting to prevent caking. apply triad paste BID and PRN. use disposable pads underneath patient when in chair or bed. use proactive toileting to promote continence. Re-consult wound care Nurse for wound deterioration or wound changes.
[2025-08-13 15:26] VITALS: BMI 33.3
--- NOTE | 2025-08-13 15:28 | MHC.CLN ---
CONSULT PT WITH INCREASED NUTRITION RISK R/T PRESSURE INJURY DIET RX: 2000DM 2GM NA-RECOMMEND 2200DM DIET TO PROMOTE WOUND HEALING RECOMMEND ADDING ENSURE MAX BID TO PROVIDE 300KCALS, 60G PROTEIN MONITOR PO INTAKE AND ENCOURAGE SUPPLEMENTS SEE FULL ASSESSMENT
[2025-08-13 15:32] VITALS: BP 155/68; PULSE 68; RESP 18; TEMP 37.1; O2SAT 95
[2025-08-13] MEDS: 0.9 % Sodium Chloride Flush 3 ML SYRINGE IVFLUSH ×2 (16:51→23:13)
[2025-08-13 17:06] LABS: Glucose, Whole Blood 94 mg/dL (60-115)
[2025-08-13 19:27] VITALS: BP 138/60; PULSE 87; RESP 18; TEMP 37.1; O2SAT 95
[2025-08-13 20:00] LABS: Glucose, Whole Blood 174 mg/dL (60-115)
--- NOTE | 2025-08-13 20:38 | HE.PHANOTE ---
Vancomycin Vancomycin trough 4.4. increasing dose and frequency to 1500 mg q12h x 2 doses and then will get another level. next level 08/14/25 @1900. patients cr significantly improving.
[2025-08-14 03:26] VITALS: BP 134/60; PULSE 70; RESP 18; TEMP 36.8; O2SAT 94
[2025-08-14 07:03] VITALS: BP 138/87; PULSE 72; RESP 17; TEMP 36.8; O2SAT 95
[2025-08-14 07:16] LABS: Creatinine Clr Calc Pharmacy 136.0; Estimated Glomerular Filt Rate > 60
[2025-08-14 07:27] LABS: Glucose, Whole Blood 91 mg/dL (60-115)
[2025-08-14] MEDS: Cholecalciferol (Vitamin D3) 10 MCG TABLET PO (08:36)
[2025-08-14] MEDS: 0.9 % Sodium Chloride Flush 3 ML SYRINGE IVFLUSH ×2 (08:48→17:48)
--- NOTE | 2025-08-14 09:16 | P.PNGS_ITS ---
Subjective Subjective Date of Service: 08/14/25 Interval history: Has been unable to stand due to leg weakness. Physical Exam 2 Vital Signs: Vital Signs: Last Vital Signs Temp 98.3 F 08/14/25 07:03 Pulse 72 08/14/25 07:03 Resp 17 08/14/25 07:03 BP 138/87 08/14/25 07:03 Pulse Ox 95 08/14/25 07:03 O2 Del Method Room Air 08/14/25 07:03 BMI result Body Mass Index 33.3 Const: General: comfortable, no acute distress and alert O rientation/consciousness: patient oriented x3 Resp: Effort & Inspection: normal respiratory effort Skin: Other: warm and dry Neuro: General: patient oriented x3 Extrem: Other: left lower extremity- surrounding erythema improved, wound bed without significant improvement, remains mostly covered in slough Objective Data Active Medications Acetaminophen (Acetaminophen 325 Mg Tablet) 975 mg PO Q6H PRN PRN Reason: Pain, Mild 1-3,fever,headache Last Admin: 08/13/25 23:55 Dose: 975 mg Documented By: DANGELO Collagenase (Collagenase Clostridium Hist. 30 Gm Tube) 1 appl TOPICAL DAILY [facility]; Protocol Last Admin: 08/14/25 08:37 Dose: 1 appl Documented By: TAVIA Dextrose (Dextrose 50 % 25 Gm/50 Ml Syringe) 25 gm IVPUSH Q15M PRN; Protocol PRN Reason: per Hypoglycemia Standing Ord. Doxazosin Mesylate (Doxazosin Mesylate 2 Mg Tablet) 2 mg PO DAILY [facility]; Protocol Last Admin: 08/14/25 08:35 Dose: 2 mg Documented By: TAVIA Finasteride (Finasteride 5 Mg Tablet) 5 mg PO DAILY [facility] Last Admin: 08/14/25 08:36 Dose: 5 mg Documented By: TAVIA Folic Acid (Folic Acid 1 Mg Tablet) 1 mg PO DAILY [facility] Last Admin: 08/14/25 08:41 Dose: 1 mg Documented By: TAVIA Glucose (Glucose Gel 15 Gm Gel..Gram.) 15 gm PO Q15M PRN; Protocol PRN Reason: per Hypoglycemia Standing Ord. Heparin Sodium (Porcine) (Heparin Sodium,Porcine 5,000 Unit/Ml Vial) 5,000 unit SUBCUT Q12H [facility] Last Admin: 08/14/25 08:36 Dose: 5,000 unit Documented By: TAVIA Piperacillin Sod/Tazobactam (Sod 3.375 gm/ Sodium Chloride) 50 mls @ 100 mls/hr IV Q6H [facility] Last Infusion: 08/14/25 05:26 Dose: Infused Documented By: DANGELO Vancomycin HCl 1,500 mg/ (Sodium Chloride) 500 mls @ 333.333 mls/hr IV Q12H [facility] Last Admin: 08/14/25 08:48 Dose: 333.33 mls/hr Documented By: TAVIA Insulin Human Lispro (Insulin Lispro 100 Unit/Ml 3 Ml Vial) 0 unit SUBCUT QIDACHS [facility]; Protocol Last Admin: 08/14/25 07:28 Dose: Not Given Documented By: TAVIA Non-Admin Reason: No Insulin Coverage Magnesium Hydroxide (Milk Of Magnesia 30 Ml Oral.Susp) 30 ml PO DAILY PRN PRN Reason: Constipation Melatonin (Melatonin 3 Mg Tablet) 6 mg PO BEDTIME PRN PRN Reason: Insomnia Multivitamins/Vitamin C (Multivitamin Tablet) 1 tab PO BEDTIME [facility] Last Admin: 08/13/25 21:17 Dose: 1 tab Documented By: DANGELO Nystatin (Nystatin Powder 15 Gm Bottle) 1 appl TOPICAL BID [facility]; Protocol Last Admin: 08/14/25 08:37 Dose: 1 appl Documented By: TAVIA Pharmacy Consult (Consult Rx Vancomycin Dosing) 1 each MISCELLANE DAILY PRN PRN Reason: Consult order Polyethylene Glycol (Polyethylene Glycol 3350 17 Gm Powd.Pack) 17 gm PO DAILY [facility] Last Admin: 08/14/25 08:34 Dose: Not Given Documented By: TAVIA Non-Admin Reason: Patient Refused Pregabalin (Pregabalin 150 Mg Capsule) 150 mg PO DAILY [facility] Last Admin: 08/14/25 08:35 Dose: 150 mg Documented By: TAVIA Senna/Docusate Sodium (Sennosides/Docusate Sodium Tablet) 2 tab PO BEDTIME [facility] Last Admin: 08/13/25 21:17 Dose: 2 tab Documented By: DANGELO Sodium Chloride (0.9 % Sodium Chloride Flush 3 Ml Syringe) 3 ml IVFLUSH QSHIFT [facility] Last Admin: 08/14/25 08:48 Dose: 3 ml Documented By: TAVIA Thiamine HCl (Thiamine Hcl 100 Mg Tablet) 100 mg PO DAILY [facility] Last Admin: 08/14/25 08:36 Dose: 100 mg Documented By: TAVIA Tramadol HCl (Tramadol Hcl 50 Mg Tablet) 25 mg PO Q6H PRN PRN Reason: Pain, Severe (Pain Scale 7-10) Last Admin: 08/14/25 08:36 Dose: 25 mg Documented By: TAVIA Vitamin D (Cholecalciferol (Vitamin D3) 10 Mcg Tablet) 10 mcg PO DAILY [facility] Last Admin: 08/14/25 08:36 Dose: 10 mcg Documented By: TAVIA Labs 08/12/25 04:31 08/14/25 05:55 Labs: Laboratory Results - last 24 hr 08/13/25 08/13/25 08/13/25 05:14 11:37 17:02 Estim Creat Clear Calc Estimated GFR POC Glucose 112 94 Estimat Average Glucose 108 Hemoglobin A1c % 5.4 Random Vancomycin 08/13/25 08/13/25 08/14/25 19:54 19:59 05:55 Estim Creat Clear Calc 136.0 Estimated GFR > 60 POC Glucose 174 H Estimat Average Glucose Hemoglobin A1c % Random Vancomycin 4.4 L 08/14/25 07:21 Estim Creat Clear Calc Estimated GFR POC Glucose 91 Estimat Average Glucose Hemoglobin A1c % Random Vancomycin Microbiology Microbiology Results: Microbiology 08/11/25 16:36 Blood Culture - Preliminary Blood - Venous No growth after 48 hours. 08/11/25 16:36 Blood Culture - Final Blood - Venous Coag negative Staphylococcus Procedures Date of Service Date of Service: 08/14/25 Progress Note: A&P Assessment and plan (1) Cellulitis: Status: Acute Plan Surrounding cellulitis of left lower extremity at posterior thigh pressure ulcer wound has improved, unfortunately no significant improvement in wound bed with santyl. Discussed with front office associateSierra who recommends continuing santyl for now to help loose the thick slough and reassess in a few days. Time Spent With Patient Time: Total time managing care of this patient today ____ minutes. Quality Stroke Does the patient have a stroke diagnosis?: No VTE Prior VTE?: No VTE Risk Level:: Medical - moderate - high VTE Device Contraindication: Treatment Not Indicated VTE Drug Contraindication: N/A - Med Ordered
--- NOTE | 2025-08-14 10:30 | HO.PM.IMPN ---
Subjective Subjective Date of Service: 08/14/25 Interval History: F/U for pt with JOSEFA, rhabdo, and cellulitis in the setting of immobility due to generalized weakness Review of Systems Review of Systems: Yes all other systems are reviewed and are negative Physical Exam Exam: Exam: Appearing in no acute distress head is normocephalic atraumatic eyes pupils are PERRLA sclera is anicteric mouth throat mucous membranes are intact and moist neck is supple no lymphadenopathy, no JVD noted lung sounds are clear to auscultation heart regular rate rhythm, clear S1, S2 positive bowel sounds, abdomen is soft, nontender neuro patient is alert x3, no focal deficits Multiple areas of wounds Sacrum, right posterior thigh, and left upper back: Off Load Pressure with Q2 hr turns and use of pillows - Routine cleansing. Apply skin prep allow to dry. Cover with foam dressing to aid in off loading and protection from friction. Change every 3 days and PRN. Left posterior thigh: cleanse with saline, apply nickel thick layer of santyl, cover with saline moist gauze and foam or ABD pad and tape, change daily and PRN Right posterior lower leg: cleanse with saline, apply xeroform, cover with ABD pad and kerlix, change daily and PRN Nose: leave open to air - apply thin foam with respiratory device use. Abdomen/groin: gentle routine hygiene and incontinence care with pH balanced cleanser and bath wipes. antifungal medication per provider orders: apply a light dusting to prevent caking. apply triad paste BID and PRN. use disposable pads underneath patient when in chair or bed. use proactive toileting to promote continence. Vital Signs: Vital Signs: Last Vital Signs Temp 98.3 F 08/14/25 07:03 Pulse 72 08/14/25 07:03 Resp 17 08/14/25 07:03 BP 138/87 08/14/25 07:03 Pulse Ox 95 08/14/25 07:03 O2 Del Method Room Air 08/14/25 07:03 BMI result Body Mass Index 33.3 Objective Data Active Medications Acetaminophen (Acetaminophen 325 Mg Tablet) 975 mg PO Q6H PRN PRN Reason: Pain, Mild 1-3,fever,headache Last Admin: 08/13/25 23:55 Dose: 975 mg Documented By: DANGELO Collagenase (Collagenase Clostridium Hist. 30 Gm Tube) 1 appl TOPICAL DAILY [facility]; Protocol Last Admin: 08/14/25 08:37 Dose: 1 appl Documented By: TAVIA Dextrose (Dextrose 50 % 25 Gm/50 Ml Syringe) 25 gm IVPUSH Q15M PRN; Protocol PRN Reason: per Hypoglycemia Standing Ord. Doxazosin Mesylate (Doxazosin Mesylate 2 Mg Tablet) 2 mg PO DAILY [facility]; Protocol Last Admin: 08/14/25 08:35 Dose: 2 mg Documented By: TAVIA Finasteride (Finasteride 5 Mg Tablet) 5 mg PO DAILY [facility] Last Admin: 08/14/25 08:36 Dose: 5 mg Documented By: TAVIA Folic Acid (Folic Acid 1 Mg Tablet) 1 mg PO DAILY [facility] Last Admin: 08/14/25 08:41 Dose: 1 mg Documented By: TAVIA Glucose (Glucose Gel 15 Gm Gel..Gram.) 15 gm PO Q15M PRN; Protocol PRN Reason: per Hypoglycemia Standing Ord. Heparin Sodium (Porcine) (Heparin Sodium,Porcine 5,000 Unit/Ml Vial) 5,000 unit SUBCUT Q12H [facility] Last Admin: 08/14/25 08:36 Dose: 5,000 unit Documented By: TAVIA Piperacillin Sod/Tazobactam (Sod 3.375 gm/ Sodium Chloride) 50 mls @ 100 mls/hr IV Q6H [facility] Last Infusion: 08/14/25 05:26 Dose: Infused Documented By: DANGELO Vancomycin HCl 1,500 mg/ (Sodium Chloride) 500 mls @ 333.333 mls/hr IV Q12H [facility] Last Admin: 08/14/25 08:48 Dose: 333.33 mls/hr Documented By: TAVIA Insulin Human Lispro (Insulin Lispro 100 Unit/Ml 3 Ml Vial) 0 unit SUBCUT QIDACHS [facility]; Protocol Last Admin: 08/14/25 07:28 Dose: Not Given Documented By: TAVIA Non-Admin Reason: No Insulin Coverage Magnesium Hydroxide (Milk Of Magnesia 30 Ml Oral.Susp) 30 ml PO DAILY PRN PRN Reason: Constipation Melatonin (Melatonin 3 Mg Tablet) 6 mg PO BEDTIME PRN PRN Reason: Insomnia Multivitamins/Vitamin C (Multivitamin Tablet) 1 tab PO BEDTIME [facility] Last Admin: 08/13/25 21:17 Dose: 1 tab Documented By: DANGELO Nystatin (Nystatin Powder 15 Gm Bottle) 1 appl TOPICAL BID [facility]; Protocol Last Admin: 08/14/25 08:37 Dose: 1 appl Documented By: TAVIA Pharmacy Consult (Consult Rx Vancomycin Dosing) 1 each MISCELLANE DAILY PRN PRN Reason: Consult order Polyethylene Glycol (Polyethylene Glycol 3350 17 Gm Powd.Pack) 17 gm PO DAILY [facility] Last Admin: 08/14/25 08:34 Dose: Not Given Documented By: TAVIA Non-Admin Reason: Patient Refused Pregabalin (Pregabalin 150 Mg Capsule) 150 mg PO DAILY [facility] Last Admin: 08/14/25 08:35 Dose: 150 mg Documented By: TAVIA Senna/Docusate Sodium (Sennosides/Docusate Sodium Tablet) 2 tab PO BEDTIME [facility] Last Admin: 08/13/25 21:17 Dose: 2 tab Documented By: DANGELO Sodium Chloride (0.9 % Sodium Chloride Flush 3 Ml Syringe) 3 ml IVFLUSH QSHIFT [facility] Last Admin: 08/14/25 08:48 Dose: 3 ml Documented By: TAVIA Thiamine HCl (Thiamine Hcl 100 Mg Tablet) 100 mg PO DAILY [facility] Last Admin: 08/14/25 08:36 Dose: 100 mg Documented By: TAVIA Tramadol HCl (Tramadol Hcl 50 Mg Tablet) 25 mg PO Q6H PRN PRN Reason: Pain, Severe (Pain Scale 7-10) Last Admin: 08/14/25 08:36 Dose: 25 mg Documented By: TAVIA Vitamin D (Cholecalciferol (Vitamin D3) 10 Mcg Tablet) 10 mcg PO DAILY [facility] Last Admin: 08/14/25 08:36 Dose: 10 mcg Documented By: TAVIA Labs 08/12/25 04:31 08/14/25 05:55 Labs: Laboratory Results - last 24 hr 08/13/25 08/13/25 08/13/25 11:37 17:02 19:54 Estim Creat Clear Calc Estimated GFR POC Glucose 112 94 174 H Random Vancomycin 08/13/25 08/14/25 08/14/25 19:59 05:55 07:21 Estim Creat Clear Calc 136.0 Estimated GFR > 60 POC Glucose 91 Random Vancomycin 4.4 L Microbiology Microbiology Results: Microbiology 08/11/25 16:36 Blood Culture - Preliminary Blood - Venous No growth after 48 hours. 08/11/25 16:36 Blood Culture - Final Blood - Venous Coag negative Staphylococcus Assessment and Plan (1) Acute kidney injury: Status: Acute (2) Rhabdomyolysis: Status: Acute Plan Year old man admitted with JOSEFA secondary to rhabdomyolysis due to immobilization JOSEFA due to rhabdomyolysis due to immobilization and urinary retention. Resolved Creatinine normalized Continue IVF Avoid nephrotoxic agents Nephrology consult pending Acute urinary retention In the setting of the underlying BPH Indwelling urinary catheter inserted in the ED Continue finasteride Urology consulted, maintain Hernandes catheter x4 weeks; outpatient follow up for voiding trial Scrotal and left posterior thigh cellulitis associated with large pressure ulceration Continue empiric IV antibiotic therapy with Zosyn and vancomycin General surgery consulted, no acute surgical intervention necessary at this time Protect area with gauze dressing Coag negative bacteremia 1/2 BCx Elevated LFTs including bilirubin likely multifactorial Secondary to rhabdomyolysis and liver cirrhosis noted on CT scan. Chronic back pain/lower extremities weakness likely associated to spinal stenosis. Fall precautions. PT consult. Low Vitamin D added supplement Possible small pericaridal effusion on CT Check TTE Bilateral lower extremities edema. neg venous ultrasound. Americo wraps elevate Type 2 diabetes mellitus. Hold metformin due to JOSEFA. BG checks before meals at bedtime. Insulin sliding scale. Diabetic diet. check A1c Essential hypertension. Lisinopril on hold due to JOSEFA. Continue amlodipine. History of peripheral neuropathy/post herpetic neuralgia. Continue Lyrica. CHELSEY. Nocturnal CPAP. Marked constipation. bowel reg Code status: Full DVT prophylaxis: Heparin Quality Stroke Does the patient have a stroke diagnosis?: No VTE Prior VTE?: No VTE Risk Level:: Medical - moderate - high VTE Device Contraindication: Treatment Not Indicated VTE Drug Contraindication: N/A - Med Ordered
[2025-08-14 11:05] LABS: Glucose, Whole Blood 144 mg/dL (60-115)
[2025-08-14 15:59] VITALS: BP 146/67; PULSE 70; RESP 18; TEMP 36.6; O2SAT 95
[2025-08-14 16:18] LABS: Glucose, Whole Blood 114 mg/dL (60-115)
[2025-08-14 19:12] VITALS: BP 151/72; PULSE 69; RESP 14; TEMP 36.8; O2SAT 95
[2025-08-14 19:27] LABS: Glucose, Whole Blood 145 mg/dL (60-115)
--- NOTE | 2025-08-14 23:30 | PC.RT ---
Pt was asked if he wanted to be placed on overnight CPAP. Pt refused.
[2025-08-15 04:00] VITALS: BP 162/72; PULSE 62; RESP 18; TEMP 36.6; O2SAT 94
[2025-08-15 06:40] LABS: Creatinine Clr Calc Pharmacy 133.7; Estimated Glomerular Filt Rate > 60
[2025-08-15 07:05] VITALS: BP 152/74; PULSE 68; RESP 16; TEMP 36.6; O2SAT 96
[2025-08-15 07:17] LABS: Glucose, Whole Blood 105 mg/dL (60-115)
[2025-08-15] MEDS: Cholecalciferol (Vitamin D3) 10 MCG TABLET PO (07:44)
[2025-08-15] MEDS: 0.9 % Sodium Chloride Flush 3 ML SYRINGE IVFLUSH (07:46)
--- NOTE | 2025-08-15 09:36 | MHC.CM.PN ---
pt being dcd today at 2 [facility]
--- NOTE | 2025-08-15 10:01 | PM.DS ---
DS: Providers Provider Date of admission: 08/11/25 20:01 Date of discharge: 08/15/25 Primary care physician: Alec Manzo PA-C Consults: 08/11/25 20:05 Consult to General Surgery Routine Consulting Provider: [facility] Reason for consultation: Left thigh necrotic ulcer Has provider been notified: No 08/11/25 20:20 Consult to Urology Routine Consulting Provider: [facility] Reason for consultation: Urinary retention, scrotum cellulitis Has provider been notified: No 08/11/25 20:25 Consult to Nephrology Routine Consulting Provider: [facility] Reason for consultation: JOSEFA, rhabdomyolysis Has provider been notified: No 08/11/25 20:39 Consult to Wound Care Routine Consulting Provider: [facility] Wound Care Management Reason for consultation: Left thigh decubitus necrotic ulcer DS: Diagnosis Discharge Diagnosis (1) Acute kidney injury: Status: Acute (2) Rhabdomyolysis: Status: Acute DS: Summary Hospital Course Hospital Course: Thony Martinez is a very pleasant 75 years old man with past medical history significant for type 2 diabetes on metformin, essential hypertension on lisinopril, BPH, CHELSEY on CPAP and peripheral neuropathy presents to the emergency complaining of bilateral leg weakness and inability to walk well due to weakness. He denied any trauma or falls. He mentioned that since Wednesday he has been sitting in his couch. He also complained of constipation. He denied numbness to the lower extremities. He denied any headache, palpitations, dizziness, chest pain, shortness on breath, cough, nausea, vomiting, diarrhea, fever or chills. He complained of chronic back pain. He does not recall the name of his medications except for Lyrica that he has been taking since he was diagnosed with zoster several years ago. He did not report alcohol abuse, tobacco smoking or illicit drug use. He does not take diuretics. In the ED, he was found to have stable vital signs. Blood workup showed leukocytosis of 14.6. Hemoglobin is 12.1 and platelets 256. BUN is 59 and creatinine 2.45 (this were normal in March of this year). There are no electrolyte imbalances and there is no acidosis. His LFTs are elevated and total CK at 1463. Lipase, albumin and total protein are normal. Urinalysis showed proteinuria 1+, blood 3+, leukocyte esterase trace, RBC 11-20, WBC 0-5 and bacteria none seen. Viral testing for COVID-19, influenza and RSV is negative. CXR showed mild bibasilar atelectasis. Abdominal pelvis CT scan without IV contrast showed bilateral hydroceles with fluid of the scrotum concerning for cellulitis given the reported story, severe stool burden with severe distention of the rectum and distention of the bladder. It also showed chronic appearing osseous deformities likely due to lumbar spinal stenosis with including foraminal narrowing. Chest CT scan showed mild bibasilar atelectasis, mild cardiomegaly and small pericardial effusion. Facial bones CT scan showed bilateral nasal bone fracture appeared to be old and possible findings consistent with sinusitis. Head CT scan showed no acute intracranial and C-spine CT scan showed no fractures or dislocations. ECG showed normal sinus rhythm with 1st AV block., low voltage is normal and no obvious ischemic changes. ED tx: NS 1 L bolus, Zosyn 4.5 mg IV, vancomycin 2 g IV. Bicarb drip started. 75-year-old man treated for JOSEFA secondary to rhabdomyolysis due to immobilization and urinary retention. Patient was treated with IV fluids and seen by Nephrology. Retention. Likely secondary to underlying BPH. Indwelling Hernandes catheter placed. Seen by Urology with recommendation to keep Hernandes for 4 weeks and follow up in office for outpatient voiding trial Scrotal and left posterior thigh cellulitis. Treated with empiric IV Zosyn and vancomycin. Seen by General surgery with no recommendation for surgical intervention Elevated LFTs likely secondary to rhabdomyolysis Chronic back pain/lower extremities weakness secondary to spinal stenosis. Seen evaluated by PT recommended short-term rehab. Vitamin-D supplement added Bilateral lower extremities edema. neg venous ultrasound. Elevate extremities Type 2 diabetes mellitus. Treated with sliding scale, continue home medications. A1c 5.4 Essential hypertension. Initially lisinopril was held due to JOSEFA but continue on discharge along with amlodipine. History of peripheral neuropathy/post herpetic neuralgia. Continue Lyrica. CHELSEY. Nocturnal CPAP. Marked constipation. Continue bowel reg Time Attestation Discharge Coordination Time (in mins): 45 Quality: Safe Use of Opioids Does Pt have an Active Cancer Diagnosis on the Problem List?: No Quality: Stroke Does the patient have a stroke diagnosis?: No Physical Exam Exam: Exam: Appearing in no acute distress head is normocephalic atraumatic eyes pupils are PERRLA sclera is anicteric mouth throat mucous membranes are intact and moist neck is supple no lymphadenopathy, no JVD noted lung sounds are clear to auscultation heart regular rate rhythm, clear S1, S2 positive bowel sounds, abdomen is soft, nontender neuro patient is alert x3, no focal deficits Vital Signs: Vital Signs: Last Vital Signs Temp 98 F 08/15/25 07:05 Pulse 68 08/15/25 07:05 Resp 16 08/15/25 07:05 BP 152/74 H 08/15/25 07:05 Pulse Ox 96 08/15/25 07:05 O2 Del Method Room Air 08/15/25 07:05 BMI result Body Mass Index 33.3 DS: Data Data Completed and Pending Labs on day of discharge: Laboratory Results - last 24 hr 08/14/25 08/14/25 08/14/25 10:59 16:15 19:15 Creatinine Estim Creat Clear Calc Estimated GFR POC Glucose 144 H 114 Vancomycin Trough 12.4 08/14/25 08/15/25 08/15/25 19:22 05:30 07:13 Creatinine 0.58 Estim Creat Clear Calc 133.7 Estimated GFR > 60 POC Glucose 145 H 105 Vancomycin Trough Preliminary micro results at discharge 08/11/25 16:36 Blood Culture - Preliminary Blood - Venous No growth after 48 hours. Discharge Plan Discharge Anticipated Discharge Date/Time: 08/15/25 09:57 Patient Disposition: Xfer [facility] Discharge Diagnosis: JOSEFA Rhabdomyolysis Urinary retention Scrotal cellulitis Posterior thigh cellulitis Transaminitis Referrals: hal cowan [Other] - 1 Week [facility] Wound Care [Outside] - 1 Week Alec Mnazo PA-C [Primary Care Provider, Internal Medicine] - 1 Week Discharge Medications: New Santyl 250 unit/gram Ointment 1 appl topical DAILY Qty: 15 0RF Protocol: Apply to: Apply to: left posterior thigh doxycycline hyclate 100 mg tablet 100 mg PO BID Qty: 14 0RF Continued metformin 500 mg tablet extended release 24 hr 500 mg PO DAILY Qty: 90 2RF finasteride 5 mg tablet 5 mg PO DAILY Qty: 30 3RF doxazosin [Cardura] 2 mg tablet 2 mg PO DAILY 30 Days Qty: 30 2RF docusate sodium [Colace] 100 mg capsule 100 mg PO BID PRN (Reason: Constipation) pregabalin [Lyrica] 150 mg capsule 150 mg PO DAILY multivitamin Tablet 1 tab PO DAILY lisinopril 30 mg tablet 30 mg PO DAILY 90 Days Qty: 90 2RF tramadol 50 mg tablet 50 mg PO Q6H 30 Days Qty: 120 3RF amlodipine 5 mg tablet 5 mg PO DAILY Qty: 90 8RF Discharge Orders: Discharge Order (Routine); Ordered 08/15/25 Ordered By: Martina Mancilla Diet: Advance to usual diet Activity on Discharge: As tolerated Stand Alone Forms: Patient Portal Discharge page Print Language: Macedonian Activity Restrictions/Additional Instructions: Wound care recommendations upon discharge: Sacrum, right posterior thigh, and left upper back: Off Load Pressure with Q2 hr turns and use of pillows - Routine cleansing. Apply skin prep allow to dry. Cover with foam dressing to aid in off loading and protection from friction. Change every 3 days and PRN. Left posterior thigh: cleanse with saline, apply nickel thick layer of santyl, cover with saline moist gauze and foam or ABD pad and tape, change daily and PRN Right posterior lower leg: cleanse with saline, apply xeroform, cover with ABD pad and kerlix, change every other day and PRN Care Plan Goals: Complete course of antibiotics Follow up wound care instructions Health Concerns: JOSEFA Rhabdomyolysis Urinary retention Scrotal cellulitis Posterior thigh cellulitis Transaminitis Plan of Treatment: Follow up with primary care provider as needed Take all medications as prescribed Assessment: See discharge summary
[2025-08-15 11:07] LABS: Glucose, Whole Blood 115 mg/dL (60-115)
[2025-08-15 14:05] VITALS: BP 155/69; PULSE 59; RESP 17; TEMP 36.6; O2SAT 97
== END 2025-08-15 14:45 | disposition skilled nursing facility (03) | DRG 300 ==
LOC: HO.ED 16:35 → HO.EDOVER 20:09 → HO.S3 08-12 15:35
PROVIDERS: Student in an Organized Health Care Education/Training Program; Admitting Provider Internal Medicine; Emergency Provider Emergency Medicine Emergency Medical Services; PCP Physician Assistant; Visit Provider Nurse Practitioner Acute Care
DX: I96 Gangrene, not elsewhere classified (principal); B02.29 Other postherpetic nervous system involvement; I31.39 Other pericardial effusion (noninflammatory); L03.116 Cellulitis of left lower limb; M62.82 Rhabdomyolysis; N17.9 Acute kidney failure, unspecified; E11.42 Type 2 diabetes mellitus with diabetic polyneuropathy; I10 Essential (primary) hypertension; K59.00 Constipation, unspecified; L89.890 Pressure ulcer of other site, unstageable; N40.1 Benign prostatic hyperplasia with lower urinary tract symptoms; K74.60 Unspecified cirrhosis of liver; G47.33 Obstructive sleep apnea (adult) (pediatric); R33.8 Other retention of urine; Z20.822 Contact with and (suspected) exposure to COVID-19; Z87.891 Personal history of nicotine dependence; Z79.84 Long term (current) use of oral hypoglycemic drugs; Z79.899 Other long term (current) drug therapy
CPT/HCPCS: 36415; 70450; 70486; 71045; 71250; 72125; 74176; 76705; 80048; 80076; 80202; 81001; 82306; 82550; 82565; 82803; 82947; 83036; 83605; 83690; 83735; 84100; 84484; 85025; 87040; 87147; 87205; 87637; 93005; 93306; 93970; 94660; 97110; 97162; 97167; 97530; 99285; J1644; J2543; J3373; J3374; J7120; Q9957

== ENCOUNTER → 2025-08-11 16:04 | Outpatient (BNV) | payer MEDICARE, SELFPAY | PROVIDERS: Emergency Provider Emergency Medicine Emergency Medical Services; PCP Physician Assistant; Visit Provider Radiology Neuroradiology | DX: N43.3 Hydrocele, unspecified (principal); K62.89 Other specified diseases of anus and rectum; J90 Pleural effusion, not elsewhere classified; I51.7 Cardiomegaly; I25.84 Coronary atherosclerosis due to calcified coronary lesion; S02.2XXA Fracture of nasal bones, initial encounter for closed fracture; Z04.3 Encounter for examination and observation following other accident; R41.82 Altered mental status, unspecified; J98.11 Atelectasis | CPT/HCPCS: 70450; 70486; 71045; 71250; 72125; 74176 ==

== ENCOUNTER → 2025-08-11 16:10 | Outpatient (BNV) | payer MEDICARE, SELFPAY | PROVIDERS: Admitting Provider Internal Medicine; Emergency Provider Emergency Medicine Emergency Medical Services; PCP Physician Assistant; Visit Provider Internal Medicine Cardiovascular Disease | DX: I44.0 Atrioventricular block, first degree (principal) | CPT/HCPCS: 93010 ==

== ENCOUNTER 2025-08-11 20:01 | Outpatient (BNV) | payer MEDICARE, SELFPAY | END 2025-08-12 07:52 | PROVIDERS: Admitting Provider Internal Medicine; Emergency Provider Emergency Medicine Emergency Medical Services; PCP Physician Assistant; Visit Provider Specialist | DX: K76.0 Fatty (change of) liver, not elsewhere classified (principal) | CPT/HCPCS: 76705 ==

== ENCOUNTER 2025-08-11 20:01 | Outpatient (BNV) | payer MEDICARE, SELFPAY | END 2025-08-13 07:00 | PROVIDERS: Admitting Provider Internal Medicine; Emergency Provider Emergency Medicine Emergency Medical Services; PCP Physician Assistant; Visit Provider Internal Medicine Cardiovascular Disease | DX: I35.0 Nonrheumatic aortic (valve) stenosis (principal); I51.7 Cardiomegaly | CPT/HCPCS: 93306 ==

== ENCOUNTER → 2025-08-11 20:01 | Outpatient (BNV) | payer MEDICARE, SELFPAY | PROVIDERS: Admitting Provider Internal Medicine; Emergency Provider Emergency Medicine Emergency Medical Services; PCP Physician Assistant; Visit Provider Internal Medicine | DX: N17.9 Acute kidney failure, unspecified (principal); L97.123 Non-pressure chronic ulcer of left thigh with necrosis of muscle; T79.6XXA Traumatic ischemia of muscle, initial encounter; L03.116 Cellulitis of left lower limb; L03.314 Cellulitis of groin | CPT/HCPCS: 99222; 99233 ==

== ENCOUNTER → 2025-08-11 20:01 | Outpatient (BNV) | payer MEDICARE, SELFPAY | PROVIDERS: Admitting Provider Internal Medicine; Emergency Provider Emergency Medicine Emergency Medical Services; PCP Physician Assistant; Visit Provider Surgery | DX: L03.90 Cellulitis, unspecified (principal) | CPT/HCPCS: 99232 ==

== ENCOUNTER → 2025-08-11 20:01 | Outpatient (BNV) | payer MEDICARE, SELFPAY | PROVIDERS: Admitting Provider Internal Medicine; Emergency Provider Emergency Medicine Emergency Medical Services; PCP Physician Assistant; Visit Provider Internal Medicine Hypertension Specialist | DX: N17.9 Acute kidney failure, unspecified (principal) | CPT/HCPCS: 99223 ==

== ENCOUNTER → 2025-08-11 20:01 | Outpatient (BNV) | payer MEDICARE, SELFPAY | PROVIDERS: Admitting Provider Internal Medicine; Emergency Provider Emergency Medicine Emergency Medical Services; PCP Physician Assistant; Visit Provider Urology | DX: N40.1 Benign prostatic hyperplasia with lower urinary tract symptoms (principal); R39.14 Feeling of incomplete bladder emptying; N17.9 Acute kidney failure, unspecified | CPT/HCPCS: 99222 ==